=== PATIENT | male | born 1955 | race Caucasian/White ===

== ENCOUNTER 2017-08-03 13:23 | Inpatient (IN) | payer MEDICARE, MEDICAID ==
[2017-08-03] MEDS ORDERED: Aspirin 81 mg CHEW TAB* 81 MG TAB.CHEW PO ONE (13:49)
[2017-08-03] MEDS ORDERED: Metoprolol Tartrate TAB* 25 MG PO ONE (13:52)
[2017-08-03 14:15] LABS: ABS Basophils 0 10^3/ul (0-0.2); ABS Eosinophils 0.2 10^3/ul (0-0.6); ABS Lymphocytes 1.8 10^3/ul (1.0-4.8); ABS Monocytes 0.7 10^3/ul (0-0.8); ABS Neutrophils 4.4 10^3/ul (1.5-7.7); ABS Nucleated RBC 0 10^3/ul; Eosinophil % 2.7 % (0-6); Hematocrit 40 % (42-52); Hemoglobin 13.3 g/dl (14.0-18.0); Lymphocyte % 25.1 % (25-47); Mean Corpuscular HGB Conc 34 g/dl (31-36); Mean Corpuscular Hemoglobin 31 pg (27-31); Mean Corpuscular Volume 93 fL (80-94); Mean Platelet Volume 7.5 um3 (7.4-10.4); Nucleated Red Blood Cells % 0.1; Platelet Count 307 10^3/ul (150-450); Red Blood Count 4.26 10^6/ul (4.00-5.40); Red Cell Distribution Width 15 % (10.5-15); White Blood Count 7.2 10^3/ul (3.5-10.8)
[2017-08-03 14:34] LABS: INR 1.02 (0.77-1.02)
--- NOTE | 2017-08-03 14:35 | RAD ---
INDICATION: Chest pain COMPARISON: April 04, 2014 TECHNIQUE: An AP portable view obtained at 1420 hours is submitted. FINDINGS: Bones/Soft Tissues: There are no acute bony findings. There is sternotomy Cardiomediastinal: The cardiomediastinal silhouette is normal. Lungs: There is minimal right basilar scarring. The lung rincon are otherwise clear. Pleura: There is blunting of the right costophrenic angle which could represent a small amount of pleural fluid or be related to chronic change Other: None IMPRESSION: POSTOPERATIVE CHANGE. NO ACTIVE DISEASE OF THE CHEST
[2017-08-03 14:45] LABS: EGFR Non-African American 59.1 (>60)
[2017-08-03] MEDS ORDERED: Heparin VIAL(*) 5000 UNITS/ML VIAL (FIVE THOUSAND) IV PRN (14:53)
[2017-08-03] MEDS ORDERED: Heparin DRIP 25,000 UNITS(*) 25,000 UNITS/500 ML BAG ONE (14:59)
[2017-08-03] MEDS ORDERED: Heparin DRIP 25,000 UNITS(*) 25,000 UNITS/500 ML BAG IV SCH (15:00)
--- NOTE | 2017-08-03 15:52 | ED ---
Marychuy Cade Tenzin, scribed for Pedro Hernandez on 08/03/17 at 1347 . HPI Chest Pain - HPI Summary HPI Summary: Pt is a 61 years old male BIBA with complaints of intermittent chest pain for the past two weeks but reports that he experienced a strong onset of chest pain this morning. Pt was with his family changing tires during the onset. Pt is also complaining of nausea and SOB upon walking. He notes that he is an ex smoker. Pt reported that he took 2x ASA today. Pt was given Nitro and 2 more ASA in the EMS. Pt reported that the chest pain and nausea resolved after having the Nitro in the ED today. Pt had his stress test done last year. - History of Current Complaint Chief Complaint: EDChestPainROMI Time Seen by Provider: 08/03/17 13:33 Hx Obtained From: Patient Timing: Intermittent Pain Intensity: 0 Chest Pain Location: Discrete at: - chest. Chest Pain Radiates: No Aggravating Factor(s): Nothing Alleviating Factor(s): Nothing Associated Signs and Symptoms: Positive: Shortness of Breath, Nausea - Allergy/Home Medications Allergies/Adverse Reactions: Allergies Allergy/AdvReac Type Severity Reaction Status Date / Time piperacillin [From Zosyn] Allergy Hives Verified 08/03/17 13:35 tazobactam [From Zosyn] Allergy Hives Verified 08/03/17 13:35 Home Medications: Home Medications Aspirin EC TAB* [Ecotrin EC Low Dose 81 MG*] 81 mg PO DAILY 08/03/17 [History Confirmed 08/03/17] Carvedilol TAB* [Coreg TAB*] 3.125 mg PO BID 08/03/17 [History Confirmed ] Insulin GLARGINE(*) [Lantus(*)] 15 units SUBCUT QPM 08/03/17 [History Confirmed 08/03/17] Magnesium Oxide [Magnesium] 500 mg PO DAILY 08/03/17 [History Confirmed 08/03/17 ] Sertraline* [Zoloft*] 100 mg PO DAILY 08/03/17 [History Confirmed 08/03/17] glipiZIDE TAB* [Glucotrol TAB*] 5 mg PO BID 08/03/17 [History Confirmed 08/03/17 ] metFORMIN* [Glucophage 1000 MG TAB *] 1,000 mg PO BID 08/03/17 [History Confirmed 08/03/17] PMH/Surg Hx/FS Hx/Imm Hx Cardiovascular History: Reports: Hx Hypertension, Other Cardiovascular Problems/ Disorders - DMII Respiratory History: Reports: Hx Chronic Obstructive Pulmonary Disease (COPD) GI History: Reports: Other GI Disorders - gasteroperesis History: Denies: Hx Chronic Renal Failure Musculoskeletal History: Reports: Other Musculoskeletal History - osteomylitis of left leg and foot Sensory History: Reports: Hx Contacts or Glasses Opthamlomology History: Reports: Hx Contacts or Glasses Infectious Disease History: No Infectious Disease History: Denies: Traveled Outside the [place] in Last 30 Days - Family History Known Family History: Positive: Other - Pt denies any relevant family history. 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 Positive: Nausea All Other Systems Reviewed And Are Negative: Yes Physical Exam - Summary Physical Exam Summary: Appearance: Well appearing, no pain distress Skin: warm, dry, reflects adequate perfusion Head/face: normal Eyes: EOMI, DANNY ENT: normal Neck: supple, non-tender Respiratory: CTA, breath sounds present Cardiovascular: RRR, pulses symmetrical Abdomen: non-tender, soft Bowel: present Musculoskeletal: normal, strength/ROM intact Neuro: normal, sensory motor intact, A&Ox3 Triage Information Reviewed: Yes Vital Signs On Initial Exam: Initial Vitals Temp Pulse Resp BP Pulse Ox 97.7 F 83 20 140/73 100 08/03/17 13:31 08/03/17 13:31 08/03/17 13:31 08/03/17 13:31 08/03/17 13:31 Vital Signs Reviewed: Yes Diagnostics - Vital Signs Vital Signs Temp Pulse Resp BP Pulse Ox 08/03/17 13:31 97.7 F 83 20 140/73 100 - Laboratory Lab Results: Lab Results 08/03/17 08/03/17 08/03/17 Range/Units 14:05 14:05 14:05 WBC 7.2 (3.5-10.8) 10^3/ul RBC 4.26 (4.00-5.40) 10^6/ul Hgb 13.3 L (14.0-18.0) g/dl Hct 40 L (42-52) % MCV 93 (80-94) fL MCH 31 (27-31) pg MCHC 34 (31-36) g/dl RDW 15 (10.5-15) % Plt Count 307 (150-450) 10^3/ul MPV 7.5 (7.4-10.4) um3 Neut % (Auto) 61.8 (38-83) % Lymph % (Auto) 25.1 (25-47) % Bladen % (Auto) 10.0 H (0-7) % Eos % (Auto) 2.7 (0-6) % Baso % (Auto) 0.4 (0-2) % Absolute Neuts (auto) 4.4 (1.5-7.7) 10^3/ul Absolute Lymphs (auto) 1.8 (1.0-4.8) 10^3/ul Absolute Monos (auto) 0.7 (0-0.8) 10^3/ul Absolute Eos (auto) 0.2 (0-0.6) 10^3/ul Absolute Basos (auto) 0 (0-0.2) 10^3/ul Absolute Nucleated RBC 0 10^3/ul Nucleated RBC % 0.1 INR (Anticoag Therapy) 1.02 (0.77-1.02) APTT 31.4 (26.0-36.3) seconds Sodium 137 (135-145) mmol/L Potassium 4.7 (3.5-5.0) mmol/L Chloride 104 (101-111) mmol/L Carbon Dioxide 25 (22-32) mmol/L Anion Gap 8 (2-11) mmol/L BUN 25 H (6-24) mg/dL Creatinine 1.25 H (0.67-1.17) mg/dL Est GFR ( Amer) 71.5 (>60) Est GFR (Non-Af Amer) 59.1 (>60) BUN/Creatinine Ratio 20.0 (8-20) Glucose 92 (70-100) mg/dL Calcium 9.1 (8.6-10.3) mg/dL Magnesium 1.6 L (1.9-2.7) mg/dL Total Bilirubin 0.70 (0.2-1.0) mg/dL AST 29 (13-39) U/L ALT 38 (7-52) U/L Alkaline Phosphatase 85 (34-104) U/L Troponin I 0.11 H* (<0.04) ng/mL B-Natriuretic Peptide ( - 100) pg/mL Total Protein 6.9 (6.4-8.9) g/dL Albumin 3.9 (3.2-5.2) g/dL Globulin 3.0 (2-4) g/dL Albumin/Globulin Ratio 1.3 (1-3) 06/25/18 Range/Units 14:05 WBC (3.5-10.8) 10^3/ul RBC (4.00-5.40) 10^6/ul Hgb (14.0-18.0) g/dl Hct (42-52) % MCV (80-94) fL MCH (27-31) pg MCHC (31-36) g/dl RDW (10.5-15) % Plt Count (150-450) 10^3/ul MPV (7.4-10.4) um3 Neut % (Auto) (38-83) % Lymph % (Auto) (25-47) % Bladen % (Auto) (0-7) % Eos % (Auto) (0-6) % Baso % (Auto) (0-2) % Absolute Neuts (auto) (1.5-7.7) 10^3/ul Absolute Lymphs (auto) (1.0-4.8) 10^3/ul Absolute Monos (auto) (0-0.8) 10^3/ul Absolute Eos (auto) (0-0.6) 10^3/ul Absolute Basos (auto) (0-0.2) 10^3/ul Absolute Nucleated RBC 10^3/ul Nucleated RBC % INR (Anticoag Therapy) (0.77-1.02) APTT (26.0-36.3) seconds Sodium (135-145) mmol/L Potassium (3.5-5.0) mmol/L Chloride (101-111) mmol/L Carbon Dioxide (22-32) mmol/L Anion Gap (2-11) mmol/L BUN (6-24) mg/dL Creatinine (0.67-1.17) mg/dL Est GFR ( Amer) (>60) Est GFR (Non-Af Amer) (>60) BUN/Creatinine Ratio (8-20) Glucose (70-100) mg/dL Calcium (8.6-10.3) mg/dL Magnesium (1.9-2.7) mg/dL Total Bilirubin (0.2-1.0) mg/dL AST (13-39) U/L ALT (7-52) U/L Alkaline Phosphatase (34-104) U/L Troponin I (<0.04) ng/mL B-Natriuretic Peptide 202 H ( - 100) pg/mL Total Protein (6.4-8.9) g/dL Albumin (3.2-5.2) g/dL Globulin (2-4) g/dL Albumin/Globulin Ratio (1-3) Result Diagrams: 08/03/17 14:05 08/03/17 14:05 Lab Statement: Any lab studies that have been ordered have been reviewed, and results considered in the medical decision making process. - Radiology CHEST X RAY Radiology Interpretation Completed By: Radiologist - IMPRESSION: POSTOPERATIVE CHANGE. NO ACTIVE DISEASE OF THE CHEST - EKG 13:32 Cardiac Rate: NL - at 78 BPM EKG Interpretation: RBBB Chest Pain Course/Dx - Course Course Of Treatment: Pt is a 61 years old male BIBA with complaints of intermittent chest pain for the past two weeks but reports that he experienced a strong onset of chest pain this morning. Pt was given 2X ASA and Nitro by EMS staff and pt reported that the chest pain and nauseousness is gone at the ED currently. EKG and CHEST X RAY is obtained. Bloodwork is obtained which showed troponin positive for non stemi. Consulted with Psychotherapist Dr. Smith and Hospitalist. [place] [facility] [place] - Diagnoses Provider Diagnoses: Non-STEMI (non-ST elevated myocardial infarction) - Provider Notifications Discussed Care Of Patient With: Samson Smith Time Discussed With Above Provider: 14:30 - consulted with Dr. Smith. Instructed by Provider To: Will See In ED - Critical Care Time Critical Care Time: 30-74 min Discharge - Sign-Out/Discharge Documenting (check all that apply): Discharge/Admit/Transfer - Admit - Discharge Plan Condition: Stable Disposition: ADMITTED TO [facility] Referrals: Sopchak,Pantera, DO [Primary Care Provider] - - Billing Disposition and Condition Condition: STABLE Disposition: Admitted to [facility] The documentation as recorded by the Marychuy guy Tenzin accurately reflects the service I personally performed and the decisions made by , Pedro Hernandez.
[2017-08-03] MEDS ORDERED: Dextrose 50% Syringe 50 ML* 25 GM/50 ML SYRINGE IV PUSH PRN (16:11)
[2017-08-03] MEDS ORDERED: Acetaminophen TAB* 325 MG PO PRN (16:12)
[2017-08-03] MEDS ORDERED: NS 0.9% 1000 ML* 1,000 ML IV SCH (16:15)
[2017-08-03] MEDS ORDERED: nitroGLYCERIN DRIP* 25,000 MCG/250 ML BTL IV SCH (17:00)
[2017-08-03] MEDS: Insulin LISPRO* 1 UNITS UNIT SUBCUT SCH (18:46)
[2017-08-03] MEDS: Insulin GLARGINE(*) 1 UNITS UNIT SUBCUT SCH (18:55)
[2017-08-03] MEDS: Carvedilol TAB* 3.125 MG PO SCH (21:37)
--- NOTE | 2017-08-03 22:20 | HP ---
CC: Dr. Shipley; Dr. Santana * ADMISSION HISTORY AND PHYSICAL: DATE OF ADMISSION: 08/03/17 PRIMARY CARE PROVIDER: Dr. Shipley. TOMBSTONE ERECTOR: Dr. Santana. HEALTHCARE PROXY: His significant other, present in the room. CODE STATUS: Full. CHIEF COMPLAINT: Chest pain. HISTORY OF PRESENT ILLNESS: This is a 61-year-old with past medical history of 5- vessel CABG in 2008, as well as hypertension, type 2 diabetes, hyperlipidemia , who has been in his usual state of health until approximately 2 weeks prior started noticing chest pain that occurred either in the day or woke him at night lasting several hours. It occurred approximately 2 to 3 times per day predominantly with numbness in his left hand and arm. He described it as a fullness in his chest wall by a rolling ache. Today, he was at [employer] and walking around the store and felt a stronger onset of his chest pain associated with lightheadedness and nausea, but no diaphoresis or palpitations or shortness of breath. Because the pain was more significant than he has been experiencing over the 2 weeks, he activated EMS. On EMS' arrival, he received nitroglycerin sublingual with pain relief. He suspects the pain lasted approximately 1 hour before resolution. He has not noted that the pain is generally worse with exertion over the last several weeks. He has had no syncope, palpitations, lower extremity edema, loss of consciousness. Notes that he stopped his amlodipine several months prior and that recently he had the remainder of his teeth removed. PAST MEDICAL HISTORY: CAD, status post 5-vessel CABG in 2008; type 2 diabetes, on insulin; hypertension; COPD; PTSD; hyperlipidemia; peripheral neuropathy with associated autonomic insufficiency. PAST SURGICAL HISTORY: He has left foot toes amputated, 2nd toe on right foot amputation, remainder of his teeth extracted 1 month prior, 3 surgeries on his right knee. MEDICATIONS: Home medications include: 1. Metformin 1000 mg twice daily. 2. Aspirin 81 mg daily. 3. Sertraline 100 mg daily. 4. Atorvastatin 80 mg daily. 5. Magnesium oxide 500 mg daily. 6. Lantus 15 units in the evening. 7. Glipizide 5 mg twice daily. 8. Carvedilol 3.125 mg daily. He is not on an ODILON inhibitor secondary to history of hyperkalemia. ALLERGIES: To PENICILLIN and ZOSYN. FAMILY HISTORY: Mother with type 2 diabetes, CAD, and CVA. Father with CVA. SOCIAL HISTORY: A 46-pack year history of smoking, quit 2 years prior, still vapes. No alcohol. 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 REVIEW OF SYSTEMS: As per HPI. Otherwise, all other systems negative. PHYSICAL EXAMINATION GENERAL: Sitting up in bed, interactive, pleasant, in no apparent distress. VITAL SIGNS: In the emergency room, systolic blood pressure 136/85, heart rate 79, respiratory rate is 17, 96% on room air, T-max 97.9. HEENT: He is edentulous. His oropharynx is clear. He has moist mucous membranes. His sclerae are anicteric. NECK: He has non-elevated JVD. He has no cervical or supraclavicular lymphadenopathy. LUNGS: Clear bilaterally. HEART: He has a regular rate and rhythm without murmurs, rubs, or gallops. ABDOMEN: Soft, nontender, nondistended. EXTREMITIES: Warm and well perfused. His toes are surgically absent on his left foot and 1 toe is surgically absent on his right foot. He has no clubbing , cyanosis, or edema. He has a chronic ulcer on the plantar surface of his left foot. NEUROLOGIC: He is alert and oriented x3. His cranial nerves II through XII are intact. DIAGNOSTIC STUDIES/LAB DATA: Labs were reviewed, notable for troponin I of 0.11, BNP 202. Creatinine is 1.25, BUN 25. Hemoglobin 13.3. EKG notable for right bundle branch block, left anterior fascicular block, left axis, submillimeter ST depression in V2 alone, T-wave flattening in V5, V6, no Q - waves. Chest x-ray significant for postoperative changes, no active disease of the chest. ASSESSMENT AND PLAN: This is a 61-year-old man with past medical history of coronary artery disease, status post coronary artery bypass grafting in 2008, as well as multiple comorbidities including diabetes, hypertension, chronic obstructive pulmonary disease and history of extensive tobacco abuse, now presenting with new-onset chest pain over the last 2 weeks with worsening of his pain today and is found with elevated troponin I in the emergency room. 1. Non-ST elevation myocardial infarction. Continue to trend troponins. If increased, repeat EKG. Cardiology consulted. Discussed with Dr. Smith, who directed me towards Dr. Anderson. We will start the patient on low-dose nitroglycerin drip at Dr. Anderson's discretion. The patient is already receiving heparin with serial PTTs. He received aspirin in the emergency room. We will continue low-dose aspirin tomorrow as well as check fasting lipids as well as hemoglobin A1c. Continue carvedilol. Holding ODILON inhibitor as indicated above secondary to previous intolerance secondary to hyperkalemia. Continue with statin. N.p.o. for potential catheterization tomorrow depending on trend of troponins as well as feasibility of access. 2. Acute kidney injury. 75 cc NS overnight per hour. 3. Type 2 diabetes. Lantus decreased from 15 to 7 while fasting. Continue insulin sliding scale q.6 hours as the patient is n.p.o. 4. Chronic obstructive pulmonary disease, on no home medications. 5. Hypertension. Continue carvedilol. 6. DVT prophylaxis: On heparin drip. [id number]/[facility] #: [id number] VICTOR HUGO
[2017-08-04] MEDS: Insulin LISPRO* 1 UNITS UNIT SUBCUT SCH ×4 (00:28→21:38)
[2017-08-04 06:14] LABS: ABS Basophils 0 10^3/ul (0-0.2); ABS Eosinophils 0.2 10^3/ul (0-0.6); ABS Lymphocytes 1.6 10^3/ul (1.0-4.8); ABS Monocytes 0.7 10^3/ul (0-0.8); ABS Neutrophils 3.8 10^3/ul (1.5-7.7); ABS Nucleated RBC 0 10^3/ul; Eosinophil % 3.3 % (0-6); Hematocrit 38 % (42-52); Hemoglobin 13.1 g/dl (14.0-18.0); Lymphocyte % 25.5 % (25-47); Mean Corpuscular HGB Conc 34 g/dl (31-36); Mean Corpuscular Hemoglobin 31 pg (27-31); Mean Corpuscular Volume 92 fL (80-94); Mean Platelet Volume 7.5 um3 (7.4-10.4); Nucleated Red Blood Cells % 0.1; Platelet Count 262 10^3/ul (150-450); Red Blood Count 4.17 10^6/ul (4.00-5.40); Red Cell Distribution Width 15 % (10.5-15); White Blood Count 6.4 10^3/ul (3.5-10.8)
[2017-08-04 06:36] LABS: EGFR Non-African American 77.4 (>60)
[2017-08-04] MEDS: Atorvastatin* 80 MG TAB PO SCH (08:35)
[2017-08-04] MEDS: Carvedilol TAB* 3.125 MG PO SCH ×2 (08:35→20:52)
[2017-08-04] MEDS: Sertraline* 100 MG TAB PO SCH (08:35)
[2017-08-04] MEDS: Aspirin EC TAB* 81 MG TAB.EC PO SCH (08:35)
[2017-08-04] MEDS ORDERED: NS 0.9% 1000 ML* 1,000 ML IV SCH (11:00)
[2017-08-04] MEDS ORDERED: Heparin(*) 1000 UNIT/ML 10 ML VIAL CATH LAB IV ONE ×3 (11:37→13:08)
[2017-08-04] MEDS ORDERED: nitroGLYCERIN DRIP* 0 MCG/0 ML BTL ONE (11:37)
[2017-08-04] MEDS ORDERED: VERAPAMIL 2.5 MG/ML 2 ML VIAL ** 5 mg/2 ml ONE (11:37)
[2017-08-04] MEDS ORDERED: Heparin 2 UNITS/ML IVPREMIX* 3,000 ML IV ONE (11:38)
[2017-08-04] MEDS ORDERED: Lidocaine 1% INJ* 10 MG/ML 30 ML SDV ONE (11:38)
[2017-08-04] MEDS ORDERED: Iohexol 350 (CONTRAST) 200 ML MDV IV ONE (11:39)
[2017-08-04] MEDS ORDERED: niCARdipine 0.1MG/ML IVPREMIX* 20 MG/200 ML BAG ONE (12:10)
[2017-08-04] MEDS ORDERED: Iohexol 300 (CONTRAST) 10 ML SDV ONE (12:13)
[2017-08-04] MEDS ORDERED: fentaNYL* 50 MCG/ML 2 ML VIAL (100 MCG VIAL) ONE ×2 (12:19→12:27)
[2017-08-04] MEDS ORDERED: Midazolam* 1 MG/ML 10 ML VIAL (10 MG) ONE (12:19)
[2017-08-04] MEDS ORDERED: Ticagrelor* 90 MG TAB PO ONE (12:45)
[2017-08-04] MEDS ORDERED: nitroGLYCERIN DRIP* 25,000 MCG/250 ML BTL ONE (12:49)
[2017-08-04] MEDS ORDERED: Nitroglycerin TAB 0.4 MG* 0.4 MG TAB SL PRN (13:32)
[2017-08-04] MEDS ORDERED: NS 0.9% 1000 ML* 400 ML IV ONE (13:32)
[2017-08-04] MEDS ORDERED: nitroGLYCERIN DRIP* 25,000 MCG/250 ML BTL IV SCH (14:00)
[2017-08-04] MEDS ORDERED: amLODIPine TAB* 5 MG PO ONE ×2 (15:15→16:29)
--- NOTE | 2017-08-04 15:39 | CONS ---
CC: Dr. Shipley; Jaime Vigil DO INTERVENTIONAL CARDIOLOGY CONSULT NOTE: DATE OF CONSULT: 08/04/17 PRIMARY CARE PHYSICIAN: Dr. Shipley. ENT SURGEON: Jaime Vigil DO HISTORY OF PRESENT ILLNESS: A 61-year-old male with diabetes, PAD and previous bypass grafting admit rico with ACS/non-ST elevation infarct. Interventional Cardiology was consulted. He had a non-ST elevation infarct in 2008, had 3-vessel disease and underwent CABG x5 in [place] wit h OLIVEROS to the LAD, a saphenous vein graft to the RCA and a sequential saphenous vein graft to OM1, OM 2, and OM3. Pre-op cath was via the groin, per history was uncomplicated. For the past month or so, he has noticed more exertional dyspnea and fatigue and has had recurring episodes of precordial ches t discomfort which were fairly mild and brief, unrelated to activity, often occurred at rest, and res olved spontaneously. Yesterday morning, he had a half- hour episode again at rest, and then later ye sterday while at [employer], he had a 1- 1/2 to 2 hour episode, which was much more severe. He describ es it a central deep aching chest discomfort accompanied by nausea and weakness, and tingling in his left arm. It was very similar to his infarct symptoms of 2008 except he did not have jaw radiation. His symptoms resolved with nitroglycerin from paramedics. Subsequently, he has been treated medicall y, has not had recurrence of pain. He denies PND or orthopnea, has a history of autonomic insufficiency and remote syncope. He has inco mplete trifascicular block, but no syncope. He has had CLI with a left transmetatarsal amputation, last ABIs here were 2014 with a right 0.99, le ft 0.67. He currently has a left foot wound on the lateral side of the sole being followed by his po diatrist. PAST MEDICAL HISTORY: Hypertension, hyperlipidemia, diabetes type 2 with severe neuropathy, PAD, sta tus post right toe amputation and left transmetatarsal amputation. Autonomic insufficiency. Per the record, he developed hyperkalemia from an ODLION inhibitor. HOME MEDICATIONS: 1. Glucophage 1 g b.i.d. 2. Aspirin 81 daily. 3. Zoloft 100 daily 4. Lipitor 80 daily. 5. Magnesium. 6. Lantus 15 units q.p.m. 7. Glipizide 5 mg b.i.d. 8. Carvedilol 3.125 b.i.d. SOCIAL HISTORY: He is . He is a former smoker, still vapes. REVIEW OF SYSTEMS: General: He ambulates at home without aid, but has difficulty with balance. Whe n he goes out, he uses a wheelchair. 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 GI: He denies any history of peptic ulcer disease or bleeding. Heme: No history of malig jose luis or anemia. Circulatory: See HPI. Pulmonary: He has the diagnosis of COPD with heavy smoking history. Endocrine: Positive for diabetes. Remainder all negative. PHYSICAL EXAM: He is moderately overweight, pain free. His BP 144/98, pulse is in the 80s, heart ra te in the 60s. His lungs are clear to percussion and auscultation. Neck: JVP is normal. Carotids are palpable without bruits. HEENT: Without xanthelasma, scleral injection or jaundice. EOMs are no rmal. Cranial nerves grossly intact. Sternum is stable. I cannot feel the apical impulse or RV. He art sounds are distant, normal S1 and S2. I do not hear any gallop, murmur, or rub. Abdomen: Soft, nontender. No bruits. I cannot feel the aorta. Radial pulses are palpable. Femorals are diminish ed, but palpable without bruits. Pedal pulses are absent. His left foot is dressed with a bandage. He has no edema, has skin atrophy. DIAGNOSTIC STUDIES/LAB DATA: EKG shows progression of his incomplete trifascicular block, now with P R of 0.287 with preexisting right bundle branch block and left anterior hemiblock. Chest x-ray shows postop changes, no acute infiltrate by my review. BNP is elevated at 202, cholesterol 104, triglyce rides 118, LDL 44, HDL 36.1. Troponin 0.11, 0.08. 0.1, 0.1. Hemoglobin A1c 7.1. Initial creatinine was 1.25, down to 0.99. CBC is unremarkable. IMPRESSION: 1. Non-ST elevation infarct. He has a history of unstable angina for the past month, prior bypass, presented with prolonged ischemic pain with a slight troponin elevation, his BASHIR score is 5. We dis cussed catheterization, possible culprit revascularization, we reviewed the procedure, risks. He has palpable femoral pulses, although somewhat diminished, 3 years ago right MIKE was normal. 2. Peripheral arterial disease. By history, his left foot wounds are healing under the care of his diagnostic technologist. He does not have rest pain. 3. Hyperlipidemia, at target. 4. Diabetes type 2 with severe peripheral neuropathy. 5. History of autonomic insufficiency. 6. Incomplete trifascicular block with ID prolongation, so far without syncope. This may limit use o f negative dromotropic agents. He had an event monitor in March 2016, which showed no significant pauses or significant arrhythmias. He had one 11-beat episode of supraventricular tachycardia. chemical nuclear imaging was negative with EF of 54%, echo 02/01/16 EF 55%. [id number]/[facility] #: [id number]
[2017-08-04] MEDS ORDERED: amLODIPine TAB* 5 MG ONE (16:52)
[2017-08-04] MEDS: Insulin GLARGINE(*) 1 UNITS UNIT SUBCUT SCH (18:00)
--- NOTE | 2017-08-04 18:17 | PN ---
Subjective Date of Service: 08/04/17 Interval History: Seen this Am. No addition CP overnight Taken to cath today found with SVG stenosis and now s/p intervention Objective Active Medications: Acetaminophen (Tylenol Tab*) 650 mg PO Q4H PRN PRN Reason: FEVER/PAIN Aspirin (Aspirin Ec Tab*) 81 mg PO DAILY [facility] Last Admin: 08/04/17 08:35 Dose: 81 mg Atorvastatin Calcium (Lipitor*) 80 mg PO DAILY [facility] Last Admin: 08/04/17 08:35 Dose: 80 mg Carvedilol (Coreg Tab*) 3.125 mg PO BID [facility] Last Admin: 08/04/17 08:35 Dose: 3.125 mg Dextrose (D50w Syringe 50 Ml*) 12.5 gm IV PUSH .FOR FS < 60 - SS PRN PRN Reason: FS < 60 Heparin Sodium (Porcine) (Heparin Vial(*)) 0 units IV .BOLUS PRN PRN Reason: PER HEPARIN DRIP PROTOCOL Last Admin: 08/03/17 15:05 Dose: 4,000 units Nitroglycerin/Dextrose (Nitroglycerin Drip*) 25,000 mcg in 250 mls @ 6 mls/hr IV .(INITIAL RATE) [facility]; Protocol Stop: 08/04/17 20:00 Insulin Glargine (Lantus(*)) 7 units SUBCUT QPM [facility] Last Admin: 08/04/17 18:00 Dose: 7 unit Insulin Human Lispro (Humalog*) 0 units SUBCUT ACHS [facility]; Protocol Nitroglycerin (Nitroglycerin Tab 0.4 Mg*) 0.4 mg SL Q5M PRN PRN Reason: ANGINA Sertraline HCl (Zoloft*) 100 mg PO DAILY [facility] Last Admin: 08/04/17 08:35 Dose: 100 mg Ticagrelor (Brilinta*) 90 mg PO BID [facility] Vital Signs - 8 hr 08/04/17 08/04/17 08/04/17 10:15 10:30 10:45 Temperature Pulse Rate 85 87 83 Respiratory 22 19 13 Rate Blood Pressure 144/98 145/85 166/96 (mmHg) O2 Sat by Pulse 98 96 97 Oximetry 08/04/17 08/04/17 08/04/17 11:00 11:01 11:15 Temperature Pulse Rate 84 85 82 Respiratory 12 13 10 Rate Blood Pressure 189/105 168/108 (mmHg) O2 Sat by Pulse 96 94 97 Oximetry 08/04/17 08/04/17 08/04/17 11:30 13:51 13:55 Temperature Pulse Rate 83 88 84 Respiratory 12 12 23 Rate Blood Pressure 179/98 142/100 (mmHg) O2 Sat by Pulse 97 93 95 Oximetry 08/04/17 08/04/17 08/04/17 14:00 14:15 14:17 Temperature 97.1 F Pulse Rate 81 79 Respiratory 14 9 Rate Blood Pressure 146/99 145/92 (mmHg) O2 Sat by Pulse 93 94 Oximetry 08/04/17 08/04/17 08/04/17 14:30 14:45 15:00 Temperature Pulse Rate 81 84 86 Respiratory 11 11 17 Rate Blood Pressure 159/94 176/111 (mmHg) O2 Sat by Pulse 90 93 92 Oximetry 08/04/17 08/04/17 08/04/17 15:01 15:15 15:17 Temperature 97.3 F Pulse Rate 82 77 Respiratory 21 6 Rate Blood Pressure 135/102 141/96 (mmHg) O2 Sat by Pulse 98 96 Oximetry 08/04/17 08/04/17 08/04/17 15:30 15:45 16:00 Temperature Pulse Rate 78 78 81 Respiratory 6 7 9 Rate Blood Pressure 169/95 165/105 159/97 (mmHg) O2 Sat by Pulse 96 95 98 Oximetry 08/04/17 08/04/17 08/04/17 16:15 16:26 16:29 Temperature 97.0 F Pulse Rate 87 82 Respiratory 18 14 Rate Blood Pressure 177/118 179/104 (mmHg) O2 Sat by Pulse 98 98 Oximetry 08/04/17 08/04/17 08/04/17 16:31 16:32 16:55 Temperature Pulse Rate 87 84 86 Respiratory 19 16 18 Rate Blood Pressure 181/168 166/106 161/98 (mmHg) O2 Sat by Pulse 73 97 97 Oximetry 08/04/17 08/04/17 08/04/17 17:00 17:01 17:15 Temperature Pulse Rate 85 85 85 Respiratory 11 16 10 Rate Blood Pressure 148/91 159/97 (mmHg) O2 Sat by Pulse 95 96 97 Oximetry 08/04/17 08/04/17 17:45 18:00 Temperature Pulse Rate 89 98 Respiratory 15 18 Rate Blood Pressure 156/104 (mmHg) O2 Sat by Pulse 97 99 Oximetry Oxygen Devices in Use Now: None Appearance: NAD Eyes: No Scleral Icterus, PERRLA Ears/Nose/Mouth/Throat: Clear Oropharnyx, Mucous Membranes Moist Neck: NL Appearance and Movements; NL JVP, Trachea Midline Respiratory: Symmetrical Chest Expansion and Respiratory Effort, Clear to Auscultation Cardiovascular: RRR Abdominal: NL Sounds; No Tenderness; No Distention, No Hepatosplenomegaly Lymphatic: No Cervical Adenopathy Extremities: No Edema Neurological: Alert and Oriented x 3 Result Diagrams: 08/04/17 06:05 08/04/17 06:05 Additional Lab and Data: Lab Results 08/03/17 08/03/17 08/03/17 Range/Units 14:05 14:05 14:05 WBC 7.2 (3.5-10.8) 10^3/ul RBC 4.26 (4.00-5.40) 10^6/ul Hgb 13.3 L (14.0-18.0) g/dl Hct 40 L (42-52) % MCV 93 (80-94) fL MCH 31 (27-31) pg MCHC 34 (31-36) g/dl RDW 15 (10.5-15) % Plt Count 307 (150-450) 10^3/ul MPV 7.5 (7.4-10.4) um3 Neut % (Auto) 61.8 (38-83) % Lymph % (Auto) 25.1 (25-47) % Marin % (Auto) 10.0 H (0-7) % Eos % (Auto) 2.7 (0-6) % Baso % (Auto) 0.4 (0-2) % Absolute Neuts (auto) 4.4 (1.5-7.7) 10^3/ul Absolute Lymphs (auto) 1.8 (1.0-4.8) 10^3/ul Absolute Monos (auto) 0.7 (0-0.8) 10^3/ul Absolute Eos (auto) 0.2 (0-0.6) 10^3/ul Absolute Basos (auto) 0 (0-0.2) 10^3/ul Absolute Nucleated RBC 0 10^3/ul Nucleated RBC % 0.1 INR (Anticoag Therapy) 1.02 (0.77-1.02) APTT 31.4 (26.0-36.3) seconds Sodium 137 (135-145) mmol/L Potassium 4.7 (3.5-5.0) mmol/L Chloride 104 (101-111) mmol/L Carbon Dioxide 25 (22-32) mmol/L Anion Gap 8 (2-11) mmol/L BUN 25 H (6-24) mg/dL Creatinine 1.25 H (0.67-1.17) mg/dL Est GFR ( Amer) 71.5 (>60) Est GFR (Non-Af Amer) 59.1 (>60) BUN/Creatinine Ratio 20.0 (8-20) Glucose 92 (70-100) mg/dL Calcium 9.1 (8.6-10.3) mg/dL Magnesium 1.6 L (1.9-2.7) mg/dL Total Bilirubin 0.70 (0.2-1.0) mg/dL AST 29 (13-39) U/L ALT 38 (7-52) U/L Alkaline Phosphatase 85 (34-104) U/L Troponin I 0.11 H* (<0.04) ng/mL B-Natriuretic Peptide ( - 100) pg/mL Total Protein 6.9 (6.4-8.9) g/dL Albumin 3.9 (3.2-5.2) g/dL Globulin 3.0 (2-4) g/dL Albumin/Globulin Ratio 1.3 (1-3) 06/25/18 Range/Units 14:05 WBC (3.5-10.8) 10^3/ul RBC (4.00-5.40) 10^6/ul Hgb (14.0-18.0) g/dl Hct (42-52) % MCV (80-94) fL MCH (27-31) pg MCHC (31-36) g/dl RDW (10.5-15) % Plt Count (150-450) 10^3/ul MPV (7.4-10.4) um3 Neut % (Auto) (38-83) % Lymph % (Auto) (25-47) % Marin % (Auto) (0-7) % Eos % (Auto) (0-6) % Baso % (Auto) (0-2) % Absolute Neuts (auto) (1.5-7.7) 10^3/ul Absolute Lymphs (auto) (1.0-4.8) 10^3/ul Absolute Monos (auto) (0-0.8) 10^3/ul Absolute Eos (auto) (0-0.6) 10^3/ul Absolute Basos (auto) (0-0.2) 10^3/ul Absolute Nucleated RBC 10^3/ul Nucleated RBC % INR (Anticoag Therapy) (0.77-1.02) APTT (26.0-36.3) seconds Sodium (135-145) mmol/L Potassium (3.5-5.0) mmol/L Chloride (101-111) mmol/L Carbon Dioxide (22-32) mmol/L Anion Gap (2-11) mmol/L BUN (6-24) mg/dL Creatinine (0.67-1.17) mg/dL Est GFR ( Amer) (>60) Est GFR (Non-Af Amer) (>60) BUN/Creatinine Ratio (8-20) Glucose (70-100) mg/dL Calcium (8.6-10.3) mg/dL Magnesium (1.9-2.7) mg/dL Total Bilirubin (0.2-1.0) mg/dL AST (13-39) U/L ALT (7-52) U/L Alkaline Phosphatase (34-104) U/L Troponin I (<0.04) ng/mL B-Natriuretic Peptide 202 H ( - 100) pg/mL Total Protein (6.4-8.9) g/dL Albumin (3.2-5.2) g/dL Globulin (2-4) g/dL Albumin/Globulin Ratio (1-3) Microbiology and Other Data: Microbiology 08/03/17 17:45 Nasal Screen MRSA (PCR) - Final Nasal Mrsa Not Detected Assess/Plan/Problems-Billing Assessment: 61 yo M h/o CAD s/p CABG p/w NSTEMI s/p intervention 08/04 - Patient Problems (1) NSTEMI (non-ST elevated myocardial infarction) Comment: s/p PCI 08/04 brilinta ASA coreg lipitor (2) Diabetes Comment: metformin on hold basal bolus insulin lantus 1/2 prior to procedure (3) Hypertension Comment: coreg recfeived 10 norvasc today s.p procedure evaluate for continued need tomorrow
[2017-08-04] MEDS: Lisinopril TAB* 5 MG PO SCH (19:56)
[2017-08-04] MEDS: Ticagrelor* 90 MG TAB PO SCH (20:52)
[2017-08-04] MEDS ORDERED: NICARDIPINE IV SCH (22:00)
[2017-08-05 05:22] LABS: ABS Basophils 0.1 10^3/ul (0-0.2); ABS Eosinophils 0.2 10^3/ul (0-0.6); ABS Lymphocytes 1.3 10^3/ul (1.0-4.8); ABS Monocytes 0.8 10^3/ul (0-0.8); ABS Neutrophils 4.7 10^3/ul (1.5-7.7); ABS Nucleated RBC 0 10^3/ul; Hematocrit 38 % (42-52); Lymphocyte % 17.7 % (25-47); Mean Corpuscular HGB Conc 35 g/dl (31-36); Mean Corpuscular Hemoglobin 32 pg (27-31); Mean Corpuscular Volume 91 fL (80-94); Mean Platelet Volume 7.8 um3 (7.4-10.4); Nucleated Red Blood Cells % 0; Platelet Count 276 10^3/ul (150-450); Red Blood Count 4.12 10^6/ul (4.00-5.40); Red Cell Distribution Width 14 % (10.5-15); White Blood Count 7.1 10^3/ul (3.5-10.8)
[2017-08-05 05:38] LABS: EGFR Non-African American 79.2 (>60)
[2017-08-05] MEDS: Aspirin EC TAB* 81 MG TAB.EC PO SCH (07:57)
[2017-08-05] MEDS: Ticagrelor* 90 MG TAB PO SCH (07:57)
[2017-08-05] MEDS: Lisinopril TAB* 5 MG PO SCH (07:57)
[2017-08-05] MEDS: Atorvastatin* 80 MG TAB PO SCH (07:57)
[2017-08-05] MEDS: Sertraline* 100 MG TAB PO SCH (07:57)
[2017-08-05] MEDS: Carvedilol TAB* 3.125 MG PO SCH (07:57)
[2017-08-05] MEDS: Insulin LISPRO* 1 UNITS UNIT SUBCUT SCH ×2 (08:06→12:26)
[2017-08-05] MEDS ORDERED: Carvedilol TAB* 3.125 MG PO ONE (08:15)
[2017-08-05] MEDS ORDERED: amLODIPine TAB* 5 MG PO SCH (09:00)
[2017-08-05 14:52] VITALS: BP 130/64
--- NOTE | 2017-08-06 02:49 | CATH ---
CC: Dr. Shipley; Dr. Jaime Vigil * STENT REPORT: DATE OF PROCEDURE: 08/04/17 - ROOM #ICU-01 PRIMARY CARE PHYSICIAN: Dr. Shipley. PAPER CONTROL CLERK: Dr. Jaime Vigil, DO PROCEDURE: Right common femoral artery access, bilateral selective coronary cineangiography, OLIVEROS angiography, saphenous vein graft angiography x2, stent placement, saphenous vein graft, circumflex 3.5 x 16 Synergy drug-eluting stent using FilterWire. HISTORY: A 61-year-old male with previous bypass graft in 2008 with a OLIVEROS to LAD, a saphenous vein graft to the RCA, and a sequential vein graft to OM1, OM2 , OM3. He now presents with non-ST elevation infarct with prolonged rest pain, troponin elevation to 0.11. He has incomplete trifascicular block, as well as diabetes, and PAD. PROCEDURE ACCESS: Right common femoral artery sheath 6.5, diagnostic catheter 6F JR, 6F MP, 6F L4. GUIDING CATHETER: Vein graft 6F LCB wire, FilterWire used to deploy a Synergy 3.5 x 16 drug-eluting stent after predilatation. It was deployed at normal pressure, postdilated with a 3.5 x 15 NC balloon, 20 atmospheres 30 seconds. There was a small amount of platelet debris in the filter upon withdrawal. There was no slow flow. Right groin hemostasis was achieved using a MynxGrip device. HEMODYNAMICS: Initial BP 206/110, final BP 135/82. MEDICATIONS: 1. Subcu lidocaine. 2. IV Versed. 3. IV fentanyl. 4. IV nitroglycerin, titrated. 5. Cardene 200 mcg IV. 6. Brilinta 180 mg p.o. loading dose. 7. Heparin 6000 units, 4000 units IV. ANGIOGRAPHY: RFA: Sheath entry is in segment 2, there is a 30% to 40% stenosis. Entries in segment 2. The external iliac has no stenosis. There is calcification at the common femoral. OLIVEROS: The JR is moderate, inserts into the mid LAD without insertion stenosis , fills antegrade to the apex as well as retrograde to an area of competitive flow. The LAD proximal to the OLIVEROS insertion is small and diffusely diseased. There is an isolated small caliber diagonal branch less than 2 cm in diameter. It has ostial 70% stenosis, it is probably too small for intervention. Saphenous Vein Graft: Circumflex. It rises from the left side of the aorta, shortly after the origin and has a 90% stenosis. It then inserts [id number] into two marginals and end-to-side into a third marginal. There are no insertion stenoses, the marginals are graft dependent. RCA: The RCA is small, codominant, with a mid tubular 80% stenosis. There is distal competitive flow from the vein graft. Saphenous vein graft to RCA. It has a downward takeoff, from the right side of the aorta. The graft is fairly small, inserts near the crux, fills the small PDA and two small posterolaterals without insertion stenosis. Left Main: The left main is superior, short, there is no stenosis. LAD: The LAD has 75% stenosis at the origin of a small diagonal as above. The LAD continuation is severely diffusely diseased and a very small caliber communicating in an area of competitive flow from the OLIVEROS. Circumflex: The circumflex supplies a small marginal, the other circumflex branches are occluded. After stent placement, saphenous vein graft, circumflex, there is normal antegrade flow; no residual stenosis, filling of all three distal grafted branches. CONCLUSION: 1. Three-vessel disease with patent OLIVEROS to the LAD; patent vein graft to RCA; patent vein graft to three marginals, but with high grade proximal stenosis. Excellent angiographic result with drug-eluting stent placement. 2. Successful MynxGrip closure right, femoral artery. 3. Labile hypertension. [id number]/[facility] #: [id number] VICTOR HUGO
--- NOTE | 2017-08-06 08:05 | DS ---
CC: Dr. Shipley; Dr. Vigil * DISCHARGE SUMMARY: DATE OF ADMISSION: 08/03/17 DATE OF DISCHARGE: 08/05/17 PRIMARY CARE PROVIDER: Dr. Shipley. PRIMARY DIAGNOSIS: [id number] myocardial infarction with PCI with saphenous vein graft to obtuse marginal. SECONDARY DIAGNOSES: Include: 1. History of coronary artery disease with coronary artery bypass graft. 2. Insulin-dependent type 2 diabetes. 3. Hypertension. 4. Chronic obstructive pulmonary disease. 5. Hyperlipidemia. MEDICATIONS ON DISCHARGE: Include: 1. Metformin 1000 mg twice daily. 2. Aspirin 81 mg daily. 3. Zoloft 100 mg daily. 4. Atorvastatin 80 mg daily. 5. Magnesium oxide 500 mg daily. 6. Lantus 15 units in the evening. 7. Glipizide 5 mg twice daily. 8. Carvedilol 3.125 mg twice daily. 9. Brilinta 90 mg twice daily. 10. Lisinopril 5 mg daily. Please note the addition of Brilinta as well as lisinopril. PERTINENT LABORATORY DATA: Troponin I elevated to peak of 0.11. Total cholesterol 105, LDL 49, HDL 36. Hemoglobin A1c 7.1. PROCEDURES PERFORMED DURING HOSPITAL STAY: PCI with SVG to OM, performed by Dr. Art, right radial access. HISTORY OF PRESENT ILLNESS AND HOSPITAL COURSE: This is a 61-year-old man with past medical history as outlined in the history of present illness on the day of admission including history of CAD with a 5-vessel CABG in 2008 who has been experiencing 2 weeks of intermittent chest discomfort which worsened on the day of admission while ambulating at [facility], presented to the hospital, found with elevated troponin. He was placed in ICU on nitroglycerin drip as well as a heparin drip, taken to cardiac catheterization the following day with intervention as indicated above. He tolerated the procedure well. He was hypertensive after the procedure, received amlodipine as well as initiation of lisinopril. He was briefly on nicardipine overnight, was titrated off with the addition of oral medications. On the day of discharge, he had been chest pain- free since admission. There are no complications during the course of his hospital stay. At followup please; 1. Evaluate for continued blood pressure control. 2. The patient was started on 5 mg of lisinopril. 3. Consider BMP secondary to previous history of hyperkalemia. 4. No other specific labs or vitals that need followup. Reasons to return to the hospital including but not limited to recurrent or worsening symptoms including chest discomfort or pain, shortness of breath, nausea, vomiting, lightheadedness, loss of consciousness, near loss of consciousness, bleeding from any source discussed with the patient, he acknowledged understanding. TIME SPENT: Greater than 60 minutes was spent on discharge of this patient; greater than half was spent [id number] with the patient. [id number]/[facility] #: [id number] VICTOR HUGO
== END 2017-08-05 14:47 | disposition home or self-care (01) | DRG 247 ==
LOC: ED 13:23 → ICU 17:04
PROVIDERS: ADMIT Internal Medicine; ATTEND Internal Medicine
PROC: B2031ZZ Plain Radiography of Multiple Coronary Artery Bypass Grafts using Low Osmolar Contrast (ICD-10-PCS; 2017-08-04)
PROC: B2011ZZ Plain Radiography of Multiple Coronary Arteries using Low Osmolar Contrast (ICD-10-PCS; 2017-08-04)
PROC: 4A023N7 Measurement of Cardiac Sampling and Pressure, Left Heart, Percutaneous Approach (ICD-10-PCS; 2017-08-04)
PROC: 027135Z Dilation of Coronary Artery, Two Arteries with Two Drug-eluting Intraluminal Devices, Percutaneous Approach (ICD-10-PCS; principal; 2017-08-04 11:45)
DX: I21.4 Non-ST elevation (NSTEMI) myocardial infarction (principal); I45.3 Trifascicular block; I25.810 Atherosclerosis of coronary artery bypass graft(s) without angina pectoris; N17.9 Acute kidney failure, unspecified; I10 Essential (primary) hypertension; J44.9 Chronic obstructive pulmonary disease, unspecified; E11.43 Type 2 diabetes mellitus with diabetic autonomic (poly)neuropathy; K31.84 Gastroparesis; E78.5 Hyperlipidemia, unspecified; I25.10 Atherosclerotic heart disease of native coronary artery without angina pectoris; F43.10 Post-traumatic stress disorder, unspecified; E11.51 Type 2 diabetes mellitus with diabetic peripheral angiopathy without gangrene; E11.42 Type 2 diabetes mellitus with diabetic polyneuropathy; Z79.82 Long term (current) use of aspirin; Z88.0 Allergy status to penicillin; Z87.891 Personal history of nicotine dependence; Z88.1 Allergy status to other antibiotic agents; Z86.19 Personal history of other infectious and parasitic diseases; Z95.1 Presence of aortocoronary bypass graft; Z82.3 Family history of stroke; Z83.3 Family history of diabetes mellitus; Z82.49 Family history of ischemic heart disease and other diseases of the circulatory system; I25.2 Old myocardial infarction; Z79.02 Long term (current) use of antithrombotics/antiplatelets; Z79.4 Long term (current) use of insulin; Z89.421 Acquired absence of other right toe(s); Z89.432 Acquired absence of left foot
CPT/HCPCS: 36415; 71045; 80048; 80053; 80061; 83036; 83735; 83880; 84484; 85025; 85610; 85730; 87641; 93005; 93455; 99156; 99157; 99284; A9270-GY; C1725; C1760; C1769; C1876; C1884; C1887; C9604-LC; J1644; J2250; J3010; Q9967

== ENCOUNTER 2017-08-28 14:57 | Inpatient (IN) | payer MEDICARE ==
--- OUTSIDE RECORDS SUMMARY | 2017-08-28 15:33 | XMS REPORT ---
:1955 External Reference #:[id number] Author Organization [facility] Address [address] [place] [address] [place] [address] Phone [phone] Care Team Providers Name Role Phone Pantera Shipley DO Care Team Information Instructional Aide Unavailable Pantera Shipley DO Primary Care Physician Unavailable Payers Type Date Identification Numbers Payment Provider Subscriber Health Maintenance Policy Number: Medicare Blue Ppo Juan R Chopra Organization (O) [id number] PayID: [id number] [address] [address] [place] [address] Medigap Part B Policy Number: [id number] Medicaid Juan R Gela [employer] Name: 1 1 [address] PayID: [id number] [place] [address] Medigap Part B Effective: 11/10/2015 Policy Number: [id number] Medicare Juan R Chopra Expires: 02/09/2016 PayID: [id number] [address] [place] [address] Medigap Part B Effective: 02/09/2015 Policy Number: BS Facets Juan R Chopra [id number] Expires: 02/09/2016 PayID: [id number] [address] [place] [address] Problems Date Description Provider Status Onset: 01/28/2016 Coronary artery bypass graft Jaime Vigil DO [facility] Active Family History Date Family Member(s) Problem(s) Comments General Diabetes General Heart Disease General Hypertension General Stroke General Chronic Obstructive Pulmonary Disease (COPD) General Hypercholesterolemia General Alcoholism : (age 84 Father due to Stroke Years) Mother Diabetes : (age 83 Mother due to Stroke Years) Mother Stroke Social History Type Date Description Comments Lives With Occupation Retired Cigarette Use Former Cigarette Smoker ETOH Use Denies alcohol use Recreational Drug Use Former Drug User Smoking Patient is a former smoker Dec 2015 Smoking Vapor cigarettes uses daily as of 04/20/17 Daily Caffeine Diet Pepsi on average a liter a month Exercise Type/Frequency Does not exercise Allergies, Adverse Reactions, Alerts Date Description Reaction Status Severity Comments 11/21/2015 Penicillins active 11/21/2015 Zosyn active Medications Medication Date Status Form Strength Qnty SIG Indications Ordering Provider Lantus 04/09/ Active Solution 100Unit/ML take 12 Jaime Mckee 2017 units at [facility] night [facility] Aspirin 10/15/ Active Tablets 81mg 1 by mouth Jaime Mckee 2016 every day Vigil [facility] Sertraline HCL 03/12/ Active Tablets 100mg 1 by mouth Unknown 2016 every day Atorvastatin 01/27/ Active Tablets 80mg 90tabs 1 by mouth E78.5 Jaime Mckee Calcium 2015 every day [facility] Carvedilol 01/27/ Active Tablets 3.125mg 180tab 1 by mouth Jaime Mckee 2016 s twice a [facility] Metformin HCL / Active Tablets 1000mg 1 by mouth Unknown 0000 twice a day Magnesium / Active Tablets 500mg take 1 Unknown Oxide 0000 tablet by twice daily Timolol / Active Solution 0.25% 1 drop Unknown Maleate 0000 both eyes twice a day Brimonidine / Active Solution 0.2% 1 gtt both Unknown Tartrate 0000 eyes once daily Glipizide / Active Tablets 5mg 1 tablets Unknown 0000 by mouth twice per day Amlodipine 10/15/ Hx Tablets 2.5mg 90tabs 1 by mouth Jaime Mckee Besylate 2016 - every day [facility] 2017 Aspirin Ec 01/09/ Hx Tablets DR 325mg 100tab 1 by mouth Jaime Mckee 2015 - s every day [facility] 2016 Lisinopril / Hx Tablets 30mg 1 by mouth Unknown 0000 - every day 2015 Carvedilol / Hx Tablets 6.25mg 1 by mouth Unknown 0000 - twice a 2015 Sertraline HCL 00/00/ Hx Tablets 50mg 1 by mouth Unknown 0000 - every day 2016 Erythromycin / Hx Caps DR 250mg 1 capsule Unknown Base 0000 - Part by mouth 2 2016 daily Lantus / Hx 26 units @ Unknown 0000 - hs or as 2016 Humalog /00/ Hx sliding Unknown 0000 - scale 2015 Vitamin B /00/ Hx Tablets 1 by mouth Unknown Complex 0000 - every day 2015 Vitamin B-12 / Hx Tablets 1000mcg 1 by mouth Unknown 0000 - every day 2016 Novolog / Hx Solution 100Unit/ML sliding Unknown Flexpen 0000 - Pen-Inject scale 2016 Amlodipine / Hx Tablets 10mg 1 by mouth Unknown Besylate 0000 - every day 2016 Vitamin B12 / Hx one gummy Unknown 0000 - daily 2017 Medications Administered in Office Medication Date Status Form Strength Qnty SIG Indications Ordering Provider Inj, Administered Injection Ajime Rylee Regadenoson, 016 Vigil, 0.1 MG FACC Technetium TC Administered Injection Jaime S. 99M 016 Vigil, DO Tetrofosmin, FACC Per Unit Dose Up To 40 Millicuries Vital Signs Date Vital Result Comment 04/20/2017 Height 70 inches 5'10" Weight 197.00 lb Heart Rate 92 /min BP Systolic Sitting 108 mmHg Rue reg cuff BP Diastolic Sitting 84 mmHg Rue reg cuff BP Systolic Standing 94 mmHg Rue BP Diastolic Standing 84 mmHg Rue Respiratory Rate 16 /min BMI (Body Mass Index) 28.3 kg/m2 Ejection Fraction 55% 02/01/16 10/15/2016 Height 70 inches 5'10" Weight 190.00 lb Heart Rate 92 /min BP Systolic Sitting 102 mmHg Rue reg cuff BP Diastolic Sitting 84 mmHg Rue reg cuff BP Systolic Standing 96 mmHg Rue BP Diastolic Standing 74 mmHg Rue Respiratory Rate 18 /min BMI (Body Mass Index) 27.3 kg/m2 Ejection Fraction 55% 02/01/16 04/09/2016 Height 70 inches 5'10" Weight 200.00 lb with shoes Heart Rate 82 /min BP Systolic Sitting 140 mmHg Rue lg cuff BP Diastolic Sitting 82 mmHg Rue lg cuff BP Systolic Standing 114 mmHg Rue lg cuff BP Diastolic Standing 70 mmHg Rue lg cuff Respiratory Rate 16 /min BMI (Body Mass Index) 28.7 kg/m2 Ejection Fraction 55% date 02/01/16 ECHO 01/28/2016 Height 68.75 inches 5'8.75" Weight 190.00 lb w/o shoes Heart Rate 80 /min BP Systolic 108 mmHg Rue reg cuff BP Diastolic 80 mmHg Rue reg cuff BP Systolic Sitting 98 mmHg Lue, reg cuff BP Diastolic Sitting 70 mmHg Lue, reg cuff BP Systolic Standing 90 mmHg Lue BP Diastolic Standing 64 mmHg Lue Respiratory Rate 16 /min BMI (Body Mass Index) 28.3 kg/m2 11/21/2015 Height 69.75 inches 5'9.75" Weight 197.00 lb BP Systolic 135 mmHg BP Diastolic 70 mmHg Pain Level 7 BMI (Body Mass Index) 28.5 kg/m2 Results Test Date Test Result H/L Range Note Comp Metabolic Panel 01/01/2016 Sodium 138 mmol/L 133-145 Potassium 5.9 mmol/L High 3.5-5.0 Chloride 109 mmol/L 101-111 Co2 Carbon Dioxide 23 mmol/L 22-32 Anion Gap 6 mmol/L 2-11 Glucose 116 mg/dL High 70-100 Blood Urea Nitrogen 20 mg/dL 6-24 Creatinine 0.78 mg/dL 0.67-1.17 BUN/Creatinine Ratio 25.6 High 8-20 Calcium 10.0 mg/dL 8.6-10.3 Total Protein 6.7 g/dL 6.4-8.9 Albumin 3.9 g/dL 3.2-5.2 Globulin 2.8 g/dL 2-4 Albumin/Globulin Ratio 1.4 1-3 Total Bilirubin 0.40 mg/dL 0.2-1.0 Alkaline Phosphatase 70 U/L 34-104 Alt 19 U/L 7-52 Ast 15 U/L 13-39 Egfr Non- 102.2 >60 Egfr 131.5 >60 1 Laboratory test finding 01/01/2016 Magnesium 1.6 mg/dL Low 1.9-2.7 Amylase 51 U/L 29-103 Lipase 55 U/L 11.0-82.0 TSH (Thyroid Stim Horm) 2.45 mcIU/mL 0.34-5.60 Vitamin B12 383 pg/mL 180-914 2 Vitamin D Total 25(Oh) 36.3 ng/mL 30-50 CBC Auto Diff 01/01/2016 White Blood Count 10.6 10^3/uL 3.5-10.8 Red Blood Count 4.39 10^6/uL 4.0-5.4 Hemoglobin 13.6 g/dL Low 14.0-18.0 Hematocrit 41 % Low 42-52 Mean Corpuscular Volume 93 fL 80-94 Mean Corpuscular Hemoglobin 31 pg 27-31 Mean Corpuscular HGB Conc 33 g/dL 31-36 Red Cell Distribution Width 14 % 10.5-15 Platelet Count 298 10^3/uL 150-450 Mean Platelet Volume 9 um3 7.4-10.4 Abs Neutrophils 7.0 10^3/uL 1.5-7.7 Abs Lymphocytes 2.2 10^3/uL 1.0-4.8 Abs Monocytes 0.8 10^3/uL 0-0.8 Abs Eosinophils 0.4 10^3/uL 0-0.6 Abs Basophils 0.1 10^3/uL 0-0.2 Abs Nucleated RBC 0.01 10^3/uL Granulocyte % 66.5 % 38-83 Lymphocyte % 21.1 % Low 25-47 Monocyte % 7.7 % 1-9 Eosinophil % 3.6 % 0-6 Basophil % 1.1 % 0-2 Nucleated Red Blood Cells % 0 Laboratory test finding 01/01/2016 Erythrocyte Sed Rate 23 mm/Hr High 0- 20 Hemoglobin A1c (Glyco HGB) 6.5 % High Less than 6.0 3 1 Because ethnic data is not always readily available, this report includes an eGFR for both -Americans and non- Americans. The National Kidney Disease Education Program (NKDEP) does not endorse the use of the MDRD equation for patients that are not between the ages of 18 and 70, are , have extremes of body size, muscle mass, or nutritional status, or are non- or non-. According to the National Kidney Foundation, irrespective of diagnosis, the stage of the disease is based on the level of kidney function: Stage Description GFR(mL/min/1.73 m(2)) 1 Kidney damage with normal or decreased GFR 90 2 Kidney damage with mild decrease in GFR 60-89 3 Moderate decrease in GFR 30-59 4 Severe decrease in GFR 15-29 5 Kidney failure <15 (or dialysis) 2 Normal Range 180 to 914 Indeterminate Range 145 to 180 Deficient Range <145 3 Therapeutic target for the treatment of diabetes Mellitus patients is <7% HBA1C, and in selective patients <6.0%.Please refer to [place] Diabetes Association Diabetic care guidelines for further information. Procedures Date CPT Code Description Status 04/20/2017 96264 EKG Tracing & Interpretation Completed 12/03/2016 Colonoscopy Completed 10/15/2016 60556 EKG Tracing & Interpretation Completed 03/13/2016 73829 Mobile Cardiovascular Telemetry Over 24 HR Up To 30 Completed Days 02/07/2016 80605 Stress Test Completed 02/07/2016 53600 Myocardial Perfusion Imaging Tomographic (Spect) Completed Multiple Studies 02/01/2016 87087 ECHO Transthoracic, Real-Time 2D With Doppler And Color Completed Flow 01/28/2016 90791 EKG Tracing & Interpretation Completed 04/04/2014 23495 EKG, Interpretation Only Completed Encounters Type Date Location Provider CPT E/M Dx Office Visit 04/20/2017 [facility] [place] [address] E11.43 2:40p [facility] FACC I25.10 F17.201 I10 E78.5 R55 Office Visit 10/15/2016 2:40p [facility] [place] [address] I25.10 [facility] FACC R55 I10 F17.201 E11.8 Office Visit 04/09/2016 4:00p [facility] [place] [address] I25.10 [facility] FACC R55 E13.43 I25.2 E78.5 I10 F17.201 E11.8 Office Visit 01/28/2016 3:00p [facility] [place] [address] [facility]25.2 [facility] R94.31 R55 I10 I42.9 Z72.0 Office Visit 11/21/2015 2:00p [facility] M.D. 73567 M17.11 C.M.ARian Office Visit 04/04/2014 7:51a Mary Triplett,toshia Bobby, 95902 785.4 Hospitalists [place] v13.59 v49.71 Office Visit 04/04/2014 10:11a [facility] Jace Roblero M.D. 09702 780.2 Hospitalists 414.00 250.00 401.9 Plan of Care Future Appointment(s):08/11/2017 10:00 am - Jaime Vigil DO FACC at [facility]10/14/2017 1:40 pm - Jaime Vigil DO FACC at [facility]04/20/2017 - Jaime Vigil DO FACCE11.43 Type 2 diabetes w diabetic autonomic (poly)neuropathyComments:Stop taking amlodipine (also known as norvasc)Follow up:f/u 6 nalnoxL61.10 Athscl heart disease of [place] coronary artery w/o ang opcrvZ06.201 Nicotine dependence, unspecified, in gtizyeqvqU48 Essential (primary) emrjaqpwhskvY99.5 Hyperlipidemia, tuvscmbuexdC13 Syncope and collapse
--- OUTSIDE RECORDS SUMMARY | 2017-08-28 15:33 | XMS REPORT ---
:1955 External Reference #:[id number] Author Organization [facility] Address [address] [place] [address] [place] [address] Phone [phone] Care Team Providers Name Role Phone Pantera Shipley DO Primary Care Physician Unavailable Payers Type Date Identification Numbers Payment Provider Subscriber Health Maintenance Policy Number: Medicare Blue Ppo Juan R Chopra Organization (HMO) [id number] PayID: [id number] [address] [address] [place] [address] Problems Date Description Provider Status Onset: 01/28/2016 Coronary artery bypass graft Jaime Vigil DO [facility] Active Onset: 08/04/2017 Acute renal failure syndrome Billy Currie M.D. Active Onset: 08/04/2017 Acute subendocardial infarction Billy Currie M.D. Active Onset: 08/04/2017 Type 2 diabetes mellitus Billy Currie M.D. Active Onset: 08/04/2017 Acquired absence of other right Billy Currie M.D. Active toe(s) Onset: 08/04/2017 Essential hypertension Billy Currie M.D. Active Onset: 08/04/2017 Acquired absence of other left Billy Currie M.D. Active toe(s) Family History Date Family Member(s) Problem(s) Comments General Diabetes General Heart Disease General Hypertension General Stroke General Chronic Obstructive Pulmonary Disease (COPD) General Hypercholesterolemia General Alcoholism : (age 84 Father due to Stroke Years) Mother Diabetes : (age 83 Mother due to Stroke Years) Mother Stroke Social History Type Date Description Comments Lives With Occupation Retired Cigarette Use Former Cigarette Smoker Cigarette Use Vape 4% nicotine Ecigarette, daily ETOH Use Denies alcohol use Recreational Drug [...] Active Solution 100Unit/ML take 12 Jaime Mckee 2018 units at [facility], [facility] Aspirin 10/15/ Active Tablets 81mg 1 by mouth Jaime Mckee 2016 every day [facility] Sertraline HCL 03/12/ Active Tablets 100mg 1 by mouth Unknown 2016 every day Atorvastatin 01/27/ Active Tablets 80mg 90tabs 1 by mouth E78.5 Jaime Mckee Calcium 2015 every day [facility] Carvedilol 01/27/ Active Tablets 3.125mg 180tab 1 by mouth Jaime Fields s twice a [facility] Metformin HCL / Active Tablets 1000mg 1 [...] Unknown 0000 by mouth twice per day Brilinta / Active Tablets 90mg 1 tab by Unknown 0000 mouth twice a day Amlodipine 10/15/ Hx Tablets 2.5mg 90tabs 1 by mouth Jaime Mckee Besylate 2016 - every day [facility] 2017 Aspirin Ec 01/09/ Hx Tablets DR 325mg 100tab 1 by mouth Jaime Mckee 2015 - s every day [facility] 2016 Lisinopril / Hx Tablets 30mg 1 by mouth Unknown 0000 - every day 2015 Carvedilol / Hx Tablets 6.25mg 1 by mouth Unknown 0000 - twice a 2015 Sertraline HCL / Hx Tablets 50mg 1 by mouth Unknown 0000 - every day 2016 Erythromycin 00/ Hx Caps DR 250mg 1 capsule Unknown Base 0000 - Part by mouth 2 2016 daily Lantus / Hx 26 units @ Unknown 0000 - hs or as 2016 Humalog 00/ Hx sliding Unknown 0000 - scale 2015 Vitamin B 00/00/ Hx Tablets 1 by mouth Unknown Complex 0000 - every day 2015 Vitamin B-12 00/ Hx Tablets 1000mcg 1 by mouth Unknown 0000 - every day 2016 Novolog 00/ Hx Solution 100Unit/ML sliding Unknown Flexpen 0000 - Pen-Inject scale 2016 Amlodipine / Hx Tablets 10mg 1 by mouth Unknown Besylate 0000 - every day 2016 Vitamin B12 00/ Hx one gummy Unknown 0000 - daily 2017 Lisinopril 00/ Hx Tablets 5mg 1 by mouth Unknown 0000 - every day 2017 Medications Administered in Office Medication Date Status Form Strength Qnty SIG Indications Ordering Provider Inj, Administered Injection Jaime Mckee Regadenoson, 016 DO Musa 0.1 MG FACC Technetium TC Administered Injection Jaime S. 99M 016 Vigil, Tetrofosmin, FACC Per Unit Dose Up To 40 Millicuries Vital Signs Date Vital Result Comment 08/11/2017 Height 70 inches 5'10" Weight 185.00 lb BP Systolic Sitting 100 mmHg Jennifer reg cuff BP Diastolic Sitting 58 mmHg Jennifer reg cuff BP Systolic Standing 96 mmHg Jennifer reg cuff BP Diastolic Standing 54 mmHg Jennifer reg cuff Respiratory Rate 20 /min BMI (Body Mass Index) 26.5 kg/m2 Ejection Fraction 55% Echo 02/01/16 04/20/2017 Height 70 inches 5'10" Weight 197.00 [...] and in selective patients <6.0%.Please refer to [place] [employer] Diabetic care guidelines for further information. Procedures Date CPT Code Description Status 08/04/2017 03044 Coronary Angiography With Catheter Placement In [place] Completed Grafts 08/04/2017 64024 Revascularization Acute Total/Subtotal Occlusion Completed 04/20/2017 24158 EKG Tracing & Interpretation Completed 12/03/2016 Colonoscopy Completed 10/15/2016 35964 EKG Tracing & Interpretation Completed 03/13/2016 56173 Mobile Cardiovascular Telemetry Over 24 HR Up To 30 Completed Days 02/07/2016 66408 Stress Test Completed 02/07/2016 97183 Myocardial Perfusion Imaging Tomographic (Spect) Completed Multiple Studies 02/01/2016 57558 ECHO Transthoracic, Real-Time 2D With Doppler And Color Completed Flow 01/28/2016 01443 EKG Tracing & Interpretation Completed 04/04/2014 55144 EKG, Interpretation Only Completed Encounters Type Date Location Provider CPT E/M Dx Office Visit 08/05/2017 [facility] Brissa Art, [address]26[address] I21.4 3:50p Field Service Analyst AT [facility] ALBINA BORREGO, FSCAI I25.10 Z95.1 I45.3 Office Visit [facility]2017 [facility] Cur[facility] [address] N17.9 Hospitalists Dasia I21.4 E11.9 Z89.421 Z89.422 I10 J44.9 Office Visit 08/04/2017 11:50a [facility] Lidia Art, 95804 I21.4 Field Service Analyst AT [facility] , ALBINA, FSCAI I45.3 Z95.1 I25.10 Office Visit 04/20/2017 2:40p [facility] [place] [address] [facility] I25.10 F17.201 I10 E78.5 R55 Office Visit 10/15/2016 2:40p [facility] [place] [address] I25.10 [facility] I10 F17.201 E11.8 Office Visit 04/09/2016 4:00p [facility] [place] [address] [facility] R55 E13.43 I25.2 E78.5 I10 F17.201 E11.8 Office Visit 01/28/2016 3:00p [facility] [place] [address] [facility] E78.5 R94.31 R55 I10 I42.9 Z72.0 Office Visit 11/21/2015 2:00p [facility] M.D. 53095 M17.11 C.M.A. Office Visit 04/04/2014 7:51a [facility] Ashlie Bobby, 24460 785.4 Hospitalists [place] v13.59 v49.71 Office Visit 04/04/2014 10:11a [facility], Jace Roblero M.D. 51354 780.2 Hospitalists 414.00 250.00 401.9 Plan of Care Future Appointment(s):12/01/2017 10:20 am - Jaime Vigil DO FACC at [facility]08/11/2017 - Jaime Vigil DO FACCI25.2 Old myocardial infarctionNew Therapy:Cardiac RehabComments:Stop taking lisinopril Try taking your brillinta with a diet pepsi. The caffeine will help reduce shortness of breath. If this continues for more than a month, let us know and we will change brillinta to plavix. DO NOT STOP BRILLINTA ON YOUR OWN.Follow up:4 oszlixG82.9 Peripheral vascular disease, unspecifiedReferral:Osmin Starkey MD, Radiology,Angiography,Inv
--- OUTSIDE RECORDS SUMMARY | 2017-08-28 15:33 | XMS REPORT ---
:1955 External Reference #:[id number] Author Organization [facility] Address [address] [place] [address] [place] [address] Phone [phone] Care Team Providers Name Role Phone Pantera Shipley DO Care Team Information Proof Load Mechanic Unavailable Pantera Shipley DO Primary Care Physician Unavailable Payers Type Date Identification Numbers Payment Provider Subscriber Health Maintenance Policy Number: Medicare Blue Ppo Juan R Chopra Organization (O) [id number] PayID: [id number] [address] [address] [place] [address] Medigap Part B Policy Number: [id number] Medicaid Juan R Gela [employer] Name: 1 1 [address] PayID: [id number] [place] [address] Medigap Part B Effective: 11/10/2015 Policy Number: [id number] Medicare Juan R Chopra Expires: 02/09/2016 PayID: [id number] [address] [place] [address] Medigap Part B Effective: 02/09/2015 Policy Number: BS Facets Juan R Chopra [id number] Expires: 02/09/2016 PayID: [id number] [address] [place] [address] Problems Date Description Provider Status Onset: 01/28/2016 Coronary artery bypass graft Jaime Vigil DO [facility] Active Family History Date Family Member(s) Problem(s) [...] take 12 Jaime Mckee 2017 units at [facility] night [facility] Aspirin 10/15/ Active Tablets 81mg 1 by mouth Jaime Mckee 2016 every day Vigil [facility] Sertraline HCL 03/12/ Active Tablets 100mg 1 by mouth Unknown 2016 every day Atorvastatin 01/27/ Active Tablets 80mg 90tabs 1 by mouth E78.5 Jaime Mckee Calcium 2015 every day [facility] Carvedilol 01/27/ Active Tablets 3.125mg 180tab 1 by mouth Jaime Mckee 2016 s twice a [facility] Metformin HCL / Active Tablets 1000mg [...] Jaime Mckee Besylate 2016 - every day [facility] 2017 Aspirin Ec 01/09/ Hx Tablets DR 325mg 100tab 1 by mouth Jaime Mckee 2015 - s every day [facility] 2016 Lisinopril / Hx Tablets 30mg 1 [...] Indications Ordering Provider Inj, Administered Injection Jaime Rylee Regadenoson, 016 Vigil, 0.1 MG FACC [...] and in selective patients <6.0%.Please refer to [place] [employer] Diabetic care guidelines for further information. Procedures Date CPT Code Description Status 04/20/2017 65034 EKG Tracing & Interpretation Completed 12/03/2016 Colonoscopy Completed 10/15/2016 76741 EKG Tracing & Interpretation Completed 03/13/2016 86199 Mobile Cardiovascular Telemetry Over 24 HR Up To 30 Completed Days 02/07/2016 88418 Stress Test Completed 02/07/2016 14906 Myocardial Perfusion Imaging Tomographic (Spect) Completed Multiple Studies 02/01/2016 01929 ECHO Transthoracic, Real-Time 2D With Doppler And Color Completed Flow 01/28/2016 47070 EKG Tracing & Interpretation Completed 04/04/2014 39747 EKG, Interpretation Only Completed Encounters Type Date Location Provider CPT E/M Dx Office Visit 04/20/2017 [facility] [place] [address] E11.43 2:40p [facility] FACC I25.10 F17.201 I10 E78.5 R55 Office Visit 10/15/2016 2:40p [facility] [place] [address] I25.10 [facility] FACC R55 I10 F17.201 E11.8 Office Visit 04/09/2016 4:00p [facility] [place] [address] I25.10 [facility] FACC R55 E13.43 I25.2 E78.5 I10 F17.201 E11.8 Office Visit 01/28/2016 3:00p [facility] [place] [address] I25.2 [facility] E78.5 R94.31 R55 I10 I42.9 Z72.0 Office Visit 11/21/2015 2:00p [facility] M.D. 54411 M17.11 C.M.ARian Office Visit 04/04/2014 7:51a Mary Triplett,toshia Bobby, 627[address] 785.4 Hospitalists [place] v13.59 v49.71 Office Visit 04/04/2014 10:11a [facility] Jace Roblero M.D. 87000 780.2 Hospitalists 414.00 250.00 401.9 Plan of Care Future Appointment(s):08/11/2017 10:00 am - Jaime Vigil DO FACC at [facility]10/14/2017 1:40 pm - Jaime Vigil DO FACC at [facility]04/20/2017 - Jaime Viigl DO FACCE11.43 Type 2 diabetes w diabetic autonomic (poly)neuropathyComments:Stop taking amlodipine (also known as norvasc)Follow up:f/u 6 eptaupE53.10 Athscl heart disease of [place] coronary artery w/o ang wexrbF38.201 Nicotine dependence, unspecified, in dphcpkaypW61 Essential (primary) puiyfqxxickeB60.5 Hyperlipidemia, deaxufeteemH66 Syncope and collapse
[2017-08-28 17:14] LABS: ABS Basophils 0.1 10^3/ul (0-0.2); ABS Eosinophils 0.3 10^3/ul (0-0.6); ABS Lymphocytes 1.6 10^3/ul (1.0-4.8); ABS Monocytes 1.2 10^3/ul (0-0.8); ABS Neutrophils 9.1 10^3/ul (1.5-7.7); ABS Nucleated RBC 0 10^3/ul; Eosinophil % 2.2 % (0-6); Hematocrit 34 % (42-52); Hemoglobin 11.4 g/dl (14.0-18.0); Lymphocyte % 13.2 % (25-47); Mean Corpuscular HGB Conc 33 g/dl (31-36); Mean Corpuscular Hemoglobin 30 pg (27-31); Mean Corpuscular Volume 92 fL (80-94); Mean Platelet Volume 7.6 um3 (7.4-10.4); Nucleated Red Blood Cells % 0; Platelet Count 381 10^3/ul (150-450); Red Blood Count 3.76 10^6/ul (4.00-5.40); Red Cell Distribution Width 14 % (10.5-15); White Blood Count 12.3 10^3/ul (3.5-10.8)
[2017-08-28 17:27] LABS: EGFR Non-African American 53.6 (>60)
[2017-08-28] MEDS ORDERED: Ciprofloxacin 400MG IVPREMIX(* 400 MG/200 ML BAG IVPB ONE (17:40)
[2017-08-28] MEDS ORDERED: Clindamycin 900 MG IVPREMIX(* 900 MG/50 ML SDV IV ONE (17:40)
[2017-08-28] MEDS ORDERED: NS 0.9% 1000 ML* 1,000 ML IV ONE (17:41)
--- NOTE | 2017-08-28 19:04 | ED ---
Lower Extremity - HPI Summary HPI Summary: This is brooks Ivory documenting for attending Ya Sim M.D. Pt is a 61 y/o M sent from wound clinic to ED due to a wound on the bottom of his left foot. On triage, it was noted there are concerns with gangrene. , who was present in the room, reports that Pt has been dealing with this wound for months. Fever, nausea, and vomiting onset a few days ago. Wound causes pain, which is rated 8/10 on triage. It is also noted on triage that walking aggravates pain and nothing is reported to alleviate Sx. Pt is diabetic, has HTN. He also reports MA three weeks ago. Wound clinic took culture of wound. - History of Current Complaint Chief Complaint: EDSoftTissueLowExtr Stated Complaint: WOUND ON LT FOOT-SENF F/WOUND CLINIC Time Seen by Provider: 08/28/17 16:45 Hx Obtained From: Patient, Family/Duco Polisher - Onset/Duration: Still Present - wound has been present for months; N/V and fever onset a few days ago Severity Currently: Severe Pain Intensity: 8 Pain Scale Used: 0-10 Numeric - 8/10 Location: Is Discrete @ - left foot Associated Signs And Symptoms: Positive: Fever, Other - N/V Aggravating Factor(s): Ambulation Alleviating Factor(s): Nothing - Allergies/Home Medications Allergies/Adverse Reactions: Allergies Allergy/AdvReac Type Severity Reaction Status Date / Time piperacillin [From Zosyn] Allergy Hives Verified 08/28/17 15:07 tazobactam [From Zosyn] Allergy Hives Verified 08/28/17 15:07 Home Medications: Home Medications Aspirin EC TAB* [Ecotrin EC Low Dose 81 MG*] 81 mg PO DAILY 08/28/17 [History Confirmed 08/28/17] Atorvastatin* [Lipitor*] 80 mg PO DAILY 08/28/17 [History Confirmed 08/28/17] Carvedilol TAB* [Coreg TAB*] 3.125 mg PO BID 08/28/17 [History Confirmed ] Insulin GLARGINE(*) [Lantus(*)] 15 units SUBCUT QPM 08/28/17 [History Confirmed 08/28/17] Lisinopril TAB* [Prinivil TAB*] 5 mg PO DAILY 08/28/17 [History Confirmed ] Magnesium Oxide [Magnesium] 500 mg PO DAILY 08/28/17 [History Confirmed 08/28/17 ] Sertraline* [Zoloft*] 100 mg PO DAILY 08/28/17 [History Confirmed 08/28/17] Ticagrelor* [Brilinta*] 90 mg PO BID 08/28/17 [History Confirmed 08/28/17] glipiZIDE TAB* [Glucotrol TAB*] 5 mg PO BID 08/28/17 [History Confirmed 08/28/17 ] metFORMIN* [Glucophage 1000 MG TAB *] 1,000 mg PO BID 08/28/17 [History Confirmed 08/28/17] PMH/Surg Hx/FS Hx/Imm Hx Endocrine/Hematology History: Reports: Hx Diabetes Cardiovascular History: Reports: Hx Coronary Artery Disease, Hx Hypertension, Other Cardiovascular Problems/Disorders - DMII Denies: Hx Pacemaker/ICD Respiratory History: Reports: Hx Chronic Obstructive Pulmonary Disease (COPD) Denies: Hx Asthma GI History: 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 amputation left toes. amputation right toe. CABG x5 2008. CARDIAC STENT PLACED AUGUST 04 2017 ( SYNERGY PLACED AT [facility] [place]). OKAY TO SCAN WITHIN 6 WEEKS. Static magnetic field of 3.0 and 1.5 Diane only. Maximum spatial gradient magnetic field of 2300 gauss/ cm (23 T/m). Maximum Magnetic Resonance system reported, whole body averaged specific absorption rate (SANDY) of <2 W/kg (Normal Operating Mode). Under the scan conditions defined above, the SYNERGY Stent is expected to produce a maximum temperature rise of 3.1oC after 15 minutes of continuous scanning. Infectious Disease History: Yes Infectious Disease History: Denies: Traveled Outside the [place] in Last 30 Days - Family History Known Family History: Positive: Other - Pt denies any relevant family history. 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 Patient is not in any acute respiratory distress. HEAD AND FACE: Normocephalic EYES: PERRLA, EOMI x 2. EARS: Hearing grossly intact. MOUTH: Oropharynx within normal limits. NECK: Supple, trachea is midline, no adenopathy, no JVD, no carotid bruit. CHEST: Symmetric, no tenderness at palpation LUNGS: Clear to auscultation bilaterally. No wheezing or crackles. CVS: Regular rate and rhythm, S1 and S2 present, no murmurs or gallops appreciated. ABDOMEN: Soft, non-tender. Bowel sounds are normal. No abdominal abnormal pulsations. EXTREMITIES: Full ROM in all major joints, no edema, no cyanosis or clubbing. Diabetic ulcer on plantar aspect of the left lateral foot with surrounding erythema. NEURO: Alert and oriented x 3. No acute neurological deficits. Speech is normal and follows commands. SKIN: Dry and warm Triage Information Reviewed: Yes Vital Signs On Initial Exam: Initial Vitals Temp Pulse Resp BP Pulse Ox 95.6 F 78 16 94/74 97 08/28/17 15:08 08/28/17 15:08 08/28/17 15:08 08/28/17 15:08 08/28/17 15:08 Vital Signs Reviewed: Yes Diagnostics - Vital Signs Vital Signs Temp Pulse Resp BP Pulse Ox 08/28/17 15:08 95.6 F 78 16 94/74 97 - Laboratory Lab Results: Lab Results 08/28/17 08/28/17 08/28/17 Range/Units 17:00 17:00 17:00 WBC 12.3 H (3.5-10.8) 10^3/ul RBC 3.76 L (4.00-5.40) 10^6/ul Hgb 11.4 L (14.0-18.0) g/dl Hct 34 L (42-52) % MCV 92 (80-94) fL MCH 30 (27-31) pg MCHC 33 (31-36) g/dl RDW 14 (10.5-15) % Plt Count 381 (150-450) 10^3/ul MPV 7.6 (7.4-10.4) um3 Neut % (Auto) 73.8 (38-83) % Lymph % (Auto) 13.2 L (25-47) % [place] % (Auto) 9.8 H (0-7) % Eos % (Auto) 2.2 (0-6) % Baso % (Auto) 1.0 (0-2) % Absolute Neuts (auto) 9.1 H (1.5-7.7) 10^3/ul Absolute Lymphs (auto) 1.6 (1.0-4.8) 10^3/ul Absolute Monos (auto) 1.2 H (0-0.8) 10^3/ul Absolute Eos (auto) 0.3 (0-0.6) 10^3/ul Absolute Basos (auto) 0.1 (0-0.2) 10^3/ul Absolute Nucleated RBC 0 10^3/ul Nucleated RBC % 0 ESR 95 H (0-20) mm/Hr Sodium 134 L (135-145) mmol/L Potassium 4.2 (3.5-5.0) mmol/L Chloride 101 (101-111) mmol/L Carbon Dioxide 22 (22-32) mmol/L Anion Gap 11 (2-11) mmol/L BUN 25 H (6-24) mg/dL Creatinine 1.36 H (0.67-1.17) mg/dL Est GFR ( Amer) 64.9 (>60) Est GFR (Non-Af Amer) 53.6 (>60) BUN/Creatinine Ratio 18.4 (8-20) Glucose 90 (70-100) mg/dL Lactic Acid 1.3 (0.5-2.0) mmol/L Calcium 9.2 (8.6-10.3) mg/dL Total Bilirubin 0.50 (0.2-1.0) mg/dL AST 12 L (13-39) U/L ALT 17 (7-52) U/L Alkaline Phosphatase 68 (34-104) U/L C-React Prot High Sens 76.15 H (<2.00) mg/L Total Protein 7.1 (6.4-8.9) g/dL Albumin 3.7 (3.2-5.2) g/dL Globulin 3.4 (2-4) g/dL Albumin/Globulin Ratio 1.1 (1-3) Result Diagrams: 08/29/17 06:17 08/29/17 06:17 Lab Statement: Any lab studies that have been ordered have been reviewed, and results considered in the medical decision making process. Lower Extremity Course/Dx - Course Assessment/Plan: This is brooks Ivory documenting for attending Jackson Sim M.D. Pt is a 61 y/o M sent from wound clinic to ED due to a wound on the bottom of his left foot. On triage, it was noted there are concerns with gangrene. , who was present in the room, reports that Pt has been dealing with this wound for months. Fever, nausea, and vomiting onset a few days ago. Wound causes pain, which is rated 8/10 on triage. It is also noted on triage that walking aggravates pain and nothing is reported to alleviate Sx. Pt is diabetic, has HTN. He also reports MA three weeks ago. Wound clinic took culture of wound. Physical exam revealed diabetic ulcer on plantar aspect of the left foot. Test results included 12.3 WBC, 1.36 creatinine, [address] Chang was consulted at 18:[address] Chang agrees to accept Pt for admission. Pt was diagnosed with a diabetic ulcer on the left foot. - Diagnoses Provider Diagnoses: Diabetic ulcer of left foot - Physician Notifications Discussed Care Of Patient With: Sofy Chang Time Discussed With Above Provider: 18:10 Instructed by Provider To: Other - Dr. Chang was consulted about Pt at 18:10. Dr. Chang agrees to accept Pt for admission to hospital. Discharge - Sign-Out/Discharge Documenting (check all that apply): Patient Departure - admit - Discharge Plan Condition: Fair Disposition: ADMITTED TO [facility] - Billing Disposition and Condition Condition: FAIR Disposition: Admitted to [facility]
[2017-08-28] MEDS ORDERED: Magnesium Hydroxide LIQ* 30 ML UDC PO PRN (19:59)
[2017-08-28] MEDS ORDERED: Acetaminophen TAB* 325 MG PO PRN (19:59)
[2017-08-28] MEDS ORDERED: Albuterol 2.5 MG/3 ML NEB.SOL* (0.083%) INH PRN (19:59)
[2017-08-28] MEDS ORDERED: Vancomycin(*) 1,250 MG in NS 0.9% 250 ML* 250 ML IVPB ONE (20:05)
[2017-08-28] MEDS ORDERED: Dextrose 50% Syringe 50 ML* 25 GM/50 ML SYRINGE IV PUSH PRN (20:09)
[2017-08-28] MEDS ORDERED: Vancomycin(*) 0 MG in NS 0.9% 250 ML* 250 ML IVPB SCH (21:00)
[2017-08-28] MEDS ORDERED: NS 0.9% 1000 ML* 1,000 ML IV SCH (21:15)
[2017-08-28] MEDS: Carvedilol TAB* 3.125 MG PO SCH (21:37)
[2017-08-28] MEDS: Heparin VIAL(*) 5000 UNITS/ML VIAL (FIVE THOUSAND) SUBCUT SCH (21:37)
[2017-08-28] MEDS: Ticagrelor* 90 MG TAB PO SCH (21:37)
[2017-08-28] MEDS: Atorvastatin* 80 MG TAB PO SCH (21:37)
[2017-08-28] MEDS: Insulin GLARGINE(*) 1 UNITS UNIT SUBCUT SCH (21:38)
[2017-08-28] MEDS ORDERED: Vancomycin per Pharmacy* NOTE FOLLOW UP PRN (22:16)
[2017-08-29] MEDS: metroNIDAZOLE IV 500 MG/100ML* 500 MG/100 ML BAG IVPB SCH ×3 (00:20→23:01)
[2017-08-29 00:40] LABS: Urine Appearance Clear; Urine Blood 1+ (Negative); Urine Color Straw; Urine Ketones Negative (Negative); Urine Protein Negative (Negative); Urine Red Blood Cell Absent (Absent); Urine Specific Gravity 1.004 (1.010-1.030); Urine Urobilinogen Negative (Negative); Urine White Blood Cell Absent (Absent)
--- NOTE | 2017-08-29 02:40 | HP ---
CC: DIANN Shankar * HISTORY AND PHYSICAL: DATE OF ADMISSION: 08/28/17 PROVIDER: Gwen Merida NP PRIMARY CARE PROVIDER: DIANN Shankar ATTENDING PHYSICIAN WHILE IN THE HOSPITAL: Ashley Rodrigez DO * (dictated by Gwen Merida NP) CHIEF COMPLAINT: Left foot ulcer/cellulitis. HISTORY OF PRESENT ILLNESS: Mr. Chopra is a 61-year-old male who carries a past medical history significant for coronary artery disease with bypass graft, non- STEMI CT, 08/03/17 with stenting, diabetes, hypertension, COPD, and hyperlipidemia, who presented to the emergency room from the wound care center. The patient was seen in wound care center and there was concern for gangrene in his left heel, so he is presenting here for further evaluation. The patient states that he has been dealing with the wound to the bottom of his foot x2 months. He has been being followed by Podiatry and they have been watching his wound. He states approximately 2 months ago, his wound started with a crack in the heel and progressively got worse over time. He started seeing wound center on Thursday. He has also recently seen Dr. Starkey who recommended having an angiogram of the lower extremity. He does report he had a fever this morning. He denies any chills. He does report some decreased appetite x3 days. He does report some nausea and vomiting x3 days. The patient reports that he has chronic cough and chronic shortness of breath that are at their baseline. He does report yesterday he started having drainage from this foot that was foul smelling as well. He denies any other complaints. While in the emergency room, he had routine lab work. He was found to have leukocytosis with the white count of 12.3. His CRP was 82. His ESR was 95. Due to his history of diabetes and ulceration to the plantar aspect of his left foot, we were asked to see and evaluate him for admission. PAST MEDICAL HISTORY: Significant for: 1. Coronary artery disease with grafting. 2. Non-STEMI CT on 08/03/17 with stenting. 3. Diabetes. 4. Hypertension. 5. COPD. 6. Hyperlipidemia. PAST SURGICAL HISTORY: 1. Coronary artery stenting on 08/03/17. 2. Left foot with all toes amputated, second toe amputated on the right foot. 3. Three surgeries on his right knee. 4. 5-vessel CABG in 2008. HOME MEDICATIONS: 1. Metformin 1000 mg p.o. b.i.d. 2. Brilinta 90 mg p.o. b.i.d. 3. Lisinopril 5 mg p.o. daily. 4. Carvedilol 3.125 mg p.o. b.i.d. 5. Glipizide 5 mg p.o. b.i.d. 6. Lantus 15 units subcu p.m. 7. Magnesium oxide 500 mg p.o. daily. 8. Atorvastatin 80 mg p.o. daily. 9. Sertraline 100 mg p.o. daily. 10. Aspirin 81 mg p.o. daily. ALLERGIES TO MEDICATIONS: He is allergic to PIPERACILLIN and TAZOBACTAM. FAMILY HISTORY: Mother and father both with history of MIs in their 80s. Mother with history of diabetes. No reported history of cancer. SOCIAL HISTORY: He does report vaping. He reports he quit smoking cigarettes approximately 2 years ago. Prior to that, he smokes a pack a day for 40 plus years. He denies any alcohol or illicit drug use. He lives with his significant other, Toya. In the event he is unable to make his own decision , surrogate decision maker is Toya Villalba. Her phone number is . He is a full code. REVIEW OF SYSTEMS: There is no documented fever. There has been no significant weight change. He does report decreased appetite x3 days. There is no double vision. No rhinorrhea. No sore throat. He denies any chest pain. Denies any orthopnea or nocturnal dyspnea. He does report chronic cough and shortness of breath that are at his baseline at this time. He does report some nausea and vomiting x3 days. He does report that he has an episode of diarrhea, but none today. He denies any abdominal pain. Denies any gross hematuria or dysuria. Denies any focal weakness or sensory loss. There are no visual complaints. Denies any dysphagia. There are no arthralgias or myalgias. He denies any rashes. He does report an open sore to his left heel x2 months. There is some mild redness noted to the left ankle. He denies any depression or anxiety. PHYSICAL EXAMINATION GENERAL: At this time, Mr. Chopra is a 61-year-old male. He is resting comfortably on the stretcher in the emergency room. He does not appear to be in any acute distress. VITAL SIGNS: Temperature was 98.2, heart rate 77, respirations 16, O2 saturation 97%, blood pressure is 128/66. HEENT: Head is atraumatic, normocephalic. Eyes: EOMs are intact. Sclerae anicteric and not pale. Oral mucosa appeared to be moist. No oropharyngeal erythema. NECK: Supple. LUNGS: Clear to auscultation bilaterally. No wheezes, rales, or rhonchi. CARDIAC: S1, S2. Regular rate and rhythm. There are no murmurs, rubs, or gallops. ABDOMEN: Flat, soft, nontender. Bowel sounds are present x4. EXTREMITIES: Pulses to the right lower extremity are +2. Pedal pulses to the left lower extremity are +1. There is no edema. He is able to move all 4 extremities with 5/5 strength. NEUROLOGIC: He is awake, alert, and oriented x3. Speech is clear. There are no gross focal deficits. SKIN: Intact. DIAGNOSTIC STUDIES AND LABORATORY DATA: WBCs are 12.3, RBCs 3.76, hemoglobin 11.4, hematocrit was 34, platelets were 381. ESR is 95. Sodium 134, potassium 4.2, chloride 101, carbon dioxide 22, BUN was 25, creatinine 1.36. AST 12. C- reactive protein was 82. He has an MRI of the left foot pending. ASSESSMENT AND PLAN: Mr. Chopra is a 61-year-old gentleman, who presented to the emergency room today from the wound care center for further evaluation of possible osteomyelitis in his left heel and cellulitis. He will be admitted under inpatient for: 1. Cellulitis. He has cellulitis and an open diabetic ulcer to his left heel with some surrounding erythema noted to the left ankle. I will place him on vancomycin, Levaquin, and Flagyl. He will get a wound culture of the left heel. At this time, he is afebrile. He does have an elevated WBCs of 12.3. We will continue to trend his WBCs. If his MRI of the left foot is positive for osteomyelitis, I would recommend consulting Ortho in the a.m. as well as Dr. Mayen from Infectious Disease. 2. Coronary artery disease. He should continue on his atorvastatin, aspirin, Brilinta, lisinopril, and carvedilol. 3. Diabetes. I am going to hold his metformin and glipizide at this time. I will place him on lispro sliding scale with fingersticks a.c. He will have Lantus 15 units subcu p.m. His blood sugar on arrival to the ER was 90. 4. Hyperlipidemia. He should continue his atorvastatin. 5. Chronic obstructive pulmonary disease. He is not currently on any medications. 6. DVT prophylaxis. I will place him on heparin subcu. 7. Diet. He can have heart-healthy, decaf okay diet. 8. Code status. He is a full code. 9. Acute kidney injury. We will give him hydration and repeat a BMP in the a.m. Avoid nephrotoxic medications at this time. TIME SPENT: Time spent on this admission was approximately 60 minutes, greater than half the time was spent [id number] with the patient and his significant other obtaining my history and physical, the other half of the time was spent going over my plan of care and implementing my plan of care. I have discussed this with my attending, Dr. Ashley Rodrigez, and she is in agreement with my plan. GWEN MERIDA, JEEVAN [id number]/[facility] #: [id number] VICTOR HUGO
[2017-08-29] MEDS: Levofloxacin 500 MG IVPREMIX(* 500 MG/100 ML BAG IVPB SCH (05:23)
[2017-08-29] MEDS: Heparin VIAL(*) 5000 UNITS/ML VIAL (FIVE THOUSAND) SUBCUT SCH ×3 (05:23→20:10)
[2017-08-29 06:37] LABS: ABS Basophils 0.1 10^3/ul (0-0.2); ABS Eosinophils 0.3 10^3/ul (0-0.6); ABS Lymphocytes 1.1 10^3/ul (1.0-4.8); ABS Monocytes 0.9 10^3/ul (0-0.8); ABS Neutrophils 7.3 10^3/ul (1.5-7.7); ABS Nucleated RBC 0 10^3/ul; Eosinophil % 2.9 % (0-6); Hematocrit 32 % (42-52); Hemoglobin 11.3 g/dl (14.0-18.0); Mean Corpuscular HGB Conc 35 g/dl (31-36); Mean Corpuscular Hemoglobin 32 pg (27-31); Mean Corpuscular Volume 92 fL (80-94); Mean Platelet Volume 7.6 um3 (7.4-10.4); Nucleated Red Blood Cells % 0; Platelet Count 326 10^3/ul (150-450); Red Blood Count 3.53 10^6/ul (4.00-5.40); Red Cell Distribution Width 14 % (10.5-15); White Blood Count 9.6 10^3/ul (3.5-10.8)
[2017-08-29 06:58] LABS: EGFR Non-African American 78.3 (>60)
[2017-08-29] MEDS: Insulin LISPRO* 1 UNITS UNIT SUBCUT SCH ×3 (07:37→17:21)
[2017-08-29] MEDS: Lisinopril TAB* 5 MG PO SCH (09:00)
[2017-08-29] MEDS: Vancomycin(*) 1,250 MG in NS 0.9% 250 ML* 250 ML IVPB SCH ×2 (09:00→20:06)
[2017-08-29] MEDS: Ticagrelor* 90 MG TAB PO SCH ×2 (09:01→20:09)
[2017-08-29] MEDS: Sertraline* 100 MG TAB PO SCH (09:01)
[2017-08-29] MEDS: Aspirin EC TAB* 81 MG TAB.EC PO SCH (09:01)
[2017-08-29] MEDS: Magnesium Oxide TAB* 400 MG PO SCH (09:01)
[2017-08-29] MEDS: Carvedilol TAB* 3.125 MG PO SCH ×2 (09:01→20:09)
[2017-08-29] MEDS ORDERED: Morphine VIAL* 4 MG/ML VIAL (1 ml vial) IV PRN (10:17)
[2017-08-29] MEDS ORDERED: oxyCODONE TAB* 5 MG TAB ONE (11:33)
[2017-08-29] MEDS: oxyCODONE TAB* 5 MG TAB PO PRN (11:37)
--- NOTE | 2017-08-29 13:05 | PN ---
Subjective Date of Service: 08/29/17 Interval History: Complaining of poorly controlled pain in his foot. He has been afebrile. No chest pain, no shortness of breath, no orthopnea. Objective Active Medications: Acetaminophen (Tylenol Tab*) 650 mg PO Q4H PRN PRN Reason: FEVER/PAIN Last Admin: 08/29/17 09:11 Dose: 650 mg Albuterol (Ventolin 2.5 Mg/3 Ml Neb.Roseann*) 2.5 mg INH RT.[id number] AWAKE PRN PRN Reason: sob/wheezing Aspirin (Aspirin Ec Tab*) 81 mg PO DAILY [facility] Last Admin: 08/29/17 09:01 Dose: 81 mg Atorvastatin Calcium (Lipitor*) 80 mg PO BEDTIME [facility] Last Admin: 08/28/17 21:37 Dose: 80 mg Carvedilol (Coreg Tab*) 3.125 mg PO BID [facility] Last Admin: 08/29/17 09:01 Dose: 3.125 mg Dextrose (D50w Syringe 50 Ml*) 12.5 gm IV PUSH .FOR FS < 60 - SS PRN PRN Reason: FS < 60 Heparin Sodium (Porcine) (Heparin Vial(*)) 5,000 units SUBCUT Q8HR [facility] Last Admin: 08/29/17 05:23 Dose: 5,000 units Levofloxacin/Dextrose (Levaquin 500 Mg Ivpremix(*)) 500 mg in 100 mls @ 100 mls /hr IVPB Q24H [facility] Last Admin: 08/29/17 05:23 Dose: 100 mls/hr Metronidazole/Sodium Chloride (Flagyl 500 Mg Ivpb*) 500 mg in 100 mls @ 100 mls /hr IVPB Q12H [facility] Last Admin: 08/29/17 11:01 Dose: 100 mls/hr Sodium Chloride (Ns 0.9% 1000 Ml*) 1,000 mls @ 75 mls/hr IV PER RATE [facility] Last Admin: 08/28/17 21:51 Dose: 75 mls/hr Vancomycin HCl 1,250 mg/ (Sodium Chloride) 250 mls @ 166.667 mls/hr IVPB Q12H [facility] Last Admin: 08/29/17 09:00 Dose: 166.667 mls/hr Insulin Glargine (Lantus(*)) 15 units SUBCUT QPM [facility] Last Admin: 08/28/17 21:38 Dose: 15 units Insulin Human Lispro (Humalog*) 0 units SUBCUT AC [facility]; Protocol Last Admin: 08/29/17 07:37 Dose: Not Given Lisinopril (Prinivil Tab*) 5 mg PO DAILY [facility] Last Admin: 08/29/17 09:00 Dose: 5 mg Magnesium Hydroxide (Milk Of Magnesia Liq*) 30 ml PO Q4H PRN PRN Reason: CONSTIPATION Magnesium Oxide (Magox 400 Tab*) 400 mg PO DAILY [facility] Last Admin: 08/29/17 09:01 Dose: 400 mg Oxycodone HCl (Roxycodone Tab*) 5 mg PO Q4H PRN PRN Reason: PAIN Last Admin: 08/29/17 11:37 Dose: 5 mg Pharmacy Consult (Vancomycin Per Pharmacy*) 1 note FOLLOW UP . PRN PRN Reason: PER PROTOCOL Pharmacy Profile Note (Vancomycin Trough Check) 1 note FOLLOW UP .ENTER TIME ONE Stop: 08/30/17 08:31 Sertraline HCl (Zoloft*) 100 mg PO DAILY [facility] Last Admin: 08/29/17 09:01 Dose: 100 mg Ticagrelor (Brilinta*) 90 mg PO BID [facility] Last Admin: 08/29/17 09:01 Dose: 90 mg Vital Signs - 8 hr 08/29/17 08/29/17 08/29/17 07:05 08:00 11:19 Temperature 98.2 F 98.9 F Pulse Rate 87 85 Respiratory 14 18 14 Rate Blood Pressure 125/86 109/72 (mmHg) O2 Sat by Pulse 100 100 Oximetry 08/29/17 11:37 Temperature Pulse Rate Respiratory 18 Rate Blood Pressure (mmHg) O2 Sat by Pulse Oximetry Oxygen Devices in Use Now: None Appearance: alert, no distress, nontoxic Eyes: No Scleral Icterus Ears/Nose/Mouth/Throat: NL Teeth, Lips, Gums Neck: NL Appearance and Movements; NL JVP Respiratory: Symmetrical Chest Expansion and Respiratory Effort, Clear to Auscultation Cardiovascular: NL Sounds; No Murmurs; No JVD, RRR Abdominal: NL Sounds; No Tenderness; No Distention Lymphatic: No Cervical Adenopathy Extremities: No Edema Skin: - - left TMA, heel ulcer with eschar, 3cm in diameter with surrounding erythema Neurological: Alert and Oriented x 3 Result Diagrams: 08/29/17 06:17 07/21/18 06:17 Additional Lab and Data: Lab Results 08/28/17 08/28/17 08/28/17 Range/Units 17:00 17:00 17:00 WBC 12.3 H (3.5-10.8) 10^3/ul RBC 3.76 L (4.00-5.40) 10^6/ul Hgb 11.4 L (14.0-18.0) g/dl Hct 34 L (42-52) % MCV 92 (80-94) fL MCH 30 (27-31) pg MCHC 33 (31-36) g/dl RDW 14 (10.5-15) % Plt Count 381 (150-450) 10^3/ul MPV 7.6 (7.4-10.4) um3 Neut % (Auto) 73.8 (38-83) % Lymph % (Auto) 13.2 L (25-47) % [place] % (Auto) 9.8 H (0-7) % Eos % (Auto) 2.2 (0-6) % Baso % (Auto) 1.0 (0-2) % Absolute Neuts (auto) 9.1 H (1.5-7.7) 10^3/ul Absolute Lymphs (auto) 1.6 (1.0-4.8) 10^3/ul Absolute Monos (auto) 1.2 H (0-0.8) 10^3/ul Absolute Eos (auto) 0.3 (0-0.6) 10^3/ul Absolute Basos (auto) 0.1 (0-0.2) 10^3/ul Absolute Nucleated RBC 0 10^3/ul Nucleated RBC % 0 ESR 95 H (0-20) mm/Hr Sodium 134 L (135-145) mmol/L Potassium 4.2 (3.5-5.0) mmol/L Chloride 101 (101-111) mmol/L Carbon Dioxide 22 (22-32) mmol/L Anion Gap 11 (2-11) mmol/L BUN 25 H (6-24) mg/dL Creatinine 1.36 H (0.67-1.17) mg/dL Est GFR ( Amer) 64.9 (>60) Est GFR (Non-Af Amer) 53.6 (>60) BUN/Creatinine Ratio 18.4 (8-20) Glucose 90 (70-100) mg/dL Lactic Acid 1.3 (0.5-2.0) mmol/L Calcium 9.2 (8.6-10.3) mg/dL Total Bilirubin 0.50 (0.2-1.0) mg/dL AST 12 L (13-39) U/L ALT 17 (7-52) U/L Alkaline Phosphatase 68 (34-104) U/L C-React Prot High Sens 76.15 H (<2.00) mg/L Total Protein 7.1 (6.4-8.9) g/dL Albumin 3.7 (3.2-5.2) g/dL Globulin 3.4 (2-4) g/dL Albumin/Globulin Ratio 1.1 (1-3) Assess/Plan/Problems-Billing Assessment: 61 yo man with poorly controlled diabetes admitted with a worsening left foot ulcer and cellulitis - Patient Problems (1) Diabetic foot ulcer Current Visit: Yes Status: Acute Code(s): E11.621 - TYPE 2 DIABETES MELLITUS WITH FOOT ULCER; L97.509 - NON-PRESSURE CHRONIC ULCER OTH PRT UNSP FOOT W UNSP SEVERITY SNOMED Code(s): 032132423 Comment: likely polymicrobial, no drainage to culture on levaquin, flagyl, vanc MRI pending consult ortho (2) CAD (coronary artery disease) Current Visit: Yes Status: Acute Code(s): I25.10 - ATHSCL HEART DISEASE OF [place] CORONARY ARTERY W/O ANG PCTRS SNOMED Code(s): 24704561 Comment: s/p cabg asa/statin/bb (3) Diabetes Current Visit: No Status: Acute Code(s): E11.9 - TYPE 2 DIABETES MELLITUS WITHOUT COMPLICATIONS SNOMED Code(s): 20520022 Comment: continue lantus and lispro
--- NOTE | 2017-08-29 13:55 | CONSULT ---
Consult Consult: Ortho consult Requesting service: medicine Chief Complaint: Left foot pain. History:Juan R is a 61-year-old male with diabetes and peripheral vascular disease and a prior TMA, who was sent to the emergency room for concern for left heel osteomyelitis. He has had a left heel ulcer for months that has been managed by wound care and podiatry. He reports that it has not been improving. He started to get redness and swelling, so she was sent to the emergency room. Since being admitted and started on antibiotics, he reports that the redness, swelling, pain has been improving. He recently saw and there is a plan to undergo revascularization. He had the TMA by Dr. Arnold a few years ago. Past medical history: Coronary artery disease with stents, diabetes, peripheral vascular disease, hypertension, COPD, hyperlipidemia . Past surgical history: Coronary artery stenting in July 2017, left TMA, right second toe amputation, prior right knee surgeries, cabg in 2008. Medications: Metformin, lisinopril, carvedilol, glipizide, Lantus, magnesium , atorvastatin, aspirin, sertraline, brilinta allergies: zosyn family history: Coronary artery disease, diabetes, cancer social history: He quit smoking 2 years ago, but does vape. No alcohol or illicit drug use. Review of Systems: Negative for fever, recent visual changes, difficulty swallowing, chest pain, abdominal pain, hematuria, easy bruising, diffuse weakness or lack of coordination, and diffuse rash. Positive for chronic shortness of breath, chronic cough, nausea/vomiting, diarrhea. Physical Examination: Constitutional: Temp Pulse Resp BP Pulse Ox 98.9 F 85 18 109/72 100 08/29/17 11:19 08/29/17 11:19 08/29/17 11:37 08/29/17 11:19 08/29/17 11:19 General appearance is healthy and non-septic in no acute distress. Cardiovascular: Pulse examination demonstrates nonpalpable pedal pulses with sluggish capillary refill. There are no varicosities. Lymphatic: No lymphadenopathy appreciated. Skin: Bilateral upper and lower extremity examination demonstrates no ulcerative lesions aside from those of the involved extremity detailed below, if present. Psychiatric / Neurological: Appropriate affect. Alert and oriented to person, place and time. There is no significant abnormality in coordination appreciated. Normoreflexive deep tendon reflex of the affected extremity. Musculoskeletal: Bilateral upper extremities and contralateral lower extremity show full range of motion with no evidence of instability and no tenderness with palpation and 5 /5 strength. There is no gross deformity. He has a prior TMA. The stump incision is well-healed. At the plantar lateral aspect of the left heel there is a 4 cm diameter ulcer. This appears superficial. There is some surrounding erythema. Minimal swelling. Sitting, there is 5/5 motor strength and impaired light touch sensation. Painless ankle range of motion. Studies: I reviewed his x-rays and his MRI. I do not see any evidence of osteomyelitis. WBC 9.6 ESR 95 CRP 82 Impression and Plan: Left heel ulcer with cellulitis. I do not see any evidence of osteomyelitis at this time. Hopefully, radiology agrees with this. I had a long discussion with him and his about the severity of heel ulcers. Often times, this leads to a more proximal amputation. I recommend continuing antibiotics. I agree with an attempt at revascularization, as I feel his peripheral vascular disease is a significant reason for the lack of healing of the ulcer. We discussed the importance of keeping pressure off the ulcer at all times. We discussed the importance of good glucose control, and proper nutrition. I do not see any role for orthopedic surgery at this time, but I did explain to them that this could change if this does not start to improve. All of their questions were answered. Wil Nicole MD
[2017-08-29] MEDS: Insulin GLARGINE(*) 1 UNITS UNIT SUBCUT SCH (17:59)
--- NOTE | 2017-08-29 20:04 | RAD ---
Indication: LEFT foot cellulitis. Nonhealing wound plantar aspect for many months. Post first through fifth toe amputation. Comparison: August 25, 2017 radiographs. Technique: [employer] 1.5 Diane [id number] with GEM suite. Noncontrast MRI LEFT ankle and residual foot post amputation of the forefoot at the level of the diaphyses of the metatarsals. Examination limited to multiplanar inversion recovery and T1-weighted series. Osteomyelitis protocol. Report: Motion artifact degrades image quality. Minimal bone marrow edema at the lateral and plantar margins of the calcaneal tuberosity. Negative for compelling loss of normal T1 marrow hyperintensity. Increased signal at the tarsal sinus associated edema at the roof of the tarsal sinus at the neck of the talus. Negative for fracture. 3.2 cm transverse by 2.3 cm AP shallow soft tissue ulcer at the lateral plantar aspect of the heel with subjacent soft tissue edema involving the subcutaneous tissue plane and intrinsic skeletal muscle scar of the foot. No loculated soft tissue plane abscess evident. Plantar fascia origin bone spur. The plantar fascia remains low signal. No tear of the plantar fascia evident. Polyarticular arthropathy at the mid foot and tarsometatarsal articulations with joint space narrowing and subchondral sclerosis and cystic change with relative paucity of osteophytosis which may represent degenerative arthropathy or neuropathic arthropathy. Negative for significant joint effusions. IMPRESSION: #. Minimal bone marrow edema at the lateral and plantar margins of the calcaneal tuberosity without definitive loss of normal T1 marrow hyperintensity which may represent reactive edema or less likely early osteomyelitis. #. Shallow soft tissue ulcer at the heel with subjacent subcutaneous tissue plane and skeletal muscle inflammatory change without evidence for a loculated abscess collection. #. Degenerative versus neuropathic arthropathy at the mid foot and tarsometatarsal articulations.
[2017-08-29] MEDS: Atorvastatin* 80 MG TAB PO SCH (20:09)
[2017-08-30] MEDS: oxyCODONE TAB* 5 MG TAB PO PRN ×2 (03:33→08:12)
[2017-08-30] MEDS: Levofloxacin 500 MG IVPREMIX(* 500 MG/100 ML BAG IVPB SCH (05:35)
[2017-08-30] MEDS: Heparin VIAL(*) 5000 UNITS/ML VIAL (FIVE THOUSAND) SUBCUT SCH (05:35)
[2017-08-30] MEDS: Aspirin EC TAB* 81 MG TAB.EC PO SCH (08:12)
[2017-08-30] MEDS: Ticagrelor* 90 MG TAB PO SCH (08:12)
[2017-08-30] MEDS: Magnesium Oxide TAB* 400 MG PO SCH (08:12)
[2017-08-30] MEDS: Lisinopril TAB* 5 MG PO SCH (08:12)
[2017-08-30] MEDS: Carvedilol TAB* 3.125 MG PO SCH (08:12)
[2017-08-30] MEDS: Sertraline* 100 MG TAB PO SCH (08:12)
[2017-08-30] MEDS: Insulin LISPRO* 1 UNITS UNIT SUBCUT SCH ×2 (08:13→12:34)
[2017-08-30] MEDS ORDERED: Vancomycin Trough Check NOTE FOLLOW UP ONE (08:30)
[2017-08-30] MEDS: metroNIDAZOLE IV 500 MG/100ML* 500 MG/100 ML BAG IVPB SCH (09:56)
--- NOTE | 2017-08-30 10:44 | PN ---
Subjective Date of Service: 08/30/17 Interval History: Mr. Chopra denies complaint and is eager for discharge to home. He reports that the redness and malodor of his right heel infection has decreased dramatically. He denies chest pain, SOB, nausea, or abdominal pain. Objective Active Medications: Acetaminophen (Tylenol Tab*) 650 mg PO Q4H PRN Albuterol (Ventolin 2.5 Mg/3 Ml Neb.Roseann*) 2.5 mg INH [id number] AWAKE PRN Aspirin (Aspirin Ec Tab*) 81 mg PO DAILY ANTONIO Atorvastatin Calcium (Lipitor*) 80 mg PO BEDTIME ANTONIO Carvedilol (Coreg Tab*) 3.125 mg PO BID ANTONIO Dextrose (D50w Syringe 50 Ml*) 12.5 gm IV PUSH .FOR FS < 60 - SS PRN Heparin Sodium (Porcine) (Heparin Vial(*)) 5,000 units SUBCUT Q8HR ANTONIO Levofloxacin/Dextrose (Levaquin 500 Mg Ivpremix(*)) 500 mg in 100 mls @ 100 mls /hr IVPB Q24H ANTONIO Metronidazole/Sodium Chloride (Flagyl 500 Mg Ivpb*) 500 mg in 100 mls @ 100 mls /hr IVPB Q12H ANTONIO Vancomycin HCl 1,250 mg/ (Sodium Chloride) 250 mls @ 166.667 mls/hr IVPB Q12H ANTONIO Insulin Glargine (Lantus(*)) 15 units SUBCUT QPM ANTONIO Insulin Human Lispro (Humalog*) 0 units SUBCUT AC ANTONIO; Protocol Lisinopril (Prinivil Tab*) 5 mg PO DAILY ANTONIO Magnesium Hydroxide (Milk Of Magnesia Liq*) 30 ml PO Q4H PRN Magnesium Oxide (Magox 400 Tab*) 400 mg PO DAILY ANTONIO Oxycodone HCl (Roxycodone Tab*) 5 mg PO Q4H PRN Pharmacy Consult (Vancomycin Per Pharmacy*) 1 note FOLLOW UP . PRN Sertraline HCl (Zoloft*) 100 mg PO DAILY ANTONIO Ticagrelor (Brilinta*) 90 mg PO BID [facility] Vital Signs: Temp Pulse Resp BP Pulse Ox 97.9 F 83 16 136/23 98 08/30/17 07:34 08/30/17 07:34 08/30/17 10:27 08/30/17 07:34 08/30/17 07:34 Oxygen Devices in Use Now: None Appearance: Male lying in bed in NAD Eyes: No Scleral Icterus Ears/Nose/Mouth/Throat: Mucous Membranes Moist Neck: Trachea Midline Respiratory: Symmetrical Chest Expansion and Respiratory Effort, Clear to Auscultation Cardiovascular: NL Sounds; No Murmurs; No JVD, No Edema Abdominal: NL Sounds; No Tenderness; No Distention Lymphatic: No Cervical Adenopathy Extremities: No Edema Skin: - - Right heel ulcer, black eschar in center surrounded by small amount of erythema, no drainage Neurological: Alert and Oriented x 3, NL Muscle Strength and Tone Nutrition: Taking PO's Result Diagrams: 08/29/17 06:17 08/29/17 06:17 Assess/Plan/Problems-Billing Assessment: Mr. Chopra is a 61 yo man with poorly controlled diabetes admitted with a worsening left foot ulcer and cellulitis. - Patient Problems (1) Diabetic foot ulcer Comment: - Likely polymicrobial, no drainage to culture - Switch to bactrim and augmentin. - MRI with bone marrow edema but interpreted as less likely to be osteomyelitis. - Appreciate ortho consult, agrees with plan for antibiotics, no indication yet for surgical intervention. - PVD likely contributing significantly, is following with Dr. Starkey with planned outpatient angiogram. - Follow up wound care clinic, Dr. Starkey, Dr. Wade. Consider follow up with Dr. Mayen. - Plan for santyl daily with dressing changes until follow up with wound care clinic. (2) Diabetes Comment: - BGs well controlled. - Resume home meds. (3) CAD (coronary artery disease) Comment: - Asymptomatic. - S/P CABG and stent. - Continue aspirin, brilinta, atorvastatin, carvedilol. (4) Hypertension Comment: - BP well controlled. - Continue coreg and lisinopril (5) DVT prophylaxis Comment: - Heparin SQ. (6) Full code status Comment: Status and Disposition: Inpatient. Discharge to home.
[2017-08-30] MEDS: Vancomycin(*) 1,250 MG in NS 0.9% 250 ML* 250 ML IVPB SCH (11:11)
[2017-08-30 12:18] VITALS: BP 116/81
--- NOTE | 2017-08-30 23:20 | DS ---
DISCHARGE SUMMARY: DATE OF ADMISSION: 08/28/17. DATE OF DISCHARGE: 08/30/17 ATTENDING PHYSICIAN: Dr. Yamilex Bey * (dictation provided by Brina Payan NP ). PRIMARY DIAGNOSIS: Left heel diabetic foot ulcer. SECONDARY DIAGNOSES: 1. Type 2 diabetes insulin dependent. 2. Coronary artery disease with graft and stent placement most recently after non-STEMI. 3. Hypertension. 4. Chronic obstructive pulmonary disease. 5. Hyperlipidemia. PAST SURGICAL HISTORY: 1. Coronary artery stenting on 08/03/17. 2. Left foot with transmetatarsal amputation second toe amputated on the right foot. 3. Three surgeries on the right knee. 4. Five-vessel CABG in 2008. MEDICATIONS AT THE TIME OF DISCHARGE: 1. Clindamycin 300 mg p.o. t.i.d. x14 days. 2. Levaquin 750 mg p.o. daily x14 days. 3. Oxycodone/acetaminophen 5/325 mg one tablet p.o. q.4 hours p.r.n. pain (20 tablets provided). 4. Metformin 1000 mg p.o. b.i.d. 5. Brilinta 90 mg p.o. b.i.d. 6. Lisinopril 5 mg p.o. daily. 7. Carvedilol 3.125 mg p.o. b.i.d. 8. Glipizide 5 mg p.o. b.i.d. 9. Lantus 15 units subcutaneously q.p.m. 10. Magnesium oxide 500 mg p.o. daily. 11. Atorvastatin 80 mg p.o. daily. 12. Sertraline 100 mg p.o. daily. 13. Aspirin 81 mg p.o. daily. HOSPITAL COURSE: Mr. Chopra is a 61-year-old male with past medical history of coronary artery disease and diabetes, who presented to the hospital on 08/28/17 with concerns for left foot ulcer and cellulitis from wound care clinic. Please see dictated H and P from Gwen Merida NP for complete details. 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 He also had had followup with Dr. Starkey who had recommended angiogram in the lower extremity, although that had yet to be performed. In the emergency room, he had an elevated white blood cell count of 12.3, CRP of 82, and ESR 95. Mr. Chopra was admitted to the hospital. He did not show signs of sepsis. He had a lower extremity MRI which was read as follows "minimal bone marrow edema at the lateral and plantar margins of the calcaneal tuberosity without definitive loss of normal T1 marrow hyperintensity which may represent reactive edema or less likely early osteomyelitis. Shallow soft tissue ulcer at the heel with subadjacent subcutaneous tissue plane and skeletal muscle inflammatory change without evidence for a loculated abscess collection. Degenerative versus neuropathic arthropathy at the mid foot and tarsometarsal articulations." He had a consultation with Dr. Nicole from orthopedic services and I referred to his note for complete details, but in brief he recommended continued antibiotic treatment with no indication for current surgical intervention. He agreed that likely peripheral vascular disease was significant contributor to his ongoing poorly healing wound and agreed with continued followup with Dr. Starkey. While inpatient, the patient was treated with vancomycin, Levaquin, and Flagyl. There is not enough drainage to send for culture, but we suspected that it was likely polymicrobial in the setting of PVD and diabetes. Mr. Chopra is doing well today. His vitals are stable. He has no leukocytosis. His BUN and creatinine are normal. He has no drainage to his foot ulcer, it is not malodorous, and it has only minimal erythema around the edge of eschar, which is greatly improved since admision. Mr. Chopra is medically stable for discharge to home, but he will need a very close followup. He will be discharged on clindamycin and Levaquin for coverage of gram- negative bacteria, anaerobes, Streptococcus and MRSA. He is recommended to call on Thursday to follow up with the wound care clinic and to continue daily dressing changes with Santyl until he sees them. He is also recommended to follow up with Dr. Starkey on Thursday and to call regarding the planned angiogram. He is recommended to follow up with Dr. Mayen for management of ongoing infection and may follow up with Dr. Nicole as needed. Of course, he will also need to see DIANN Cedeño for ongoing coordination of care. DISPOSITION: To home. DIET: Consistent carbohydrate, low-fat, low-salt. ACTIVITY: As tolerated with nonweightbearing on the left toe until he follows up with the wound care clinic. FOLLOWUP PLANS: 1. Follow up with Dr. Starkey regarding angiogram. 2. Follow up with Dr. Mayen regarding ongoing management of infection. 3. Follow up with wound care clinic. 4. Follow up with Dr. Nicole as needed. TIME SPENT: Approximately 60 minutes were spent in the discharge of this patient, more than half the time spent with the patient at bedside reviewing the events leading up to this hospitalization, performing the physical examination and reviewing the plan of care. BRINA PAYAN NP [id number]/[facility] #: [id number] VICTOR HUGO
== END 2017-08-30 13:35 | disposition home or self-care (01) | DRG 638 ==
LOC: ED 14:57 → MED 19:59
PROVIDERS: ADMIT Hospitalist; ATTEND Internal Medicine
DX: E11.621 Type 2 diabetes mellitus with foot ulcer (principal); L97.429 Non-pressure chronic ulcer of left heel and midfoot with unspecified severity; L03.116 Cellulitis of left lower limb; N17.9 Acute kidney failure, unspecified; E11.51 Type 2 diabetes mellitus with diabetic peripheral angiopathy without gangrene; I25.10 Atherosclerotic heart disease of native coronary artery without angina pectoris; I11.9 Hypertensive heart disease without heart failure; Z95.5 Presence of coronary angioplasty implant and graft; J44.9 Chronic obstructive pulmonary disease, unspecified; E11.628 Type 2 diabetes mellitus with other skin complications; E78.5 Hyperlipidemia, unspecified; Z95.1 Presence of aortocoronary bypass graft; I25.2 Old myocardial infarction; Z89.422 Acquired absence of other left toe(s); Z89.421 Acquired absence of other right toe(s); Z79.84 Long term (current) use of oral hypoglycemic drugs; Z79.82 Long term (current) use of aspirin; Z79.4 Long term (current) use of insulin; Z79.899 Other long term (current) drug therapy; Z88.1 Allergy status to other antibiotic agents; Z88.8 Allergy status to other drugs, medicaments and biological substances; Z82.49 Family history of ischemic heart disease and other diseases of the circulatory system; Z83.3 Family history of diabetes mellitus; Z87.891 Personal history of nicotine dependence
CPT/HCPCS: 11042; 36415; 80048; 80053; 80202; 81003; 81015; 83036; 83605; 84134; 85025; 85652; 86140; 86141; 87040; 87070; 87086; 87205; 99213; 99283; 99406; A9270-GY; G0463; J0744; J1644; J1956; J3370; J3490

== ENCOUNTER 2017-09-01 11:19 | Inpatient (IN) | payer MEDICARE ==
[2017-09-01] MEDS ORDERED: NS 0.9% 1000 ML* 1,000 ML IV ONE (13:25)
[2017-09-01 13:58] LABS: ABS Basophils 0.1 10^3/ul (0-0.2); ABS Eosinophils 0.2 10^3/ul (0-0.6); ABS Lymphocytes 0.8 10^3/ul (1.0-4.8); ABS Monocytes 1.1 10^3/ul (0-0.8); ABS Nucleated RBC 0 10^3/ul; Eosinophil % 1.8 % (0-6); Hematocrit 32 % (42-52); Hemoglobin 10.8 g/dl (14.0-18.0); Lymphocyte % 6.2 % (25-47); Mean Corpuscular HGB Conc 34 g/dl (31-36); Mean Corpuscular Hemoglobin 32 pg (27-31); Mean Corpuscular Volume 93 fL (80-94); Mean Platelet Volume 7.5 um3 (7.4-10.4); Nucleated Red Blood Cells % 0; Platelet Count 341 10^3/ul (150-450); Red Blood Count 3.42 10^6/ul (4.00-5.40); Red Cell Distribution Width 14 % (10.5-15); White Blood Count 12.2 10^3/ul (3.5-10.8)
--- NOTE | 2017-09-01 13:58 | RAD ---
INDICATION: Foot ulcers. History of amputations COMPARISON: August 25, 2017 TECHNIQUE: AP, lateral, and oblique views were obtained. FINDINGS: There is amputation at the mid to distal tarsals of all 5 digits. Osteopenia with underlying arthritic changes present about the tarsals and tarsometatarsal articulations. There are no acute bony findings. There is a plantar calcaneal spur.. IMPRESSION: MIDFOOT AMPUTATION. NO ACUTE FINDINGS
[2017-09-01] MEDS ORDERED: Levofloxacin 500 MG IVPREMIX(* 500 MG/100 ML BAG IVPB ONE (14:15)
[2017-09-01] MEDS ORDERED: Vancomycin(*) 1,250 MG in NS 0.9% 250 ML* 250 ML IVPB ONE ×2 (14:15→17:00)
--- NOTE | 2017-09-01 14:19 | ED ---
Lower Extremity - HPI Summary HPI Summary: Pt. is a 61 y.o male who presents to the ER for re-evaluation of a diabetic foot ulcer to his left foot. Pt. was just admitted and discharged to our hospital 08/28-08/30/17. Pt. states that infection was improving while inpt. with IV antibx. He is set up to have an angiogram of his left leg by Dr. Herrera in a few weeks. Pt. states that since he has been home ulcer has progressively become larger with increased redness and a foul smell. Pt. denies fever. He admits to vomiting and notes he has not been able to keep his medications down. Symptoms are moderate in severity. Touching foot makes symptoms worse. Nothing makes symptoms better. Pt. 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 - History of Current Complaint Chief Complaint: EDExtremityLower Stated Complaint: LT FOOT INJURY Time Seen by Provider: 09/01/17 13:18 Hx Obtained From: Patient, Family/Paradichlorobenzene Tender Pain Intensity: 6 - Allergies/Home Medications Allergies/Adverse Reactions: Allergies Allergy/AdvReac Type Severity Reaction Status Date / Time Penicillins Allergy Hives Verified 09/01/17 13:29 piperacillin [From Zosyn] Allergy Hives Verified 08/28/17 15:07 tazobactam [From Zosyn] Allergy Hives Verified 08/28/17 15:07 PMH/Surg Hx/FS Hx/Imm Hx Previously Healthy: Yes Endocrine/Hematology History: Reports: Hx Diabetes Cardiovascular History: Reports: Hx Coronary Artery Disease, Hx Hypertension, Other Cardiovascular Problems/Disorders - DMII Denies: Hx Pacemaker/ICD Respiratory History: Reports: Hx Chronic Obstructive Pulmonary Disease (COPD) Denies: Hx Asthma GI History: 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 amputation left toes. amputation right toe. CABG x5 2008. CARDIAC STENT PLACED AUGUST 04 2017 ( SYNERGY PLACED AT [facility]). OKAY TO SCAN WITHIN 6 WEEKS. Static magnetic field of 3.0 and 1.5 Diane only. Maximum spatial gradient magnetic field of 2300 gauss/ cm (23 T/m). Maximum Magnetic Resonance system reported, whole body averaged specific absorption rate (SANDY) of <2 W/kg (Normal Operating Mode). Under the scan conditions defined above, the SYNERGY Stent is expected to produce a maximum temperature rise of 3.1oC after 15 minutes of continuous scanning. Infectious Disease History: No Infectious Disease History: Denies: Traveled Outside the [place] in Last 30 Days - Family History Known Family History: Positive: Other - Pt denies any relevant family history. 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 All Other Systems Reviewed And Are Negative: Yes Physical Exam Triage Information Reviewed: Yes Vital Signs On Initial Exam: Initial Vitals Temp Pulse Resp BP Pulse Ox 97.9 F 50 16 109/69 94 09/01/17 11:22 09/01/17 11:22 09/01/17 11:22 09/01/17 11:22 09/01/17 11:22 Vital Signs Reviewed: Yes Appearance: Positive: Well-Appearing - Pt. lying in bed in NAD. present. Skin: Positive: Warm, Dry Head/Face: Positive: Normal Head/Face Inspection Eyes: Positive: Normal Neck: Positive: Supple Musculoskeletal: Positive: Other - Roughly 6cm in length wound noted to the left lateral posterior foot with surrounding erythema. Foul smelling. Neurological: Positive: Normal, CN Intact II-III Psychiatric: Positive: Affect/Mood Appropriate Diagnostics - Vital Signs Vital Signs Temp Pulse Resp BP Pulse Ox 09/01/17 11:22 97.9 F 50 16 109/69 94 - Laboratory Lab Results: Lab Results 09/01/17 Range/Units 13:48 WBC 12.2 H (3.5-10.8) 10^3/ul RBC 3.42 L (4.00-5.40) 10^6/ul Hgb 10.8 L (14.0-18.0) g/dl Hct 32 L (42-52) % MCV 93 (80-94) fL MCH 32 H (27-31) pg MCHC 34 (31-36) g/dl RDW 14 (10.5-15) % Plt Count 341 (150-450) 10^3/ul MPV 7.5 (7.4-10.4) um3 Neut % (Auto) 81.9 (38-83) % Lymph % (Auto) 6.2 L (25-47) % Bates % (Auto) 9.3 H (0-7) % Eos % (Auto) 1.8 (0-6) % Baso % (Auto) 0.8 (0-2) % Absolute Neuts (auto) 10.0 H (1.5-7.7) 10^3/ul Absolute Lymphs (auto) 0.8 L (1.0-4.8) 10^3/ul Absolute Monos (auto) 1.1 H (0-0.8) 10^3/ul Absolute Eos (auto) 0.2 (0-0.6) 10^3/ul Absolute Basos (auto) 0.1 (0-0.2) 10^3/ul Absolute Nucleated RBC 0 10^3/ul Nucleated RBC % 0 Result Diagrams: 09/01/17 13:48 09/01/17 13:48 Lab Statement: Any lab studies that have been ordered have been reviewed, and results considered in the medical decision making process. Lower Extremity Course/Dx - Course Course Of Treatment: Patient presenting for failed home antibiotic treatment for diabetic foot ulcer. He is afebrile stable vital signs. Will recheck basic labs and blood cultures. X-ray is negative for acute findings at this time or evidence of osteomyelitis, reading per radiology. Patient was given a dose of IV vancomycin and Levaquin in the ER. Hospitalist was contacted, Dr. Matamoros, and patient has been accepted to her service for IV antibiotics and further care and evaluation. CRP elevated 140. Blood work is otherwise is at patient's baseline. Pt. has remained stable in ER. - Diagnoses Differential Diagnosis/HQI/PQRI: Positive: Cellulitis, Fracture (Closed), Gout, Infection, Osteomyelitis, Sprain, Strain Provider Diagnoses: Diabetic foot ulcer Discharge - Sign-Out/Discharge Documenting (check all that apply): Patient Departure - Discharge Plan Condition: Stable Disposition: ADMITTED TO [facility] Referrals: Malou HART,Soraya Munoz [Primary Care Provider] - - Billing Disposition and Condition Condition: STABLE Disposition: Admitted to [facility]
[2017-09-01 14:28] LABS: EGFR Non-African American 80.2 (>60)
[2017-09-01] MEDS ORDERED: Acetaminophen TAB* 325 MG PO PRN (14:55)
[2017-09-01] MEDS ORDERED: Dextrose 50% Syringe 50 ML* 25 GM/50 ML SYRINGE IV PUSH PRN (14:56)
[2017-09-01] MEDS ORDERED: Vancomycin(*) 0 MG in NS 0.9% 250 ML* 250 ML IVPB SCH (15:00)
[2017-09-01] MEDS ORDERED: Vancomycin per Pharmacy* NOTE FOLLOW UP PRN (15:04)
[2017-09-01] MEDS: Insulin LISPRO* 1 UNITS UNIT SUBCUT SCH (16:46)
--- NOTE | 2017-09-01 16:49 | HP ---
CC: Soraya Westfall PA-C * [facility] MEDICINE HISTORY AND PHYSICAL: DATE OF ADMISSION: 09/01/17 PRIMARY CARE PHYSICIAN: Soraya Westfall PA-C ATTENDING PHYSICIAN: Dr. Yamilex Bey * (dictation provided by Brina Payan NP ) CHIEF COMPLAINT: Nausea, vomiting, and worsening left foot ulceration. HISTORY OF PRESENT ILLNESS: Mr. Chopra is a 61-year-old male with a past medical history of diabetes, peripheral vascular disease, and ongoing left foot ulcer, who was just discharged from our hospital on 08/30/17 after being treated for the left foot ulcer. During that hospitalization, the patient was initially treated with vancomycin, Levaquin, and Flagyl. He had quick and good improvement in his erythema associated with the ulceration, which was dry without any drainage. He was seen in consultation by Dr. Nicole from [facility] and had a lower extremity MRI, which did not demonstrate osteomyelitis. Dr. Nicole did not recommend surgical intervention. His vitals were stable and showed no signs of systemic illness or sepsis. He was discharged to home to continue a course of clindamycin and Levaquin and to follow up with Dr. Starkey for consideration of further vascular intervention, his primary care provider, Soraya Westfall, Dr. Mayen as well as [facility]. The patient states that he was feeling well yesterday, but today he developed nausea and vomiting. His noted that the left foot ulcer suddenly appeared more red and became malodorous today and therefore they have returned to the emergency room. In the emergency room, Mr. Chopra's labs show that his CRP has increased from 76 to 140. He has a very mild leukocytosis with white blood cell count of 12.2. His left foot does now have worsening erythema and is malodorous as noted by his . PAST MEDICAL HISTORY: 1. Left heel diabetic left foot ulcer x 2 months. 2. Peripheral vascular disease. 3. Type 2 diabetes, insulin dependent. 4. Coronary artery disease with CABG 2008. 5. Non-ST elevation [place] with stents on 08/03/17. 6. COPD. 7. Hypertension. 8. Hyperlipidemia. PAST SURGICAL HISTORY: 1. Left foot transmetatarsal amputation. 2. Second toe amputated on the right foot. 3. Three surgeries on his right knee. 4. Five-vessel CABG in 2008. MEDICATIONS: 1. Oxycodone 5 mg p.o. q.4 hours p.r.n. 2. Metformin 1000 mg p.o. b.i.d. 3. Glipizide 5 mg p.o. b.i.d. 4. Ticagrelor 90 mg p.o. b.i.d. 5. Sertraline 100 mg p.o. daily. 6. Magnesium oxide 500 mg p.o. daily. 7. Lisinopril 5 mg p.o. daily. 8. Levaquin 750 mg p.o. daily. 9. Lactobacillus 1 cap p.o. b.i.d. 10. Lantus insulin 15 units subcutaneously q.p.m. 11. Santyl apply topically daily. 12. Clindamycin 300 mg p.o. t.i.d. 13. Carvedilol 3.125 mg p.o. b.i.d. 14. Atorvastatin 80 mg p.o. daily. 15. Aspirin 81 mg p.o. daily. ALLERGIES: To PENICILLINS, PIPERACILLIN, and TAZOBACTAM. FAMILY HISTORY: The patient reports his mother and father both had history of MIs in their 80s. Mother has a history of diabetes. SOCIAL HISTORY: The patient reports using vape for smoking, but quit smoking cigarettes about 2 years ago. Prior to that, he had about a 40-pack year history of smoking. He denies alcohol or drug use. He lives with his significant other, Toya, who is the healthcare proxy. REVIEW OF SYSTEMS: A 14-point review of systems was completed with Mr. Chopra. All those not mentioned above were negative. PHYSICAL EXAMINATION GENERAL: Mr. Chopra is lying in the bed. His significant other is at the bedside. He is in no acute distress. VITAL SIGNS: Temperature 97.9, pulse rate 50, respiratory rate 16, O2 saturation 94% on room air, blood pressure 109/69. LUNGS: Clear to auscultation bilaterally with no accessory muscle use and good aeration. HEART: S1, S2. No murmur, rub, or gallop, and regular. ABDOMEN: Soft and nontender with bowel sounds positive x4. EXTREMITIES: No cyanosis or edema. NEURO: He is alert. He is oriented x3. He moves all extremities equally. There is no facial asymmetry or focal weakness. Extraocular movements are intact. SKIN: The patient has a persistent circular ulceration to the left heel with black eschar that is about 2.5-3 inches in diameter. The eschar appears to be extending underneath the layer of the skin. He also has more extensive erythema than on discharge was, it was half an inch or less around the periphery of the ulceration, it is now extending up to about his ankle. It is malodorous, but there is no drainage. LABORATORY DATA/DIAGNOSTIC STUDIES: WBC 12.2, hemoglobin 10.0, hematocrit 32, platelet count 341. Sodium 135, potassium 4.6, chloride 103, serum bicarbonate 22, BUN 20, creatinine 0.96, glucose 96. Lactic acid 1.0. CRP 140.09. A foot x-ray shows no acute fracture or acute bony finding. ASSESSMENT AND PLAN: Mr. Chorpa is a 61-year-old male with a past medical history of diabetes and peripheral vascular disease as well as coronary artery disease, hypertension, chronic obstructive pulmonary disease, who presents to the hospital today after being discharged 2 days ago after treatment of a left foot ulcer, now with worsening erythema and nausea and vomiting. Our plans are for inpatient admission as I expect his length of stay to be greater than 2 days for the followin. Left diabetic foot ulcer with peripheral vascular disease: The patient has worsening infection today. The patient shows no sign of sepsis though his CRP is worsening. I have reviewed the case with Dr. Mayen who initially recommended ceftriaxone and flagyl. Patient now reports a history of MRSA 5 years ago, will add Vancomycin until Dr. Mayen can provide formal consultation. The patient was seen by Orthopedic Surgery during the last visit , but at that time, there was a lower extremity MRI that did not show any osteomyelitis. Plans to have a consult again with Orthopedics regarding need for sharp debridement of eschar. However, I will note that the patient is on Brilinta and had recent stent placement (08/05/17). I have also spoken with Dr. Starkey who has been following outpatient with plan for MIKE tomorrow. I have cancelled outpatient MIKE and ordered an inpatient study. Dr. Starkey will see the patient in consultation tomorrow as well. 2. Nausea. I question whether or not this may be secondary to the oral antibiotics. The patient has no abdominal pain, no diarrhea. He is tolerating oral intake. The patient will have Compazine available p.r.n. and further workup will be based on clinical course. 3. Type 2 diabetes. Plan to hold metformin and glipizide and continue his home Lantus with lispro sliding scale insulin. 4. Hypertension. The patient's blood pressure is stable. We will continue with carvedilol and lisinopril. 5. History of coronary artery disease. Continue ticagrelor and aspirin and atorvastatin. 6. Code status is full code. TIME SPENT: Approximately 60 minutes were spent on the admission of this patient, more than half of the time was spent with the patient at the bedside reviewing the events leading up to this hospitalization, performing the physical examination, and reviewing my plan of care. BRINA PAYAN NP [id number]/CPS #: [id number] VICTOR HUGO
[2017-09-01] MEDS ORDERED: Vancomycin per Pharmacy* NOTE FOLLOW UP SCH (17:00)
[2017-09-01] MEDS: cefTRIAXone(*) 1 GM in NS 0.9% 50 ML* 50 ML IVPB SCH (17:24)
--- NOTE | 2017-09-01 17:39 | CONS ---
CONSULTATION REPORT: DATE OF CONSULT: 09/01/17 REQUESTING PROVIDER: Brina Payan NP CONSULTING SERVICE: Infectious Disease. REASON FOR CONSULT: Left foot infection. IMPRESSION: 1. 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 2. PENICILLIN allergy, which was a rash. 3. Peripheral vascular disease. 4. Diabetes with peripheral neuropathy. RECOMMENDATIONS: 1. Ceftriaxone 1 g a day, Flagyl 500 mg IV every 8 hours. Surgical consultation for debridement of his left calcaneus. 2. Check an ankle-brachial index. HISTORY OF PRESENT ILLNESS: This is a 61-year-old diabetic man, admitted with left heel infection. He had been following [facility] for left heel wound for the last 2-1/2 months. This started as a crack and got bigger overtime. He was in the hospital and got better on a couple days of IV antibiotics. He was at home taking some antibiotic pills, but had some return of foul odor and some drainage from the wound again and so, he came back in today. His white blood cell count is 12,000. He has had some chills and sweats overnight. No fever here. He has got redness that is spreading around the heel a bit. He does not feel any pain. When he was here in the last week, he had an MRI that showed bone marrow edema at the lateral and plantar margin of the calcaneal tuberosity without loss of T1 hyperintensity. There was soft tissue ulcer. There was neuropathic arthropathy at the midfoot. PAST MEDICAL HISTORY: 1. Type 2 diabetes with neuropathy. 2. Coronary artery disease, history of VT and PCI 08/03/17. 3. Hypertension. 4. COPD. 5. Hyperlipidemia. PAST SURGICAL HISTORY: 1. Status post CABG in 2008. 2. Status post right knee surgery after trauma. 3. Status post left transmetatarsal amputation and right second toe amputation. MEDICATIONS: 1. Tylenol. 2. Aspirin. 3. Lipitor. 4. Coreg. 5. Heparin subcutaneous injection. 6. Insulin glargine. 7. Levaquin. 8. Flagyl. 9. Oxycodone. 10. Sertraline. 11. Brilinta. ALLERGIES: PENICILLIN caused rash. FAMILY HISTORY: No recurrent infections. Both parents had coronary artery disease and VT in their 80s. Mother had diabetes. SOCIAL HISTORY: Lives in [place] with his . He has no travel or sick contacts. REVIEW OF SYSTEMS: All negative, except as noted above to a 14-point review of systems. PHYSICAL EXAM: Vital Signs: Temperature of 36.7, heart rate 80, respiratory rate 16, blood pressure 119/75, oxygen saturation 99% on room air. In general, he is awake and comfortable. Neurologic: He is oriented x3. Follows all commands. He has decreased sensation to light touch in both feet. HEENT: There is no conjunctival hemorrhage. Oropharynx is without lesions. Neck is supple without mass. Lymph Nodes: There is no cervical, supraclavicular, inguinal, axillary, or epitrochlear lymphadenopathy. Heart is regular rate and rhythm without murmurs, rubs, or gallops. Lungs are clear to auscultation bilaterally. Abdomen: Soft, nontender, nondistended. There are bowel sounds present. Skin: There is no rash or splinter hemorrhage. Musculoskeletal: There is no spine tenderness to palpation. Left calcaneus, there is a lateral eschar with some purulent and serous drainage. There is surrounding erythema. There is no crepitus or fluctuance. LABORATORY DATA: White blood cell count 12, hemoglobin 10, platelets 341. Creatinine is 0.9. CRP 140. Please see impressions and recommendations as outlined above, which I have discussed with Brina Payan NP. Thanks for asking me to see Mr. Chopra in consultation. [id number]/[facility] #: [id number] MTDD
[2017-09-01] MEDS: metroNIDAZOLE IV 500 MG/100ML* 500 MG/100 ML BAG IVPB SCH ×2 (17:58→23:28)
[2017-09-01] MEDS ORDERED: Insulin GLARGINE(*) 1 UNITS UNIT SUBCUT SCH (18:00)
[2017-09-01] MEDS: oxyCODONE TAB* 5 MG TAB PO PRN (21:34)
[2017-09-01] MEDS: Carvedilol TAB* 3.125 MG PO SCH (21:35)
[2017-09-01] MEDS: Heparin VIAL(*) 5000 UNITS/ML VIAL (FIVE THOUSAND) SUBCUT SCH (21:35)
[2017-09-01] MEDS: Ticagrelor* 90 MG TAB PO SCH (21:35)
--- NOTE | 2017-09-01 22:17 | CONS ---
ORTHOPEDIC CONSULTATION: DATE OF CONSULT: 09/01/17. Thank you for this orthopedic consultation. CHIEF COMPLAINT: Left heel ulcer. HISTORY OF PRESENT ILLNESS: Mr Chopra is 61-year-old gentleman with diabetes, peripheral vascular disease, and ongoing left foot ulcer. The patient reports that he has had opening in the skin of his left heel for over 2 months now. He was recently seen and discharged from our hospital 2 days ago, on 08/30/17. He was treated with vancomycin, Levaquin, and Flagyl. He was sent home with p.o. antibiotics after an MRI did not demonstrate osteomyelitis of the calcaneus. He was seen by my partner, Dr. Nicole. The patient was not septic and discharged to home. Over the last 48 hours, the patient has developed nausea, vomiting, increased redness around the ulcer and foul odor from the ulcer. He has minimal pain in the foot and decreased sensation. The patient was seen back in [facility] Emergency Room with increased CRP to 140 and mild leukocytosis at 12.2. He is admitted for IV antibiotics and possible ulcer debridement. PAST MEDICAL HISTORY: Left heel diabetic foot ulcer, peripheral vascular disease, type 2 diabetes, insulin-dependent; coronary artery disease, history of non-ST elevation [place] with stents in July 2017, COPD, hypertension, hyperlipidemia. PAST SURGICAL HISTORY: Left foot TMA, right foot second toe amputation, right knee 3 surgeries, unspecified type; cardiac stent July 2017, CABG 2008. HOME MEDICATIONS: 1. Oxycodone 5 mg p.o. q.4 hours p.r.n. for pain. 2. Metformin 1000 mg p.o. b.i.d. 3. Glipizide 5 mg p.o. b.i.d. 4. Ticagrelor 90 mg p.o. b.i.d. 5. Sertraline 100 mg p.o. daily. 6. Magnesium oxide 500 mg p.o. daily. 7. Lisinopril 5 mg p.o. daily. 8. Levaquin 750 mg p.o. daily. 9. Lactobacillus 1 cap p.o. b.i.d. 10. Lantus insulin 50 units subcutaneous q.p.m. 11. Santyl topical daily. 12. Clindamycin 300 mg p.o. t.i.d. 13. Carvedilol 3.125 mg p.o. b.i.d. 14. Atorvastatin 80 mg p.o. daily. 15. Aspirin 81 mg p.o. daily ALLERGIES: PENICILLINS, PIPERACILLIN, and TAZOBACTAM. FAMILY HISTORY: Maternal - diabetes, heart disease. Paternal - heart disease. SOCIAL HISTORY: The patient uses a vape for smoking. He quit smoking tobacco 2 years ago. He had 40 pack-year history before that. He denies alcohol or recreational drugs. He lives with his significant other normally, ambulates with a cane. REVIEW OF SYSTEMS: Fourteen systems were reviewed with the patient. Positive for some nausea and vomiting, left heel ulcer with drainage and foul odor. Negative for fever, chills, chest pain, shortness of breath. Otherwise, the patient reports review of systems is negative or not relevant. PHYSICAL EXAM: Vitals: Temperature 98.1, pulse of 93, blood pressure 171/81. General: The patient is a well-nourished male in no apparent distress. Alert and oriented x3. Pleasant mood and appropriate affect. Gait: The patient's gait is not assessed. Left lower extremity: The patient's skin is intact proximally at the heel. He has a 4 x 2 cm heel ulcer with necrotic black tissue overlying. There is a small amount of purulent drainage. No significant foul odor. Around the ulcer is some erythema, cellulitis. No significant swelling here. He has prior transmetatarsal amputation with a stump well healed. I do have a palpable 1+ DP pulse. He has decreased sensation past the ankle. He does have dorsiflexion and plantarflexion. DIAGNOSTIC STUDIES/LAB DATA: The 09/01/17 labs show white blood cells 12.2 with neutrophils 81.9, hematocrit 32, platelets 341. Sodium 135, potassium 4.6 , chloride 103, BUN and creatinine 20 and 0.96. CRP at 140. RADIOGRAPHS: I reviewed foot x-ray from today, which shows plantar calcaneal heel spur, but no obvious osteomyelitis or lytic lesions. There is an MRI from 08/28/17, showing no obvious osteomyelitis. ASSESSMENT AND PLAN: Mr. Chopra is a 61-year-old diabetic male with peripheral vascular disease and a chronic two-month duration left heel ulcer. He was recently discharged to home on p.o. antibiotics and his condition worsened with increasing foul smelling drainage from the ulcer and cellulitis around it. He developed nausea, vomiting and now his labs show leukocytosis with elevated CRP. He is currently admitted and there was a consult today with Dr. Mayen of Infectious Disease. He is on IV ceftriaxone and Flagyl. I agree that MIKE should be checked immediately. There was some question of whether Dr. Starkey could see the patient to evaluate for any revascularization procedures. I will discuss this case with Dr. Nicole. Dr. Nicole is one of our foot and ankle specialists, who already knows the patient. He will see the patient on 09/02/17, and I defer to him on his opinion regarding debridement of the heel ulcer. For now, he should remain non-weightbearing on that heel. Continue IV antibiotics. [id number]/[facility] #: [id number] MTDAlise
[2017-09-02] MEDS: Heparin VIAL(*) 5000 UNITS/ML VIAL (FIVE THOUSAND) SUBCUT SCH ×2 (05:32→15:34)
[2017-09-02] MEDS: Vancomycin(*) 1,250 MG in NS 0.9% 250 ML* 250 ML IVPB SCH ×2 (05:32→18:33)
[2017-09-02 07:45] LABS: ABS Basophils 0.1 10^3/ul (0-0.2); ABS Eosinophils 0.3 10^3/ul (0-0.6); ABS Lymphocytes 0.9 10^3/ul (1.0-4.8); ABS Monocytes 1.4 10^3/ul (0-0.8); ABS Neutrophils 7.4 10^3/ul (1.5-7.7); ABS Nucleated RBC 0 10^3/ul; Eosinophil % 2.8 % (0-6); Hematocrit 29 % (42-52); Hemoglobin 10.1 g/dl (14.0-18.0); Lymphocyte % 8.7 % (25-47); Mean Corpuscular HGB Conc 35 g/dl (31-36); Mean Corpuscular Hemoglobin 32 pg (27-31); Mean Corpuscular Volume 92 fL (80-94); Mean Platelet Volume 7.6 um3 (7.4-10.4); Nucleated Red Blood Cells % 0; Platelet Count 312 10^3/ul (150-450); Red Blood Count 3.19 10^6/ul (4.00-5.40); Red Cell Distribution Width 14 % (10.5-15); White Blood Count 10.1 10^3/ul (3.5-10.8)
[2017-09-02 07:52] LABS: EGFR Non-African American 85.3 (>60)
--- NOTE | 2017-09-02 08:47 | PN ---
Progress Note - Progress Note Date of Service: 09/02/17 Note: I saw and evaluated Juan R this morning. I had previously seen him over the weekend for a left heel ulcer. It had been improving, so we decided to try and treat with offloading and antibiotics. Unfortunately, after discharge, the erythema worsened and he started having fevers. He was readmitted. His CRP increased to 140. Since restarting IV antibiotics, he reports it is doing a little bit better. Reportedly, there was some purulent drainage yesterday. He has a previous transmetatarsal amputation, diabetes, peripheral vascular disease. He recently saw Dr. Starkey who was planning on having a revascularization prior to these admissions. On exam today, the ulcer appears about the same. It is 4 cm in diameter. I am unable to express any purulence. There is some surrounding erythema. His MRI does not clearly show any osteomyelitis of the calcaneus. I had a long discussion with Juan R about options. We discussed continuing nonoperative treatment versus a debridement and wound VAC. He is understandably frustrated that this has not improved, and if anything has worsened. He expressed his desire to try a debridement and wound VAC. Additionally, he still needs a revascularization to improve blood flow to his foot. I will plan on a irrigation and debridement, and placement of a wound VAC tomorrow. Please keep him n.p.o. after midnight. Wil Nicole MD
[2017-09-02] MEDS: Insulin LISPRO* 1 UNITS UNIT SUBCUT SCH ×3 (08:59→17:52)
[2017-09-02] MEDS: Lisinopril TAB* 5 MG PO SCH (09:00)
[2017-09-02] MEDS: Atorvastatin* 80 MG TAB PO SCH (09:01)
[2017-09-02] MEDS: Aspirin EC TAB* 81 MG TAB.EC PO SCH (09:01)
[2017-09-02] MEDS: Carvedilol TAB* 3.125 MG PO SCH ×2 (09:01→20:49)
[2017-09-02] MEDS: Ticagrelor* 90 MG TAB PO SCH ×2 (09:01→20:49)
[2017-09-02] MEDS: oxyCODONE TAB* 5 MG TAB PO PRN (09:01)
[2017-09-02] MEDS: Sertraline* 100 MG TAB PO SCH (09:01)
[2017-09-02] MEDS: metroNIDAZOLE IV 500 MG/100ML* 500 MG/100 ML BAG IVPB SCH ×2 (09:07→15:34)
--- NOTE | 2017-09-02 11:45 | RAD ---
INDICATION: Left foot ulcer. COMPARISON: Correlation is made with a prior study from July 07, 2014. TECHNIQUE: Bilateral ankle brachial indices were measured and Doppler tracings were obtained at the ankle of the dorsalis pedis and posterior tibial arteries. FINDINGS: The ankle brachial index on the right was 0.76 and on the left was 0.34. These measured 0.99 and 0.67 respectively on the prior study. There is triphasic flow within the right posterior tibial artery and triphasic flow within the right dorsalis pedis artery. There is monophasic flow within the left posterior tibial artery and monophasic flow within the left dorsalis pedis artery. IMPRESSION: DECREASED ANKLE-BRACHIAL INDICES DESCRIBED IN THE CLAUDICATION RANGE ON THE RIGHT SIDE AND IN THE REST PAIN RANGE ON THE LEFT SIDE CONSISTENT WITH SEVERE PERIPHERAL ARTERIAL DISEASE.
--- NOTE | 2017-09-02 11:49 | CONSULT ---
Consult Consult: Date of Service: 09/02/17 Patient: VIKY CHOPRA /Age: 09 1955 61 Medical Record#: [id number] Admission Date: 09/01/17 Requesting Provider: Brina Payan NP Reason for Consult: Left lateral ankle critical limb ischemia, signs of sepsis PRIMARY CARE PHYSICIAN: Soraya Westfall PA-C HISTORY OF PRESENT ILLNESS: Mr. Chopra is a 61-year-old male with a past medical history of diabetes, peripheral vascular disease, and ongoing left foot ulcer, who was just discharged from our hospital on 08/30/17 after being treated for the left foot ulcer. He was recently seen in the IR clinic last week and it was determined then that he requires a left leg arteriogram. During his most recent hospitalization, the patient was initially treated with vancomycin, Levaquin, and Flagyl. He had quick and good improvement in his erythema associated with the ulceration, which was dry without any drainage. He was seen in consultation by Dr. Nicole [facility] and had a lower extremity MRI, which did not demonstrate osteomyelitis. Dr. Nicole did not recommend surgical intervention. His vitals were stable and showed no signs of systemic illness or sepsis. He was discharged to home to continue a course of clindamycin and Levaquin and to follow up with me for arteriography. The patient states that he was feeling well prior to admission, but he developed nausea and vomiting. His noted that the left foot ulcer suddenly appeared more red and became malodorous today and therefore they have returned to the emergency room. He reports that his left foot does now have worsening erythema and is malodorous with worsening pain. PAST MEDICAL HISTORY: 1. Left heel diabetic left foot ulcer x 2 months. 2. Peripheral vascular disease. 3. Type 2 diabetes, insulin dependent. 4. Coronary artery disease with CABG 2008. 5. Non-ST elevation CA with stents on 08/03/17. 6. COPD. 7. Hypertension. 8. Hyperlipidemia. PAST SURGICAL HISTORY: 1. Left foot transmetatarsal amputation. 2. Second toe amputated on the right foot. 3. Three surgeries on his right knee. 4. Five-vessel CABG in 2008. MEDICATIONS UPON ADMISSION: 1. Oxycodone 5 mg p.o. q.4 hours p.r.n. 2. Metformin 1000 mg p.o. b.i.d. 3. Glipizide 5 mg p.o. b.i.d. 4. Ticagrelor 90 mg p.o. b.i.d. 5. Sertraline 100 mg p.o. daily. 6. Magnesium oxide 500 mg p.o. daily. 7. Lisinopril 5 mg p.o. daily. 8. Levaquin 750 mg p.o. daily. 9. Lactobacillus 1 cap p.o. b.i.d. 10. Lantus insulin 15 units subcutaneously q.p.m. 11. Santyl apply topically daily. 12. Clindamycin 300 mg p.o. t.i.d. 13. Carvedilol 3.125 mg p.o. b.i.d. 14. Atorvastatin 80 mg p.o. daily. 15. Aspirin 81 mg p.o. daily. ALLERGIES: To PENICILLINS, PIPERACILLIN, and TAZOBACTAM. FAMILY HISTORY: The patient reports his mother and father both had history of MIs in their 80s. Mother has a history of diabetes. SOCIAL HISTORY: The patient reports using vape for smoking, but quit smoking cigarettes about 2 years ago. Prior to that, he had about a 40-pack year history of smoking. He denies alcohol or drug use. He lives with his significant other, Toya, who is the healthcare proxy. REVIEW OF SYSTEMS: All not mentioned above are negative. 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 COMPARISON: Correlation is made with a prior study from July 07, 2014. TECHNIQUE: Bilateral ankle brachial indices were measured and Doppler tracings were obtained at the ankle of the dorsalis pedis and posterior tibial arteries. FINDINGS: The ankle brachial index on the right was 0.76 and on the left was 0.34. These measured 0.99 and 0.67 respectively on the prior study. There is triphasic flow within the right posterior tibial artery and triphasic flow within the right dorsalis pedis artery. There is monophasic flow within the left posterior tibial artery and monophasic flow within the left dorsalis pedis artery. IMPRESSION: DECREASED ANKLE-BRACHIAL INDICES DESCRIBED IN THE CLAUDICATION RANGE ON THE RIGHT SIDE AND IN THE REST PAIN RANGE ON THE LEFT SIDE CONSISTENT WITH SEVERE PERIPHERAL ARTERIAL DISEASE. <Electronically signed by Santino Urbano MD in [place]> 09/02/17 1141 Dictated By: Santino Urbano MD Dictated Date/Time: 09/02/17 1141 Transcribed Date/Time: 09/02/17 1138 Labs: Laboratory Tests 09/01/17 09/01/17 09/02/17 13:48 13:48 06:57 WBC 12.2 H 10.1 RBC 3.19 L Hgb 10.1 L Hct 29 L Neut % (Auto) 81.9 73.8 BUN Creatinine Est GFR ( Amer) Est GFR (Non-Af Amer) POC Glucose (mg/dL) C-React Prot High Sens 140.09 H 09/02/17 09/02/17 06:57 08:21 WBC RBC Hgb Hct Neut % (Auto) BUN 18 Creatinine 0.91 Est GFR ( Amer) 103.2 Est GFR (Non-Af Amer) 85.3 POC Glucose (mg/dL) 218 H C-React Prot High Sens Summary: 61 year old man with worsening lateral left heel ulcer in the presence of severe LLE arterial insufficiency. It is my opinion that his best chances of minimizing/avoiding amputation and/or healing surgical debridement is to try to restore/augment arterial flow to his left foot. Plan/Recommendation: 1. LLE arteriography for superior characterization of arterial disease and possible revascularization. * At the time of this note I will try to get him on the angiography schedule today. If not possible dates are tomorrow, 09/03/17 or next week. 2. Continue antibiotics and left lateral heel wound care.
[2017-09-02] MEDS ORDERED: Levofloxacin 750 MG IVPREMIX(* 750 MG/150 ML BAG IVPB SCH (15:00)
[2017-09-02] MEDS ORDERED: Heparin VIAL(*) 5000 UNITS/ML VIAL (FIVE THOUSAND) SUBCUT SCH (16:02)
[2017-09-02] MEDS ORDERED: NS 0.9% 1000 ML* 1,000 ML IV SCH (16:45)
[2017-09-02] MEDS: cefTRIAXone(*) 1 GM in NS 0.9% 50 ML* 50 ML IVPB SCH (17:30)
--- NOTE | 2017-09-02 18:41 | PN ---
Subjective Date of Service: 09/02/17 Interval History: Patient seen and examined. No acute overnight events. Patient with no fever or chills, denies chest pain, no SOB, no acute pain in lower extremities. Objective Active Medications: Acetaminophen (Tylenol Tab*) 650 mg PO Q6H PRN PRN Reason: pain/fever Aspirin (Aspirin Ec Tab*) 81 mg PO DAILY [facility] Last Admin: 09/02/17 09:01 Dose: 81 mg Atorvastatin Calcium (Lipitor*) 80 mg PO DAILY [facility] Last Admin: 09/02/17 09:01 Dose: 80 mg Carvedilol (Coreg Tab*) 3.125 mg PO BID [facility] Last Admin: 09/02/17 09:01 Dose: 3.125 mg Dextrose (D50w Syringe 50 Ml*) 12.5 gm IV PUSH .FOR FS < 60 - SS PRN PRN Reason: FS < 60 Famotidine (Pepcid Iv*) 20 mg IV ONCE ONE Stop: 09/03/17 08:01 Heparin Sodium (Porcine) (Heparin Vial(*)) 5,000 units SUBCUT Q8HR [facility] Stop: 09/02/17 23:59 Metronidazole/Sodium Chloride (Flagyl 500 Mg Ivpb*) 500 mg in 100 mls @ 100 mls /hr IVPB Q8H [facility] Last Admin: 09/02/17 15:34 Dose: 100 mls/hr Ceftriaxone Sodium 1 gm/ (Sodium Chloride) 50 mls @ 200 mls/hr IVPB Q24HR@1700 [facility] Last Admin: 09/02/17 17:30 Dose: 200 mls/hr Vancomycin HCl 1,250 mg/ (Sodium Chloride) 250 mls @ 166.667 mls/hr IVPB Q12H [facility] Last Admin: 09/02/17 18:33 Dose: 166.667 mls/hr Lactated Ringer's (Lactated Ringers 1000 Ml Bag*) 1,000 mls @ 125 mls/hr IV PER RATE [facility] Sodium Chloride (Ns 0.9% 1000 Ml*) 1,000 mls @ 75 mls/hr IV PER RATE [facility] Stop: 09/03/17 05:59 Last Admin: 09/02/17 17:30 Dose: 75 mls/hr Insulin Human Lispro (Humalog*) 0 units SUBCUT [facility]; Protocol Last Admin: 09/02/17 17:52 Dose: 2 units Lidocaine/Sodium Bicarbonate (Buffered Lidocaine 0.9% Syrin*) 0.2 ml INTRADERM ONCE ONE Stop: 09/03/17 08:01 Lisinopril (Prinivil Tab*) 5 mg PO DAILY [facility] Last Admin: 09/02/17 09:00 Dose: 5 mg Oxycodone HCl (Roxycodone Tab*) 5 mg PO Q4H PRN PRN Reason: PAIN Last Admin: 09/02/17 09:01 Dose: 5 mg Pharmacy Consult (Vancomycin Per Pharmacy*) 1 note FOLLOW UP .VANC PER PHARMACY [facility] Pharmacy Profile Note (Vancomycin Trough Check) 1 note FOLLOW UP .ENTER TIME ONE Stop: 09/03/17 05:31 Prochlorperazine Edisylate (Compazine Inj*) 5 mg IV Q6H PRN PRN Reason: NAUSEA/VOMITING Sertraline HCl (Zoloft*) 100 mg PO DAILY [facility] Last Admin: 09/02/17 09:01 Dose: 100 mg Ticagrelor (Brilinta*) 90 mg PO BID [facility] Last Admin: 09/02/17 09:01 Dose: 90 mg Vital Signs - 8 hr 09/02/17 09/02/17 11:03 14:36 Temperature 97.5 F Pulse Rate 86 Respiratory 18 14 Rate Blood Pressure 149/35 (mmHg) O2 Sat by Pulse 100 Oximetry Oxygen Devices in Use Now: None Appearance: Alert, NAD Eyes: No Scleral Icterus, PERRLA Ears/Nose/Mouth/Throat: Clear Oropharnyx, Mucous Membranes Moist Neck: NL Appearance and Movements; NL JVP, Trachea Midline Respiratory: Symmetrical Chest Expansion and Respiratory Effort, Clear to Auscultation Cardiovascular: NL Sounds; No Murmurs; No JVD, RRR Extremities: - - left heel wound with eschar Neurological: Alert and Oriented x 3 Nutrition: - - NPO for procedure Result Diagrams: 09/02/17 06:57 09/02/17 06:57 Additional Lab and Data: Lab Results 09/01/17 Range/Units 13:48 WBC 12.2 H (3.5-10.8) 10^3/ul RBC 3.42 L (4.00-5.40) 10^6/ul Hgb 10.8 L (14.0-18.0) g/dl Hct 32 L (42-52) % MCV 93 (80-94) fL MCH 32 H (27-31) pg MCHC 34 (31-36) g/dl RDW 14 (10.5-15) % Plt Count 341 (150-450) 10^3/ul MPV 7.5 (7.4-10.4) um3 Neut % (Auto) 81.9 (38-83) % Lymph % (Auto) 6.2 L (25-47) % [place] % (Auto) 9.3 H (0-7) % Eos % (Auto) 1.8 (0-6) % Baso % (Auto) 0.8 (0-2) % Absolute Neuts (auto) 10.0 H (1.5-7.7) 10^3/ul Absolute Lymphs (auto) 0.8 L (1.0-4.8) 10^3/ul Absolute Monos (auto) 1.1 H (0-0.8) 10^3/ul Absolute Eos (auto) 0.2 (0-0.6) 10^3/ul Absolute Basos (auto) 0.1 (0-0.2) 10^3/ul Absolute Nucleated RBC 0 10^3/ul Nucleated RBC % 0 Microbiology and Other Data: Microbiology 09/01/17 13:48 Aerobic Blood Culture - Preliminary Blood Venous No Growth Day 1 Anaerobic Blood Culture - Preliminary No Growth Day 1 Assess/Plan/Problems-Billing Assessment: This is a 61 year old male with multiple medical comorbid conditions that presents with non-healing left heel wound with severe arterial disease. - Patient Problems (1) CAD (coronary artery disease) Code(s): I25.10 - ATHSCL HEART DISEASE OF [place] CORONARY ARTERY W/O ANG PCTRS SNOMED Code(s): 68764974 Comment: - Asymptomatic, NSTEMI in the past - S/P CABG and stent. - Continue aspirin, brilinta, atorvastatin, carvedilol. (2) Diabetes Code(s): E11.9 - TYPE 2 DIABETES MELLITUS WITHOUT COMPLICATIONS SNOMED Code(s) : 10072016 Comment: - Lispro SS while NPO (3) Diabetic foot ulcer Code(s): E11.621 - TYPE 2 DIABETES MELLITUS WITH FOOT ULCER; L97.509 - NON- PRESSURE CHRONIC ULCER OTH PRT UNSP FOOT W UNSP SEVERITY SNOMED Code(s): 046652262 Comment: - Rapid decline in wound status after DC on the indicating intervention required - Consult with Dr. Starkey, Dr. Nicole and Dr. Davis - Continue atbx per ID - Schedule for debridement and application of wound vac tomorrow with Dr. Nicole - NEEDS revascularization to restore blood supply if a larger surgery is planned, please see recommendation by Dr. Starkey - NPO aftermidnight, continue IVF at maintenance (4) Hypertension Code(s): I10 - ESSENTIAL (PRIMARY) HYPERTENSION SNOMED Code(s): 88827841 Comment: - BP well controlled. - Continue coreg and lisinopril (5) DVT prophylaxis Code(s): HZA9702 - SNOMED Code(s): 615586234 Comment: - Heparin SQ, hold in AM for procedure (6) Full code status Code(s): Z78.9 - OTHER SPECIFIED HEALTH STATUS SNOMED Code(s): 229612779 Comment: Status and Disposition: Remain inpatient.
[2017-09-03] MEDS: metroNIDAZOLE IV 500 MG/100ML* 500 MG/100 ML BAG IVPB SCH ×4 (00:26→16:24)
[2017-09-03] MEDS ORDERED: Vancomycin Trough Check NOTE FOLLOW UP ONE (05:30)
[2017-09-03 06:13] LABS: ABS Basophils 0.1 10^3/ul (0-0.2); ABS Eosinophils 0.2 10^3/ul (0-0.6); ABS Lymphocytes 0.8 10^3/ul (1.0-4.8); ABS Neutrophils 6.6 10^3/ul (1.5-7.7); ABS Nucleated RBC 0 10^3/ul; Eosinophil % 2.7 % (0-6); Hematocrit 29 % (42-52); Hemoglobin 9.9 g/dl (14.0-18.0); Lymphocyte % 9.6 % (25-47); Mean Corpuscular HGB Conc 34 g/dl (31-36); Mean Corpuscular Hemoglobin 31 pg (27-31); Mean Corpuscular Volume 91 fL (80-94); Mean Platelet Volume 7.5 um3 (7.4-10.4); Nucleated Red Blood Cells % 0; Platelet Count 313 10^3/ul (150-450); Red Blood Count 3.15 10^6/ul (4.00-5.40); Red Cell Distribution Width 14 % (10.5-15); White Blood Count 8.7 10^3/ul (3.5-10.8)
[2017-09-03 06:16] LABS: INR 1.22 (0.77-1.02)
[2017-09-03 06:27] LABS: EGFR Non-African American 115.4 (>60)
[2017-09-03] MEDS: Vancomycin(*) 1,250 MG in NS 0.9% 250 ML* 250 ML IVPB SCH ×2 (06:57→18:29)
[2017-09-03] MEDS ORDERED: Buffered Lidocaine 0.9% SYRIN* 5 ML/SYR SYRINGE INTRADERM ONE (08:00)
[2017-09-03] MEDS ORDERED: Famotidine IV* 10 MG/ML 2 ML (20 mg) IV ONE (08:00)
[2017-09-03] MEDS: Atorvastatin* 80 MG TAB PO SCH (08:15)
[2017-09-03] MEDS: Lisinopril TAB* 5 MG PO SCH (08:15)
[2017-09-03] MEDS: Carvedilol TAB* 3.125 MG PO SCH ×2 (08:15→21:30)
[2017-09-03] MEDS: Aspirin EC TAB* 81 MG TAB.EC PO SCH (08:15)
[2017-09-03] MEDS: Ticagrelor* 90 MG TAB PO SCH ×2 (08:16→21:30)
[2017-09-03] MEDS: Sertraline* 100 MG TAB PO SCH (08:16)
--- NOTE | 2017-09-03 08:56 | PN ---
Progress Note - Progress Note Date of Service: 09/03/17 SOAP: Subjective: CC: foot infection HPI: 61 year old man with left heel ulcer and eschar with cellulitis; pain and swelling improved. No fever, rash, or diarrhea. Objective: Vital Signs Temp 36.4 C 09/02/17 23:49 Pulse 82 09/03/17 08:04 Resp 12 09/03/17 08:04 BP 166/89 09/03/17 08:04 Pulse Ox 99 09/03/17 08:04 Intake & Output 09/02/17 09/03/17 09/03/17 18:59 06:59 18:59 Intake Total 600 1348 Output Total 1300 Balance 600 48 Intake: IV Fluids 400 1138 ABX - CEFTRIAXONE 50 ABX - FLAGYL 100 ABX - VANCOMYCIN 250 NS (0.9%) 1138 IVPB 210 ABX - FLAGYL 210 Oral 200 0 Output: Urine 1300 Other: Estimated Void Medium Small # Bowel Movements 1 0 Estimated Stool Amount Small # Voids 2 2 Gen:awake, no distress HEENT: no thrush Heart:RRR no murmur Lungs:CTA BL Abd:+BS NTND soft Skin: no rash MSK: L heel eschar, foul odor, mild surrounding erythema Laboratory Results - last 24 hr 09/02/17 09/02/17 09/03/17 12:43 17:35 06:00 WBC RBC Hgb Hct MCV MCH MCHC RDW Plt Count MPV Neut % (Auto) Lymph % (Auto) [place] % (Auto) Eos % (Auto) Baso % (Auto) Absolute Neuts (auto) Absolute Lymphs (auto) Absolute Monos (auto) Absolute Eos (auto) Absolute Basos (auto) Absolute Nucleated RBC Nucleated RBC % INR (Anticoag Therapy) Sodium Potassium Chloride Carbon Dioxide Anion Gap BUN Creatinine Est GFR ( Amer) Est GFR (Non-Af Amer) BUN/Creatinine Ratio Glucose POC Glucose (mg/dL) 285 H 200 H Calcium Vancomycin Trough 13.2 09/03/17 09/03/17 09/03/17 06:00 06:00 06:00 WBC 8.7 RBC 3.15 L Hgb 9.9 L Hct 29 L MCV 91 MCH 31 MCHC 34 RDW 14 Plt Count 313 MPV 7.5 Neut % (Auto) 75.4 Lymph % (Auto) 9.6 L [place] % (Auto) 11.0 H Eos % (Auto) 2.7 Baso % (Auto) 1.3 Absolute Neuts (auto) 6.6 Absolute Lymphs (auto) 0.8 L Absolute Monos (auto) 1.0 H Absolute Eos (auto) 0.2 Absolute Basos (auto) 0.1 Absolute Nucleated RBC 0 Nucleated RBC % 0 INR (Anticoag Therapy) 1.22 H Sodium 138 Potassium 4.1 Chloride 107 Carbon Dioxide 22 Anion Gap 9 BUN 12 Creatinine 0.70 Est GFR ( Amer) 139.7 Est GFR (Non-Af Amer) 115.4 BUN/Creatinine Ratio 17.1 Glucose 191 H POC Glucose (mg/dL) Calcium 8.8 Vancomycin Trough Assessment: 1. left heel gangrene, acute non hematogenous osteomyelitis 2. left foot cellulitis 3. PAD 4. Diabetes with neuropathy Plan: 1. continue ceftriaxone/flagyl, I&D planned; will plan on 4-6 weeks IV antibiotics, final abx pending any cultures which may be obtained.
[2017-09-03] MEDS: Insulin LISPRO* 1 UNITS UNIT SUBCUT SCH ×3 (09:08→17:59)
[2017-09-03] MEDS ORDERED: oxyCODONE TAB* 5 MG TAB PO PRN (12:48)
[2017-09-03] MEDS ORDERED: HYDROcodone/ACETAMIN 5-325 MG* 1 TAB PO PRN (12:48)
[2017-09-03] MEDS ORDERED: Naloxone* 0.4 MG/ML 1 ML VIAL IV PRN (12:48)
[2017-09-03] MEDS ORDERED: fentaNYL* 50 MCG/ML 2 ML VIAL (100 MCG VIAL) IV PRN (12:48)
[2017-09-03] MEDS ORDERED: DiMENhydriNATE IV* 50 MG/ML VIAL IV PUSH PRN (12:48)
[2017-09-03] MEDS ORDERED: PROCHLORPERAZINE INJ 5 MG/ML 2 ML VIAL IV PRN (12:48)
--- NOTE | 2017-09-03 14:14 | OP ---
Operative Report - Blank - Operative Report Date of Operation: 09/03/17 Note: PATIENT: Juan R Chopra DATE OF : 1955 DATE OF SURGERY: 09/03/2017 SURGEON: Wil Nicole MD CLINICAL TRIAL MANAGER: DIANN Yeager, whos assistance was necessary for positioning, retraction, help with instrumentation, and closure. ANESTHESIOLOGIST: Dr. Ray PREOPERATIVE DIAGNOSIS: Left foot ulcer, soft tissue infection, and possible osteomyelitis POSTOPERATIVE DIAGNOSIS: Left foot ulcer, soft tissue infection, and possible osteomyelitis OPERATION: 1. Left foot irrigation and debridement 2. Left foot deep bone biopsy of the calcaneus 3. Placement of a wound VAC ANESTHESIA: MAC IMPLANTS: none TOURNIQUET TIME: none SPECIMENS: Calcaneus bone to micro and path ESTIMATED BLOOD LOSS: minimal COMPLICATIONS: none STATUS: Stable from the operating room to the recovery room and then back to the hospital floor. INDICATIONS FOR PROCEDURE: Juan R has had a chronic left heel wound with worsening infection despite antibiotics. Both operative and non-operative treatment alternatives were reviewed. Further, the nature and risks of surgery were reviewed in careful detail, in the office as well as the pre-operative holding area. Our discussions regarding the risks of surgery included, but were not limited to, persistent or worsening infection, wound problems, nerve injury, neuroma, RSD, persistent symptoms, blood clot, failure of the surgery, need for amputation. DESCRIPTION OF PROCEDURE: The patient was seen in the preoperative holding unit and informed written consent was obtained. The appropriate extremity was marked. The patient was then brought to the operating room and carefully positioned on the operating room table. Anesthesia was induced. All bony prominences were padded with great care. A chlorhexidine based pre-scrub was performed followed by a chloraprep prep and drape in standard sterile fashion. A surgical safety pause was then conducted in which we confirmed the appropriate patient, extremity, planned procedure, availability of equipment, indication and administration of prophylactic antibiotics, and DVT prophylaxis in the form of a compression boot on the non-surgical extremity. I began by excising the ulcer with a 15 blade sharply. I then encountered malodorous necrotic tissue. With a 15-blade scalpel, I sharply debrided all necrotic tissue at the skin, subcutaneous, fascial, and periosteal layers down to bone. There was a substantial amount of necrotic tissue present, more than I expected based on the size of the ulcer. Since my debridement took me all the way down to the level of the calcaneus bone, I decided to take bone biopsies to check for osteomyelitis. An osteotome was used to obtain deep bone biopsies of the left calcaneus. One specimen was sent to pathology, and one was sent to microbiology. At this point, the wound was copiously irrigated with sterile saline. The remaining tissue is now necrotic and appeared to be perfused. I then fashioned a sponge for a wound VAC to fit the wound. The wound measured 6 cm in width by 6 cm in length by 3 cm in depth. The sponge was secured with the plastic and held good suction once attached to the machine. There was minimal blood loss. The patient was then awakened from anesthesia and transferred to the recovery room in stable condition. There were no complications. All needle and sponge counts were correct at the end of the case. ATTESTATION: I attest I was present and scrubbed and performed the critical portions of the procedure myself. POSTOPERATIVE PLAN: The VAC will be changed every 3 days. Antibiotics as guided by infectious diseases. He is also followed by vascular.
[2017-09-03] MEDS: cefTRIAXone(*) 1 GM in NS 0.9% 50 ML* 50 ML IVPB SCH (17:58)
--- NOTE | 2017-09-03 19:22 | PN ---
Subjective Date of Service: 09/03/17 Interval History: Patient seen and examined, post op from debridement. States he feesl "great". Pressure in foot is relieved, moving all extremities, no SOB, no chest pain, no fever or chills. Objective Active Medications: Acetaminophen (Tylenol Tab*) 650 mg PO Q6H PRN PRN Reason: pain/fever Aspirin (Aspirin Ec Tab*) 81 mg PO DAILY [facility] Last Admin: 09/03/17 08:15 Dose: 81 mg Atorvastatin Calcium (Lipitor*) 80 mg PO DAILY [facility] Last Admin: 09/03/17 08:15 Dose: 80 mg Carvedilol (Coreg Tab*) 3.125 mg PO BID [facility] Last Admin: 09/03/17 08:15 Dose: 3.125 mg Dextrose (D50w Syringe 50 Ml*) 12.5 gm IV PUSH .FOR FS < 60 - SS PRN PRN Reason: FS < 60 Heparin Sodium (Porcine) (Heparin Vial(*)) 5,000 units SUBCUT Q8H [facility] Metronidazole/Sodium Chloride (Flagyl 500 Mg Ivpb*) 500 mg in 100 mls @ 100 mls /hr IVPB Q8H [facility] Last Admin: 09/03/17 16:24 Dose: 100 mls/hr Ceftriaxone Sodium 1 gm/ (Sodium Chloride) 50 mls @ 200 mls/hr IVPB Q24HR@1700 [facility] Last Admin: 09/03/17 17:58 Dose: 200 mls/hr Vancomycin HCl 1,250 mg/ (Sodium Chloride) 250 mls @ 166.667 mls/hr IVPB Q12H [facility] Last Admin: 09/03/17 18:29 Dose: 166.667 mls/hr Lactated Ringer's (Lactated Ringers 1000 Ml Bag*) 1,000 mls @ 125 mls/hr IV PER RATE [facility] Last Admin: 09/03/17 14:32 Dose: 125 mls/hr Insulin Human Lispro (Humalog*) 0 units SUBCUT [facility]; Protocol Last Admin: 09/03/17 17:59 Dose: 2 units Lisinopril (Prinivil Tab*) 5 mg PO DAILY [facility] Last Admin: 09/03/17 08:15 Dose: 5 mg Oxycodone HCl (Roxycodone Tab*) 5 mg PO Q4H PRN PRN Reason: PAIN Last Admin: 09/02/17 09:01 Dose: 5 mg Pharmacy Consult (Vancomycin Per Pharmacy*) 1 note FOLLOW UP .VANC PER PHARMACY [facility] Prochlorperazine Edisylate (Compazine Inj*) 5 mg IV Q6H PRN PRN Reason: NAUSEA/VOMITING Sertraline HCl (Zoloft*) 100 mg PO DAILY [facility] Last Admin: 09/03/17 08:16 Dose: 100 mg Ticagrelor (Brilinta*) 90 mg PO BID [facility] Last Admin: 09/03/17 08:16 Dose: 90 mg Vital Signs - 8 hr 09/03/17 09/03/17 09/03/17 13:37 13:40 13:42 Temperature Pulse Rate 81 82 83 Respiratory Rate Blood Pressure 136/78 126/75 (mmHg) O2 Sat by Pulse 97 94 94 Oximetry 09/03/17 09/03/17 09/03/17 13:43 14:22 14:51 Temperature 97.9 F 97.3 F 97.7 F Pulse Rate 78 77 Respiratory 18 14 12 Rate Blood Pressure 147/71 182/79 (mmHg) O2 Sat by Pulse 93 99 100 Oximetry 09/03/17 09/03/17 09/03/17 15:20 15:49 16:54 Temperature 97.0 F 97.0 F 96.6 F Pulse Rate 74 76 88 Respiratory 20 18 20 Rate Blood Pressure 174/87 142/82 171/92 (mmHg) O2 Sat by Pulse 100 100 100 Oximetry 09/03/17 17:50 Temperature 96.9 F Pulse Rate 83 Respiratory 18 Rate Blood Pressure 154/81 (mmHg) O2 Sat by Pulse 95 Oximetry Oxygen Devices in Use Now: None Appearance: Alert, well appearing, NAD Eyes: No Scleral Icterus, PERRLA Ears/Nose/Mouth/Throat: NL Teeth, Lips, Gums Neck: NL Appearance and Movements; NL JVP, Trachea Midline Respiratory: Symmetrical Chest Expansion and Respiratory Effort, Clear to Auscultation Cardiovascular: NL Sounds; No Murmurs; No JVD, RRR, No Edema Abdominal: NL Sounds; No Tenderness; No Distention Extremities: No Edema, - - left foot dressed, CDI Neurological: Alert and Oriented x 3, NL Sensation, NL Muscle Strength and Tone Nutrition: Taking PO's Result Diagrams: 09/03/17 06:00 09/03/17 06:00 Additional Lab and Data: Lab Results 09/01/17 Range/Units 13:48 WBC 12.2 H (3.5-10.8) 10^3/ul RBC 3.42 L (4.00-5.40) 10^6/ul Hgb 10.8 L (14.0-18.0) g/dl Hct 32 L (42-52) % MCV 93 (80-94) fL MCH 32 H (27-31) pg MCHC 34 (31-36) g/dl RDW 14 (10.5-15) % Plt Count 341 (150-450) 10^3/ul MPV 7.5 (7.4-10.4) um3 Neut % (Auto) 81.9 (38-83) % Lymph % (Auto) 6.2 L (25-47) % [place] % (Auto) 9.3 H (0-7) % Eos % (Auto) 1.8 (0-6) % Baso % (Auto) 0.8 (0-2) % Absolute Neuts (auto) 10.0 H (1.5-7.7) 10^3/ul Absolute Lymphs (auto) 0.8 L (1.0-4.8) 10^3/ul Absolute Monos (auto) 1.1 H (0-0.8) 10^3/ul Absolute Eos (auto) 0.2 (0-0.6) 10^3/ul Absolute Basos (auto) 0.1 (0-0.2) 10^3/ul Absolute Nucleated RBC 0 10^3/ul Nucleated RBC % 0 Microbiology and Other Data: Microbiology 09/01/17 13:48 Aerobic Blood Culture - Preliminary Blood Venous No Growth Day 1 Anaerobic Blood Culture - Preliminary No Growth Day 1 Assess/Plan/Problems-Billing Assessment: This is a 61 year old male with multiple medical comorbid conditions that presents with non-healing left heel wound with severe arterial disease, s/p debridement today. - Patient Problems (1) Diabetic foot ulcer Code(s): E11.621 - TYPE 2 DIABETES MELLITUS WITH FOOT ULCER; L97.509 - NON- PRESSURE CHRONIC ULCER OTH PRT UNSP FOOT W UNSP SEVERITY SNOMED Code(s): 614215877 Comment: - POD0 debridement - Pending dispo from IR regarding revascularization - Wound vac to be applied tomorrow - Continue atbx per ID (2) CAD (coronary artery disease) Code(s): I25.10 - ATHSCL HEART DISEASE OF [place] CORONARY ARTERY W/O ANG PCTRS SNOMED Code(s): 70059117 Comment: - Asymptomatic, NSTEMI in the past - S/P CABG and stent. - Continue aspirin, brilinta, atorvastatin, carvedilol. (3) Diabetes Code(s): E11.9 - TYPE 2 DIABETES MELLITUS WITHOUT COMPLICATIONS SNOMED Code(s) : 36490043 Comment: - Lispro SS, restart home meds (4) Hypertension Code(s): I10 - ESSENTIAL (PRIMARY) HYPERTENSION SNOMED Code(s): 16364763 Comment: - BP well controlled. - Continue coreg and lisinopril (5) DVT prophylaxis Code(s): JWU9751 - SNOMED Code(s): 781600556 Comment: - Heparin SQ (6) Full code status Code(s): Z78.9 - OTHER SPECIFIED HEALTH STATUS SNOMED Code(s): 262788619 Comment: Status and Disposition: Remain inpatient.
[2017-09-04] MEDS: metroNIDAZOLE IV 500 MG/100ML* 500 MG/100 ML BAG IVPB SCH ×3 (01:08→16:45)
[2017-09-04] MEDS: Vancomycin(*) 1,250 MG in NS 0.9% 250 ML* 250 ML IVPB SCH (05:53)
[2017-09-04 07:11] LABS: Hematocrit 30 % (42-52); Hemoglobin 10.2 g/dl (14.0-18.0); Mean Platelet Volume 7.4 um3 (7.4-10.4); Platelet Count 341 10^3/ul (150-450)
[2017-09-04 07:28] LABS: EGFR Non-African American 123.5 (>60)
--- NOTE | 2017-09-04 07:46 | PN ---
Progress Note - Progress Note Date of Service: 09/04/17 SOAP: Subjective: []Patient seen at bedside. He is feeling well with no feeling of fever, chills, CP, SOB, dizziness. No foot pain. His dressing did not need to be reinforced overnight Objective: []general: Well appearing, NAD LLE: Left foot dressing removed, wound vac placed and tolerated well by the patient. Clean wound without purulence and no active bleeding. No surrounding erythema. Calves supple, nontender, no erythema. Assessment: []Left heel ulcer sp wound debridement and vac placement Plan: []Vac placed this morning, good suction. Needs to be changed every 3 days NWB PT/OT Vital Signs Temp 98.0 F 09/04/17 03:13 Pulse 77 09/04/17 03:13 Resp 16 09/04/17 03:13 BP 158/82 09/04/17 03:13 Pulse Ox 99 09/04/17 03:13 Intake & Output 09/03/17 09/04/17 09/04/17 18:59 06:59 18:59 Intake Total 850 0 Output Total 700 1600 Balance 150 -1600 Intake: IV Fluids 850 LR 850 Oral 0 Output: Urine 700 1600 Other: Estimated Void Medium # Bowel Movements pt asleep # Voids 1 Laboratory Last Values WBC 8.7 10^3/ul (3.5-10.8) 09/03/17 06:00 RBC 3.15 10^6/ul (4.00-5.40) L 09/03/17 06:00 Hgb 10.2 g/dl (14.0-18.0) L 09/04/17 07:01 Hct 30 % (42-52) L 09/04/17 07:01 MCV 91 fL (80-94) 09/03/17 06:00 MCH 31 pg (27-31) 09/03/17 06:00 MCHC 34 g/dl (31-36) 09/03/17 06:00 RDW 14 % (10.5-15) 09/03/17 06:00 Plt Count 341 10^3/ul (150-450) 09/04/17 07:01 MPV 7.4 um3 (7.4-10.4) 09/04/17 07:01 Neut % (Auto) 75.4 % (38-83) 09/03/17 06:00 Lymph % (Auto) 9.6 % (25-47) L 09/03/17 06:00 [place] % (Auto) 11.0 % (0-7) H 09/03/17 06:00 Eos % (Auto) 2.7 % (0-6) 09/03/17 06:00 Baso % (Auto) 1.3 % (0-2) 09/03/17 06:00 Absolute Neuts (auto) 6.6 10^3/ul (1.5-7.7) 09/03/17 06:00 Absolute Lymphs (auto) 0.8 10^3/ul (1.0-4.8) L 09/03/17 06:00 Absolute Monos (auto) 1.0 10^3/ul (0-0.8) H 09/03/17 06:00 Absolute Eos (auto) 0.2 10^3/ul (0-0.6) 09/03/17 06:00 Absolute Basos (auto) 0.1 10^3/ul (0-0.2) 09/03/17 06:00 Absolute Nucleated RBC 0 10^3/ul 09/03/17 06:00 Nucleated RBC % 0 09/03/17 06:00 INR (Anticoag Therapy) 1.22 (0.77-1.02) H 09/03/17 06:00 Sodium 137 mmol/L (135-145) 09/04/17 07:01 Potassium 3.8 mmol/L (3.5-5.0) 09/04/17 07:01 Chloride 105 mmol/L (101-111) 09/04/17 07:01 Carbon Dioxide 24 mmol/L (22-32) 09/04/17 07:01 Anion Gap 8 mmol/L (2-11) 09/04/17 07:01 BUN 9 mg/dL (6-24) 09/04/17 07:01 Creatinine 0.66 mg/dL (0.67-1.17) L 09/04/17 07:01 Est GFR ( Amer) 149.5 (>60) 09/04/17 07:01 Est GFR (Non-Af Amer) 123.5 (>60) 09/04/17 07:01 BUN/Creatinine Ratio 13.6 (8-20) 09/04/17 07:01 Glucose 189 mg/dL (70-100) H 09/04/17 07:01 POC Glucose (mg/dL) 176 mg/dL (70-100) H 09/03/17 16:38 Lactic Acid 1.0 mmol/L (0.5-2.0) 09/01/17 13:48 Calcium 9.0 mg/dL (8.6-10.3) 09/04/17 07:01 Total Bilirubin 0.70 mg/dL (0.2-1.0) 09/01/17 13:48 AST 22 U/L (13-39) 09/01/17 13:48 ALT 19 U/L (7-52) 09/01/17 13:48 Alkaline Phosphatase 69 U/L (34-104) 09/01/17 13:48 C-React Prot High Sens 140.09 mg/L (<2.00) H 09/01/17 13:48 Total Protein 7.2 g/dL (6.4-8.9) 09/01/17 13:48 Albumin 3.7 g/dL (3.2-5.2) 09/01/17 13:48 Globulin 3.5 g/dL (2-4) 09/01/17 13:48 Albumin/Globulin Ratio 1.1 (1-3) 09/01/17 13:48 Vancomycin Trough 13.2 mcg/mL 09/03/17 06:00
[2017-09-04] MEDS: oxyCODONE TAB* 5 MG TAB PO PRN (08:04)
[2017-09-04] MEDS: Insulin LISPRO* 1 UNITS UNIT SUBCUT SCH ×3 (08:26→18:03)
[2017-09-04] MEDS: Aspirin EC TAB* 81 MG TAB.EC PO SCH (08:26)
[2017-09-04] MEDS: Lisinopril TAB* 5 MG PO SCH (08:26)
[2017-09-04] MEDS: Sertraline* 100 MG TAB PO SCH (08:27)
[2017-09-04] MEDS: Atorvastatin* 80 MG TAB PO SCH (08:27)
[2017-09-04] MEDS: Ticagrelor* 90 MG TAB PO SCH ×2 (08:27→21:12)
[2017-09-04] MEDS: Carvedilol TAB* 3.125 MG PO SCH ×2 (08:27→21:12)
[2017-09-04] MEDS ORDERED: Insulin GLARGINE(*) 1 UNITS UNIT SUBCUT SCH (09:00)
[2017-09-04] MEDS: Heparin VIAL(*) 5000 UNITS/ML VIAL (FIVE THOUSAND) SUBCUT SCH ×2 (12:34→21:11)
[2017-09-04] MEDS: PROCHLORPERAZINE INJ 5 MG/ML 2 ML VIAL IV PRN (14:12)
--- NOTE | 2017-09-04 14:42 | PN ---
Subjective Date of Service: 09/04/17 Interval History: Patient seen and examined, wound vac placed this AM by orthopedics, patient states it can be painful at times, but he is otherwise tolerating the vac. Denies fever or chills. No chest pain, no SOB, tolerating meals, no further complaints. Objective Active Medications: Acetaminophen (Tylenol Tab*) 650 mg PO Q6H PRN PRN Reason: pain/fever Aspirin (Aspirin Ec Tab*) 81 mg PO DAILY [facility] Last Admin: 09/04/17 08:26 Dose: 81 mg Atorvastatin Calcium (Lipitor*) 80 mg PO DAILY [facility] Last Admin: 09/04/17 08:27 Dose: 80 mg Carvedilol (Coreg Tab*) 3.125 mg PO BID [facility] Last Admin: 09/04/17 08:27 Dose: 3.125 mg Dextrose (D50w Syringe 50 Ml*) 12.5 gm IV PUSH .FOR FS < 60 - SS PRN PRN Reason: FS < 60 Heparin Sodium (Porcine) (Heparin Vial(*)) 5,000 units SUBCUT Q8H [facility] Last Admin: 09/04/17 12:34 Dose: 5,000 units Metronidazole/Sodium Chloride (Flagyl 500 Mg Ivpb*) 500 mg in 100 mls @ 100 mls /hr IVPB Q8H [facility] Last Admin: 09/04/17 08:26 Dose: 100 mls/hr Ceftriaxone Sodium 1 gm/ (Sodium Chloride) 50 mls @ 200 mls/hr IVPB Q24HR@1700 [facility] Last Admin: 09/03/17 17:58 Dose: 200 mls/hr Insulin Glargine (Lantus(*)) 15 units SUBCUT Q24H [facility] Last Admin: 09/04/17 08:26 Dose: 15 units Insulin Human Lispro (Humalog*) 0 units SUBCUT AC [facility]; Protocol Last Admin: 09/04/17 12:35 Dose: 4 units Lisinopril (Prinivil Tab*) 5 mg PO DAILY [facility] Last Admin: 09/04/17 08:26 Dose: 5 mg Oxycodone HCl (Roxycodone Tab*) 5 mg PO Q4H PRN PRN Reason: PAIN Last Admin: 09/04/17 08:04 Dose: 5 mg Prochlorperazine Edisylate (Compazine Inj*) 5 mg IV Q6H PRN PRN Reason: NAUSEA/VOMITING Last Admin: 09/04/17 14:12 Dose: 5 mg Sertraline HCl (Zoloft*) 100 mg PO DAILY [facility] Last Admin: 09/04/17 08:27 Dose: 100 mg Ticagrelor (Brilinta*) 90 mg PO BID [facility] Last Admin: 09/04/17 08:27 Dose: 90 mg Vital Signs - 8 hr 09/04/17 09/04/17 09/04/17 07:36 07:47 08:00 Temperature 97.7 F Pulse Rate 80 Respiratory 18 16 Rate Blood Pressure 177/89 168/82 (mmHg) O2 Sat by Pulse 98 98 Oximetry 09/04/17 09/04/17 09/04/17 08:04 11:00 11:20 Temperature 98.1 F Pulse Rate 79 Respiratory 16 18 16 Rate Blood Pressure 180/65 (mmHg) O2 Sat by Pulse 100 Oximetry Oxygen Devices in Use Now: None Appearance: Alert, well appearing, NAD Eyes: No Scleral Icterus, PERRLA Ears/Nose/Mouth/Throat: NL Teeth, Lips, Gums, Mucous Membranes Moist Neck: NL Appearance and Movements; NL JVP, Trachea Midline Respiratory: Symmetrical Chest Expansion and Respiratory Effort, Clear to Auscultation Cardiovascular: NL Sounds; No Murmurs; No JVD, RRR, No Edema Abdominal: NL Sounds; No Tenderness; No Distention Extremities: - - left heel wound vac dressing CDI Neurological: Alert and Oriented x 3, NL Sensation, NL Muscle Strength and Tone Nutrition: Taking PO's Result Diagrams: 09/04/17 07:01 09/04/17 07:01 Additional Lab and Data: Lab Results 09/01/17 Range/Units 13:48 WBC 12.2 H (3.5-10.8) 10^3/ul RBC 3.42 L (4.00-5.40) 10^6/ul Hgb 10.8 L (14.0-18.0) g/dl Hct 32 L (42-52) % MCV 93 (80-94) fL MCH 32 H (27-31) pg MCHC 34 (31-36) g/dl RDW 14 (10.5-15) % Plt Count 341 (150-450) 10^3/ul MPV 7.5 (7.4-10.4) um3 Neut % (Auto) 81.9 (38-83) % Lymph % (Auto) 6.2 L (25-47) % [place] % (Auto) 9.3 H (0-7) % Eos % (Auto) 1.8 (0-6) % Baso % (Auto) 0.8 (0-2) % Absolute Neuts (auto) 10.0 H (1.5-7.7) 10^3/ul Absolute Lymphs (auto) 0.8 L (1.0-4.8) 10^3/ul Absolute Monos (auto) 1.1 H (0-0.8) 10^3/ul Absolute Eos (auto) 0.2 (0-0.6) 10^3/ul Absolute Basos (auto) 0.1 (0-0.2) 10^3/ul Absolute Nucleated RBC 0 10^3/ul Nucleated RBC % 0 Microbiology and Other Data: Microbiology 09/01/17 13:48 Aerobic Blood Culture - Preliminary Blood Venous No Growth Day 1 Anaerobic Blood Culture - Preliminary No Growth Day 1 Diagnostic Imaging: VASCULAR STUDY/ [facility] Patient Name: VIKY BARRERA Medical Record#: [id number] Ordering Physician: Brina Payan NP Acct.#: [id number] : 1955 Age: 61 Sex: M Location: [address] [place] [address] - MEDICAL Exam Date: 09/02/171614 ADM Status: ADM IN Order Information: VL ANK/BRACHIAL INDICES Accession Number: [id number] CPT: 02301 INDICATION: Left foot ulcer. COMPARISON: Correlation is made with a prior study from July 07, 2014. TECHNIQUE: Bilateral ankle brachial indices were measured and Doppler tracings were obtained at the ankle of the dorsalis pedis and posterior tibial arteries. FINDINGS: The ankle brachial index on the right was 0.76 and on the left was 0.34. These measured 0.99 and 0.67 respectively on the prior study. There is triphasic flow within the right posterior tibial artery and triphasic flow within the right dorsalis pedis artery. There is monophasic flow within the left posterior tibial artery and monophasic flow within the left dorsalis pedis artery. IMPRESSION: DECREASED ANKLE-BRACHIAL INDICES DESCRIBED IN THE CLAUDICATION RANGE ON THE RIGHT SIDE AND IN THE REST PAIN RANGE ON THE LEFT SIDE CONSISTENT WITH SEVERE PERIPHERAL ARTERIAL DISEASE. <Electronically signed by Santino Urbano MD in [place]> 09/02/17 1141 Dictated By: Santino Urbano MD Dictated Date/Time: 09/02/17 1141 Transcribed Date/Time: 09/02/17 1138 Copy to: Assess/Plan/Problems-Billing Assessment: This is a 61 year old male with multiple medical comorbid conditions that presents with non-healing left heel wound with severe arterial disease, s/p debridement 09/03/[address] Nicole, pending revascularization. - Patient Problems (1) Diabetic foot ulcer Code(s): E11.621 - TYPE 2 DIABETES MELLITUS WITH FOOT ULCER; L97.509 - NON- PRESSURE CHRONIC ULCER OTH PRT UNSP FOOT W UNSP SEVERITY SNOMED Code(s): 417172573 Comment: - POD1 debridement - Wound vac applied today by orthopedics, dressing to be changed Thursday by ortho - Continue atbx per ID (2) PAD (peripheral artery disease) Code(s): I73.9 - PERIPHERAL VASCULAR DISEASE, UNSPECIFIED SNOMED Code(s): 860926706 Comment: - ABIs completed, see note above - Severe disease, requires revascularization if debridement will ever heal, patient very high risk for further amputation without appropriate arterial flow - Plan for revascularization with Dr. Starkey on Thursday at 0730am (3) CAD (coronary artery disease) Code(s): I25.10 - ATHSCL HEART DISEASE OF [place] CORONARY ARTERY W/O ANG PCTRS SNOMED Code(s): 97609479 Comment: - Asymptomatic, NSTEMI in the past - S/P CABG and stent. - Continue aspirin, brilinta, atorvastatin, carvedilol. (4) Diabetes Code(s): E11.9 - TYPE 2 DIABETES MELLITUS WITHOUT COMPLICATIONS SNOMED Code(s) : 91966809 Comment: - Lispro SS, restart home meds - BG 170s-215 (5) Hypertension Code(s): I10 - ESSENTIAL (PRIMARY) HYPERTENSION SNOMED Code(s): 88498607 Comment: - BP well controlled. - Continue coreg and lisinopril (6) DVT prophylaxis Code(s): TPQ9616 - SNOMED Code(s): 368257150 Comment: - Heparin SQ (7) Full code status Code(s): Z78.9 - OTHER SPECIFIED HEALTH STATUS SNOMED Code(s): 472080638 Comment: Status and Disposition: Remain inpatient for continued IV atbx, revascularization on Thursday, dispo rehab vs home with [facility].
[2017-09-04] MEDS: cefTRIAXone(*) 1 GM in NS 0.9% 50 ML* 50 ML IVPB SCH (16:45)
[2017-09-04] MEDS: amLODIPine TAB* 5 MG PO SCH (18:03)
[2017-09-05] MEDS: metroNIDAZOLE IV 500 MG/100ML* 500 MG/100 ML BAG IVPB SCH ×4 (00:51→23:44)
[2017-09-05] MEDS: Heparin VIAL(*) 5000 UNITS/ML VIAL (FIVE THOUSAND) SUBCUT SCH ×3 (06:18→20:22)
[2017-09-05] MEDS: Insulin LISPRO* 1 UNITS UNIT SUBCUT SCH ×3 (08:42→17:41)
[2017-09-05] MEDS: amLODIPine TAB* 5 MG PO SCH (08:45)
[2017-09-05] MEDS: Lisinopril TAB* 5 MG PO SCH (08:45)
[2017-09-05] MEDS: Carvedilol TAB* 3.125 MG PO SCH (08:46)
[2017-09-05] MEDS: Aspirin EC TAB* 81 MG TAB.EC PO SCH (08:46)
[2017-09-05] MEDS: Ticagrelor* 90 MG TAB PO SCH ×2 (08:46→20:22)
[2017-09-05] MEDS: Atorvastatin* 80 MG TAB PO SCH (08:46)
[2017-09-05] MEDS: Sertraline* 100 MG TAB PO SCH (08:47)
[2017-09-05] MEDS ORDERED: Insulin GLARGINE(*) 1 UNITS UNIT SUBCUT SCH ×2 (09:00)
--- NOTE | 2017-09-05 10:58 | PN ---
Subjective Date of Service: 09/05/17 Interval History: Some nausea but no vomiting this AM. Did vomit yesterday. No pain in left foot. BG elevated. no other complaints. denies chest pain, SOB, f/c, abdominal pain. Objective Active Medications: Acetaminophen (Tylenol Tab*) 650 mg PO Q6H PRN PRN Reason: pain/fever Amlodipine Besylate (Norvasc Tab*) 5 mg PO DAILY [facility] Last Admin: 09/05/17 08:45 Dose: 5 mg Aspirin (Aspirin Ec Tab*) 81 mg PO DAILY [facility] Last Admin: 09/05/17 08:46 Dose: 81 mg Atorvastatin Calcium (Lipitor*) 80 mg PO DAILY [facility] Last Admin: 09/05/17 08:46 Dose: 80 mg Carvedilol (Coreg Tab*) 3.125 mg PO BID [facility] Last Admin: 09/05/17 08:46 Dose: 3.125 mg Dextrose (D50w Syringe 50 Ml*) 12.5 gm IV PUSH .FOR FS < 60 - SS PRN PRN Reason: FS < 60 Heparin Sodium (Porcine) (Heparin Vial(*)) 5,000 units SUBCUT Q8H [facility] Last Admin: 09/05/17 06:18 Dose: 5,000 units Metronidazole/Sodium Chloride (Flagyl 500 Mg Ivpb*) 500 mg in 100 mls @ 100 mls /hr IVPB Q8H [facility] Last Admin: 09/05/17 08:35 Dose: 100 mls/hr Ceftriaxone Sodium 1 gm/ (Sodium Chloride) 50 mls @ 200 mls/hr IVPB Q24HR@1700 [facility] Last Admin: 09/04/17 16:45 Dose: 200 mls/hr Insulin Glargine (Lantus(*)) 25 units SUBCUT 0900 [facility] Insulin Human Lispro (Humalog*) 0 units SUBCUT AC [facility]; Protocol Last Admin: 09/05/17 08:42 Dose: 4 units Lisinopril (Prinivil Tab*) 5 mg PO DAILY [facility] Last Admin: 09/05/17 08:45 Dose: 5 mg Oxycodone HCl (Roxycodone Tab*) 5 mg PO Q4H PRN PRN Reason: PAIN Last Admin: 09/04/17 08:04 Dose: 5 mg Prochlorperazine Edisylate (Compazine Inj*) 5 mg IV Q6H PRN PRN Reason: NAUSEA/VOMITING Last Admin: 09/04/17 14:12 Dose: 5 mg Sertraline HCl (Zoloft*) 100 mg PO DAILY [facility] Last Admin: 09/05/17 08:47 Dose: 100 mg Ticagrelor (Brilinta*) 90 mg PO BID [facility] Last Admin: 09/05/17 08:46 Dose: 90 mg Vital Signs - 8 hr 09/05/17 09/05/17 09/05/17 04:11 07:32 07:36 Temperature 98.2 F 97.6 F Pulse Rate 73 84 Respiratory 16 18 Rate Blood Pressure 152/83 166/84 152/74 (mmHg) O2 Sat by Pulse 99 99 Oximetry Oxygen Devices in Use Now: None Appearance: NAD, initially asleep. Eyes: No Scleral Icterus, PERRLA Ears/Nose/Mouth/Throat: NL Teeth, Lips, Gums, Mucous Membranes Moist Neck: NL Appearance and Movements; NL JVP Respiratory: Symmetrical Chest Expansion and Respiratory Effort, Clear to Auscultation Cardiovascular: NL Sounds; No Murmurs; No JVD, RRR Abdominal: NL Sounds; No Tenderness; No Distention, No Hepatosplenomegaly Extremities: No Edema, - - left foot s/p TMA, wound vac on left heel. Neurological: Alert and Oriented x 3, NL Sensation, NL Muscle Strength and Tone Nutrition: Taking PO's Result Diagrams: 09/04/17 07:01 09/04/17 07:01 Additional Lab and Data: Laboratory Results - last 24 hr 09/04/17 09/04/17 09/04/17 07:46 11:29 16:54 POC Glucose (mg/dL) 216 H 215 H 292 H 09/05/17 07:25 POC Glucose (mg/dL) 244 H Microbiology and Other Data: Microbiology 09/01/17 20:10 Blood Venous Aerobic Blood Culture - Preliminary No Growth Day 3 09/01/17 20:10 Blood Venous Anaerobic Blood Culture - Preliminary No Growth Day 3 09/01/17 13:48 Blood Venous Aerobic Blood Culture - Preliminary No Growth Day 3 09/01/17 13:48 Blood Venous Anaerobic Blood Culture - Preliminary No Growth Day 3 09/03/17 13:20 Tissue - Left Wound Gram Stain - Final 09/03/17 13:20 Tissue - Left Anaerobic Culture - Preliminary Diagnostic Imaging: VASCULAR STUDY/ [facility] Patient Name: VIKY BARRERA Medical Record#: [id number] Ordering Physician: Brina Payan SALVAGER Acct.#: [id number] : 1955 Age: 61 Sex: M Location: [address] [place] [address] - MEDICAL Exam Date: 09/02/17 1615 ADM Status: ADM IN Order Information: VL ANK/BRACHIAL INDICES Accession Number: [id number] CPT: 84636 INDICATION: Left foot ulcer. COMPARISON: Correlation is made with a prior study from July 07, 2014. TECHNIQUE: Bilateral ankle brachial indices were measured and Doppler tracings were obtained at the ankle of the dorsalis pedis and posterior tibial arteries. FINDINGS: The ankle brachial index on the right was 0.76 and on the left was 0.34. These measured 0.99 and 0.67 respectively on the prior study. There is triphasic flow within the right posterior tibial artery and triphasic flow within the right dorsalis pedis artery. There is monophasic flow within the left posterior tibial artery and monophasic flow within the left dorsalis pedis artery. IMPRESSION: DECREASED ANKLE-BRACHIAL INDICES DESCRIBED IN THE CLAUDICATION RANGE ON THE RIGHT SIDE AND IN THE REST PAIN RANGE ON THE LEFT SIDE CONSISTENT WITH SEVERE PERIPHERAL ARTERIAL DISEASE. <Electronically signed by Santino Urbano MD in [place]> 09/02/17 1141 Dictated By: Santino Urbano MD Dictated Date/Time: 09/02/17 1141 Transcribed Date/Time: 09/02/17 1138 Copy to: Assess/Plan/Problems-Billing Assessment: 61 year old male CAD s/p CABG (2008), HTN, HLD, COPD, IDDM (A1C 6.45), PVD now progressive to severe p/w non-healing left heel wound with severe arterial disease on left (MIKE 0.34), s/p debridement 09/03/[address] Nicole, pending revascularization with Dr. Starkey 09/08. - Patient Problems (1) PAD (peripheral artery disease) Current Visit: Yes Status: Acute Code(s): I73.9 - PERIPHERAL VASCULAR DISEASE, UNSPECIFIED SNOMED Code(s): 723483602 Comment: - Severe and progressive disease (0.34 on left, 0.76 on right), requires revascularization if debridement will ever heal, patient very high risk for further amputation without appropriate arterial flow. Cecil claudication, though walks max of 1/4 at baseline. - Plan for revascularization with Dr. Starkey on Thursday at 0730am (2) CAD (coronary artery disease) Current Visit: No Status: Acute Code(s): I25.10 - ATHSCL HEART DISEASE OF [place] CORONARY ARTERY W/O ANG PCTRS SNOMED Code(s): 29619375 Comment: - Asymptomatic, NSTEMI in the past - S/P CABG and stent. - Continue aspirin 81mg, brilinta, atorvastatin 80mg, increase carvedilol from 3.125 mg BID to 6.25mg BID. (3) DVT prophylaxis Current Visit: No Status: Acute Code(s): KST6725 - SNOMED Code(s): 788387043 Comment: - Heparin SQ (4) Diabetes Current Visit: No Status: Acute Code(s): E11.9 - TYPE 2 DIABETES MELLITUS WITHOUT COMPLICATIONS SNOMED Code(s): 11243405 Comment: - Lispro SSI - increase from Lantus 15U (home) to 25U given poor control (BG 210-290) (5) Diabetic foot ulcer Current Visit: No Status: Acute Code(s): E11.621 - TYPE 2 DIABETES MELLITUS WITH FOOT ULCER; L97.509 - NON-PRESSURE CHRONIC ULCER OTH PRT UNSP FOOT W UNSP SEVERITY SNOMED Code(s): 923827071 Comment: - POD2 debridement - Wound vac applied today by orthopedics, dressing to be changed Thursday by ortho - Continue atbx per ID (Ceftriaxone, Flagyl) - Pt with Hx of MRSA infection 4 years ago at [facility]. - f/u Cultures. No growth on GS. got abx prior. (6) Full code status Current Visit: No Status: Acute Code(s): Z78.9 - OTHER SPECIFIED HEALTH STATUS SNOMED Code(s): 467228597 Comment: (7) Hypertension Current Visit: No Status: Acute Code(s): I10 - ESSENTIAL (PRIMARY) HYPERTENSION SNOMED Code(s): 27995320 Comment: - BPs 150-160s. - Increase coreg to 6.25mg BID - continue lisinopril 5mg. Status and Disposition: Remain inpatient for continued IV atbx, revascularization on Thursday, dispo rehab vs home with [facility].
[2017-09-05] MEDS ORDERED: Carvedilol TAB* 3.125 MG PO ONE (11:02)
[2017-09-05] MEDS ORDERED: Polyethylene Glycol 3350* 17 GM PACKET PO PRN (14:32)
[2017-09-05] MEDS ORDERED: Senna TAB PO PRN (14:33)
[2017-09-05] MEDS ORDERED: Docusate CAP* 100 MG PO PRN (14:33)
[2017-09-05] MEDS: PROCHLORPERAZINE INJ 5 MG/ML 2 ML VIAL IV PRN (15:40)
[2017-09-05] MEDS: cefTRIAXone(*) 1 GM in NS 0.9% 50 ML* 50 ML IVPB SCH (17:41)
[2017-09-05] MEDS ORDERED: Carvedilol TAB* 3.125 MG PO SCH (21:00)
[2017-09-06] MEDS: Heparin VIAL(*) 5000 UNITS/ML VIAL (FIVE THOUSAND) SUBCUT SCH ×3 (05:56→20:25)
[2017-09-06] MEDS: Insulin LISPRO* 1 UNITS UNIT SUBCUT SCH ×3 (08:35→17:30)
[2017-09-06] MEDS ORDERED: Dextrose 50% Syringe 50 ML* 25 GM/50 ML SYRINGE IV PUSH PRN (08:40)
[2017-09-06] MEDS ORDERED: Insulin LISPRO* 1 UNITS UNIT SUBCUT ONE (08:40)
[2017-09-06] MEDS ORDERED: Insulin GLARGINE(*) 1 UNITS UNIT SUBCUT SCH (09:00)
[2017-09-06] MEDS: Lisinopril TAB* 5 MG PO SCH (09:16)
[2017-09-06] MEDS: metroNIDAZOLE IV 500 MG/100ML* 500 MG/100 ML BAG IVPB SCH ×2 (09:16→17:12)
[2017-09-06] MEDS: Ticagrelor* 90 MG TAB PO SCH ×2 (09:16→20:25)
[2017-09-06] MEDS: amLODIPine TAB* 5 MG PO SCH (09:17)
[2017-09-06] MEDS: Carvedilol TAB* 6.25 MG PO SCH ×2 (09:17→20:25)
[2017-09-06] MEDS: Aspirin EC TAB* 81 MG TAB.EC PO SCH (09:17)
[2017-09-06] MEDS: Atorvastatin* 80 MG TAB PO SCH (09:18)
[2017-09-06] MEDS: Sertraline* 100 MG TAB PO SCH (09:18)
[2017-09-06] MEDS: Insulin GLARGINE(*) 1 UNITS UNIT SUBCUT SCH (09:19)
--- NOTE | 2017-09-06 13:01 | PN ---
Subjective Date of Service: 09/06/17 Interval History: Blood sugars poorly controlled. No pain. No chest pain, SOB, f/c/n/v, abdominal pain. BG at home usually mid 60s-mid 70s on his lantus 12U and 2000mg metformin. BP as high as 173 systolically this AM. Objective Active Medications: Acetaminophen (Tylenol Tab*) 650 mg PO Q6H PRN PRN Reason: pain/fever Amlodipine Besylate (Norvasc Tab*) 5 mg PO DAILY [facility] Last Admin: 09/06/17 09:17 Dose: 5 mg Aspirin (Aspirin Ec Tab*) 81 mg PO DAILY [facility] Last Admin: 09/06/17 09:17 Dose: 81 mg Atorvastatin Calcium (Lipitor*) 80 mg PO DAILY [facility] Last Admin: 09/06/17 09:18 Dose: 80 mg Carvedilol (Coreg Tab*) 12.5 mg PO BID [facility] Last Admin: 09/06/17 09:17 Dose: 12.5 mg Dextrose (D50w Syringe 50 Ml*) 12.5 gm IV PUSH .FOR FS < 60 - SS PRN PRN Reason: FS < 60 Dextrose (D50w Syringe 50 Ml*) 12.5 gm IV PUSH .FOR FS < 60 - SS PRN PRN Reason: FS < 60 Docusate Sodium (Colace Cap*) 100 mg PO DAILY PRN PRN Reason: CONSTIPATION Heparin Sodium (Porcine) (Heparin Vial(*)) 5,000 units SUBCUT Q8H [facility] Last Admin: 09/06/17 12:07 Dose: 5,000 units Metronidazole/Sodium Chloride (Flagyl 500 Mg Ivpb*) 500 mg in 100 mls @ 100 mls /hr IVPB Q8H [facility] Last Admin: 09/06/17 09:16 Dose: 100 mls/hr Ceftriaxone Sodium 1 gm/ (Sodium Chloride) 50 mls @ 200 mls/hr IVPB Q24HR@1700 [facility] Last Admin: 09/05/17 17:41 Dose: 200 mls/hr Insulin Glargine (Lantus(*)) 30 units SUBCUT 0900 [facility] Last Admin: 09/06/17 09:19 Dose: 30 units Insulin Human Lispro (Humalog*) 0 units SUBCUT AC [facility]; Protocol Last Admin: 09/06/17 12:07 Dose: 15 units Lisinopril (Prinivil Tab*) 5 mg PO DAILY [facility] Last Admin: 09/06/17 09:16 Dose: Not Given Oxycodone HCl (Roxycodone Tab*) 5 mg PO Q4H PRN PRN Reason: PAIN Last Admin: 09/04/17 08:04 Dose: 5 mg Polyethylene Glycol/Electrolytes (Miralax*) 17 gm PO DAILY PRN PRN Reason: CONSTIPATION Prochlorperazine Edisylate (Compazine Inj*) 5 mg IV Q6H PRN PRN Reason: NAUSEA/VOMITING Last Admin: 09/05/17 15:40 Dose: 5 mg Senna (Senokot Tab*) 1 tab PO DAILY PRN PRN Reason: CONSTIPATION Sertraline HCl (Zoloft*) 100 mg PO DAILY [facility] Last Admin: 09/06/17 09:18 Dose: 100 mg Ticagrelor (Brilinta*) 90 mg PO BID [facility] Last Admin: 09/06/17 09:16 Dose: 90 mg Vital Signs - 8 hr 09/06/17 07:41 Temperature 97.5 F Pulse Rate 77 Respiratory 17 Rate Blood Pressure 173/85 (mmHg) O2 Sat by Pulse 100 Oximetry Oxygen Devices in Use Now: None Appearance: NAD Eyes: No Scleral Icterus, PERRLA Ears/Nose/Mouth/Throat: NL Teeth, Lips, Gums, Mucous Membranes Moist Neck: NL Appearance and Movements; NL JVP Respiratory: Symmetrical Chest Expansion and Respiratory Effort, Clear to Auscultation Cardiovascular: NL Sounds; No Murmurs; No JVD, RRR Abdominal: NL Sounds; No Tenderness; No Distention, No Hepatosplenomegaly Extremities: No Edema, No Clubbing, Cyanosis, - - left heel with wound vac. red drainage Skin: - - as above Neurological: Alert and Oriented x 3, NL Sensation Nutrition: Taking PO's Result Diagrams: 09/04/17 07:01 09/04/17 07:01 Additional Lab and Data: Laboratory Results - last 24 hr 09/05/17 09/06/17 09/06/17 16:24 07:26 11:44 POC Glucose (mg/dL) 293 H 274 H 392 H Microbiology and Other Data: Microbiology 09/03/17 13:20 Tissue - Left Wound Gram Stain - Final 09/03/17 13:20 Tissue - Left Tissue Culture - Preliminary Staphylococcus Epidermidis 09/03/17 13:20 Tissue - Left Anaerobic Culture - Preliminary 09/01/17 20:10 Blood Venous Aerobic Blood Culture - Preliminary No Growth Day 4 09/01/17 20:10 Blood Venous Anaerobic Blood Culture - Preliminary No Growth Day 4 09/01/17 13:48 Blood Venous Aerobic Blood Culture - Preliminary No Growth Day 4 09/01/17 13:48 Blood Venous Anaerobic Blood Culture - Preliminary No Growth Day 4 Diagnostic Imaging: VASCULAR STUDY/ MIKE's Patient Name: VIKY BARRERA Medical Record#: [id number] Ordering Physician: Brina Payan [employer] Acct.#: [id number] : 1955 Age: 61 Sex: M Location: [address] [place] [address] - MEDICAL Exam Date: 09/02/17 161 ADM Status: ADM IN Order Information: VL ANK/BRACHIAL INDICES Accession Number: [id number] CPT: 59655 INDICATION: Left foot ulcer. COMPARISON: Correlation is made with a prior study from July 07, 2014. TECHNIQUE: Bilateral ankle brachial indices were measured and Doppler tracings were obtained at the ankle of the dorsalis pedis and posterior tibial arteries. FINDINGS: The ankle brachial index on the right was 0.76 and on the left was 0.34. These measured 0.99 and 0.67 respectively on the prior study. There is triphasic flow within the right posterior tibial artery and triphasic flow within the right dorsalis pedis artery. There is monophasic flow within the left posterior tibial artery and monophasic flow within the left dorsalis pedis artery. IMPRESSION: DECREASED ANKLE-BRACHIAL INDICES DESCRIBED IN THE CLAUDICATION RANGE ON THE RIGHT SIDE AND IN THE REST PAIN RANGE ON THE LEFT SIDE CONSISTENT WITH SEVERE PERIPHERAL ARTERIAL DISEASE. <Electronically signed by Santino Urbano MD in [place]> 09/02/17 1141 Dictated By: Santino Urbano MD Dictated Date/Time: 09/02/17 1141 Transcribed Date/Time: 09/02/17 1138 Copy to: Assess/Plan/Problems-Billing Assessment: 61 year old male CAD s/p CABG (2008), HTN, HLD, COPD, IDDM (A1C 6.45), PVD now progressive to severe p/w non-healing left heel wound with severe arterial disease on left (MIKE 0.34), s/p debridement 09/03/[address] Nicole, pending revascularization with Dr. Starkey 09/08. - Patient Problems (1) PAD (peripheral artery disease) Current Visit: Yes Status: Acute Code(s): I73.9 - PERIPHERAL VASCULAR DISEASE, UNSPECIFIED SNOMED Code(s): 644207113 Comment: - Severe and progressive disease (0.34 on left, 0.76 on right), requires revascularization if debridement will ever heal, patient very high risk for further amputation without appropriate arterial flow. Cecil claudication, though walks max of 1/4 at baseline. - Plan for revascularization with Dr. Starkey on Thursday at 0730am (2) CAD (coronary artery disease) Current Visit: No Status: Acute Code(s): I25.10 - ATHSCL HEART DISEASE OF [place] CORONARY ARTERY W/O ANG PCTRS SNOMED Code(s): 61079641 Comment: - Asymptomatic, NSTEMI in the past - S/P CABG and stent. - Continue aspirin 81mg, brilinta, atorvastatin 80mg, increase carvedilol again from 6.25 mg BID to 12.5 mg BID given poor BP control (3) DVT prophylaxis Current Visit: No Status: Acute Code(s): KRB4071 - SNOMED Code(s): 261197199 Comment: - Heparin SQ (4) Diabetes Current Visit: No Status: Acute Code(s): E11.9 - TYPE 2 DIABETES MELLITUS WITHOUT COMPLICATIONS SNOMED Code(s): 07147231 Comment: - Lispro SSI but at increased high dose scale - increase to 30U from 25U given poor control last A1C 6.4% on 08/25/17. holding home metformin 1000mg BID. (5) Diabetic foot ulcer Current Visit: No Status: Acute Code(s): E11.621 - TYPE 2 DIABETES MELLITUS WITH FOOT ULCER; L97.509 - NON-PRESSURE CHRONIC ULCER OTH PRT UNSP FOOT W UNSP SEVERITY SNOMED Code(s): 930377196 Comment: - POD3 debridement - Wound vac applied today by orthopedics, dressing to be changed Thursday by ortho - Pt with Hx of MRSA infection 4 years ago at [facility]. - f/u Cultures. No growth on GS. - strep epidermidis from calcanus biopsy (resistant to cefazolin, pcn. sensitive to vanc and doxy), anaerobes from last admission. Continue abx per ID (Ceftriaxone, Flagyl) but will add vancomycin back on until ID can clarify updated recs. (6) Full code status Current Visit: No Status: Acute Code(s): Z78.9 - OTHER SPECIFIED HEALTH STATUS SNOMED Code(s): 457783044 Comment: (7) Hypertension Current Visit: No Status: Acute Code(s): I10 - ESSENTIAL (PRIMARY) HYPERTENSION SNOMED Code(s): 23594653 Comment: - BPs as high as 170s. - Increase coreg to 12.5mg BID - continue lisinopril 5mg. Status and Disposition: Remain inpatient for continued IV atbx, revascularization on Thursday, dispo rehab vs home with VNS.
[2017-09-06] MEDS ORDERED: Vancomycin per Pharmacy* NOTE FOLLOW UP PRN (13:24)
[2017-09-06] MEDS ORDERED: Vancomycin(*) 1,000 MG VIAL IVPB SCH (14:00)
[2017-09-06] MEDS: Vancomycin(*) 1,250 MG IV IVPB SCH ×2 (14:32)
[2017-09-06] MEDS: cefTRIAXone(*) 1 GM in NS 0.9% 50 ML* 50 ML IVPB SCH (18:55)
[2017-09-07] MEDS: metroNIDAZOLE IV 500 MG/100ML* 500 MG/100 ML BAG IVPB SCH ×2 (00:01→08:40)
[2017-09-07] MEDS: Vancomycin(*) 1,250 MG IV IVPB SCH ×4 (01:07→13:34)
[2017-09-07] MEDS: Heparin VIAL(*) 5000 UNITS/ML VIAL (FIVE THOUSAND) SUBCUT SCH ×3 (05:16→20:09)
[2017-09-07 07:31] LABS: ABS Basophils 0.1 10^3/ul (0-0.2); ABS Eosinophils 0.2 10^3/ul (0-0.6); ABS Lymphocytes 1.3 10^3/ul (1.0-4.8); ABS Neutrophils 6.7 10^3/ul (1.5-7.7); ABS Nucleated RBC 0 10^3/ul; Eosinophil % 2.3 % (0-6); Hematocrit 32 % (42-52); Hemoglobin 11.1 g/dl (14.0-18.0); Lymphocyte % 13.7 % (25-47); Mean Corpuscular HGB Conc 35 g/dl (31-36); Mean Corpuscular Hemoglobin 31 pg (27-31); Mean Corpuscular Volume 89 fL (80-94); Mean Platelet Volume 7.5 um3 (7.4-10.4); Nucleated Red Blood Cells % 0; Platelet Count 346 10^3/ul (150-450); Red Blood Count 3.55 10^6/ul (4.00-5.40); Red Cell Distribution Width 14 % (10.5-15); White Blood Count 9.2 10^3/ul (3.5-10.8)
[2017-09-07 07:53] LABS: EGFR Non-African American 103.4 (>60)
[2017-09-07] MEDS: amLODIPine TAB* 5 MG PO SCH (08:40)
[2017-09-07] MEDS: Insulin GLARGINE(*) 1 UNITS UNIT SUBCUT SCH (08:40)
[2017-09-07] MEDS: Aspirin EC TAB* 81 MG TAB.EC PO SCH (08:40)
[2017-09-07] MEDS: Insulin LISPRO* 1 UNITS UNIT SUBCUT SCH ×3 (08:40→17:16)
[2017-09-07] MEDS: Sertraline* 100 MG TAB PO SCH (08:41)
[2017-09-07] MEDS: Carvedilol TAB* 6.25 MG PO SCH ×2 (08:41→20:06)
[2017-09-07] MEDS: Ticagrelor* 90 MG TAB PO SCH ×2 (08:41→20:07)
[2017-09-07] MEDS: Atorvastatin* 80 MG TAB PO SCH (08:41)
[2017-09-07] MEDS: Lisinopril TAB* 5 MG PO SCH (08:42)
--- NOTE | 2017-09-07 09:38 | PN ---
Progress Note - Progress Note Date of Service: 09/07/17 SOAP: Subjective: CC: foot infection HPI: 61 year old man with left heel ulcer and eschar with cellulitis; had I&D, feels well. No fever, rash, or diarrhea. Does have a dog at home that had been licking the wounds. Wound vac came off today. Objective: Vital Signs Temp 36.8 C 09/07/17 08:06 Pulse 75 09/07/17 08:06 Resp 16 09/07/17 08:06 BP 160/92 09/07/17 08:15 Pulse Ox 99 09/07/17 08:06 Intake & Output 09/06/17 09/07/17 09/07/17 18:59 06:59 18:59 Intake Total 1080 420 Output Total 400 1120 Balance 680 -700 Intake: IV Fluids 20 NS (0.9%) 20 IVPB 400 ABX - CEFTRIAXONE 50 ABX - FLAGYL 100 ABX - VANCOMYCIN 250 Oral 1080 0 Output: Urine 400 1120 Other: # Bowel Movements 1 0 Gen:awake, no distress HEENT: no thrush Heart:RRR no murmur Lungs:CTA BL Abd:+BS NTND soft Skin: no rash MSK: L heel open, no surrounding erythema Vital Signs Temp 36.8 C 09/07/17 08:06 Pulse 75 09/07/17 08:06 Resp 16 09/07/17 08:06 BP 160/92 09/07/17 08:15 Pulse Ox 99 09/07/17 08:06 Intake & Output 09/06/17 09/07/17 09/07/17 18:59 06:59 18:59 Intake Total 1080 420 Output Total 400 1120 Balance 680 -700 Intake: IV Fluids 20 NS (0.9%) 20 IVPB 400 ABX - CEFTRIAXONE 50 ABX - FLAGYL 100 ABX - VANCOMYCIN 250 Oral 1080 0 Output: Urine 400 1120 Other: # Bowel Movements 1 0 Assessment: 1. left heel gangrene, acute non hematogenous osteomyelitis, polymicorbial including Pasteurella s/p I&D 2. hx L TMA 3. PAD 4. Diabetes with neuropathy Plan: 1. agree with vancomycin goal tr 15-20, ceftriaxone 1 gm daily, will change flagyl to PO. Day , weekly cbc, cmp, crp. OK for PICC.
--- NOTE | 2017-09-07 10:56 | PN ---
Progress Note - Progress Note Date of Service: 09/07/17 SOAP: Subjective: [] Patient seen at bedside. He is feeling well with no feeling of fever or chills. Left foot is not painful. He pulled his wound vac off while up using the restroom today and wound was dressed with saline soaked gauze and an ABD. He is scheduled for revascularization tomorrow morning. Objective: [] Vital Signs Temp 98.2 F 09/07/17 08:06 Pulse 75 09/07/17 08:06 Resp 16 09/07/17 08:06 BP 160/92 09/07/17 08:15 Pulse Ox 99 09/07/17 08:06 Intake & Output 09/06/17 09/07/17 09/07/17 18:59 06:59 18:59 Intake Total 1080 420 360 Output Total 400 1120 Balance 680 -700 360 Intake: IV Fluids 20 NS (0.9%) 20 IVPB 400 ABX - CEFTRIAXONE 50 ABX - FLAGYL 100 ABX - VANCOMYCIN 250 Oral 1080 0 360 Output: Urine 400 1120 Other: # Bowel Movements 1 0 Laboratory Last Values WBC 9.2 10^3/ul (3.5-10.8) 09/07/17 06:59 RBC 3.55 10^6/ul (4.00-5.40) L 09/07/17 06:59 Hgb 11.1 g/dl (14.0-18.0) L 09/07/17 06:59 Hct 32 % (42-52) L 09/07/17 06:59 MCV 89 fL (80-94) 09/07/17 06:59 MCH 31 pg (27-31) 09/07/17 06:59 MCHC 35 g/dl (31-36) 09/07/17 06:59 RDW 14 % (10.5-15) 09/07/17 06:59 Plt Count 346 10^3/ul (150-450) 09/07/17 06:59 MPV 7.5 um3 (7.4-10.4) 09/07/17 06:59 Neut % (Auto) 72.5 % (38-83) 09/07/17 06:59 Lymph % (Auto) 13.7 % (25-47) L 09/07/17 06:59 [place] % (Auto) 10.4 % (0-7) H 09/07/17 06:59 Eos % (Auto) 2.3 % (0-6) 09/07/17 06:59 Baso % (Auto) 1.1 % (0-2) 09/07/17 06:59 Absolute Neuts (auto) 6.7 10^3/ul (1.5-7.7) 09/07/17 06:59 Absolute Lymphs (auto) 1.3 10^3/ul (1.0-4.8) 09/07/17 06:59 Absolute Monos (auto) 1.0 10^3/ul (0-0.8) H 09/07/17 06:59 Absolute Eos (auto) 0.2 10^3/ul (0-0.6) 09/07/17 06:59 Absolute Basos (auto) 0.1 10^3/ul (0-0.2) 09/07/17 06:59 Absolute Nucleated RBC 0 10^3/ul 09/07/17 06:59 Nucleated RBC % 0 09/07/17 06:59 INR (Anticoag Therapy) 1.22 (0.77-1.02) H 09/03/17 06:00 Sodium 138 mmol/L (135-145) 09/07/17 06:59 Potassium 3.9 mmol/L (3.5-5.0) 09/07/17 06:59 Chloride 103 mmol/L (101-111) 09/07/17 06:59 Carbon Dioxide 26 mmol/L (22-32) 09/07/17 06:59 Anion Gap 9 mmol/L (2-11) 09/07/17 06:59 BUN 13 mg/dL (6-24) 09/07/17 06:59 Creatinine 0.77 mg/dL (0.67-1.17) 09/07/17 06:59 Est GFR ( Amer) 125.1 (>60) 09/07/17 06:59 Est GFR (Non-Af Amer) 103.4 (>60) 09/07/17 06:59 BUN/Creatinine Ratio 16.9 (8-20) 09/07/17 06:59 Glucose 235 mg/dL (70-100) H 09/07/17 06:59 POC Glucose (mg/dL) 262 mg/dL (70-100) H 09/07/17 07:35 Lactic Acid 1.0 mmol/L (0.5-2.0) 09/01/17 13:48 Calcium 9.0 mg/dL (8.6-10.3) 09/07/17 06:59 Total Bilirubin 0.70 mg/dL (0.2-1.0) 09/01/17 13:48 AST 22 U/L (13-39) 09/01/17 13:48 ALT 19 U/L (7-52) 09/01/17 13:48 Alkaline Phosphatase 69 U/L (34-104) 09/01/17 13:48 C-Reactive Protein 17.19 mg/L (<8.01) H 09/07/17 06:59 C-React Prot High Sens 140.09 mg/L (<2.00) H 09/01/17 13:48 Total Protein 7.2 g/dL (6.4-8.9) 09/01/17 13:48 Albumin 3.7 g/dL (3.2-5.2) 09/01/17 13:48 Globulin 3.5 g/dL (2-4) 09/01/17 13:48 Albumin/Globulin Ratio 1.1 (1-3) 09/01/17 13:48 Vancomycin Trough 13.2 mcg/mL 09/03/17 06:00 General: Well appearing, NAD LLE: Wound with granulation tissue, no purulence, no bleeding, no surrounding or streaking erythema. Lacks sensation of left foot. Calves supple and nontender without erythema, edema or palpable cords. Assessment: []Left heel ulcer s/p wound debridement and vac placement Plan: []Wound vac to be changed every 3 days, changed today 09/07 Appreciate ID recommendations: vancomycin goal tr 15-20, ceftriaxone 1 gm daily , will change flagyl to PO. Day , weekly cbc, cmp, crp. OK for PICC. Plan for revascularization with Dr. Starkey on Thursday at 0730am
[2017-09-07] MEDS: cefTRIAXone(*) 1 GM in NS 0.9% 50 ML* 50 ML IVPB SCH (17:16)
--- NOTE | 2017-09-07 17:26 | PN ---
Subjective Date of Service: 09/07/17 Interval History: Patient seen and examined. Wound vac inadvertently pulled off, currently dressed and CDI. Denies chest pain, no fevers or chills, no SOB. Objective Active Medications: Acetaminophen (Tylenol Tab*) 650 mg PO Q6H PRN PRN Reason: pain/fever Amlodipine Besylate (Norvasc Tab*) 5 mg PO DAILY [facility] Last Admin: 09/07/17 08:40 Dose: 5 mg Aspirin (Aspirin Ec Tab*) 81 mg PO DAILY [facility] Last Admin: 09/07/17 08:40 Dose: 81 mg Atorvastatin Calcium (Lipitor*) 80 mg PO DAILY [facility] Last Admin: 09/07/17 08:41 Dose: 80 mg Carvedilol (Coreg Tab*) 12.5 mg PO BID [facility] Last Admin: 09/07/17 08:41 Dose: 12.5 mg Dextrose (D50w Syringe 50 Ml*) 12.5 gm IV PUSH .FOR FS < 60 - SS PRN PRN Reason: FS < 60 Docusate Sodium (Colace Cap*) 100 mg PO DAILY PRN PRN Reason: CONSTIPATION Heparin Sodium (Porcine) (Heparin Vial(*)) 5,000 units SUBCUT Q8H [facility] Last Admin: 09/07/17 12:37 Dose: 5,000 units Ceftriaxone Sodium 1 gm/ (Sodium Chloride) 50 mls @ 200 mls/hr IVPB Q24HR@1700 [facility] Last Admin: 09/07/17 17:16 Dose: 200 mls/hr Vancomycin HCl 1,250 mg/ (Sodium Chloride) 250 mls @ 166.667 mls/hr IVPB Q12H [facility] Last Admin: 09/07/17 13:34 Dose: 166.667 mls/hr Insulin Glargine (Lantus(*)) 20 units SUBCUT Q12H [facility] Insulin Human Lispro (Humalog*) 0 units SUBCUT AC [facility]; Protocol Last Admin: 09/07/17 17:16 Dose: 12 units Lisinopril (Prinivil Tab*) 5 mg PO DAILY [facility] Last Admin: 09/07/17 08:42 Dose: Not Given Metronidazole (Flagyl Tab*) 500 mg PO BID [facility] Oxycodone HCl (Roxycodone Tab*) 5 mg PO Q4H PRN PRN Reason: PAIN Last Admin: 09/04/17 08:04 Dose: 5 mg Pharmacy Consult (Vancomycin Per Pharmacy*) 1 note FOLLOW UP . PRN PRN Reason: PER PROTOCOL Pharmacy Profile Note (Vancomycin Trough Check) 1 note FOLLOW UP ONCE ONE Stop: 09/08/17 14:01 Polyethylene Glycol/Electrolytes (Miralax*) 17 gm PO DAILY PRN PRN Reason: CONSTIPATION Prochlorperazine Edisylate (Compazine Inj*) 5 mg IV Q6H PRN PRN Reason: NAUSEA/VOMITING Last Admin: 09/05/17 15:40 Dose: 5 mg Senna (Senokot Tab*) 1 tab PO DAILY PRN PRN Reason: CONSTIPATION Sertraline HCl (Zoloft*) 100 mg PO DAILY [facility] Last Admin: 09/07/17 08:41 Dose: 100 mg Ticagrelor (Brilinta*) 90 mg PO BID [facility] Last Admin: 09/07/17 08:41 Dose: 90 mg Vital Signs - 8 hr 09/07/17 09/07/17 09/07/17 12:10 12:43 15:30 Temperature 98.2 F Pulse Rate 76 Respiratory 17 Rate Blood Pressure 124/90 180/84 (mmHg) O2 Sat by Pulse 99 100 Oximetry Oxygen Devices in Use Now: None Appearance: Alert, NAD Ears/Nose/Mouth/Throat: NL Teeth, Lips, Gums, Clear Oropharnyx, Mucous Membranes Moist Neck: Trachea Midline Respiratory: Symmetrical Chest Expansion and Respiratory Effort, Clear to Auscultation Cardiovascular: NL Sounds; No Murmurs; No JVD, RRR Abdominal: NL Sounds; No Tenderness; No Distention Extremities: No Edema, - - partial amputation Left foot and heel, dressing CDI to heel Neurological: Alert and Oriented x 3, NL Muscle Strength and Tone Nutrition: Taking PO's, - - NPO after midnight Result Diagrams: 09/07/17 06:59 09/07/17 06:59 Additional Lab and Data: Laboratory Results - last 24 hr 09/05/17 09/06/17 09/06/17 16:24 07:26 11:44 POC Glucose (mg/dL) 293 H 274 H 392 H Microbiology and Other Data: Microbiology 09/03/17 13:20 Tissue - Left Wound Gram Stain - Final 09/03/17 13:20 Tissue - Left Tissue Culture - Preliminary Staphylococcus Epidermidis 09/03/17 13:20 Tissue - Left Anaerobic Culture - Preliminary 09/01/17 20:10 Blood Venous Aerobic Blood Culture - Preliminary No Growth Day 4 09/01/17 20:10 Blood Venous Anaerobic Blood Culture - Preliminary No Growth Day 4 09/01/17 13:48 Blood Venous Aerobic Blood Culture - Preliminary No Growth Day 4 09/01/17 13:48 Blood Venous Anaerobic Blood Culture - Preliminary No Growth Day 4 Diagnostic Imaging: VASCULAR STUDY/ MIKE's Patient Name: VIKY BARRERA Medical Record#: [id number] Ordering Physician: Brina Payan [employer] Acct.#: [id number] : 1955 Age: 61 Sex: M Location: [address] [place] [address] - MEDICAL Exam Date: 09/02/17 1615 ADM Status: ADM IN Order Information: VL ANK/BRACHIAL INDICES Accession Number: [id number] CPT: 86236 INDICATION: Left foot ulcer. COMPARISON: Correlation is made with a prior study from July 07, 2014. TECHNIQUE: Bilateral ankle brachial indices were measured and Doppler tracings were obtained at the ankle of the dorsalis pedis and posterior tibial arteries. FINDINGS: The ankle brachial index on the right was 0.76 and on the left was 0.34. These measured 0.99 and 0.67 respectively on the prior study. There is triphasic flow within the right posterior tibial artery and triphasic flow within the right dorsalis pedis artery. There is monophasic flow within the left posterior tibial artery and monophasic flow within the left dorsalis pedis artery. IMPRESSION: DECREASED ANKLE-BRACHIAL INDICES DESCRIBED IN THE CLAUDICATION RANGE ON THE RIGHT SIDE AND IN THE REST PAIN RANGE ON THE LEFT SIDE CONSISTENT WITH SEVERE PERIPHERAL ARTERIAL DISEASE. <Electronically signed by Santino Urbano MD in [place]> 09/02/17 1141 Dictated By: Santino Urbano MD Dictated Date/Time: 09/02/17 1141 Transcribed Date/Time: 09/02/17 1138 Copy to: Assess/Plan/Problems-Billing Assessment: 61 year old male CAD s/p CABG (2008), HTN, HLD, COPD, IDDM (A1C 6.45), PVD now progressive to severe p/w non-healing left heel wound with severe arterial disease on left (MIKE 0.34), s/p debridement 09/03/[address] Nicole, pending revascularization with Dr. Starkey 09/08. - Patient Problems (1) Diabetic foot ulcer Code(s): E11.621 - TYPE 2 DIABETES MELLITUS WITH FOOT ULCER; L97.509 - NON- PRESSURE CHRONIC ULCER OTH PRT UNSP FOOT W UNSP SEVERITY SNOMED Code(s): 154501807 Comment: - POD4 debridement - Continue wound vac per ortho - Strep epidermidis from calcanus biopsy, back on vanco - Atbx as per ID (2) PAD (peripheral artery disease) Code(s): I73.9 - PERIPHERAL VASCULAR DISEASE, UNSPECIFIED SNOMED Code(s): 270690639 Comment: - Severe and progressive disease (0.34 on left, 0.76 on right), requires revascularization if debridement will ever heal, patient very high risk for further amputation without appropriate arterial flow. Cecil claudication, though walks max of 1/4 at baseline. - Plan for revascularization with Dr. Starkey on Thursday at 0730am - NPO after midnight (3) CAD (coronary artery disease) Code(s): I25.10 - ATHSCL HEART DISEASE OF [place] CORONARY ARTERY W/O ANG PCTRS SNOMED Code(s): 40362464 Comment: - Asymptomatic, NSTEMI in the past - S/P CABG and stent. - Continue aspirin 81mg, brilinta, atorvastatin 80mg, increase carvedilol again from 6.25 mg BID to 12.5 mg BID given poor BP control (4) Diabetes Code(s): E11.9 - TYPE 2 DIABETES MELLITUS WITHOUT COMPLICATIONS SNOMED Code(s) : 78504116 Comment: - Lispro SSI but at increased high dose scale - Increased lantus to 20u BDI (40 units daily), sugar remain high 2/2 infection - Last A1C 6.4% on 08/25/17. - Holding home metformin (5) Hypertension Code(s): I10 - ESSENTIAL (PRIMARY) HYPERTENSION SNOMED Code(s): 84012329 Comment: - BPs elevated - Increased coreg to 12.5mg BID - Increase lisinopril to 10mg daily (6) DVT prophylaxis Code(s): EQV4253 - SNOMED Code(s): 848303180 Comment: - Heparin SQ (7) Full code status Code(s): Z78.9 - OTHER SPECIFIED HEALTH STATUS SNOMED Code(s): 457260108 Comment: Status and Disposition: Remain inpatient for continued IV atbx, revascularization on Thursday, dispo rehab vs home with VNS.
[2017-09-07] MEDS ORDERED: Melatonin 3 MG TAB PO PRN (20:01)
[2017-09-07] MEDS: metroNIDAZOLE TAB* 250 MG PO SCH (20:06)
[2017-09-08] MEDS: Vancomycin(*) 1,250 MG IV IVPB SCH ×6 (02:14→17:48)
[2017-09-08] MEDS: Heparin VIAL(*) 5000 UNITS/ML VIAL (FIVE THOUSAND) SUBCUT SCH ×3 (04:15→21:06)
[2017-09-08] MEDS ORDERED: Lidocaine 1%* 5 ML VIAL ONE ×2 (07:16→07:40)
[2017-09-08] MEDS ORDERED: Heparin 2 UNITS/ML IVPREMIX* 2,000 ML IV ONE (07:17)
[2017-09-08] MEDS ORDERED: Iohexol 350 (CONTRAST) 200 ML MDV IV ONE (07:17)
[2017-09-08] MEDS ORDERED: fentaNYL* 50 MCG/ML 2 ML VIAL (100 MCG VIAL) ONE ×3 (07:27→09:04)
[2017-09-08] MEDS ORDERED: Heparin(*) 1000 UNIT/ML 10 ML VIAL CATH LAB IV ONE (07:27)
[2017-09-08] MEDS ORDERED: Midazolam* 1 MG/ML 10 ML VIAL (10 MG) ONE (07:27)
[2017-09-08] MEDS ORDERED: Iodixanol* (CONTRAST) 320 MG/ML 100 ML SDV ONE (07:57)
[2017-09-08] MEDS ORDERED: VERAPAMIL 2.5 MG/ML 2 ML VIAL ** 5 mg/2 ml ONE (08:07)
[2017-09-08] MEDS ORDERED: nitroGLYCERIN DRIP* 25,000 MCG/250 ML BTL ONE (08:07)
[2017-09-08] MEDS ORDERED: hydrALAZINE IV* 20 MG/ML VIAL ONE (08:08)
[2017-09-08] MEDS: Insulin LISPRO* 1 UNITS UNIT SUBCUT SCH ×3 (09:18→17:16)
[2017-09-08] MEDS: metroNIDAZOLE TAB* 250 MG PO SCH ×2 (13:01→21:12)
[2017-09-08] MEDS: Lisinopril TAB* 5 MG PO SCH (13:01)
[2017-09-08] MEDS: Aspirin EC TAB* 81 MG TAB.EC PO SCH (13:01)
[2017-09-08] MEDS: Ticagrelor* 90 MG TAB PO SCH ×2 (13:01→21:12)
[2017-09-08] MEDS: Atorvastatin* 80 MG TAB PO SCH (13:01)
[2017-09-08] MEDS: Sertraline* 100 MG TAB PO SCH (13:01)
[2017-09-08] MEDS: Carvedilol TAB* 6.25 MG PO SCH ×2 (13:01→21:12)
[2017-09-08] MEDS: amLODIPine TAB* 5 MG PO SCH (13:02)
[2017-09-08] MEDS ORDERED: Vancomycin Trough Check NOTE FOLLOW UP ONE ×2 (14:00→17:30)
[2017-09-08] MEDS ORDERED: hydrALAZINE IV* 20 MG/ML VIAL IV SLOW PU ONE (14:30)
[2017-09-08] MEDS ORDERED: Atropine SYRINGE* 0.1 MG/ML 10 ML SYRINGE (1 MG) ONE (15:26)
[2017-09-08] MEDS: Insulin GLARGINE(*) 1 UNITS UNIT SUBCUT SCH ×2 (16:00→21:07)
--- NOTE | 2017-09-08 16:31 | RAD ---
CPT II Codes: G9500 Procedure(s) performed: 1. Diagnostic left lower extremity arteriogram from an ipsilateral left common femoral arteriotomy. 2. Revascularization of occluded left superficial femoral artery. 3. Atherectomy and angioplasty of the left superficial femoral artery. 4. Balloon angioplasty of the left posterior tibial artery. Date of service: September 08, 2017 Indication for procedure: Critical limb ischemia. Nonhealing left lateral ankle wound in a known vasculopath with a personal history of prior forefoot amputation. Comparison: MIKE September 02, 2017 Contrast: 40 mL of Visipaque 320 and 35 mL Omnipaque 350 Fluoroscopy Time: 26.5 minutes Vessels Accessed: Percutaneous access was obtained with ultrasound guidance in the left common femoral artery in the antegrade direction towards the foot. Catheter arteriography, with the catheter tip located within the lumen of the following arteries, was performed at the left common femoral artery, left superficial femoral artery, left popliteal artery, left anterior tibial artery and left posterior tibial artery. Anesthesia: Conscious sedation with IV Fentanyl and Versed as well as local 1% lidocaine injected locally at the arteriotomy site. Conscious sedation time: Timeout: 7:30 hours Case end: 1005 hours Total conscious sedation time: 2 hours and 35 minutes Additional medications: * 1000 mcg IA nitroglycerin injected intermittently throughout the course of the procedure to alleviate arterial spasm. * IV heparin 7000 Units to achieve a goal ACT of 250-300. PROCEDURE NOTE AND INTRAPROCEDURAL IMAGING FINDINGS: Immediately prior to the procedure the patient signed consent after thoroughly discussing all risks, benefits and alternative therapies. The patient was positioned on the fluoroscopy table in the supine position and the bilateral groins were shaved, prepped and the patient was draped in standard sterile fashion. Using fluoroscopic imaging the location of the left common femoral head was marked externally with a skin marker on the patient's groin. Utilizing sonographic guidance and palpation, the left common femoral artery was cannulated overlying the femoral head with a 21-gauge needle. An ultrasound image was saved. A microwire was slowly and smoothly advanced into the superficial femoral artery under fluoroscopic imaging. No buckling of the wire was visualized to indicate dissection. With the wire securing percutaneous arterial access, the needle was removed and a 5-Citizen [place] access sheath was advanced under fluoroscopic control into the common femoral artery antegrade into the proximal superficial femoral artery securing access. A 0.035 inch Bentson wire was then advanced into the left superficial femoral artery under fluoroscopic control. The access sheath was removed and exchanged for a more secure 5-Citizen [place] SideArm access sheath. Through the side arm of the access sheath arteriography of the left common femoral artery demonstrated an appropriate puncture of the common femoral artery above the bifurcation and below the inferior epigastric artery. Utilizing a combination of the 0.035 inch wire and a 4-Citizen [place] curved tip catheter the occlusion at the mid-level left superficial femoral artery was crossed and the patent more distal superficial femoral and popliteal arteries were accessed. Due to the lack of prior CT angiography a diagnostic catheter arteriogram of the left lower extremity was necessary for appropriate diagnosis and to attempt revascularization. Contrast was injected through the sheath with the tip in the proximal left superficial femoral artery demonstrating multifocal narrowings in the proximal and mid level left superficial femoral artery where the artery exhibited coarse calcification. At approximately the mid-level left superficial femoral artery there is a 6 cm length occlusion before the more distal left superficial femoral artery and popliteal artery fill by collateralized flow. With the 4-Citizen [place] catheter in the left popliteal artery contrast arteriography shows patency of the proximal infrapopliteal arteries with multifocal stenoses. Imaging more inferiorly shows increasingly severe stenoses of the left posterior tibial artery into the artery exhibits multifocal short segment occlusions. The anterior tibial artery is seen to be the dominant flow to the foot. There is filling of the arteries of the hindfoot and midfoot. The peroneal artery though patent does not directly fill beyond the ankle. For superior visualization the 4-Citizen [place] catheter was advanced into the left anterior tibial artery and contrast arteriogram was performed showing adequate patency of the artery into the forefoot. The 5-Citizen [place] SideArm access sheath was exchanged over the 0.035 inch wire for a 6-Citizen [place] SideArm access sheath to accommodate the Diamondback 2.0 Solid orbital atherectomy device. Through the 4-Citizen [place] catheter the Bentson wire was exchanged for a 0.014" Viper wire which was visualized into the distal left anterior tibial artery securing access across the left superficial femoral artery. Under fluoroscopic control most of the length of the left superficial femoral artery underwent orbital atherectomy with careful attention to the previously identified occluded segment of the left superficial femoral artery. Nitroglycerin was injected intermittently to address spasm. A contrast arteriogram showed improved but not ideal patency of the left superficial femoral artery. A 5 mm x 150 mm Nanocross balloon was advanced up to the previously occluded portion of the left superficial femoral artery and balloon angioplasty was performed. The balloon was inflated to approximately 13 panfilo corresponding to a diameter measurement of 5.4 mm. The entire length of the left superficial femoral artery up to its ostium was angioplastied in this manner. The balloon remained inflated for minimum of 3 minutes during each inflation to address spasm. The Viper wire was exchanged for a 0.035 inch stiff hydrophilic wire which was positioned in the distal left anterior tibial artery. Over this wire balloon angioplasty was repeated at the previously occluded left superficial femoral artery utilizing a 6 mm x 120 mm length paclitaxel coated InPact balloon. The balloon was inflated to 10 panfilo corresponding to a diameter measurement of 6.2 mm and remain inflated for minimum of 4 minutes to ensure adequate drug delivery. This same balloon was drawn back and balloon angioplasty was performed along the entire length of the left superficial femoral artery up to the ostium. Subsequent arteriogram shows vastly improved and brisk flow through the left superficial femoral artery into the proximal infrapopliteal arteries. Utilizing the 4-Citizen [place] curved tip catheter and a 0.014" Advantage microwire the left posterior tibial artery was selected. The 4-Citizen [place] catheter was removed and utilizing the microwire and a Trailblazer catheter the wire was advanced as far as the lateral plantar artery. The catheter was advanced up to the distal left posterior tibial artery and contrast arteriography was performed confirming true lumen placement and documenting flow at least to the mid foot. Unfortunately direct communication to the dorsalis pedis artery was not recorded. The wire was reinserted and over the wire the proximal left lateral plantar artery and entire length of the left posterior tibial artery was balloon angioplastied with a 2.5-3 mm x 210 mm NanoCross balloon which was ultimately inflated to 12 panfilo corresponding to a maximum diameter of 3.2 mm and the distal diameter of 2.7 mm. The balloon remained inflated for minimum of 3 minutes during each inflation to address spasm. With the wire still in position, the balloon was removed and the 4-Citizen [place] catheter was advanced until the tip was in the popliteal artery. Through the side arm of a [employer] contrast arteriography shows improved brisk flow through the recently angioplastied left posterior tibial artery as well as continuing adequate filling of the peroneal and anterior tibial arteries. Through the side arm of the access sheath arteriography of the left common femoral artery demonstrated an appropriate puncture of the common femoral artery above the bifurcation and below the inferior epigastric artery, this time in the right anterior oblique projection. After an appropriate resterilization of the arteriotomy and exchange for new sterile gloves, attempt was made to advance a minx closure device into the proximal left superficial femoral artery. The deployment device and balloon would not easily advance and decision was made to not] percutaneously. The sheath was sutured to the patient's skin and the site was dressed to try and the ACT downward for bedside sheath removal and application of direct manual pressure to the left common femoral arteriotomy. The patient tolerated the procedure well and was transferred to angiography holding bay for post procedural observation. SUMMARY OF PROCEDURE, IMAGING FINDINGS AND INTERVENTIONS PERFORMED: 1. Diagnostic studies performed: * Arterial access was obtained at the left common femoral artery in the antegrade direction (i.e. towards the foot) with ultrasound guidance. A sonographic image was recorded. * Diagnostic catheter angiography (necessary to perform the appropriate interventions) was performed with the catheter tip in the left superficial femoral artery, left popliteal artery, left anterior tibial artery and left posterior tibial artery. * Catheter arteriography was performed of the entire arterial circuit of the left lower extremity from the distal left external iliac artery as far as the mid foot. * At the onset and conclusion of the procedure arteriography was performed through the side arm of the access sheath to image the distal left external iliac artery, left common femoral artery and proximal superficial femoral artery and femoral profundus. 2. Interpretation of diagnostic studies performed: * Multifocal stenoses in the proximal and mid level left superficial femoral artery. * Approximately 6 cm length occlusion of the mid distal left superficial femoral artery. * Multifocal stenoses and short occlusions of the left posterior tibial artery. * Arteriography performed for the purpose of deploying a percutaneous arterial closure device demonstrates adequately patent left external iliac artery, common femoral artery and proximal superficial femoral artery and femoral profundus. 3. Surgical interventions performed: * Revascularization of the occluded left superficial femoral artery utilizing catheter and wire technique. * Atherectomy and balloon angioplasty of the left superficial femoral artery utilizing a Diamondback Solid orbital atherectomy system. * Balloon angioplasty of the left posterior tibial artery as far as the proximal portion of the lateral plantar artery. 4. Interpretation of interventions performed: * Final arteriography demonstrated adequate patency and brisk flow through the left superficial femoral artery and posterior tibial artery status post intervention. Plan: 1. Aspirin 81 mg p.o. daily for life. 2. Brilinta 90 mg p.o. BID x 6 months. 3. Clinical and imaging follow-up according to standard Interventional Radiology protocol. 4. The patient will continue undergo wound care and antibiotic therapy as directed by orthopedic surgery an infectious disease, respectively.
[2017-09-08] MEDS ORDERED: hydrALAZINE IV* 20 MG/ML VIAL IV SLOW PU PRN (16:38)
[2017-09-08] MEDS: cefTRIAXone(*) 1 GM in NS 0.9% 50 ML* 50 ML IVPB SCH (16:51)
[2017-09-09] MEDS: Heparin VIAL(*) 5000 UNITS/ML VIAL (FIVE THOUSAND) SUBCUT SCH ×3 (06:07→20:26)
[2017-09-09] MEDS: Vancomycin(*) 1,250 MG IV IVPB SCH ×4 (06:10→18:26)
[2017-09-09] MEDS: Lisinopril TAB* 5 MG PO SCH (08:49)
[2017-09-09] MEDS: amLODIPine TAB* 5 MG PO SCH (08:50)
[2017-09-09] MEDS: metroNIDAZOLE TAB* 250 MG PO SCH ×2 (08:50→20:25)
[2017-09-09] MEDS: Insulin GLARGINE(*) 1 UNITS UNIT SUBCUT SCH ×2 (08:50→20:24)
[2017-09-09] MEDS: Ticagrelor* 90 MG TAB PO SCH ×2 (08:50→20:25)
[2017-09-09] MEDS: Insulin LISPRO* 1 UNITS UNIT SUBCUT SCH ×3 (08:50→17:31)
[2017-09-09] MEDS: Sertraline* 100 MG TAB PO SCH (08:50)
[2017-09-09] MEDS: Carvedilol TAB* 6.25 MG PO SCH ×2 (08:50→20:25)
[2017-09-09] MEDS: Aspirin EC TAB* 81 MG TAB.EC PO SCH (08:50)
[2017-09-09] MEDS: Atorvastatin* 80 MG TAB PO SCH (08:50)
--- NOTE | 2017-09-09 09:16 | PN ---
Subjective Date of Service: 09/09/17 Interval History: Pt is feeling extremely well. He denies any pain in his L foot. He states as soon as Dr Starkey was done revascularizing him he noticed his foot was warm and his rest pain was gone. The patient would like to be d/louise home to do IV Abx at home. Will need to determine how he can get the wound vac changed. Objective Active Medications: Acetaminophen (Tylenol Tab*) 650 mg PO Q6H PRN PRN Reason: pain/fever Amlodipine Besylate (Norvasc Tab*) 5 mg PO DAILY [facility] Last Admin: 09/09/17 08:50 Dose: 5 mg Aspirin (Aspirin Ec Tab*) 81 mg PO DAILY [facility] Last Admin: 09/09/17 08:50 Dose: 81 mg Atorvastatin Calcium (Lipitor*) 80 mg PO DAILY [facility] Last Admin: 09/09/17 08:50 Dose: 80 mg Carvedilol (Coreg Tab*) 12.5 mg PO BID [facility] Last Admin: 09/09/17 08:50 Dose: 12.5 mg Dextrose (D50w Syringe 50 Ml*) 12.5 gm IV PUSH .FOR FS < 60 - SS PRN PRN Reason: FS < 60 Docusate Sodium (Colace Cap*) 100 mg PO DAILY PRN PRN Reason: CONSTIPATION Heparin Sodium (Porcine) (Heparin Vial(*)) 5,000 units SUBCUT Q8H [facility] Last Admin: 09/09/17 06:07 Dose: 5,000 units Heparin Sodium (Porcine) (Heparin Flush Picc/Ml/Cvc(*)) 1 - 3 ml FLUSH 0600, 1800 [facility]; Protocol Last Admin: 09/09/17 07:18 Dose: Not Given Hydralazine HCl (Apresoline Iv*) 5 mg IV SLOW PU Q6H PRN PRN Reason: SBP >160 or DBP>90 Ceftriaxone Sodium 1 gm/ (Sodium Chloride) 50 mls @ 200 mls/hr IVPB Q24HR@1700 [facility] Last Admin: 09/08/17 16:51 Dose: 200 mls/hr Vancomycin HCl 1,250 mg/ (Sodium Chloride) 250 mls @ 166.667 mls/hr IVPB Q12H [facility] Last Admin: 09/09/17 06:10 Dose: 166.667 mls/hr Insulin Glargine (Lantus(*)) 20 units SUBCUT Q12H [facility] Last Admin: 09/09/17 08:50 Dose: 20 units Insulin Human Lispro (Humalog*) [address] [facility]; Protocol Last Admin: 09/09/17 08:50 Dose: 6 units Lisinopril (Prinivil Tab*) 10 mg PO DAILY [facility] Last Admin: 09/09/17 08:49 Dose: 10 mg Melatonin (Melatonin) 3 mg PO BEDTIME PRN PRN Reason: SLEEP Last Admin: 09/07/17 21:55 Dose: 3 mg Metronidazole (Flagyl Tab*) 500 mg PO BID [facility] Last Admin: 09/09/17 08:50 Dose: 500 mg Pharmacy Consult (Vancomycin Per Pharmacy*) 1 note FOLLOW UP . PRN PRN Reason: PER PROTOCOL Polyethylene Glycol/Electrolytes (Miralax*) 17 gm PO DAILY PRN PRN Reason: CONSTIPATION Prochlorperazine Edisylate (Compazine Inj*) 5 mg IV Q6H PRN PRN Reason: NAUSEA/VOMITING Last Admin: 09/05/17 15:40 Dose: 5 mg Senna (Senokot Tab*) 1 tab PO DAILY PRN PRN Reason: CONSTIPATION Sertraline HCl (Zoloft*) 100 mg PO DAILY [facility] Last Admin: 09/09/17 08:50 Dose: 100 mg Ticagrelor (Brilinta*) 90 mg PO BID [facility] Last Admin: 09/09/17 08:50 Dose: 90 mg Vital Signs - 8 hr 09/09/17 09/09/17 03:43 08:10 Temperature 98.0 F 98.1 F Pulse Rate 80 74 Respiratory 17 18 Rate Blood Pressure 127/70 150/73 (mmHg) O2 Sat by Pulse 99 100 Oximetry Oxygen Devices in Use Now: None Appearance: Middle aged male sitting up in bed, NAD Eyes: No Scleral Icterus Ears/Nose/Mouth/Throat: Mucous Membranes Moist Respiratory: Symmetrical Chest Expansion and Respiratory Effort, Clear to Auscultation Cardiovascular: NL Sounds; No Murmurs; No JVD, RRR, No Edema Abdominal: NL Sounds; No Tenderness; No Distention Extremities: No Clubbing, Cyanosis Skin: No Nodules or Sclerosis, - - ulcer to heel of L foot-covered in wound vac dressing but not hooked up to suction Neurological: Alert and Oriented x 3 Result Diagrams: 09/07/17 06:59 09/07/17 06:59 Additional Lab and Data: Laboratory Results - last 24 hr 09/05/17 09/06/17 09/06/17 16:24 07: 11:44 POC Glucose (mg/dL) 293 H 274 H 392 H Microbiology and Other Data: Microbiology 09/03/17 13:20 Tissue - Left Wound Gram Stain - Final 09/03/17 13:20 Tissue - Left Tissue Culture - Preliminary Staphylococcus Epidermidis 09/03/17 13:20 Tissue - Left Anaerobic Culture - Preliminary 09/01/17 20:10 Blood Venous Aerobic Blood Culture - Preliminary No Growth Day 4 09/01/17 20:10 Blood Venous Anaerobic Blood Culture - Preliminary No Growth Day 4 09/01/17 13:48 Blood Venous Aerobic Blood Culture - Preliminary No Growth Day 4 09/01/17 13:48 Blood Venous Anaerobic Blood Culture - Preliminary No Growth Day 4 Diagnostic Imaging: VASCULAR STUDY/ MIKE's Patient Name: VIKY BARRERA Medical Record#: [id number] Ordering Physician: Brina Payan [employer]ER Acct.#: [id number] : 1955 Age: 61 Sex: M Location: [address] [place] [address] - MEDICAL Exam Date: 09/02/17 161 ADM Status: ADM IN Order Information: VL ANK/BRACHIAL INDICES Accession Number: [id number] CPT: 13355 INDICATION: Left foot ulcer. COMPARISON: Correlation is made with a prior study from July 07, 2014. TECHNIQUE: Bilateral ankle brachial indices were measured and Doppler tracings were obtained at the ankle of the dorsalis pedis and posterior tibial arteries. FINDINGS: The ankle brachial index on the right was 0.76 and on the left was 0.34. These measured 0.99 and 0.67 respectively on the prior study. There is triphasic flow within the right posterior tibial artery and triphasic flow within the right dorsalis pedis artery. There is monophasic flow within the left posterior tibial artery and monophasic flow within the left dorsalis pedis artery. IMPRESSION: DECREASED ANKLE-BRACHIAL INDICES DESCRIBED IN THE CLAUDICATION RANGE ON THE RIGHT SIDE AND IN THE REST PAIN RANGE ON THE LEFT SIDE CONSISTENT WITH SEVERE PERIPHERAL ARTERIAL DISEASE. <Electronically signed by Santino Urbano MD in [place]> 09/02/17 1141 Dictated By: Santino Urbano MD Dictated Date/Time: 09/02/17 1141 Transcribed Date/Time: 09/02/17 1138 Copy to: Assess/Plan/Problems-Billing 61 year old male CAD s/p CABG (2008), HTN, HLD, COPD, IDDM (A1C 6.45), PVD now progressive to severe p/w non-healing left heel wound with severe arterial disease on left (MIKE 0.34). - Patient Problems (1) Diabetic foot ulcer Current Visit: Yes Status: Acute Code(s): E11.621 - TYPE 2 DIABETES MELLITUS WITH FOOT ULCER; L97.509 - NON-PRESSURE CHRONIC ULCER OTH PRT UNSP FOOT W UNSP SEVERITY SNOMED Code(s): 456032971 Comment: Today is D#5 post op. Continue wound vac. Continue vanco, ceftriaxone and flagyl. Await further recommendations from Dr Mayen. (2) PAD (peripheral artery disease) Current Visit: Yes Status: Acute Code(s): I73.9 - PERIPHERAL VASCULAR DISEASE, UNSPECIFIED SNOMED Code(s): 687254898 Comment: Pt was revascularized yesterday with good result per patient and Dr. Starkey. Will continue on ASA 81mg and Brilinta 90mg BID x6 months. His PAD is related to his extensive smoking history and uncontrolled DM that is now under better control. (3) Hypertension Current Visit: Yes Status: Acute Code(s): I10 - ESSENTIAL (PRIMARY) HYPERTENSION SNOMED Code(s): 69910212 Comment: BP is under fair control. Continue coreg and lisinopril. (4) CAD (coronary artery disease) Current Visit: Yes Status: Acute Code(s): I25.10 - ATHSCL HEART DISEASE OF [place] CORONARY ARTERY W/O ANG PCTRS SNOMED Code(s): 34759357 Comment: Continue aspirin 81mg, brilinta, atorvastatin 80mg, coreg. (5) COPD (chronic obstructive pulmonary disease) Current Visit: Yes Status: Acute Code(s): J44.9 - CHRONIC OBSTRUCTIVE PULMONARY DISEASE, UNSPECIFIED SNOMED Code(s): 72215946 Comment: No signs of exacerbation. (6) DVT prophylaxis Current Visit: Yes Status: Acute Code(s): VMG1771 - SNOMED Code(s): 321868827 Comment: Heparin SQ (7) Full code status Current Visit: Yes Status: Acute Code(s): Z78.9 - OTHER SPECIFIED HEALTH STATUS SNOMED Code(s): 205200715 Comment: Status and Disposition: .
--- NOTE | 2017-09-09 12:51 | PN ---
Progress Note - Progress Note Date of Service: 09/09/17 SOAP: Subjective: []Pt is feeling well. He has no left foot pain. Dr Starkey performed revascularization yesterday. Denies feeling of fever, chills, CP, SOB. Wound vac sponge still in place but vac off after procedure yesterday. Objective: [] General: Well appearing, NAD LLE: Foot is warm and without erythema. Wound vac was off, sponge still in place. Wound with mild maceration of edges, granulation tissue, no purulence, no bleeding, no surrounding or streaking erythema. Calves supple and nontender without erythema, edema or palpable cords. Assessment: []Left heel ulcer s/p wound debridement and vac placement Plan: []New wound vac placed as it was off upon my arrival to his room. Next vac change in 3 days. NWB LLE Continue antibiotics- currently on ceftriaxone, vanco and flagyl Wound care nurse was at bedside today, appreciate assistance with vac change. Vital Signs Temp 98.1 F 09/09/17 08:10 Pulse 74 09/09/17 08:10 Resp 18 09/09/17 08:10 BP 150/73 09/09/17 08:10 Pulse Ox 100 09/09/17 08:10 Intake & Output 09/08/17 09/09/17 09/09/17 18:59 06:59 18:59 Intake Total 120 0 360 Balance 120 0 360 Intake: Oral 120 0 360 Other: # Bowel Movements 0 # Voids 0 Laboratory Last Values WBC 9.2 10^3/ul (3.5-10.8) 09/07/17 06:59 RBC 3.55 10^6/ul (4.00-5.40) L 09/07/17 06:59 Hgb 11.1 g/dl (14.0-18.0) L 09/07/17 06:59 Hct 32 % (42-52) L 09/07/17 06:59 MCV 89 fL (80-94) 09/07/17 06:59 MCH 31 pg (27-31) 09/07/17 06:59 MCHC 35 g/dl (31-36) 09/07/17 06:59 RDW 14 % (10.5-15) 09/07/17 06:59 Plt Count 346 10^3/ul (150-450) 09/07/17 06:59 MPV 7.5 um3 (7.4-10.4) 09/07/17 06:59 Neut % (Auto) 72.5 % (38-83) 09/07/17 06:59 Lymph % (Auto) 13.7 % (25-47) L 09/07/17 06:59 [place] % (Auto) 10.4 % (0-7) H 09/07/17 06:59 Eos % (Auto) 2.3 % (0-6) 09/07/17 06:59 Baso % (Auto) 1.1 % (0-2) 09/07/17 06:59 Absolute Neuts (auto) 6.7 10^3/ul (1.5-7.7) 09/07/17 06:59 Absolute Lymphs (auto) 1.3 10^3/ul (1.0-4.8) 09/07/17 06:59 Absolute Monos (auto) 1.0 10^3/ul (0-0.8) H 09/07/17 06:59 Absolute Eos (auto) 0.2 10^3/ul (0-0.6) 09/07/17 06:59 Absolute Basos (auto) 0.1 10^3/ul (0-0.2) 09/07/17 06:59 Absolute Nucleated RBC 0 10^3/ul 09/07/17 06:59 Nucleated RBC % 0 09/07/17 06:59 INR (Anticoag Therapy) 1.22 (0.77-1.02) H 09/03/17 06:00 POC Activ Clotting Time 148 seconds 09/08/17 12:27 Sodium 138 mmol/L (135-145) 09/07/17 06:59 Potassium 3.9 mmol/L (3.5-5.0) 09/07/17 06:59 Chloride 103 mmol/L (101-111) 09/07/17 06:59 Carbon Dioxide 26 mmol/L (22-32) 09/07/17 06:59 Anion Gap 9 mmol/L (2-11) 09/07/17 06:59 BUN 13 mg/dL (6-24) 09/07/17 06:59 Creatinine 0.77 mg/dL (0.67-1.17) 09/07/17 06:59 Est GFR ( Amer) 125.1 (>60) 09/07/17 06:59 Est GFR (Non-Af Amer) 103.4 (>60) 09/07/17 06:59 BUN/Creatinine Ratio 16.9 (8-20) 09/07/17 06:59 Glucose 235 mg/dL (70-100) H 09/07/17 06:59 POC Glucose (mg/dL) 333 mg/dL (70-100) H 09/09/17 12:11 Glucose Meter Confirm 328 mg/dL (70-100) H 09/07/17 11:54 Lactic Acid 1.0 mmol/L (0.5-2.0) 09/01/17 13:48 Calcium 9.0 mg/dL (8.6-10.3) 09/07/17 06:59 Total Bilirubin 0.70 mg/dL (0.2-1.0) 09/01/17 13:48 AST 22 U/L (13-39) 09/01/17 13:48 ALT 19 U/L (7-52) 09/01/17 13:48 Alkaline Phosphatase 69 U/L (34-104) 09/01/17 13:48 C-Reactive Protein 17.19 mg/L (<8.01) H 09/07/17 06:59 C-React Prot High Sens 140.09 mg/L (<2.00) H 09/01/17 13:48 Total Protein 7.2 g/dL (6.4-8.9) 09/01/17 13:48 Albumin 3.7 g/dL (3.2-5.2) 09/01/17 13:48 Globulin 3.5 g/dL (2-4) 09/01/17 13:48 Albumin/Globulin Ratio 1.1 (1-3) 09/01/17 13:48 Vancomycin Trough 14.1 mcg/mL 09/08/17 16:51
--- NOTE | 2017-09-09 16:17 | PN ---
Progress Note - Progress Note Date of Service: 09/09/17 SOAP: Subjective: No subjective complaints. Left foot feels warm and pain free. No groin pain. Objective: Selected Entries 09/09/17 12:24 Temperature 97.7 F Temperature Oral Source Pulse Rate 72 Respiratory 16 Rate Blood Pressure 132/56 (mmHg) Blood Pressure 76 Mean O2 Sat by Pulse 99 Oximetry NAD, AAO x 3 Abd is soft and nontender Left groin arteriotomy site is soft, nontender and nonecchymotic Dressing is CDI 2+ pulse palpated at left BOARD STACKER 1+ pulse at left pop and MICROSOFT NET DEVELOPER 1/2+ at left DPA Forefoot stump is warm to touch LLE grossly neuromuscular intact Wound dressed with VAC & bandages Assessment: 61 YOM POD #1 s/p ipsilateral BOARD STACKER access LLE arteriogram, revascularization of occluded left SFA, atherectomy & paclitaxel coated balloon angioplasty of the left SFA and balloon angioplasty of left MICROSOFT NET DEVELOPER. Currently all signs indicate arteries are patent and there is access site complication. Plan: 1. Okay to D/C to home from Interventional Radiology perspective. 2. IR clinic nurse will call patient in 24 hours to inquire about groin access site complications. 3. Routine IR follow up includes MIKE & OV in 1 month. 4. Continue Brilinta and ASA. 5. Wound care & VAC per ortho.
[2017-09-09] MEDS: cefTRIAXone(*) 1 GM in NS 0.9% 50 ML* 50 ML IVPB SCH (17:31)
[2017-09-09 19:53] VITALS: BP 164/60
--- NOTE | 2017-09-10 04:34 | DS ---
CC: DIANN Shankar; Dr. Mayen; Dr. Nicole; Dr. Starkey * DISCHARGE SUMMARY: DATE OF ADMISSION: 09/01/17. DATE OF DISCHARGE: 09/09/17. PRIMARY CARE PROVIDER: DIANN Shankar. INFECTIOUS DISEASE SPECIALIST: Dr. Mayen. ORTHOPEDIC SURGEON: Dr. Nicole. INTERVENTIONAL RADIOLOGIST: Dr. Starkey. PRINCIPAL DIAGNOSES: 1. 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 2. Peripheral arterial disease. 3. Type 2 diabetes with peripheral neuropathy. SECONDARY DIAGNOSES: 1. Coronary artery disease. 2. Hypertension. 3. Chronic obstructive pulmonary disease. 4. Hyperlipidemia. DISCHARGE MEDICATIONS: 1. Oxycodone 5 mg p.o. q.4 hours p.r.n. pain. 2. Brilinta 90 mg p.o. b.i.d. 3. Sertraline 100 mg p.o. daily. 4. Magnesium oxide 500 mg p.o. daily. 5. Lisinopril 5 mg p.o. daily (reduced dose). 6. Lactobacillus 1 cap p.o. b.i.d. 7. Lantus 20 units subcutaneous twice daily (new dose). 8. Lipitor 80 mg p.o. daily. 9. Aspirin 81 mg p.o. daily. 10. Flagyl 500 mg p.o. q.12 hours x37 days. 11. Ceftriaxone 1 g IV daily x37 days. 12. Amlodipine 5 mg p.o. daily (new). 13. Coreg 3.125 mg p.o. b.i.d. (reduced dose). 14. Tylenol 650 mg p.o. q.6 hours p.r.n. pain. HOSPITAL COURSE: Mr. Chopra is a 61-year-old male, who presented to the emergency room on 09/01/17, with complaints of nausea, vomiting, and worsening left foot infection. The patient had noted what sounded to be a crack within likely a callus of the left heel for quite some time. He states that he was following with a valet manager for this until suddenly the wound opened up and it is quite large. The patient was hospitalized from 08/28/17, through 08/30/17, where he was treated for the wound infection. He was seen by Dr. Nicole and had a lower extremity MRI, which did not demonstrate osteomyelitis. Surgical intervention was not recommended at that time. The patient was discharged home to follow up with Dr. Starkey for consideration of vascular intervention and Dr. Mayen. The patient on the day of admission developed nausea and vomiting. The foot ulcer suddenly had appeared more red and became malodorous, and therefore they returned to the emergency room. The patient was ultimately admitted for a left diabetic foot ulcer with associated peripheral arterial disease. The patient was admitted and seen in consultation by Dr. Mayen, who recommended ceftriaxone and Flagyl. It was also recommended to check ABIs. This was performed on 09/02/17. ABIs revealed decreased ankle- brachial indices, the right being 0.76 and the left 0.34. They were measured at 0.99 and 0.67 respectively on the prior study. The patient was then seen in consultation by Dr. Starkey, who recommended left lower extremity arteriography for superior characterization of the arterial disease and possible revascularization. The patient was also seen in consultation by Dr. Nicole from Orthopedics and it was recommended to undergo debridement and wound Vac placement. It was still felt that he needs revascularization to improve blood flow to his foot. The patient underwent debridement and wound Vac placement on 09/03/17. Ultimately, he had left foot irrigation and debridement, left foot deep bone biopsy of the calcaneus and placement of wound Vac. The calcaneus biopsy revealed early chronic osteomyelitis. On 09/08/17, the patient underwent revascularization of the occluded left superficial femoral artery utilizing catheter and wire technique. Arthrectomy and balloon angioplasty of the left superficial femoral artery utilizing a Diamondback Solid Orbital Atherectomy System. A balloon angioplasty of the left posterior tibial artery as far as the proximal portion of the lateral plantar artery. It was felt that the final arteriography demonstrated adequate patency and brisk flow through to the left superficial femoral artery and posterior tibial arteries. Between the debridement of the wound and revascularization, the patient received IV antibiotic therapy as directed by Dr. Mayen. Post revascularization, the patient noted that his foot was finally warm. He described having what sounded to be rest pain in his foot prior to the revascularization and this has now resolved. The patient will need a total of 42 days of IV antibiotic therapy with ceftriaxone and/or Flagyl. The patient feels that he can manage the IV antibiotics at home. Additionally, he has a wound Vac placed and this will need to be managed as an outpatient as well. At this point, the patient is felt to be stable for discharge home. The patient is in agreement with discharge home this evening, 09/09/17. The patient will need to follow up with Dr. Starkey. His office will contact the patient. Dr. Mayen's office will contact the patient with a followup appointment. The patient will also need to be seen by Dr. Nicole in the next 7 to 10 days. The patient feels comfortable with the plan for discharge home this evening. FOLLOWUP CONCERNS: The patient is being discharged home today, 09/09/17. ACTIVITY LEVEL: As tolerated. DIET: Diabetic, low-fat. CONDITION ON DISCHARGE: Stable and improved. Please see the complete medical record for further details of this prolonged and complicated hospitalization. TIME SPENT: Thirty-five minutes was spent discharging this patient of which greater than half spent [id number] with the patient, reviewing his discharge plan. [id number]/[facility]PS #: [id number] MTDD
== END 2017-09-09 20:35 | disposition home health service (06) | DRG 270 ==
LOC: ED 11:19 → MED 14:50
PROVIDERS: ADMIT Internal Medicine; ATTEND Hospitalist
PROC: 04CL3ZZ Extirpation of Matter from Left Femoral Artery, Percutaneous Approach (ICD-10-PCS; 2017-09-03)
PROC: 047S3ZZ Dilation of Left Posterior Tibial Artery, Percutaneous Approach (ICD-10-PCS; 2017-09-03)
PROC: 047W3ZZ Dilation of Left Foot Artery, Percutaneous Approach (ICD-10-PCS; 2017-09-03)
PROC: 0QBM0ZZ Excision of Left Tarsal, Open Approach (ICD-10-PCS; 2017-09-03)
PROC: 0QBM0ZX Excision of Left Tarsal, Open Approach, Diagnostic (ICD-10-PCS; 2017-09-03)
PROC: B41G1ZZ Fluoroscopy of Left Lower Extremity Arteries using Low Osmolar Contrast (ICD-10-PCS; 2017-09-03)
PROC: 047L3ZZ Dilation of Left Femoral Artery, Percutaneous Approach (ICD-10-PCS; principal; 2017-09-03 11:00)
DX: E11.52 Type 2 diabetes mellitus with diabetic peripheral angiopathy with gangrene (principal); I21.4 Non-ST elevation (NSTEMI) myocardial infarction; L03.116 Cellulitis of left lower limb; M86.672 Other chronic osteomyelitis, left ankle and foot; M86.172 Other acute osteomyelitis, left ankle and foot; E11.621 Type 2 diabetes mellitus with foot ulcer; Z79.02 Long term (current) use of antithrombotics/antiplatelets; E11.69 Type 2 diabetes mellitus with other specified complication; L97.529 Non-pressure chronic ulcer of other part of left foot with unspecified severity; I25.10 Atherosclerotic heart disease of native coronary artery without angina pectoris; I10 Essential (primary) hypertension; J44.9 Chronic obstructive pulmonary disease, unspecified; E11.43 Type 2 diabetes mellitus with diabetic autonomic (poly)neuropathy; K31.84 Gastroparesis; F43.10 Post-traumatic stress disorder, unspecified; E78.5 Hyperlipidemia, unspecified; M77.32 Calcaneal spur, left foot; T36.0X5A Adverse effect of penicillins, initial encounter; R11.0 Nausea; E11.42 Type 2 diabetes mellitus with diabetic polyneuropathy; T81.89XA Other complications of procedures, not elsewhere classified, initial encounter; I99.8 Other disorder of circulatory system; Z79.4 Long term (current) use of insulin; Z79.01 Long term (current) use of anticoagulants; Z79.82 Long term (current) use of aspirin; Z88.1 Allergy status to other antibiotic agents; Z88.0 Allergy status to penicillin; Z89.421 Acquired absence of other right toe(s); Z95.1 Presence of aortocoronary bypass graft; Z95.5 Presence of coronary angioplasty implant and graft; Z89.422 Acquired absence of other left toe(s); Z87.891 Personal history of nicotine dependence; I25.2 Old myocardial infarction; Z89.432 Acquired absence of left foot; Z83.3 Family history of diabetes mellitus; Z82.49 Family history of ischemic heart disease and other diseases of the circulatory system; Z86.14 Personal history of Methicillin resistant Staphylococcus aureus infection
CPT/HCPCS: 36415; 76937; 80048; 80053; 80202; 82947; 83605; 85014; 85018; 85025; 85049; 85347; 85610; 86140; 86141; 87040; 87070; 87073; 87077; 87186; 87205; 88305; 88311; 93922; 99156; 99157; 99284; A9270-GY; A9272; C1724; C1725; C1751; C1760; C1769; C1887; C1894; C2623; G8987-GO-CJ; G8988-GO-CJ; G8989-GO-CJ; J0360; J0461; J0696; J0780; J1644; J1956; J2250; J3010; J3370; J3490

== ENCOUNTER 2017-09-15 09:33 | Inpatient (IN) | payer MEDICARE ==
[2017-09-15] MEDS ORDERED: NS 0.9% 1000 ML* 1,000 ML IV ONE (10:24)
--- NOTE | 2017-09-15 10:47 | ED ---
Syncope/Near Syncope - HPI Summary HPI Summary: The pt. is a 61 y/o male presenting to the [facility] s/p sycope this morning. The accompanying caregiver reports that the pt fell earlier and lay on the floor for about 1 hour with difficulties getting up. She reports that the pt has been intermittently confused. The pt also notes weakness, subjective fever, elevated BG (500 mg/dL). His caregiver reports that the patient is a former smoker and is concerned that he might be undergoing nicotine withdrawal.The pt. was admitted at [facility] 6 days ago and has a PICC line for a foot infection. 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 This is scribe Meryl Cruz documenting for attending Dr. Vito MD. - History Of Current Complaint Chief Complaint: EDSyncope Time Seen by Provider: 09/15/17 10:06 Hx Obtained From: Patient, Family/Computer Aided Design Operator - Significant other Onset/Duration: Sudden Onset - This morning Context: Unwitnessed - Caregiver found the pt laying on the floor later Activity At Onset: At Rest Associated Signs And Symptoms: Weakness, Other - Positive: Elevated BG, confusion,subjective fever - Risk Factors Cardiac Risk Factors: Diabetes, Prior [place], CAD - Allergies/Home Medications Allergies/Adverse Reactions: Allergies Allergy/AdvReac Type Severity Reaction Status Date / Time Penicillins Allergy Hives Verified 09/01/17 13:29 piperacillin [From Zosyn] Allergy Hives Verified 08/28/17 15:07 tazobactam [From Zosyn] Allergy Hives Verified 08/28/17 15:07 Home Medications: Home Medications metroNIDAZOLE * 500 mg PO Q12HR 09/15/17 [History Confirmed 09/15/17] PMH/Surg Hx/FS Hx/Imm Hx Previously Healthy: No Endocrine/Hematology History: Reports: Hx Diabetes Cardiovascular History: Reports: Hx Coronary Artery Disease, Hx Hypertension, Other Cardiovascular Problems/Disorders - DMII Denies: Hx Pacemaker/ICD Respiratory History: Reports: Hx Chronic Obstructive Pulmonary Disease (COPD) Denies: Hx Asthma GI History: 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 amputation left toes. amputation right toe. CABG x5 2009. CARDIAC STENT PLACED AUGUST 04 2017 ( SYNERGY PLACED AT [facility]). OKAY TO SCAN WITHIN 6 WEEKS. Static magnetic field of 3.0 and 1.5 Diane only. Maximum spatial gradient magnetic field of 2300 gauss/ cm (23 T/m). Maximum Magnetic Resonance system reported, whole body averaged specific absorption rate (SANDY) of <2 W/kg (Normal Operating Mode). Under the scan conditions defined above, the SYNERGY Stent is expected to produce a maximum temperature rise of 3.1oC after 15 minutes of continuous scanning. Infectious Disease History: Yes Infectious Disease History: Denies: Traveled Outside the [place] in Last 30 Days - Family History Known Family History: Positive: Other - Pt denies any relevant family history. 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 GENERAL: Patient is a febrile, well-developed and nourished male who is lying comfortable in the stretcher.Patient is not in any acute respiratory distress. HEAD AND FACE: No signs of trauma. No ecchymosis, hematomas or skull depressions. No sinus tenderness. EYES: PERRLA, EOMI x 2, No injected conjunctiva, no nystagmus. No photophobia. EARS: Hearing grossly intact. Ear canals and tympanic membranes are within normal limits. MOUTH: Oropharynx within normal limits. NECK: Supple, trachea is midline, no adenopathy, no JVD, no carotid bruit, no c- spine tenderness, neck with full ROM. No meningeal signs, no Kernig's or brudzinskis signs. CHEST: Symmetric, no tenderness at palpation LUNGS: Clear to auscultation bilaterally. No wheezing or crackles. CVS: Regular rate and rhythm, S1 and S2 present, no murmurs or gallops appreciated. ABDOMEN: Soft, non-tender. No signs of distention. No rebound no guarding, and no masses palpated. Bowel sounds are normal. EXTREMITIES: Wound in the L foot ; FROM in all major joints, no edema, no cyanosis or clubbing. NEURO: Alert and oriented x 3. No acute neurological deficits. Speech is normal and follows commands. SKIN: Dry and warm GCS: 15 Triage Information Reviewed: Yes Vital Signs On Initial Exam: Initial Vitals Temp Pulse Resp BP Pulse Ox 99.1 F 117 20 132/100 99 09/15/17 09:59 09/15/17 09:59 09/15/17 09:59 09/15/17 09:59 09/15/17 09:59 Vital Signs Reviewed: Yes Diagnostics - Vital Signs Vital Signs Temp Pulse Resp BP Pulse Ox 09/15/17 09:59 99.1 F 117 20 132/100 99 - Laboratory Result Diagrams: 09/15/17 11:00 09/15/17 11:00 Lab Statement: Any lab studies that have been ordered have been reviewed, and results considered in the medical decision making process. - Radiology L Foot XR Radiology Interpretation Completed By: Radiologist - IMPRESSION: CHRONIC AND POSTSURGICAL CHANGES. The ED Physician has reviewed this radiology report. CXR Radiology Interpretation Completed By: Radiologist - IMPRESSION: Likely small focus of right lung base atelectasis without radiographic evidence for acute cardiopulmonary abnormality on this portable chest x-ray. The ED physician had reviewed this radiology report. - CT Brain CT CT Interpretation Completed By: Radiologist - IMPRESSION: #. No CT evidence for traumatic brain injury or acute intracranial process. #. Solitary 0.5 cm RIGHT basal ganglia and 0.4 cm LEFT basal ganglia hypodense lesions which may represent old lacunar infarcts or normal variant dilated perivascular spaces. The ED physician has reviewed this radiology report. CXR CT Interpretation Completed By: Radiologist - IMPRESSION: Likely small focus of right lung base atelectasis without radiographic evidence for acute cardiopulmonary abnormality on this portable chest x-ray. The ED physician had reviewed this radiology report. - EKG 10:37 Cardiac Rate: Tachycardia - 110 bpm EKG Rhythm: Sinus Tachycardia EKG Interpretation: RBBB EKG Comparison: No Significant Change - This EKG is similar to one done on 08/05 Re-Evaluation - Re-Evaluation First Eval Re-Evaluation Time: 12:20 Change: Worse Comment: Pt. reports dysuria. Course/Dx Assessment/Plan: This patient is a 61-year-old male who presents to the emergency department with with chief complaint of having confusion, dizziness, weakness, fever, and a syncopal episode today. The patient is being treated for an infection in the left foot with vancomycin and ceftriaxone. The patient has been the infusion via PICC line. Test results shows a was a count of 17.1, hemoglobin 11.1 and hematocrit 32. Sodium 133 chloride 100, creatinine 1.24, glucose 316, lactic acid is 2.2, magnesium is 1.6. Patient also has a CPK of 8088, troponin was 0.02, urinalysis with positive protein, ketones and blood. The patient also has red blood cells and test. The patient was given IV fluids, I did give the patient vancomycin and the Rocephin that he was supposed to take today. Because of the patients syncopal episode, he seems that the infection is not resolving, the rhabdomyolysis I discussed my physical exam and findings with Dr. Rodrigez who accepted the patient for admission. The patient was given IV fluids for the treatment of the rhabdomyolysis. At this point the patient is alert and oriented 3. Doesnt seem to be confused. Head CT impression no CT evidence of traumatic brain injury or acute intracranial process. Solitary 0.5 cm right basal ganglia and see her 0.4 cm left basal ganglia hypodensities lesions which may represent or lacunar infarcts or normal variant dilated perivascular spaces. Chest x-ray impression: Likely small focus of right no base atelectasis without radiographic evidence of acute cardiopulmonary abnormality. Left foot x-ray impression: Chronic and postsurgical changes. - Diagnoses Provider Diagnoses: Sepsis, Rhabdomyolysis, Foot infection, Leukocytosis, Hypomagnesemia - Physician Notifications Discussed Care of Patient With: Ashley Rodrigez Time Discussed With Above Provider: 12:28 Instructed by Provider To: Admit As Inpatient Discharge - Sign-Out/Discharge Documenting (check all that apply): Patient Departure - Admit - Discharge Plan Condition: Stable Disposition: ADMITTED TO [facility] - Billing Disposition and Condition Condition: STABLE Disposition: Admitted to [facility] Attestation Statement Scribe Attestation: This is trumanibe Meryl Cruz documenting for attending Dr. Vito MD. User Type: Provider with Scribe Provider Attestation: The documentation recorded by the scribe accurately reflects the service I personally performed and the decisions made by me.
--- NOTE | 2017-09-15 11:13 | RAD ---
INDICATION: Altered mental status COMPARISON: Most recent comparison chest x-rays dated August 03, 2017 TECHNIQUE: Single AP portable view of the chest was obtained. FINDINGS: Image quality is compromised due to the relative inferiority of a portable chest x-ray. Again seen are postsurgical changes including sternotomy wires and surgical clips overlying the mediastinum. The heart and mediastinum exhibit normal size and contour. Linear density abutting the lateral chest wall at the right lung base is morphologically most consistent with atelectasis. Otherwise the lungs are grossly clear. There is no evidence of a large pleural effusion. Visualized bones are normal for the patient's age. IMPRESSION: Likely small focus of right lung base atelectasis without radiographic evidence for acute cardiopulmonary abnormality on this portable chest x-ray.
[2017-09-15 11:25] LABS: ABS Basophils 0.1 10^3/ul (0-0.2); ABS Eosinophils 0 10^3/ul (0-0.6); ABS Lymphocytes 0.9 10^3/ul (1.0-4.8); ABS Monocytes 1.4 10^3/ul (0-0.8); ABS Neutrophils 14.7 10^3/ul (1.5-7.7); ABS Nucleated RBC 0 10^3/ul; Eosinophil % 0.1 % (0-6); Hematocrit 32 % (42-52); Hemoglobin 11.1 g/dl (14.0-18.0); Lymphocyte % 5.2 % (25-47); Mean Corpuscular HGB Conc 34 g/dl (31-36); Mean Corpuscular Hemoglobin 31 pg (27-31); Mean Corpuscular Volume 90 fL (80-94); Mean Platelet Volume 8.3 um3 (7.4-10.4); Nucleated Red Blood Cells % 0; Platelet Count 387 10^3/ul (150-450); Red Cell Distribution Width 15 % (10.5-15); White Blood Count 17.1 10^3/ul (3.5-10.8)
[2017-09-15 11:28] LABS: Urine Appearance Clear; Urine Blood 3+ (Negative); Urine Color Yellow; Urine Ketones Trace (Negative); Urine Protein 1+(30 mg/dL) (Negative); Urine Red Blood Cell 2+(6-10/hpf) (Absent); Urine Specific Gravity 1.007 (1.010-1.030); Urine Urobilinogen Negative (Negative); Urine White Blood Cell Absent (Absent)
[2017-09-15 11:40] LABS: EGFR Non-African American 59.7 (>60)
[2017-09-15] MEDS ORDERED: Insulin REGULAR(*) 1 UNITS UNIT IV PUSH ONE (11:55)
--- NOTE | 2017-09-15 12:14 | RAD ---
Indication: Altered mental status. Syncopal episode. Comparison: No relevant prior exams available on the [facility] PACS for comparison. Technique: Noncontrast CT vertex of skull through foramen magnum. Report: Unremarkable cerebral sulci, ventricles, and basal cisterns. 0.5 cm RIGHT basal ganglia and 0.4 cm LEFT basal ganglia hypodense lesions which may represent old lacunar infarcts or normal variant dilated perivascular spaces. Negative for pascual matter white matter obscuration, intra or extra-axial hemorrhage, or mass effect. No suspicious abnormality at the visualized orbital contents. Negative for fracture or suspicious lesion of the calvarium or skull base. Clear visualized paranasal sinuses and mastoid air spaces. Mild LEFT parietal scalp edema. IMPRESSION: #. No CT evidence for traumatic brain injury or acute intracranial process. #. Solitary 0.5 cm RIGHT basal ganglia and 0.4 cm LEFT basal ganglia hypodense lesions which may represent old lacunar infarcts or normal variant dilated perivascular spaces.
[2017-09-15] MEDS ORDERED: Vancomycin(*) 1,250 MG in NS 0.9% 250 ML* 250 ML IVPB ONE (12:31)
[2017-09-15] MEDS ORDERED: cefTRIAXone(*) 1 GM in NS 0.9% 50 ML* 50 ML IVPB ONE (12:32)
--- NOTE | 2017-09-15 12:52 | RAD ---
INDICATION: Left foot infection COMPARISON: Foot radiograph dated April 04, 2014 TECHNIQUE: 2 views of the left foot were obtained. FINDINGS: The patient is status post forefoot amputation. It was back appears to be in place overlying the lateral left ankle. The underlying cortices of the mid and hindfoot tarsal bones appear to be intact. IMPRESSION: CHRONIC AND POSTSURGICAL CHANGES. If the patient's symptoms persist, follow-up imaging is recommended.
[2017-09-15] MEDS ORDERED: NS 0.9% 250 ML* 250 ML ONE (12:54)
[2017-09-15] MEDS ORDERED: Acetaminophen TAB* 325 MG PO PRN (13:41)
[2017-09-15] MEDS ORDERED: Ondansetron INJ* 2 MG/ML VIAL IV PRN (13:41)
[2017-09-15] MEDS ORDERED: Dextrose 50% Syringe 50 ML* 25 GM/50 ML SYRINGE IV PUSH PRN (13:41)
[2017-09-15] MEDS ORDERED: NS 0.9% 1000 ML* 1,000 ML IV SCH (13:45)
[2017-09-15] MEDS ORDERED: Albuterol 2.5 MG/3 ML NEB.SOL* (0.083%) INH PRN (13:58)
[2017-09-15] MEDS ORDERED: Magnesium Sulfate 2 GM IV* 2 GM/50 ML BAG IVPB ONE (14:00)
[2017-09-15] MEDS ORDERED: Vancomycin per Pharmacy* NOTE FOLLOW UP SCH (14:00)
[2017-09-15] MEDS ORDERED: Vancomycin(*) 1,000 MG in NS 0.9% 250 ML* 250 ML IVPB SCH (14:00)
--- NOTE | 2017-09-15 14:42 | RAD ---
INDICATION: Urinary retention. Diabetic. COMPARISON: No relevant prior exams available on the [facility] PACS for comparison. TECHNIQUE: Multidetector CT images were obtained from the lung bases to the ischial tuberosities. Evaluation of the viscera is limited without IV contrast. Multiplanar reformation. REPORT: VISUALIZED INFERIOR THORAX: Postsurgical change of coronary artery bypass. Upper normal heart size. Mild RIGHT basilar atelectasis. Trace RIGHT pleural effusion. LIVER / GALLBLADDER / PANCREAS / SPLEEN: Negative for CT abnormality of the liver or gallbladder. Negative for biliary dilatation. Mildly atrophic pancreas without suspicious finding. Small calcified granuloma at the spleen. Small splenule at the splenic hilum. ALIMENTARY TRACT: Moderately distended stomach without additional CT abnormality. Negative for CT abnormality of the small bowel or medially extending appendix. Mild colonic diverticulosis without findings of acute diverticulitis. Moderate volume of retained stool in the colon through the transverse colon. The LEFT colon is decompressed. Negative for ascites or free air. Negative for significant hernias. MESENTERIC: Unremarkable. ADRENAL / GENITOURINARY: Normal adrenal glands. 1.3 cm exophytic simple cyst at the midpole of the RIGHT kidney. Bilateral urolithiasis with multiple RIGHT renal collecting system stones with dominant 0.9 cm stone at the renal pelvis. Solitary 1.1 cm maximum dimension mid to upper pole calyceal stone at the LEFT kidney. Negative for hydronephrosis. Unremarkable nondilated ureters. Catheterized decompressed urinary bladder. Symmetric seminal vesicles. RETROPERITONEAL: Negative for lymphadenopathy. VASCULAR: Atherosclerotic calcification of normal diameter abdominal aorta and iliac arteries. BONES: Bilateral L5 spondylolysis and grade 1 L5-S1 anterolisthesis. Grade 1 degenerative L4-L5 retrolisthesis. Advanced degenerative spondylosis and facet joint osteoarthritis at L3-L4 through L5-S1 with associated severe acquired central canal stenosis at L3-L4. Negative for suspicious focal osseous lesions. SOFT TISSUE: Mild edema at the RIGHT inguinal region without evidence for a loculated fluid collection. Associated subcentimeter small reactive lymph nodes. IMPRESSION: #. Bilateral urolithiasis without evidence for presence of a ureteral stone or obstructive uropathy. #. Severe acquired central canal stenosis at L3-L4.
--- NOTE | 2017-09-15 16:15 | HP ---
HISTORY AND PHYSICAL: * ADDENDUM: ASSESSMENT AND PLAN: 1. Leukocytosis. Etiology of this is unclear. It could be secondary to recurrence of infection, possibly leukemoid reaction to the patient's fall and rhabdomyolysis. He is on broad-spectrum antibiotics. I am not going to escalate his antibiotics. Dr. Mayen will be evaluating. I will teixeira culture him. I will send off blood cultures and we will continue to follow this closely. He has not had any fevers here and we will monitor. 2. Urinary retention. Again, we did bladder scan him in the ED. He had about a liter in his bladder. We placed a catheter. He had immediate relief. I did order CT abdomen and pelvis to make sure there was not any obstructive uropathy. He is not having any flank pain. We may need to consider followup with Urology for this for the urinary retention. A Machado catheter has been placed with relieving of the retention. 3. Rhabdomyolysis. Again, I am going to go ahead and hydrate the patient aggressively and follow his CK-MB closely. GIANNI OLSON, JEEVAN [id number]/[facility] #: [id number] VICTOR HUGO
[2017-09-15] MEDS: Heparin VIAL(*) 5000 UNITS/ML VIAL (FIVE THOUSAND) SUBCUT SCH ×2 (16:21→23:04)
[2017-09-15] MEDS: NS 0.9% 1000 ML* 1,000 ML IV SCH (16:21)
--- NOTE | 2017-09-15 16:41 | RAD ---
INDICATION: Left superficial femoral artery revascularization and left lower extremity arteriography September 08, 2017 to supplement wound healing at the lateral left ankle. The patient was recently admitted to the hospital after being found down on the ground with altered mental status. COMPARISON: Preprocedural MIKE dated September 02, 2017 TECHNIQUE: Ankle-brachial indices and Doppler tracings were obtained of the lower extremities bilaterally. Volume pulse recordings were acquired at the bilateral ankles. REPORT: Ankle-brachial indices: Right: Value (SBP) Index Brachial (left arm): 159 Posterior tibialis: 101 0.64 Dorsalis pedis: 133 0.84 Left: Value (SBP) Index Brachial: 159 Posterior tibialis: 156 0.98 Dorsalis pedis: 136 0.86 Doppler waveforms (acquired at rest): In the interrogated lower extremity arteries, Doppler waveforms are triphasic in the left lower extremity and biphasic in the right lower extremity with notably reduced amplitude at the right posterior tibial artery. Volume pulse recordings (acquired at rest): Volume pulse recordings, measured at the bilateral ankles, measure 13 mm on the right and 32 mm the left. IMPRESSION: There is vast improvement in the left lower extremity relative to the pre-angiography September 02, 2017 MIKE. Normal and near normal ABIs are now recorded in the left lower extremity with interval interval change from monophasic to triphasic arterial waveforms and greatly increased amplitude on volume pulse recording in the left ankle relative to the right. MIKE findings indicate the recently atherectomized and angioplastied left superficial femoral artery is currently patent.
[2017-09-15] MEDS: Insulin LISPRO* 1 UNITS UNIT SUBCUT SCH (17:02)
[2017-09-15 17:08] LABS: EGFR Non-African American 67.1 (>60)
--- NOTE | 2017-09-15 17:12 | PN ---
Progress Note - Progress Note Date of Service: 09/15/17 SOAP: Subjective: []Patient seen at bedside. He states that his left foot is nonpainful and the wound vac was last changed yesterday. He has not had any redness or swelling of the foot over the past week. Objective: []General: NAD left foot: plantar Ulcer with wound vac in place without surrounding erythema or edema. No erythema or edema or the foot and no tracking erythema proximally. Assessment: []left foot ulcer Plan: [] Wound vac last changed 09/14, will change 09/17. Will continue to follow for vac changes every 3 days while in house as well as for any change in appearance of wound bed/ left foot.
--- NOTE | 2017-09-15 17:45 | HP ---
TWO ADDENDUMS INCLUDED ON THIS REPORT CC: Dr. Starkey; Dr. Mayen, [facility] * HISTORY AND PHYSICAL: DATE OF ADMISSION: 09/15/17 ATTENDING PROVIDER: Jennifer Rodrigez MD * (DICTATED BY DIANN ROGERS) CHIEF COMPLAINT: 1. Confusion. 2. Fall. HISTORY OF PRESENTING ILLNESS: Mr. Chopra is a 61-year-old male patient who has a history of peripheral arterial disease, history of diabetes, history of diabetic ulcers, history of CAD, VA, COPD, hypertension, hyperlipidemia, who has been admitted to our hospital, this is the third time in the last 3 weeks. He was just here about a week ago, was admitted for a diabetic wound infection, had underwent revascularization, last time he was here, was set up with wound clinic, was seen by Dr. Mayen and sent out on a senior living course of antibiotics. He underwent again revascularization on the 09/08/17. He had been doing well since then. He says he has not been having any extremity pain or limb pain. He says he has not been having any discomfort in the foot. He has not had any fevers or chills that he is aware of. He denies having any chest pain or shortness of breath. He came in today because the last thing he remembers is he went to bed at 10 o'clock last night, he woke up on the floor. He recognized he was at home. The stated that he was having intermittent episodes of confusion. She was unable to get him off the floor. There was no report of seizure-like activity. He does not recall what happened. He denies having any syncopal episode. There was no report of slurring of his words. No reports of weakness to one side or facial drooping. He was very weak. He was confused. He came in today. He was complaining that he is having difficulty urinating. He could not urinate. He tried several times here in the ED. He was found to be retaining urine. It was noted that his CK was over 8000. He had a low magnesium. His also did state that she has been giving him Rocephin twice a day mistakenly. There was concern because of the confusion, he came into the ED today. Because of the findings of elevated CK, we were asked to evaluate. He is denying any abdominal pain now. His biggest complaint when I evaluated him is that he felt like he had to urinate. He denied having any limb pain and there has been no discharge. He says his wound VAC changes have been going well and he says that his foot has not gotten cold, and again denied having any lower extremity pain whatsoever. Denies any chest pain or shortness of breath. There has been no neck pain. No neck stiffness and no headaches were reported or photophobia. PAST MEDICAL HISTORY: Significant for: 1. Diabetes. 2. Peripheral vascular disease. 3. Diabetic foot ulcer. 4. CAD. 5. VA. 6. COPD. 7. Hypertension. 8. Hyperlipidemia. PAST SURGICAL HISTORY: 1. The patient has had a CABG. 2. Heart catheterization. 3. Left transmetatarsal amputation. 4. Left lower extremity angioplasty. 5. Right second toe amputation. 6. Right knee surgery x3. HOME MEDICATIONS: According to discharge include: 1. Oxycodone 5 mg p.o. every 4 hours as needed for pain. 2. Brilinta 90 mg p.o. b.i.d. 3. Zoloft 100 mg p.o. daily. 4. Magnesium 500 mg daily. 5. Lisinopril 5 mg daily. 6. Lactobacillus 1 capsule p.o. b.i.d. 7. Lantus 20 units subcu twice a day. 8. Lipitor 80 mg daily. 9. Vancomycin 1 g IV b.i.d. 10. Aspirin 81 mg p.o. daily. 11. Flagyl 500 mg p.o. every 12 hours for 37 days. 12. Ceftriaxone 1 g IV daily x37 days. 13. Amlodipine 5 mg p.o. daily. 14. Coreg 3.125 mg p.o. b.i.d. 15. Tylenol 650 mg every 6 hours as needed for pain. ALLERGIES TO MEDICATIONS: Include PENICILLIN and ZOSYN. FAMILY HISTORY: Both his parents had VA. Mother had a history of diabetes. SOCIAL HISTORY: The patient still smokes. He was formerly smoking cigarettes. He is now smoking vape on a daily basis. He does not drink alcohol. Surrogate decision maker is his significant other, Toya. REVIEW OF SYSTEMS: There is no documented fever. He denies having any significant weight change. There is no double vision. He denies having any ear discharge. He denies having any rhinorrhea. There is no sore throat or thyroid enlargement. He denied having any chest pain. There was no orthopnea. There was no nocturnal dyspnea. He did admit to having suprapubic abdominal pain today. Denies any nausea, vomiting. No diarrhea. No dysuria, no frequency. There was no reports of loss of consciousness or seizure-like activity, but it is unclear given the fact the patient does not recall how he ended up on the floor. Review of 14 systems was completed, all others negative. PHYSICAL EXAMINATION GENERAL: At this time, Mr. Chopra is a 61-year-old male patient. He is sitting in the ED stretcher. He does not appear to be in any acute distress. He appears to be chronically ill-appearing. VITAL SIGNS: Blood pressure initially was 132/100, with a pulse of 117, respirations 20, his O2 sat was 99%. His last blood pressure was 129/85. Heart rate when I was evaluating him was the rate at 100. His respirations were again 18. His O2 sat 99%. Temperature 99.1. HEENT: Head: Atraumatic and normocephalic. Eyes: EOMs are intact. His sclerae was anicteric and not pale. Throat: Oral mucosa appears to be moist. No oropharyngeal erythema. NECK: Supple. LUNGS: Clear to auscultation bilaterally. There were no wheezes, rales, or rhonchi. HEART: Sounds S1, S2. He is tachycardic. ABDOMEN: Soft. It was flat, nontender with the exception above the suprapubic area you could palpate his bladder and he was tender there. No CVA tenderness. EXTREMITIES: Pulses, he had good 2+ pedal pulse in the left lower extremity. He had palpable pedal pulse to the right lower extremity. He had 5/5 strength. NEUROLOGICAL: He is awake. He is alert. He is now oriented x3. His speech is clear. Tongue midline. He had no facial drooping, no pronator drift. He had 5/5 strength in all 4 extremities. Cranial nerves II through XII were intact. He had no gross focal deficits. SKIN: Intact with the exception he has a wound VAC in place to the left calcaneal area. The wound VAC was intact. The wound margin did not appear to be erythematic. It appeared to be intact at this point. DIAGNOSTIC STUDIES/LAB DATA: His labs today revealing WBC of 17.1, RBC of 3.60 , hemoglobin of 11.1, hematocrit of 32, platelet count of 387. His sodium was 133, potassium was 4.1, chloride of 100, bicarb 22, BUN 24, creatinine 1.24, glucose of 316, lactic 2.1, calcium 9.3, mag 1.6. Total bili 0.7, AST 73, ALT 34, alk phos 67. His ammonia was 44. His CK was 8088. Troponin 0.02. Albumin of 3.8. TSH of 3.64. Urine showed 1+ protein, 3 blood, 2+ rbc, 3+ glucose. Toxicology for salicylate, Tylenol, and alcohol were all negative. He had imaging here in the ED. Foot x-ray showed chronic and postsurgical changes. Chest x-ray showed likely small focus of right lung base atelectasis without radiographic evidence for acute cardiopulmonary abnormality on the portable x- ray. Brain CT today showing no CT evidence for traumatic brain injury or acute intracranial process, solitary 0.5 cm right basal ganglia and 0.4 cm left basal ganglia, hypodense lesion, this may represent old lacunar infarct or normal dilated perivascular spaces. EKG obtained today shows sinus tachycardia with a left anterior fascicular block with a right bundle branch block. Reviewing the previous EKG that is consistent, the tachycardia is now new. He had no ST elevation noted. Old medical records were reviewed. ASSESSMENT AND PLAN: Mr. Chopra is a 61-year-old male patient coming into the ED today with complaints of a fall last night and confusion, now found to have rhabdomyolysis. He will be admitted under inpatient status for: 1. Rhabdomyolysis. Again, etiology is unclear. He has good palpable pulses to both lower extremities. He is not having any pain in the lower extremities. His biggest complaint was urinary retention. I do not think that he is having a critical limb ischemia. He certainly could have been on the floor for some time unbeknownst to him. Seizure is in the differential, although low. He has never had a history of this. Sleep apnea is also consideration, maybe he became hypoxic last night and confused, got up and does not recall. It is hard to say and I do not see any obvious offending drug agents. I am going to send off a drug screen and I will hold his statin. I am going to hydrate the patient, follow his CK and BMP every 6 hours and continue to follow him. I am going to have Dr. Mayen evaluate the patient and I also got a call to Dr. Starkey as well. I will continue to monitor him should he have any signs of seizure activity or any worsening confusion, I would certainly get a formal consult with Neurology, but he does not appear to be confused now and he is nonfocal on exam. His CT brain was negative so I think we can monitor this and again continue to hydrate him. 2. Peripheral vascular disease. Continue his Brilinta and also continue the patient's aspirin therapy. 3. Diabetes. I will go ahead and continue the Lispro sliding scale and his Lantus. 4. Recent diabetic foot ulcer with wet gangrene and associated cellulitis. Dr. Mayen will be evaluating. We will continue Flagyl, Rocephin, and vanco as prescribed. I will continue to monitor. I have also consulted wound care to help us with the wound VAC. 5. Coronary artery disease. He is not having any chest pain. His troponin was negative. I will cycle the troponin and certainly the arrhythmia may have contributed him falling last night, it is again unclear because it was not witnessed. We will continue his aspirin and he is on a beta-mitesh and Plavix , holding statin because of the CK being elevated. 6. Chronic obstructive pulmonary disease. Continue meds as prescribed. 7. Hypertension. Continue meds as prescribed. 8. Hyperlipidemia. Again, holding statin therapy. 9. DVT prophylaxis: He will be placed on heparin subcu. 10. Code status: He is a full code. 11. Fluids, electrolytes, and nutrition: He can have a heart-healthy diet. TIME SPENT: Time spent on the admission was 60 minutes, greater than half the time was spent [id number] with the patient obtaining my history and physical, other half of the time was spent going over the plan of care with the patient and implementing the plan of care. I did discuss the plan of care with my attending, Dr. Rodrigez, she is in agreement. GIANNI OLSON NP ADDENDUM NO.1: ASSESSMENT AND PLAN: 1. Leukocytosis. Etiology of this is unclear. It could be secondary to recurrence of infection, possibly leukemoid reaction to the patient's fall and rhabdomyolysis. He is on broad-spectrum antibiotics. I am not going to escalate his antibiotics. Dr. Mayen will be evaluating. I will teixeira culture him. I will send off blood cultures and we will continue to follow this closely. He has not had any fevers here and we will monitor. 2. Urinary retention. Again, we did bladder scan him in the ED. He had about a liter in his bladder. We placed a catheter. He had immediate relief. I did order CT abdomen and pelvis to make sure there was not any obstructive uropathy. He is not having any flank pain. We may need to consider followup with Urology for this for the urinary retention. A Machado catheter has been placed with relieving of the retention. 3. Rhabdomyolysis. Again, I am going to go ahead and hydrate the patient aggressively and follow his CK-MB closely. GIANNI OLSON NP ADDENDUM NO.2: Please note, I did review the CT findings on the patient's CT abdomen and pelvis and I did note that he had a severe central canal stenosis at L3-4. In discussing with the patient, he did have back pain 2 weeks ago, but he is no longer having any pain now. He denies having any weakness to the lower extremities. He does have numbness below both ankles to the feet from his diabetic neuropathy. He says this has been chronic and longstanding. He denies any back pain. He denied having any bowel or bladder incontinence. On rectal exam, he had good rectal tone. He had 5/5 strength to all 4 extremities. He had no saddle paresthesia. The concern was that whether he was having urinary retention; however, there are other etiologies for the urinary retention. He has been on oxycodone, which is newly prescribed to him at the end of August. He also is a poorly controlled diabetic. My plan would be again for urinary retention, he had a Machado placed, he is feeling better and not complaining of any pain now whatsoever, I would try to remove the Machado tomorrow and try bladder trials, consider Urology consult. He does state that in the past he has had trouble emptying his bladder, so I do not believe this is an acute finding that is related to the urinary retention. Certainly, if we cannot find any other etiologies or correct this, we may need to consider Neurosurgery input, but again without pain or weakness or numbness or tingling of the lower extremities, I think we have other etiologies. I did discuss this with my attending and she is in agreement. I could consider getting an MRI in the outpatient setting with Neurosurgery followup in the outpatient setting as well. GIANNI OLSON NP [id number]/[facility] #: [id number]/[facility] #: [id number] #: [id number] VICTOR HUGO
[2017-09-15] MEDS: Insulin GLARGINE(*) 1 UNITS UNIT SUBCUT SCH (20:55)
[2017-09-15] MEDS: Ticagrelor* 90 MG TAB PO SCH (20:55)
[2017-09-15] MEDS: Carvedilol TAB* 3.125 MG PO SCH (20:57)
[2017-09-15] MEDS: Lactobacillus Acidophilus* 1 TAB PO SCH (20:57)
[2017-09-15] MEDS: oxyCODONE TAB* 5 MG TAB PO PRN (20:58)
--- NOTE | 2017-09-15 21:11 | HP ---
HISTORY AND PHYSICAL: * ADDENDUM: Please note, I did review the CT findings on the patient's CT abdomen and pelvis and I did note that he had a severe central canal stenosis at L3-4. In discussing with the patient, he did have back pain 2 weeks ago, but he is no longer having any pain now. He denies having any weakness to the lower extremities. He does have numbness below both ankles to the feet from his diabetic neuropathy. He says this has been chronic and longstanding. He denies any back pain. He denied having any bowel or bladder incontinence. On rectal exam, he had good rectal tone. He had 5/5 strength to all 4 extremities. He had no saddle paresthesia. The concern was that whether he was having urinary retention; however, there are other etiologies for the urinary retention. He has been on oxycodone, which is newly prescribed to him at the end of August. He also is a poorly controlled diabetic. My plan would be again for urinary retention, he had a Machado placed, he is feeling better and not complaining of any pain now whatsoever, I would try to remove the Machado tomorrow and try bladder trials, consider Urology consult. He does state that in the past he has had trouble emptying his bladder, so I do not believe this is an acute finding that is related to the urinary retention. Certainly, if we cannot find any other etiologies or correct this, we may need to consider Neurosurgery input, but again without pain or weakness or numbness or tingling of the lower extremities, I think we have other etiologies. I did discuss this with my attending and she is in agreement. I could consider getting an MRI in the outpatient setting with Neurosurgery followup in the outpatient setting as well. GIANNI OLSON, JEEVAN [id number]/[facility] #: [id number] VICTOR HUGO
[2017-09-15] MEDS: metroNIDAZOLE * 500 MG TABLET PO SCH (23:01)
[2017-09-16 05:36] LABS: ABS Basophils 0.1 10^3/ul (0-0.2); ABS Eosinophils 0.2 10^3/ul (0-0.6); ABS Lymphocytes 1.2 10^3/ul (1.0-4.8); ABS Monocytes 0.8 10^3/ul (0-0.8); ABS Neutrophils 4.1 10^3/ul (1.5-7.7); ABS Nucleated RBC 0 10^3/ul; Eosinophil % 3.6 % (0-6); Hematocrit 27 % (42-52); Hemoglobin 9.3 g/dl (14.0-18.0); Lymphocyte % 18.6 % (25-47); Mean Corpuscular HGB Conc 34 g/dl (31-36); Mean Corpuscular Hemoglobin 31 pg (27-31); Mean Corpuscular Volume 91 fL (80-94); Mean Platelet Volume 7.9 um3 (7.4-10.4); Nucleated Red Blood Cells % 0; Platelet Count 293 10^3/ul (150-450); Red Blood Count 2.99 10^6/ul (4.00-5.40); Red Cell Distribution Width 15 % (10.5-15); White Blood Count 6.5 10^3/ul (3.5-10.8)
[2017-09-16 05:50] LABS: EGFR Non-African American 82.1 (>60)
[2017-09-16] MEDS ORDERED: Vancomycin Random Level* NOTE FOLLOW UP ONE (06:00)
[2017-09-16] MEDS: Heparin VIAL(*) 5000 UNITS/ML VIAL (FIVE THOUSAND) SUBCUT SCH ×3 (07:16→22:09)
[2017-09-16] MEDS: NS 0.9% 1000 ML* 1,000 ML IV SCH ×2 (08:34→15:52)
[2017-09-16] MEDS: Insulin LISPRO* 1 UNITS UNIT SUBCUT SCH ×3 (08:34→17:11)
[2017-09-16] MEDS: Insulin GLARGINE(*) 1 UNITS UNIT SUBCUT SCH ×2 (08:40→22:14)
[2017-09-16] MEDS: Lactobacillus Acidophilus* 1 TAB PO SCH ×2 (08:41→22:10)
[2017-09-16] MEDS: Aspirin EC TAB* 81 MG TAB.EC PO SCH (08:41)
[2017-09-16] MEDS: Magnesium Oxide TAB* 400 MG PO SCH (08:41)
[2017-09-16] MEDS: oxyCODONE TAB* 5 MG TAB PO PRN ×4 (08:41→22:11)
[2017-09-16] MEDS: Sertraline* 100 MG TAB PO SCH (08:41)
[2017-09-16] MEDS: amLODIPine TAB* 5 MG PO SCH (08:42)
[2017-09-16] MEDS: Ticagrelor* 90 MG TAB PO SCH ×2 (08:42→22:11)
[2017-09-16] MEDS: Carvedilol TAB* 3.125 MG PO SCH ×2 (08:42→22:12)
[2017-09-16] MEDS: metroNIDAZOLE * 500 MG TABLET PO SCH ×2 (08:50→22:10)
[2017-09-16] MEDS ORDERED: Atorvastatin* 80 MG TAB PO SCH (09:00)
[2017-09-16] MEDS ORDERED: cefTRIAXone* 1 GM in NS 0.9% 50 ML BAG IVPB SCH (09:00)
[2017-09-16] MEDS ORDERED: CEFTRIAXONE 1 GM IV SCH (09:00)
--- NOTE | 2017-09-16 11:22 | PN ---
Subjective Date of Service: 09/16/17 Interval History: Patient seen and examined. Feeling pain "all over", but primarily in arms and legs. Described as sore and crampy. Cannot recall events that happened prior to his finding him on the floor, but states he thinks he hit his head as well , has a sore spot on forehead. Denies dizziness, no headache, no chest pain or SOB. No foot or leg pain on the LLE. Objective Active Medications: Acetaminophen (Tylenol Tab*) 650 mg PO Q4H PRN PRN Reason: FEVER/PAIN Albuterol (Ventolin 2.5 Mg/3 Ml Neb.Roseann*) 2.5 mg INH Q2H PRN PRN Reason: SOB/WHEEZING Amlodipine Besylate (Norvasc Tab*) 5 mg PO DAILY [facility] Last Admin: 09/16/17 08:42 Dose: 5 mg Aspirin (Aspirin Ec Tab*) 81 mg PO DAILY [facility] Last Admin: 09/16/17 08:41 Dose: 81 mg Carvedilol (Coreg Tab*) 3.125 mg PO BID [facility] Last Admin: 09/16/17 08:42 Dose: 3.125 mg Dextrose (D50w Syringe 50 Ml*) 12.5 gm IV PUSH .FOR FS < 60 - SS PRN PRN Reason: FS < 60 Heparin Sodium (Porcine) (Heparin Vial(*)) 5,000 units SUBCUT Q8HR [facility] Last Admin: 09/16/17 07:16 Dose: 5,000 units Heparin Sodium (Porcine) (Heparin Flush Picc/Ml/Cvc(*)) 1 - 3 ml FLUSH 0600, 1800 [facility]; Protocol Last Admin: 09/16/17 08:33 Dose: Not Given Sodium Chloride (Ns 0.9% 1000 Ml*) 1,000 mls @ 150 mls/hr IV PER RATE [facility] Last Admin: 09/16/17 08:34 Dose: 150 mls/hr Levofloxacin/Dextrose (Levaquin 500 Mg Ivpremix(*)) 500 mg in 100 mls @ 100 mls /hr IVPB Q24H [facility] Insulin Glargine (Lantus(*)) 20 units SUBCUT BID [facility] Last Admin: 09/16/17 08:40 Dose: 20 units Insulin Human Lispro (Humalog*) 0 units SUBCUT AC [facility]; Protocol Last Admin: 09/16/17 08:34 Dose: Not Given Lactobacillus Rhamnosus (Lactobacillus Acidophilus*) 1 tab PO BID [facility] Last Admin: 09/16/17 08:41 Dose: 1 tab Magnesium Oxide (Magox 400 Tab*) 800 mg PO DAILY [facility] Last Admin: 09/16/17 08:41 Dose: 800 mg Metronidazole (Metronidazole *) 500 mg PO Q12HR [facility] Last Admin: 09/16/17 08:50 Dose: 500 mg Ondansetron HCl (Zofran Inj*) 4 mg IV Q6H PRN PRN Reason: NAUSEA Oxycodone HCl (Roxycodone Tab*) 5 mg PO Q4H PRN PRN Reason: PAIN Last Admin: 09/16/17 08:41 Dose: 5 mg Sertraline HCl (Zoloft*) 100 mg PO DAILY [facility] Last Admin: 09/16/17 08:41 Dose: 100 mg Ticagrelor (Brilinta*) 90 mg PO BID [facility] Last Admin: 09/16/17 08:42 Dose: 90 mg Vital Signs - 8 hr 09/16/17 09/16/17 09/16/17 04:04 07:47 08:41 Temperature 97.3 F 96.8 F Pulse Rate 90 71 Respiratory 16 18 17 Rate Blood Pressure 126/68 159/79 (mmHg) O2 Sat by Pulse 100 98 Oximetry Oxygen Devices in Use Now: None Appearance: Alert, NAD Eyes: PERRLA Ears/Nose/Mouth/Throat: NL Teeth, Lips, Gums, Clear Oropharnyx, Mucous Membranes Moist Neck: NL Appearance and Movements; NL JVP, Trachea Midline Respiratory: Symmetrical Chest Expansion and Respiratory Effort, Clear to Auscultation Cardiovascular: NL Sounds; No Murmurs; No JVD, RRR, No Edema Abdominal: NL Sounds; No Tenderness; No Distention Extremities: No Edema, - - left midfoot amputation and heel wound dressed/CDI Neurological: Alert and Oriented x 3, NL Sensation, NL Muscle Strength and Tone Nutrition: Taking PO's Result Diagrams: 09/16/17 05:10 09/16/17 05:10 Diagnostic Imaging: Patient Name: VIKY BARRERA Medical Record#: [id number] Ordering Physician: Yovani Padron MD Acct.#: [id number] : 1955 Age: 61 Sex: M Location: EMERGENCY DEPARTMENT Exam Date: 09/15/17 1025 ADM Status: REG ER Order Information: CT BRAIN WO Accession Number: [id number] CPT: 63605 Indication: Altered mental status. Syncopal episode. Comparison: No relevant prior exams available on the [facility] [place]. Technique: Noncontrast CT vertex of skull through foramen magnum. Report: Unremarkable cerebral sulci, ventricles, and basal cisterns. 0.5 cm RIGHT basal ganglia and 0.4 cm LEFT basal ganglia hypodense lesions which may represent old lacunar infarcts or normal variant dilated perivascular spaces. Negative for pascual matter white matter obscuration, intra or extra-axial hemorrhage, or mass effect. No suspicious abnormality at the visualized orbital contents. Negative for fracture or suspicious lesion of the calvarium or skull base. Clear visualized paranasal sinuses and mastoid air spaces. Mild LEFT parietal scalp edema. IMPRESSION: #. No CT evidence for traumatic brain injury or acute intracranial process. #. Solitary 0.5 cm RIGHT basal ganglia and 0.4 cm LEFT basal ganglia hypodense lesions which may represent old lacunar infarcts or normal variant dilated perivascular spaces. <Electronically signed by Yovani Cabello MD in OV> 09/15/17 1210 Dictated By: Yovani Cabello MD Dictated Date/Time: 09/15/17 1210 Transcribed Date/Time: 09/15/17 1207 Copy to: Patient Name: VIKY BARRERA Medical Record#: [id number] Ordering Physician: Saturnino Garcia ACCOUNTANCY PROFESSOR Acct.#: [id number] : 1955 Age: 61 Sex: M Location: EMERGENCY DEPARTMENT Exam Date: 09/15/17 1341 ADM Status: REG ER Order Information: CT ABD/PEL W/O Accession Number: [id number] CPT: 08271 INDICATION: Urinary retention. Diabetic. COMPARISON: No relevant prior exams available on the [facility] [place]. TECHNIQUE: Multidetector CT images were obtained from the lung bases to the ischial tuberosities. Evaluation of the viscera is limited without IV contrast. Multiplanar reformation. REPORT: VISUALIZED INFERIOR THORAX: Postsurgical change of coronary artery bypass. Upper normal heart size. Mild RIGHT basilar atelectasis. Trace RIGHT pleural effusion. LIVER / GALLBLADDER / PANCREAS / SPLEEN: Negative for CT abnormality of the liver or gallbladder. Negative for biliary dilatation. Mildly atrophic pancreas without suspicious finding. Small calcified granuloma at the spleen. Small splenule at the splenic hilum. ALIMENTARY TRACT: Moderately distended stomach without additional CT abnormality. Negative for CT abnormality of the small bowel or medially extending appendix. Mild colonic diverticulosis without findings of acute diverticulitis. Moderate volume of retained stool in the colon through the transverse colon. The LEFT colon is decompressed. Negative for ascites or free air. Negative for significant hernias. MESENTERIC: Unremarkable. ADRENAL / GENITOURINARY: Normal adrenal glands. 1.3 cm exophytic simple cyst at the midpole of the RIGHT kidney. Bilateral urolithiasis with multiple RIGHT renal collecting system stones with dominant 0.9 cm stone at the renal pelvis. Solitary 1.1 cm maximum dimension mid to upper pole calyceal stone at the LEFT kidney. Negative for hydronephrosis. Unremarkable nondilated ureters. Catheterized decompressed urinary bladder. Symmetric seminal vesicles. RETROPERITONEAL: Negative for lymphadenopathy. VASCULAR: Atherosclerotic calcification of normal diameter abdominal aorta and iliac arteries. BONES: Bilateral L5 spondylolysis and grade 1 L5-S1 anterolisthesis. Grade 1 degenerative L4-L5 retrolisthesis. Advanced degenerative spondylosis and facet joint osteoarthritis at L3-L4 through L5-S1 with associated severe acquired central canal stenosis at L3 -L4. Negative for suspicious focal osseous lesions. SOFT TISSUE: Mild edema at the RIGHT inguinal region without evidence for a loculated fluid collection. Associated subcentimeter small reactive lymph nodes. IMPRESSION: #. Bilateral urolithiasis without evidence for presence of a ureteral stone or obstructive uropathy. #. Severe acquired central canal stenosis at L3-L4. This report is only to be considered final once signed by the Provider(s) as displayed in the "<Electronically Signed by >" field (s). Absence of a signature indicates the report is in a draft status and still needs to be finalized. In the event this document was created by someone other than the signing Provider, the individual initiating the document will be listed in the "Entered by:" or "Dictated by:" rincon. 1 of 2 Assess/Plan/Problems-Billing Assessment: This is a 61 year old gentleman well known to our service that has complex medical history and is currently under treatment for Left foot wound and revascularization that was found on the floor by his with no recollection of precipating events. - Patient Problems (1) Syncope and collapse Code(s): R55 - SYNCOPE AND COLLAPSE SNOMED Code(s): 009370486 Comment: - CT head negative from last night - Etiology may be new seizure disorder, will order EEG and have neurology consult, appreciate recs (2) Acute urinary retention Code(s): R33.8 - OTHER RETENTION OF URINE SNOMED Code(s): 713175434 Comment: - No retention in past admissions, no reported anticholinergics - CT with no hyddro or obstruction - Machado in place, continue to monitor (3) Ischemic heel ulcer Code(s): L97.409 - NON-PRS CHRONIC ULCER OF UNSP HEEL AND MIDFOOT W UNSP SEVERT SNOMED Code(s): 486199699 Comment: - s/p arterial revascularization at last admission - Progressive healing noted, no wound vac - Ortho following - ID following and titrating atbx (4) CAD (coronary artery disease) Code(s): I25.10 - ATHSCL HEART DISEASE OF [place] CORONARY ARTERY W/O ANG PCTRS SNOMED Code(s): 18093567 Comment: - Continue aspirin 81mg, brilinta, atorvastatin 80mg, coreg. (5) COPD (chronic obstructive pulmonary disease) Code(s): J44.9 - CHRONIC OBSTRUCTIVE PULMONARY DISEASE, UNSPECIFIED SNOMED Code(s): 69544717 Comment: - No signs of exacerbation (6) Hypertension Code(s): I10 - ESSENTIAL (PRIMARY) HYPERTENSION SNOMED Code(s): 07405128 Comment: - Stable on coreg and lisinopril (7) PAD (peripheral artery disease) Code(s): I73.9 - PERIPHERAL VASCULAR DISEASE, UNSPECIFIED SNOMED Code(s): 640296844 Comment: - Revascularized on 09/08/2017 without complication - Continue asa, brillinta BID x 6 months and glycemic control (8) DVT prophylaxis Current Visit: No Status: Acute Code(s): GMW5923 - SNOMED Code(s): 286791837 Comment: Heparin SQ (9) Diabetes Code(s): E11.9 - TYPE 2 DIABETES MELLITUS WITHOUT COMPLICATIONS SNOMED Code(s) : 20925659 Comment: - [place] lantus and lispro SS (10) Full code status Code(s): Z78.9 - OTHER SPECIFIED HEALTH STATUS SNOMED Code(s): 547048424 Comment: Status and Disposition: Remain inpatient, appreciate recs from neuro today.
--- NOTE | 2017-09-16 11:30 | CONS ---
CONSULTATION REPORT: DATE OF CONSULT: 09/16/17 REQUESTING PROVIDER: Saturnino Garcia NP CONSULTING SERVICE: Infectious Disease. REASON FOR CONSULT: Syncope. IMPRESSION: 1. Syncope with diffuse myalgia, CK that peaked to the 11,000, question generalized tonic-clonic seizure. He had been taking ceftriaxone twice a day instead of once a day, which does have the possibility of lowering seizure threshold, but usually is given even higher doses for other infections without typically eliciting a seizure, though still possibility. His heel infection seems to be progressing, so it does not look like that is a nidus of abnormality form. 2. Peripheral vascular disease and recent left lower extremity revascularization. 3. Left foot wound infection and chronic osteomyelitis. Recent wound culture had grown Pasteurella. RECOMMENDATION: 1. We will stop ceftriaxone and vanco. We will start Levaquin. 2. Consider an EEG. HISTORY OF PRESENT ILLNESS: This is a 61-year-old man who had been on vancomycin, ceftriaxone as an outpatient for left heel chronic osteomyelitis. He had been treated with a wound VAC. He had had revascularization of the left leg the last admission. They had been doing antibiotic infusions at home and inadvertently did infusions of ceftriaxone twice a day for 4 or 5 days that ended on Thursday I believe when the visiting nurse notified my office that he was doing twice a day. He felt fine at that time, but then yesterday, he woke up on the floor, his tried to get him off the floor, they had a hard time doing it because they could not. He was brought to emergency room. He had a white count of 17,000, troponin of 0.05, CK of 8000, which peaked to 11,800 overnight. He has had no fever, chills, or sweats. He felt well leading up to that event yesterday. He has no syncope or presyncope today. No chest pain. He has not had a seizure in the past. PAST MEDICAL HISTORY: 1. Peripheral vascular disease, status post left lower extremity intervention. 2. Chronic osteomyelitis, left foot. 3. Insulin-dependent diabetes. 4. Coronary artery disease, status post CABG, 2008. 5. History of PCI, 08/03/17. 6. COPD. 7. Hypertension. 8. Hyperlipidemia. MEDICATIONS: 1. Tylenol. 2. Albuterol. 3. Amlodipine. 4. Aspirin. 5. Coreg. 6. Ceftriaxone 1 g a day. 7. Heparin flush. 8. Heparin subcutaneous injection. 9. Insulin glargine. 10. Lactobacillus. 11. Magnesium. 12. Oxycodone. 13. Brilinta. 14. Sertraline. ALLERGIES: PENICILLIN, unknown reaction. FAMILY HISTORY: No recurrent infections. SOCIAL HISTORY: He lives with his . No travel, no sick contacts. REVIEW OF SYSTEMS: All negative to 14-point review of systems. PHYSICAL EXAM: Vital Signs: Temperature of 36, heart rate 70, respiratory rate 18, blood pressure 160/80, oxygen saturation 98% on room air. In general, he is awake, not in distress. Neurologic: He is oriented x3. Follows all commands. HEENT: There is no thrush. Neck is supple without mass. Heart is regular rate and rhythm without murmurs, rubs, or gallops. Lungs are clear to auscultation bilaterally. Abdomen: Soft, nontender, nondistended. There are bowel sounds present. Skin: There is no rash or splinter hemorrhage. Musculoskeletal: There is no spine tenderness to palpation. There is a well- healed transmetatarsal amputation scar. There is a VAC dressing on his calcaneus without surrounding erythema. LABORATORY DATA: White blood cell count 6, hemoglobin 9, platelets 293. Creatinine is 0.9. Please see impressions and recommendations as outlined above. Thanks for asking me to see Mr. Chopra in consultation. [id number]/CPS #: [id number] MTDAlise
--- NOTE | 2017-09-16 11:49 | PN ---
Subjective Date of Service: 09/08/17 Interval History: THIS IS A LATE ENTRY DOCUMENTATION FOR PATIENT BEING SEEN ON 09/08/2017 (LAST ADMISSION) PAtient seen and examined post-procedure. States his leg feels "great". No pain , no dizziness, no chest pain, no foot pain and no SOB. Objective Active Medications: Acetaminophen (Tylenol Tab*) 650 mg PO Q4H PRN PRN Reason: FEVER/PAIN Albuterol (Ventolin 2.5 Mg/3 Ml Neb.Roseann*) 2.5 mg INH Q2H PRN PRN Reason: SOB/WHEEZING Amlodipine Besylate (Norvasc Tab*) 5 mg PO DAILY [facility] Last Admin: 09/16/17 08:42 Dose: 5 mg Aspirin (Aspirin Ec Tab*) 81 mg PO DAILY [facility] Last Admin: 09/16/17 08:41 Dose: 81 mg Carvedilol (Coreg Tab*) 3.125 mg PO BID [facility] Last Admin: 09/16/17 08:42 Dose: 3.125 mg Dextrose (D50w Syringe 50 Ml*) 12.5 gm IV PUSH .FOR FS < 60 - SS PRN PRN Reason: FS < 60 Heparin Sodium (Porcine) (Heparin Vial(*)) 5,000 units SUBCUT Q8HR [facility] Last Admin: 09/16/17 07:16 Dose: 5,000 units Heparin Sodium (Porcine) (Heparin Flush Picc/Ml/Cvc(*)) 1 - 3 ml FLUSH 0600, 1800 [facility]; Protocol Last Admin: 09/16/17 08:33 Dose: Not Given Sodium Chloride (Ns 0.9% 1000 Ml*) 1,000 mls @ 150 mls/hr IV PER RATE [facility] Last Admin: 09/16/17 08:34 Dose: 150 mls/hr Levofloxacin/Dextrose (Levaquin 500 Mg Ivpremix(*)) 500 mg in 100 mls @ 100 mls /hr IVPB Q24H [facility] Insulin Glargine (Lantus(*)) 20 units SUBCUT BID [facility] Last Admin: 09/16/17 08:40 Dose: 20 units Insulin Human Lispro (Humalog*) 0 units SUBCUT AC [facility]; Protocol Last Admin: 09/16/17 08:34 Dose: Not Given Lactobacillus Rhamnosus (Lactobacillus Acidophilus*) 1 tab PO BID [facility] Last Admin: 09/16/17 08:41 Dose: 1 tab Magnesium Oxide (Magox 400 Tab*) 800 mg PO DAILY [facility] Last Admin: 09/16/17 08:41 Dose: 800 mg Metronidazole (Metronidazole *) 500 mg PO Q12HR [facility] Last Admin: 09/16/17 08:50 Dose: 500 mg Ondansetron HCl (Zofran Inj*) 4 mg IV Q6H PRN PRN Reason: NAUSEA Oxycodone HCl (Roxycodone Tab*) 5 mg PO Q4H PRN PRN Reason: PAIN Last Admin: 09/16/17 08:41 Dose: 5 mg Sertraline HCl (Zoloft*) 100 mg PO DAILY [facility] Last Admin: 09/16/17 08:41 Dose: 100 mg Ticagrelor (Brilinta*) 90 mg PO BID [facility] Last Admin: 09/16/17 08:42 Dose: 90 mg Vital Signs - 8 hr 09/16/17 09/16/17 09/16/17 04:04 07:47 08:41 Temperature 97.3 F 96.8 F Pulse Rate 90 71 Respiratory 16 18 17 Rate Blood Pressure 126/68 159/79 (mmHg) O2 Sat by Pulse 100 98 Oximetry Oxygen Devices in Use Now: None Appearance: Alert, NAD Eyes: No Scleral Icterus, PERRLA Ears/Nose/Mouth/Throat: Clear Oropharnyx, Mucous Membranes Moist Neck: NL Appearance and Movements; NL JVP, Trachea Midline Respiratory: Symmetrical Chest Expansion and Respiratory Effort, Clear to Auscultation Cardiovascular: NL Sounds; No Murmurs; No JVD, RRR, No Edema Abdominal: NL Sounds; No Tenderness; No Distention Skin: - - dressing CDI left heel, left groin dressing CDI with no bleeding noted Neurological: Alert and Oriented x 3 Nutrition: Taking PO's Result Diagrams: 09/16/17 05:10 09/16/17 05:10 Assess/Plan/Problems-Billing Assessment: This is a 61 year old with chronic left heel ulcer that is s/p debridement and now with revascularization, POD0. - Patient Problems (1) Acute urinary retention Code(s): R33.8 - OTHER RETENTION OF URINE SNOMED Code(s): 545341625 Comment: - No retention in past admissions, no reported anticholinergics - CT with no hyddro or obstruction - Machado in place, continue to monitor (2) CAD (coronary artery disease) Code(s): I25.10 - ATHSCL HEART DISEASE OF [place] CORONARY ARTERY W/O ANG PCTRS SNOMED Code(s): 03076273 Comment: - Continue aspirin 81mg, brilinta, atorvastatin 80mg, coreg. (3) COPD (chronic obstructive pulmonary disease) Code(s): J44.9 - CHRONIC OBSTRUCTIVE PULMONARY DISEASE, UNSPECIFIED SNOMED Code(s): 92997873 Comment: - No signs of exacerbation (4) Hypertension Code(s): I10 - ESSENTIAL (PRIMARY) HYPERTENSION SNOMED Code(s): 79970133 Comment: - Stable on coreg and lisinopril (5) PAD (peripheral artery disease) Code(s): I73.9 - PERIPHERAL VASCULAR DISEASE, UNSPECIFIED SNOMED Code(s): 967273926 Comment: - Revascularized on 09/08/2017 without complication - Continue asa, brillinta BID x 6 months and glycemic control (6) DVT prophylaxis Code(s): LVD6091 - SNOMED Code(s): 626255301 Comment: - Heparin SQ (7) Diabetes Code(s): E11.9 - TYPE 2 DIABETES MELLITUS WITHOUT COMPLICATIONS SNOMED Code(s) : 39088546 Comment: - Continue lantus and lispro SS, sugars slowly improving (8) Full code status Code(s): Z78.9 - OTHER SPECIFIED HEALTH STATUS SNOMED Code(s): 243824887 Comment: Status and Disposition: Remain inpatient, DC when clear by ortho and IR.
[2017-09-16 11:50] LABS: EGFR Non-African American 92.3 (>60)
--- NOTE | 2017-09-16 16:43 | PN ---
Progress Note - Progress Note Date of Service: 09/16/17 SOAP: Subjective: [] Patient seen at bedside. He feels well with no feeling of fever, chills or foot pain. Objective: [] General: Well appearing, NAD left foot: plantar ulcer with wound vac in place without surrounding erythema or edema. No erythema or edema or the foot and no tracking erythema proximally. Calves supple, nontender without erythema, edema or palpable cords Assessment: []left foot ulcer Plan: [] Wound vac last changed 09/14, will change 09/17. Will continue to follow for vac changes every 3 days while in house as well as for any change in appearance of wound bed/ left foot. Vital Signs Temp 97.1 F 09/16/17 11:35 Pulse 63 09/16/17 11:35 Resp 16 09/16/17 12:56 BP 132/81 09/16/17 11:35 Pulse Ox 100 09/16/17 11:35 Intake & Output 09/15/17 09/16/17 09/16/17 18:59 06:59 18:59 Intake Total 2580 3398 3068 Output Total 3000 3000 800 Balance -330 379 3740 Weight 186 lb 12.8 oz Intake: IV Fluids 1050 2888 1938 NS 2888 1938 IVPB 1050 50 magnesium 50 Oral 042 118 2471 Output: Urine 1500 1000 [place] 2000 800 Residual 1500 [place] 16 Fr 1500 Other: # Bowel Movements 0 Laboratory Last Values WBC 6.5 10^3/ul (3.5-10.8) 09/16/17 05:10 RBC 2.99 10^6/ul (4.00-5.40) L 09/16/17 05:10 Hgb 9.3 g/dl (14.0-18.0) L 09/16/17 05:10 Hct 27 % (42-52) L 09/16/17 05:10 MCV 91 fL (80-94) 09/16/17 05:10 MCH 31 pg (27-31) 09/16/17 05:10 MCHC 34 g/dl (31-36) 09/16/17 05:10 RDW 15 % (10.5-15) 09/16/17 05:10 Plt Count 293 10^3/ul (150-450) 09/16/17 05:10 MPV 7.9 um3 (7.4-10.4) 09/16/17 05:10 Neut % (Auto) 64.1 % (38-83) 09/16/17 05:10 Lymph % (Auto) 18.6 % (25-47) L 09/16/17 05:10 [place] % (Auto) 12.0 % (0-7) H 09/16/17 05:10 Eos % (Auto) 3.6 % (0-6) 09/16/17 05:10 Baso % (Auto) 1.7 % (0-2) 09/16/17 05:10 Absolute Neuts (auto) 4.1 10^3/ul (1.5-7.7) 09/16/17 05:10 Absolute Lymphs (auto) 1.2 10^3/ul (1.0-4.8) 09/16/17 05:10 Absolute Monos (auto) 0.8 10^3/ul (0-0.8) 09/16/17 05:10 Absolute Eos (auto) 0.2 10^3/ul (0-0.6) 09/16/17 05:10 Absolute Basos (auto) 0.1 10^3/ul (0-0.2) 09/16/17 05:10 Absolute Nucleated RBC 0 10^3/ul 09/16/17 05:10 Nucleated RBC % 0 09/16/17 05:10 Sodium 140 mmol/L (135-145) 09/16/17 11:00 Potassium 4.0 mmol/L (3.5-5.0) 09/16/17 11:00 Chloride 110 mmol/L (101-111) 09/16/17 11:00 Carbon Dioxide 25 mmol/L (22-32) 09/16/17 11:00 Anion Gap 5 mmol/L (2-11) 09/16/17 11:00 BUN 14 mg/dL (6-24) 09/16/17 11:00 Creatinine 0.85 mg/dL (0.67-1.17) 09/16/17 11:00 Est GFR ( Amer) 111.6 (>60) 09/16/17 11:00 Est GFR (Non-Af Amer) 92.3 (>60) 09/16/17 11:00 BUN/Creatinine Ratio 16.5 (8-20) 09/16/17 11:00 Glucose 102 mg/dL (70-100) H 09/16/17 11:00 POC Glucose (mg/dL) 99 mg/dL (70-100) 09/16/17 07:36 Lactic Acid 1.5 mmol/L (0.5-2.0) 09/15/17 22:23 Calcium 8.3 mg/dL (8.6-10.3) L 09/16/17 11:00 Magnesium 1.6 mg/dL (1.9-2.7) L 09/15/17 11:00 Total Bilirubin 0.70 mg/dL (0.2-1.0) 09/15/17 11:00 AST 73 U/L (13-39) H 09/15/17 11:00 ALT 34 U/L (7-52) 09/15/17 11:00 Alkaline Phosphatase 67 U/L (34-104) 09/15/17 11:00 Ammonia 44 mcmol/L (16-53) 09/15/17 11:00 Total Creatine Kinase 6412 U/L (10-223) H 09/16/17 11:00 Troponin I 0.05 ng/mL (<0.04) H* 09/15/17 22:23 Total Protein 6.9 g/dL (6.4-8.9) 09/15/17 11:00 Albumin 3.8 g/dL (3.2-5.2) 09/15/17 11:00 Globulin 3.1 g/dL (2-4) 09/15/17 11:00 Albumin/Globulin Ratio 1.2 (1-3) 09/15/17 11:00 TSH 3.64 mcIU/mL (0.34-5.60) 09/15/17 11:00 Urine Color Yellow 09/15/17 11:00 Urine Appearance Clear 09/15/17 11:00 Urine pH 5.0 (5-9) 09/15/17 11:00 Ur Specific [place] 1.007 (1.010-1.030) L 09/15/17 11:00 Urine Protein 1+(30 mg/dl) (Negative) A 09/15/17 11:00 Urine Ketones Trace (Negative) A 09/15/17 11:00 Urine Blood 3+ (Negative) A 09/15/17 11:00 Urine Nitrate Negative (Negative) 09/15/17 11:00 Urine Bilirubin Negative (Negative) 09/15/17 11:00 Urine Urobilinogen Negative (Negative) 09/15/17 11:00 Ur Leukocyte Esterase Negative (Negative) 09/15/17 11:00 Urine WBC (Auto) Absent (Absent) 09/15/17 11:00 Urine RBC (Auto) 2+(6-10/hpf) (Absent) A 09/15/17 11:00 Ur Squamous Epith Cells Present (Absent) A 09/15/17 11:00 Urine Bacteria Absent (Absent) 09/15/17 11:00 Hyaline Casts Present (Absent) A 09/15/17 11:00 Urine Glucose 3+(>=500 mg/dl) (Negative) A 09/15/17 11:00 Random Vancomycin 10.5 mcg/mL 09/16/17 05:10 Salicylates < 2.50 mg/dL (<30) 09/15/17 11:00 Acetaminophen < 15 mcg/mL 09/15/17 11:00 Serum Alcohol < 10 mg/dL (<10) 09/15/17 11:00
--- NOTE | 2017-09-16 17:01 | ECHO ---
Patient: VIKY BARRERA [facility] Rec#: [id number] : 1955 Date: 09/16/2017 Age: 61y Height: 177.8 cm / 70.0 in Weight: 83.9 kg / 184.9 lbs Sex: M BSA: 2 Room#: 406 Admit Date#: 09/15/2017 Type: Inpatient Referring: Saturnino Garcia NP Reading: Landy Pozo MD [employer] Waste [employer] Engineer: Francesca Amezcua RN RDCS CC: Soraya Young Transthoracic Echocardiogram Indication: Syncope BP: 126/78 HR: 70 Rhythm: NSR Findings History: CAD, CABG, PCI, DM, HTN, HLD, COPD, former smoker, PVD with partial foot amputation. Technical Comments: The study quality is fair. The study is technically limited due to the patient's smoking history. Left Ventricle: The left ventricular chamber size is normal. There is increased basal septal hypertrophy noted without evidence of an increased gradient across the left ventricular outflow tract. There is a focal wall motion abnormality present.base of the inferior wall hypo to akinetic, focal. There is normal left ventricular systolic function. The estimated ejection fraction is 55-60%. There is no consistent Doppler evidence of clinically significant diastolic dysfunction. Left Atrium: The left atrial chamber size is normal. Right Ventricle: The right ventricular chamber size and systolic function are within normal limits. Right Atrium: The right atrium is slightly dilated. Aortic Valve: The aortic valve is trileaflet. The aortic valve leaflets are mildly thickened. There is trace to mild aortic regurgitation. There is no evidence of aortic stenosis. Mitral Valve: The mitral valve leaflets are mildly thickened. There is a trace of mitral regurgitation. There is no evidence of mitral stenosis. Tricuspid Valve: The tricuspid valve leaflets are normal. There is trace to mild tricuspid regurgitation. No pulmonary hypertension is noted. There is no tricuspid stenosis. Pulmonic Valve: The pulmonic valve appears normal. There is mild pulmonic regurgitation. There is no pulmonic stenosis. Pericardium: There is no significant pericardial effusion. Aorta: There is mild dilatation of the ascending aorta. There is no dilatation of the aortic arch. There is mild dilatation of the aortic root. Pulmonary Artery: The main pulmonary artery appears normal. Venous: The venous system is not well visualized. The inferior vena cava is not visualized. Conclusions There is a focal wall motion abnormality present.base of the inferior wall hypo to akinetic, focal. There is increased basal septal hypertrophy noted without evidence of an increased gradient across the left ventricular outflow tract. There is normal left ventricular systolic function. The estimated ejection fraction is 55-60%. The right ventricular chamber size and systolic function are within normal limits. There is trace to mild aortic regurgitation. There is a trace of mitral regurgitation. There is trace to mild tricuspid regurgitation. Compared with prior echo of 02/01/16, LV function is normal, RV function previously reduced, trace/mild valvular insufficiency newly noted. Measurements Name Value Normal Range RVDdMajor (2D) 3.2 cm (2.2 - 4.4) RAd ISD 4CH 5 cm (3.4 - 4.9) RA (A4C)W 3.5 cm (2.9 - 4.6) IVSd (2D) 1.3 cm (0.6 - 1) LVPWd (2D) 1 cm (0.6 - 1) LVIDd (2D) 4.2 cm (3.6 - 5.4) LVIDs (2D) 2.8 cm - LV FS (2D) 3.3 % (25 - 45) Aortic Annulus 2.2 cm (1.4 - 2.6) Ao root diameter (2D) 3.9 cm (2.1 - 3.5) Ascending Ao 3.5 cm (2.1 - 3.4) Aortic arch 2.9 cm (1.8 - 3.4) LA dimension (AP) 2D 3.5 cm (2.3 - 3.8) LAd ISD 4CH 5.2 cm (2.9 - 5.3) LA ISD 4CH W 3.6 cm (2.5 - 4.5) Name Value Normal Range LA ESV SP 4CH (A/L) 39 ml - LA ESV SP 2CH (A/L) 39 ml - LA ESV BP (A/L) 43 ml - LA ESV BP (A/L) index 21.1 ml/m2 - LA ESV SP 4CH (MOD) 37 ml - LA ESV SP 2CH (MOD) 39 ml - Name Value Normal Range MV E-wave Vmax 0.84 m/sec - MV deceleration time 248 msec - MV A-wave Vmax 0.68 m/sec - MV E:A ratio 1.2 ratio - LV septal e' Vmax 0.7 m/sec - LV lateral e' Vmax 0.7 m/sec - LV E:e' septal ratio 12 ratio - LV E:e' lateral ratio 12 ratio - Name Value Normal Range AV Vmax 1 m/sec - AV VTI 25.5 cm - AV peak gradient 4.4 mmHg - AV mean gradient 2.7 mmHg - LVOT Vmax 1 m/sec - LVOT VTI 21.3 cm - LVOT peak gradient 4.2 mmHg - LVOT mean gradient 2.1 mmHg - JAI Vmax 0.53 m/sec - Name Value Normal Range TR Vmax 2.5 m/sec - TR peak gradient 25 mmHg - RAP 8 mmHg - RVSP 33 mmHg - Name Value Normal Range PV Vmax 0.75 m/sec -
--- NOTE | 2017-09-16 18:51 | CONS ---
NEUROLOGY CONSULTATION NOTE: DATE OF CONSULT: 09/16/17 ATTENDING PROVIDER: Harper Arthur NP REASON FOR CONSULT: Was found on the floor and concerning for seizure activity. CHIEF COMPLAINT: Was found on the floor with trouble standing. HISTORY OF PRESENT ILLNESS: Mr. Chopra is a 61-year-old with history of severe peripheral vascular disease, type 2 diabetes, history of diabetic ulcers, coronary artery disease, COPD, hypertension, dyslipidemia, who presented to [facility] yesterday on 09/15/17, for being found on the floor. The patient was hospitalized recently for a diabetic wound infection, underwent revascularization and is on long-term antibiotic therapy with ceftazidime. The patient stated that he was completely in normal state of health on Thursday evening. He went to bed at approximately 10 p.m. He did drink 3 diet soda cans that evening. He also took Unisom SleepMelts 2 tablets before going to sleep as he suffers from severe insomnia. He has not taken this medication for over 3 months. At 6 a.m. on Thursday morning, the patient's spouse woke up to prepare his medications. The patient's spouse called out for him, but he did not respond. She found him on the floor. He was able to easily arouse, but had trouble waking up. She was unable to get him off the floor and therefore she contacted EMS. The patient denied any loss of consciousness. He stated that he may have hit the right side of his head as he was slightly in pain around that region. He has never had any similar episodes in the past. It is important to note that the patient is diagnosed with orthostatic hypotension by Dr. Vigil and has recently had medication change with antihypertensive where he was taken off lisinopril. The patient has no history of seizures. He has no history of meningitis or encephalitis. He did have a concussion once and he lost consciousness as a child after hitting his head on a metal pull-up bar. He never had any seizures in the past. He has no family history of epilepsy. The patient was found to have elevated CK and he was admitted for treatment for rhabdomyolysis. The patient did have an episode of urinary retention yesterday and is requiring [place] catheter. PAST MEDICAL HISTORY: As per HPI. PAST SURGICAL HISTORY: CABG, heart catheterization, left transmetatarsal amputation, left lower extremity angioplasty, right second toe amputation, right knee surgery. HOME MEDICATIONS: 1. Oxycodone 5 mg p.o. every 4 hours as needed for pain. 2. Brilinta 90 mg p.o. twice daily. 3. Zoloft 100 mg p.o. daily. 4. Magnesium 500 mg daily. 5. Lisinopril 5 mg daily. 6. Lantus. 7. Lipitor. 8. Vancomycin. 9. Aspirin. 10. Flagyl 500 mg p.o. every 12 hours. 11. Ceftriaxone 1 g IV daily. 12. Amlodipine 5 mg p.o. daily. 13. Coreg 3.125 mg p.o. b.i.d. 14. Tylenol 650 mg every 6 hours as needed for pain. ALLERGIES: PENICILLIN and ZOSYN. FAMILY HISTORY: His father suffered stroke. His mother had history of diabetes. SOCIAL HISTORY: The patient smokes vapor. He does not smoke any cigarettes, but he was a former cigarette smoker. He denied any alcohol intake. His spouse and [id number] were at bedside. REVIEW OF SYSTEMS: A 14-point review of systems was obtained and otherwise negative except for what was mentioned in the HPI. PHYSICAL EXAM: Vitals: Temperature of 97.1, pulse of 63, respiratory rate of 18, oxygen saturation of 100%, blood pressure of 132/81. General: Chronically ill- appearing man, in no acute distress. He is alert, cooperative. He is very pleasant. Head: Normocephalic without any obvious abnormality. Eyes: Conjunctivae and corneas are clear. No scleral icterus. Neck is supple and symmetrical with no carotid bruits. Lungs: Clear to auscultation bilaterally with nonlabored breathing. Cardiovascular: Regular rhythm with normal S1, S2. Extremities: Normal range of motion with no cyanosis. Skin: No skin lesions or laceration. Psych: His affect and mood are normal. He is easy to establish rapport. Neurological Examination: He is awake, alert, oriented to person, place, time, and general circumstances. Speech and language including expression, naming, and repetition are all intact. Cranial Nerve Testing: Normal confrontation bilaterally. Extraocular muscles are intact. He has no facial asymmetry. Sensation to light touch in the cheeks and jaw regions is symmetrical bilaterally. He has got a symmetrical palatal elevation. Tongue is symmetric and midline with no atrophy. Motor: No abnormal movement. No pronator drift. He does have proximal upper and lower extremity weakness graded as 4/5. This is in the setting of rhabdomyolysis. He does also have slightly reduced strength to hip abduction and knee extension on the left lower extremity. The patient has metatarsal amputation on the left and toe amputation on the right. Reflexes: Right/left trace throughout and absent at the patella and ankles bilaterally. Sensation is reduced to light touch and pinprick on the left medial thigh and medial portion of the leg. He has absent vibration at the medial malleolus bilaterally. Coordination: Normal finger-to- nose and rapid alternating movements. Gait and station were not assessed due to the patient's myopathy. DIAGNOSTIC STUDIES/LAB DATA: Current WBC 6.5, hemoglobin is 9.3. Sodium 140, potassium 4, chloride of 110, carbon dioxide 25, anion gap of 5, creatinine of 0.85, BUN of 14. Total creatinine kinase 11,000, but it decreased to 6400. He had an abdomen and pelvis CT that showed severe acquired central stenosis at L3- L4. ASSESSMENT AND PLAN: 1. Mr. Juan R Chopra is a 61-year-old man with multiple comorbidities, most significant for history of orthostatic hypotension and insomnia, who is on continued antibiotic therapy for a foot infection, who developed an episode of what was thought to be possible syncope. The patient was found on the floor for several hours and he developed rhabdomyolysis. Important to note that the patient took Unisom SleepMelts on Thursday evening, which he used to take in the past, but has not taken for a few months. I wonder if the Unisom in combination with the antibiotic therapy may lowered his seizure threshold and he may have had a seizure or he had a convulsive syncope given his history of orthostatic hypotension. The fact that he does not recall what happened raises the concern that he did lose consciousness related to either a hypoperfusion mechanism or ictal phenomenon. Therefore, given this is the first incident, I do not recommend any antiepileptic medications. I do recommend proceeding with a routine EEG. I do not expect this to show epileptiform abnormalities. I recommend the patient to stay off Unisom in the future. 2. Lumbosacral disease seen on CAT scan of the abdomen and pelvis with history of chronic intermittent low back pain. I encouraged the patient to follow up with his primary care doctor and obtain a neurosurgical or orthopedic consultation as an outpatient. It is hard to assess his weakness given the superimposed myopathy related to rhabdomyolysis. 3. Rhabdomyolysis - the CK is improving. The patient will need rehabilitation. 4. Hypertension, peripheral vascular disease, diabetes, foot ulceration - defer to the primary team. I will sign off but please contact me for any questions or concerns. TIME SPENT: I spent a total of 75 minutes and greater than 50% of that was spent directly reviewing the medical chart, obtaining history, examining the patient, education and counseling, discussing the treatment plan and prognosis. [id number]/[facility] #: [id number] MTDAlise
[2017-09-17] MEDS: oxyCODONE TAB* 5 MG TAB PO PRN ×3 (03:21→22:01)
--- NOTE | 2017-09-17 04:26 | EEG ---
ELECTROENCEPHALOGRAPHY: DATE OF STUDY: 09/16/17 - ROOM #406 DATE READ: 09/16/17 DURATION OF THE STUDY: [id number] MEDICATIONS: 1. Amlodipine. 2. Ceftriaxone. 3. Vancomycin. 4. Flagyl. 5. Lantus. 6. Oxycodone. 7. Zoloft. CLINICAL PROBLEM: This is a 61-year-old man that was found down on the floor that suffered rhabdomyolysis. He does not recall why he was on the floor. The EEG was obtained to evaluate for epileptiform abnormalities. CLINICAL STATE: Awake and drowsy. REPORT: The background consisted of a mixed frequency, low voltage slowing in the delta and theta range with some retained organization and discernable anterior- posterior voltage gradient. There was waking slow background rhythm of about 7 Hz, which was symmetrical and showed normal reactivity. Anteriorly, there was an expected pattern of lower voltage, irregular mixed faster frequencies. Attenuation of the occipital rhythm accompanied drowsiness. Hyperventilation and photic stimulation were not performed. Throughout the recording, there were no electrographic seizures or epileptiform discharges. CLINICAL IMPRESSION: This is an abnormal awake and drowsy EEG due to slow posterior dominant rhythm, low voltage of diffuse slowing. There was some retained organization reactivity. These findings are suggestive of a mild, nonspecific encephalopathy. There were no epileptiform discharges. Clinical correlation is recommended. [id number]/[facility] #: [id number] [facility]
[2017-09-17] MEDS: Heparin VIAL(*) 5000 UNITS/ML VIAL (FIVE THOUSAND) SUBCUT SCH ×3 (05:47→22:11)
[2017-09-17] MEDS: Insulin LISPRO* 1 UNITS UNIT SUBCUT SCH ×3 (08:29→16:41)
[2017-09-17 09:30] LABS: Urine Appearance Clear; Urine Blood 2+ (Negative); Urine Color Colorless; Urine Ketones Negative (Negative); Urine Protein Negative (Negative); Urine Red Blood Cell 2+(6-10/hpf) (Absent); Urine Specific Gravity 1.004 (1.010-1.030); Urine Urobilinogen Negative (Negative); Urine White Blood Cell Absent (Absent)
[2017-09-17] MEDS: Aspirin EC TAB* 81 MG TAB.EC PO SCH (10:09)
[2017-09-17] MEDS: metroNIDAZOLE * 500 MG TABLET PO SCH ×2 (10:09→21:09)
[2017-09-17] MEDS: amLODIPine TAB* 5 MG PO SCH (10:09)
[2017-09-17] MEDS: Sertraline* 100 MG TAB PO SCH (10:09)
[2017-09-17] MEDS: Ticagrelor* 90 MG TAB PO SCH ×2 (10:09→21:10)
[2017-09-17] MEDS: Magnesium Oxide TAB* 400 MG PO SCH (10:09)
[2017-09-17] MEDS: Carvedilol TAB* 3.125 MG PO SCH ×2 (10:09→21:10)
[2017-09-17] MEDS: Levofloxacin 500 MG IVPREMIX(* 500 MG/100 ML BAG IVPB SCH (10:09)
[2017-09-17] MEDS: Lactobacillus Acidophilus* 1 TAB PO SCH ×2 (10:10→21:09)
[2017-09-17] MEDS: Insulin GLARGINE(*) 1 UNITS UNIT SUBCUT SCH ×2 (10:12→22:02)
--- NOTE | 2017-09-17 11:09 | PN ---
Progress Note - Progress Note Date of Service: 09/17/17 SOAP: Subjective: CC: encephalopathy HPI: 61 yo man admitted after being found down, he has no recollection of events which were not witnessed. Diffuse muscle ache which is resolving. No fever, rash or diarrhea. No problems with Left heel vac dressing. Objective: Vital Signs Temp 36.3 C 09/17/17 03:08 Pulse 74 09/17/17 07:35 Resp 20 09/17/17 10:09 BP 136/76 09/17/17 07:35 Pulse Ox 99 09/17/17 07:35 Intake & Output 09/16/17 09/17/17 09/17/17 18:59 06:59 18:59 Intake Total 5168 1676 240 Output Total 800 3275 Balance 4368 -1599 240 Intake: IV Fluids 3328 1676 ABX - CEFTRIAXONE 50 1676 NS 3278 IVPB 50 magnesium 50 Oral 1790 0 240 Output: Urine 0 [place] 800 3275 Other: # Bowel Movements 0 Gen:awake, no distress HEENT: no thrush Heart:RRR no murmur Lungs:CTA BL Abd:+BS NTND soft Skin: no rash Neuro: AAOx3 CN 2-12 intact, decr sensation BL feet MSK: L calcaneous vac no erythema Laboratory Results - last 24 hr 09/16/17 09/16/17 09/16/17 11:00 16:31 20:46 Sodium 140 Potassium 4.0 Chloride 110 Carbon Dioxide 25 Anion Gap 5 BUN 14 Creatinine 0.85 Est GFR ( Amer) 111.6 Est GFR (Non-Af Amer) 92.3 BUN/Creatinine Ratio 16.5 Glucose 102 H POC Glucose (mg/dL) 231 H 124 H Calcium 8.3 L Total Creatine Kinase 6412 H Urine Color Urine Appearance Urine pH Ur Specific [place] Urine Protein Urine Ketones Urine Blood Urine Nitrate Urine Bilirubin Urine Urobilinogen Ur Leukocyte Esterase Urine WBC (Auto) Urine RBC (Auto) Urine Bacteria Urine Glucose Urine Opiates Screen Ur Barbiturates Screen Ur Phencyclidine Scrn Ur Amphetamines Screen U Benzodiazepines Scrn Urine Cocaine Screen U Cannabinoids Screen 09/17/17 09/17/17 09/17/17 07:38 08:45 08:45 Sodium Potassium Chloride Carbon Dioxide Anion Gap BUN Creatinine Est GFR ( Amer) Est GFR (Non-Af Amer) BUN/Creatinine Ratio Glucose POC Glucose (mg/dL) 83 Calcium Total Creatine Kinase Urine Color Colorless Urine Appearance Clear Urine pH 7.0 Ur Specific [place] 1.004 L Urine Protein Negative Urine Ketones Negative Urine Blood 2+ A Urine Nitrate Negative Urine Bilirubin Negative Urine Urobilinogen Negative Ur Leukocyte Esterase Negative Urine WBC (Auto) Absent Urine RBC (Auto) 2+(6-10/hpf) A Urine Bacteria Absent Urine Glucose Negative Urine Opiates Screen None detected Ur Barbiturates Screen None detected Ur Phencyclidine Scrn None detected Ur Amphetamines Screen None detected U Benzodiazepines Scrn None detected Urine Cocaine Screen None detected U Cannabinoids Screen None detected Assessment: 1. encephalopathy, present on admission, resolved ?GTC seizure or due to cephalosproin effect 2. Left calcaneous chronic osteomyelitis 3. chronic left heel ulcer, pressure related, with vac 4. PAD Plan: 1. abx day 14 since I&D; contiinue levaquin 500 mg iv daily and flagyl 500 mg po twice daily to complete 6 weeks. 25 minutes floor time >50% face to face discussing antibiotic plans
--- NOTE | 2017-09-17 11:11 | PN ---
Subjective Date of Service: 09/17/17 Interval History: Patient seen and examined. States he is feeling better, body pain improving, no SOB, no chest pain. Per RN, patient did have a run of aflutter with 2.3 sec pause, patient was asymptomatic and it spontaneously resolved. Denies leg pain, no fevers or chills. Objective Active Medications: Acetaminophen (Tylenol Tab*) 650 mg PO Q4H PRN PRN Reason: FEVER/PAIN Albuterol (Ventolin 2.5 Mg/3 Ml Neb.Roseann*) 2.5 mg INH Q2H PRN PRN Reason: SOB/WHEEZING Amlodipine Besylate (Norvasc Tab*) 5 mg PO DAILY [facility] Last Admin: 09/17/17 10:09 Dose: 5 mg Aspirin (Aspirin Ec Tab*) 81 mg PO DAILY [facility] Last Admin: 09/17/17 10:09 Dose: 81 mg Carvedilol (Coreg Tab*) 3.125 mg PO BID [facility] Last Admin: 09/17/17 10:09 Dose: 3.125 mg Dextrose (D50w Syringe 50 Ml*) 12.5 gm IV PUSH .FOR FS < 60 - SS PRN PRN Reason: FS < 60 Heparin Sodium (Porcine) (Heparin Vial(*)) 5,000 units SUBCUT Q8HR [facility] Last Admin: 09/17/17 05:47 Dose: 5,000 units Heparin Sodium (Porcine) (Heparin Flush Picc/Ml/Cvc(*)) 1 - 3 ml FLUSH 0600, 1800 [facility]; Protocol Last Admin: 09/17/17 05:49 Dose: Not Given Sodium Chloride (Ns 0.9% 1000 Ml*) 1,000 mls @ 150 mls/hr IV PER RATE [facility] Last Admin: 09/16/17 15:52 Dose: 150 mls/hr Levofloxacin/Dextrose (Levaquin 500 Mg Ivpremix(*)) 500 mg in 100 mls @ 100 mls /hr IVPB Q24H [facility] Last Admin: 09/17/17 10:09 Dose: 100 mls/hr Insulin Glargine (Lantus(*)) 20 units SUBCUT BID [facility] Last Admin: 09/17/17 10:12 Dose: 20 units Insulin Human Lispro (Humalog*) 0 units SUBCUT AC [facility]; Protocol Last Admin: 08/09/18 08:29 Dose: Not Given Lactobacillus Rhamnosus (Lactobacillus Acidophilus*) 1 tab PO BID [facility] Last Admin: 09/17/17 10:10 Dose: 1 tab Magnesium Oxide (Magox 400 Tab*) 800 mg PO DAILY [facility] Last Admin: 09/17/17 10:09 Dose: 800 mg Metronidazole (Metronidazole *) 500 mg PO Q12HR [facility] Last Admin: 09/17/17 10:09 Dose: 500 mg Ondansetron HCl (Zofran Inj*) 4 mg IV Q6H PRN PRN Reason: NAUSEA Oxycodone HCl (Roxycodone Tab*) 5 mg PO Q4H PRN PRN Reason: PAIN Last Admin: 09/17/17 10:09 Dose: 5 mg Sertraline HCl (Zoloft*) 100 mg PO DAILY [facility] Last Admin: 09/17/17 10:09 Dose: 100 mg Ticagrelor (Brilinta*) 90 mg PO BID [facility] Last Admin: 09/17/17 10:09 Dose: 90 mg Vital Signs - 8 hr 09/17/17 09/17/17 09/17/17 03:08 03:17 03:21 Temperature 97.4 F Pulse Rate 69 Respiratory 16 16 17 Rate Blood Pressure 139/76 (mmHg) O2 Sat by Pulse 98 Oximetry 09/17/17 09/17/17 09/17/17 05:50 07:35 10:09 Temperature Pulse Rate 74 Respiratory 16 17 20 Rate Blood Pressure 136/76 (mmHg) O2 Sat by Pulse 99 Oximetry Oxygen Devices in Use Now: None Appearance: Alert, NAD Eyes: No Scleral Icterus, PERRLA Ears/Nose/Mouth/Throat: NL Teeth, Lips, Gums, Clear Oropharnyx Neck: NL Appearance and Movements; NL JVP, Trachea Midline Respiratory: Symmetrical Chest Expansion and Respiratory Effort, Clear to Auscultation Cardiovascular: NL Sounds; No Murmurs; No JVD, RRR, No Edema Abdominal: NL Sounds; No Tenderness; No Distention Skin: - - looft foot wound dressed, wound vac in place, dressing CDI Neurological: Alert and Oriented x 3, NL Sensation Nutrition: Taking PO's Result Diagrams: 09/16/17 05:10 09/16/17 11:00 Microbiology and Other Data: Microbiology 09/15/17 15:55 Aerobic Blood Culture - Preliminary Blood Venous No Growth Day 1 Anaerobic Blood Culture - Preliminary No Growth Day 1 09/15/17 16:00 Aerobic Blood Culture - Preliminary Blood Line No Growth Day 1 Anaerobic Blood Culture - Preliminary No Growth Day 1 09/15/17 14:32 Aerobic Blood Culture - Preliminary Blood Venous No Growth Day 1 Anaerobic Blood Culture - Preliminary No Growth Day 1 Diagnostic Imaging: Electroencephalogram Report Patient: VIKY BARRERA /Age: 09 1955 61 Medical Record#: [id number] Admission Date: 09/15/17 Provider: Anupam Perkins MD ELECTROENCEPHALOGRAPHY: DATE OF STUDY: 09/16/17 - ROOM #406 DATE READ: 09/16/17 DURATION OF THE STUDY: [id number] MEDICATIONS: 1. Amlodipine. 2. Ceftriaxone. 3. Vancomycin. 4. Flagyl. 5. Lantus. 6. Oxycodone. 7. Zoloft. CLINICAL PROBLEM: This is a 61-year-old man that was found down on the floor that suffered rhabdomyolysis. He does not recall why he was on the floor. The EEG was obtained to evaluate for epileptiform abnormalities. CLINICAL STATE: Awake and drowsy. REPORT: The background consisted of a mixed frequency, low voltage slowing in the delta and theta range with some retained organization and discernable anterior- posterior voltage gradient. There was waking slow background rhythm of about 7 Hz, which was symmetrical and showed normal reactivity. Anteriorly, there was an expected pattern of lower voltage, irregular mixed faster frequencies. Attenuation of the occipital rhythm accompanied drowsiness. Hyperventilation and photic stimulation were not performed. Throughout the recording, there were no electrographic seizures or epileptiform discharges. CLINICAL IMPRESSION: This is an abnormal awake and drowsy EEG due to slow posterior dominant rhythm, low voltage of diffuse slowing. There was some retained organization reactivity. These findings are suggestive of a mild, nonspecific encephalopathy. There were no epileptiform discharges. Clinical correlation is recommended. [id number]/[facility] #: [id number] <Electronically signed by Anupam Perkins MD> 09/17/17 0857 Anupam Perkins MD Dictated Date/Time: 09/16/17 4367 This report is only to be considered final once signed by the Provider(s) as displayed in the "<Electronically Signed by >" field (s). Absence of a signature indicates the report is in a draft status and still needs to be finalized. In the event this document was created by someone other than the signing Provider, the individual initiating the document will be listed in the "Entered by:" or "Dictated by:" rincon. 1 of 2 Patient Name: VIKY BARRERA Medical Record#: [id number] Ordering Physician: Yovani Padron MD Acct.#: [id number] : 1955 Age: 61 Sex: M Location: EMERGENCY DEPARTMENT Exam Date: 09/15/17 1025 ADM Status: REG ER Order Information: CT BRAIN WO Accession Number: [id number] CPT: 91262 Indication: Altered mental status. Syncopal episode. Comparison: No relevant prior exams available on the [facility] [place] for comparison. Technique: Noncontrast CT vertex of skull through foramen magnum. Report: Unremarkable cerebral sulci, ventricles, and basal cisterns. 0.5 cm RIGHT basal ganglia and 0.4 cm LEFT basal ganglia hypodense lesions which may represent old lacunar infarcts or normal variant dilated perivascular spaces. Negative for pascual matter white matter obscuration, intra or extra-axial hemorrhage, or mass effect. No suspicious abnormality at the visualized orbital contents. Negative for fracture or suspicious lesion of the calvarium or skull base. Clear visualized paranasal sinuses and mastoid air spaces. Mild LEFT parietal scalp edema. IMPRESSION: #. No CT evidence for traumatic brain injury or acute intracranial process. #. Solitary 0.5 cm RIGHT basal ganglia and 0.4 cm LEFT basal ganglia hypodense lesions which may represent old lacunar infarcts or normal variant dilated perivascular spaces. <Electronically signed by Yovani Cabello MD in [place]> 09/15/17 121 Dictated By: Yovani Cabello MD Dictated Date/Time: 09/15/17 1210 Transcribed Date/Time: 09/15/17 1207 Copy to: Patient Name: VIKY BARRERA Medical Record#: [id number] Ordering Physician: Saturnino Garcia NP Acct.#: [id number] : 1955 Age: 61 Sex: M Location: EMERGENCY DEPARTMENT Exam Date: 09/15/17 1341 ADM Status: REG ER Order Information: CT ABD/PEL W/O Accession Number: [id number] CPT: 16472 INDICATION: Urinary retention. Diabetic. COMPARISON: No relevant prior exams available on the [facility] for comparison. TECHNIQUE: Multidetector CT images were obtained from the lung bases to the ischial tuberosities. Evaluation of the viscera is limited without IV contrast. Multiplanar reformation. REPORT: VISUALIZED INFERIOR THORAX: Postsurgical change of coronary artery bypass. Upper normal heart size. Mild RIGHT basilar atelectasis. Trace RIGHT pleural effusion. LIVER / GALLBLADDER / PANCREAS / SPLEEN: Negative for CT abnormality of the liver or gallbladder. Negative for biliary dilatation. Mildly atrophic pancreas without suspicious finding. Small calcified granuloma at the spleen. Small splenule at the splenic hilum. ALIMENTARY TRACT: Moderately distended stomach without additional CT abnormality. Negative for CT abnormality of the small bowel or medially extending appendix. Mild colonic diverticulosis without findings of acute diverticulitis. Moderate volume of retained stool in the colon through the transverse colon. The LEFT colon is decompressed. Negative for ascites or free air. Negative for significant hernias. MESENTERIC: Unremarkable. ADRENAL / GENITOURINARY: Normal adrenal glands. 1.3 cm exophytic simple cyst at the midpole of the RIGHT kidney. Bilateral urolithiasis with multiple RIGHT renal collecting system stones with dominant 0.9 cm stone at the renal pelvis. Solitary 1.1 cm maximum dimension mid to upper pole calyceal stone at the LEFT kidney. Negative for hydronephrosis. Unremarkable nondilated ureters. Catheterized decompressed urinary bladder. Symmetric seminal vesicles. RETROPERITONEAL: Negative for lymphadenopathy. VASCULAR: Atherosclerotic calcification of normal diameter abdominal aorta and iliac arteries. BONES: Bilateral L5 spondylolysis and grade 1 L5-S1 anterolisthesis. Grade 1 degenerative L4-L5 retrolisthesis. Advanced degenerative spondylosis and facet joint osteoarthritis at L3-L4 through L5-S1 with associated severe acquired central canal stenosis at L3 -L4. Negative for suspicious focal osseous lesions. SOFT TISSUE: Mild edema at the RIGHT inguinal region without evidence for a loculated fluid collection. Associated subcentimeter small reactive lymph nodes. IMPRESSION: #. Bilateral urolithiasis without evidence for presence of a ureteral stone or obstructive uropathy. #. Severe acquired central canal stenosis at L3-L4. This report is only to be considered final once signed by the Provider(s) as displayed in the "<Electronically Signed by >" field (s). Absence of a signature indicates the report is in a draft status and still needs to be finalized. In the event this document was created by someone other than the signing Provider, the individual initiating the document will be listed in the "Entered by:" or "Dictated by:" rincon. 1 of 2 Assess/Plan/Problems-Billing Assessment: This is a 61 year old with chronic left heel ulcer that is s/p debridement and revascularization, that presented with rhabdomyolysis after being found on the floor by his and patient had no recollection of precipitating event and acute urinary retention in the ER. - Patient Problems (1) Syncope and collapse Code(s): R55 - SYNCOPE AND COLLAPSE SNOMED Code(s): 889909059 Comment: - CT head negative - EEG as above, no epileptiform changes howeve EEG is still abnormal, will clarify significance with neurology today - ECHO as above (2) Acute urinary retention Code(s): R33.8 - OTHER RETENTION OF URINE SNOMED Code(s): 958406660 Comment: - No retention in past admissions, no reported anticholinergics - CT with no hyddro or obstruction - [place] in place, continue to monitor, will need voiding trial (3) CAD (coronary artery disease) Code(s): I25.10 - ATHSCL HEART DISEASE OF [place] CORONARY ARTERY W/O ANG PCTRS SNOMED Code(s): 66224617 Comment: - Continue aspirin 81mg, brilinta, atorvastatin 80mg, coreg - Had cardiac cath with PCI in July of this year - Concern for short burst of aflutter/fib, will continue to monitor on tele, if continues, will consult cardiology - Optimize electrolytes (4) COPD (chronic obstructive pulmonary disease) Code(s): J44.9 - CHRONIC OBSTRUCTIVE PULMONARY DISEASE, UNSPECIFIED SNOMED Code(s): 79460374 Comment: - No signs of exacerbation (5) Hypertension Code(s): I10 - ESSENTIAL (PRIMARY) HYPERTENSION SNOMED Code(s): 14537572 Comment: - Stable on coreg and amlodipine (6) PAD (peripheral artery disease) Code(s): I73.9 - PERIPHERAL VASCULAR DISEASE, UNSPECIFIED SNOMED Code(s): 848057942 Comment: - Revascularized on 09/08/2017 without complication - Continue asa, brillinta BID x 6 months and glycemic control (7) Diabetes Code(s): E11.9 - TYPE 2 DIABETES MELLITUS WITHOUT COMPLICATIONS SNOMED Code(s) : 44340346 Comment: - Continue lantus and lispro SS, sugars improved from last visit - may need to titrate long acting insulin if sugars run low (8) DVT prophylaxis Code(s): LDM5416 - SNOMED Code(s): 708461408 Comment: - Heparin SQ (9) Full code status Code(s): Z78.9 - OTHER SPECIFIED HEALTH STATUS SNOMED Code(s): 107390711 Comment: Status and Disposition: Remain inpatient.
--- NOTE | 2017-09-17 12:39 | PN ---
Progress Note - Progress Note Date of Service: 09/17/17 SOAP: Subjective: []Patient feels well with no feeling of fever, chills, CP, SOB, left foot pain. Objective: []General: Well appearing, NAD left foot: plantar ulcer with wound vac in place. Vac changed. Wound bed with small area of exposed bone, granulation tissue and mild yellow slough. No purulence. No erythema or edema or the foot and no tracking erythema proximally. Calves supple, nontender without erythema, edema or palpable cords Assessment: []left foot ulcer Plan: [] Wound vac changed today 09/17. Will continue to follow for vac changes every 3 days while in house as well as for any change in appearance of wound bed/ left foot. Vital Signs Temp 97.4 F 09/17/17 03:08 Pulse 74 09/17/17 07:35 Resp 20 09/17/17 10:09 BP 136/76 09/17/17 07:35 Pulse Ox 99 09/17/17 07:35 Intake & Output 09/16/17 09/17/17 09/17/17 18:59 06:59 18:59 Intake Total 5168 1676 240 Output Total 800 3275 Balance 4368 -1599 240 Intake: IV Fluids 3328 1676 ABX - CEFTRIAXONE 50 1676 NS 3278 IVPB 50 magnesium 50 Oral 1790 0 240 Output: Urine 0 [place] 800 3275 Other: # Bowel Movements 0 Laboratory Last Values WBC 6.5 10^3/ul (3.5-10.8) 09/16/17 05:10 RBC 2.99 10^6/ul (4.00-5.40) L 09/16/17 05:10 Hgb 9.3 g/dl (14.0-18.0) L 09/16/17 05:10 Hct 27 % (42-52) L 09/16/17 05:10 MCV 91 fL (80-94) 09/16/17 05:10 MCH 31 pg (27-31) 09/16/17 05:10 MCHC 34 g/dl (31-36) 09/16/17 05:10 RDW 15 % (10.5-15) 09/16/17 05:10 Plt Count 293 10^3/ul (150-450) 09/16/17 05:10 MPV 7.9 um3 (7.4-10.4) 09/16/17 05:10 Neut % (Auto) 64.1 % (38-83) 09/16/17 05:10 Lymph % (Auto) 18.6 % (25-47) L 09/16/17 05:10 [place] % (Auto) 12.0 % (0-7) H 09/16/17 05:10 Eos % (Auto) 3.6 % (0-6) 09/16/17 05:10 Baso % (Auto) 1.7 % (0-2) 09/16/17 05:10 Absolute Neuts (auto) 4.1 10^3/ul (1.5-7.7) 09/16/17 05:10 Absolute Lymphs (auto) 1.2 10^3/ul (1.0-4.8) 09/16/17 05:10 Absolute Monos (auto) 0.8 10^3/ul (0-0.8) 09/16/17 05:10 Absolute Eos (auto) 0.2 10^3/ul (0-0.6) 09/16/17 05:10 Absolute Basos (auto) 0.1 10^3/ul (0-0.2) 09/16/17 05:10 Absolute Nucleated RBC 0 10^3/ul 09/16/17 05:10 Nucleated RBC % 0 09/16/17 05:10 Sodium 140 mmol/L (135-145) 09/16/17 11:00 Potassium 4.0 mmol/L (3.5-5.0) 09/16/17 11:00 Chloride 110 mmol/L (101-111) 09/16/17 11:00 Carbon Dioxide 25 mmol/L (22-32) 09/16/17 11:00 Anion Gap 5 mmol/L (2-11) 09/16/17 11:00 BUN 14 mg/dL (6-24) 09/16/17 11:00 Creatinine 0.85 mg/dL (0.67-1.17) 09/16/17 11:00 Est GFR ( Amer) 111.6 (>60) 09/16/17 11:00 Est GFR (Non-Af Amer) 92.3 (>60) 09/16/17 11:00 BUN/Creatinine Ratio 16.5 (8-20) 09/16/17 11:00 Glucose 102 mg/dL (70-100) H 09/16/17 11:00 POC Glucose (mg/dL) 255 mg/dL (70-100) H 09/17/17 11:42 Lactic Acid 1.5 mmol/L (0.5-2.0) 09/15/17 22:23 Calcium 8.3 mg/dL (8.6-10.3) L 09/16/17 11:00 Magnesium 1.6 mg/dL (1.9-2.7) L 09/15/17 11:00 Total Bilirubin 0.70 mg/dL (0.2-1.0) 09/15/17 11:00 AST 73 U/L (13-39) H 09/15/17 11:00 ALT 34 U/L (7-52) 09/15/17 11:00 Alkaline Phosphatase 67 U/L (34-104) 09/15/17 11:00 Ammonia 44 mcmol/L (16-53) 09/15/17 11:00 Total Creatine Kinase 6412 U/L (10-223) H 09/16/17 11:00 Troponin I 0.05 ng/mL (<0.04) H* 09/15/17 22:23 Total Protein 6.9 g/dL (6.4-8.9) 09/15/17 11:00 Albumin 3.8 g/dL (3.2-5.2) 09/15/17 11:00 Globulin 3.1 g/dL (2-4) 09/15/17 11:00 Albumin/Globulin Ratio 1.2 (1-3) 09/15/17 11:00 TSH 3.64 mcIU/mL (0.34-5.60) 09/15/17 11:00 Urine Color Colorless 09/17/17 08:45 Urine Appearance Clear 09/17/17 08:45 Urine pH 7.0 (5-9) 09/17/17 08:45 Ur Specific [place] 1.004 (1.010-1.030) L 09/17/17 08:45 Urine Protein Negative (Negative) 09/17/17 08:45 Urine Ketones Negative (Negative) 09/17/17 08:45 Urine Blood 2+ (Negative) A 09/17/17 08:45 Urine Nitrate Negative (Negative) 09/17/17 08:45 Urine Bilirubin Negative (Negative) 09/17/17 08:45 Urine Urobilinogen Negative (Negative) 09/17/17 08:45 Ur Leukocyte Esterase Negative (Negative) 09/17/17 08:45 Urine WBC (Auto) Absent (Absent) 09/17/17 08:45 Urine RBC (Auto) 2+(6-10/hpf) (Absent) A 09/17/17 08:45 Ur Squamous Epith Cells Present (Absent) A 09/15/17 11:00 Urine Bacteria Absent (Absent) 09/17/17 08:45 Hyaline Casts Present (Absent) A 09/15/17 11:00 Urine Glucose Negative (Negative) 09/17/17 08:45 Random Vancomycin 10.5 mcg/mL 09/16/17 05:10 Salicylates < 2.50 mg/dL (<30) 09/15/17 11:00 Urine Opiates Screen None detected (None Detect) 09/17/17 08:45 Acetaminophen < 15 mcg/mL 09/15/17 11:00 Ur Barbiturates Screen None detected (None Detect) 09/17/17 08:45 Ur Phencyclidine Scrn None detected (None Detect) 09/17/17 08:45 Ur Amphetamines Screen None detected (None Detect) 09/17/17 08:45 U Benzodiazepines Scrn None detected (None Detect) 09/17/17 08:45 Urine Cocaine Screen None detected (None Detect) 09/17/17 08:45 U Cannabinoids Screen None detected (None Detect) 09/17/17 08:45 Serum Alcohol < 10 mg/dL (<10) 09/15/17 11:00
[2017-09-17] MEDS: NS 0.9% 1000 ML* 1,000 ML IV SCH (16:43)
[2017-09-18] MEDS: NS 0.9% 1000 ML* 1,000 ML IV SCH (02:26)
[2017-09-18] MEDS: Heparin VIAL(*) 5000 UNITS/ML VIAL (FIVE THOUSAND) SUBCUT SCH ×3 (06:13→21:01)
[2017-09-18] MEDS: metroNIDAZOLE * 500 MG TABLET PO SCH ×2 (08:56→21:00)
[2017-09-18] MEDS: Ticagrelor* 90 MG TAB PO SCH ×2 (08:56→21:00)
[2017-09-18] MEDS: Insulin GLARGINE(*) 1 UNITS UNIT SUBCUT SCH ×2 (08:56→21:01)
[2017-09-18] MEDS: Insulin LISPRO* 1 UNITS UNIT SUBCUT SCH ×3 (08:56→17:09)
[2017-09-18] MEDS: Sertraline* 100 MG TAB PO SCH (08:57)
[2017-09-18] MEDS: Lactobacillus Acidophilus* 1 TAB PO SCH ×2 (08:57→21:00)
[2017-09-18] MEDS: Magnesium Oxide TAB* 400 MG PO SCH (08:57)
[2017-09-18] MEDS: Carvedilol TAB* 3.125 MG PO SCH (08:57)
[2017-09-18] MEDS: amLODIPine TAB* 5 MG PO SCH (08:58)
[2017-09-18] MEDS: Aspirin EC TAB* 81 MG TAB.EC PO SCH (08:58)
[2017-09-18] MEDS: Levofloxacin 500 MG IVPREMIX(* 500 MG/100 ML BAG IVPB SCH (10:47)
--- NOTE | 2017-09-18 14:02 | PN ---
Subjective Date of Service: 09/18/17 Interval History: Patient seen and examined. Feeling well. Ectopy on telemetry overnight and this am, possible flutter with pause. Evaluated with cardiology. Patient states asymptomatic through each time. Denies SOB, no dizziness, no chest pain or palpitations and no alterations in BP. Objective Active Medications: Acetaminophen (Tylenol Tab*) 650 mg PO Q4H PRN PRN Reason: FEVER/PAIN Albuterol (Ventolin 2.5 Mg/3 Ml Neb.Roseann*) 2.5 mg INH Q2H PRN PRN Reason: SOB/WHEEZING Aspirin (Aspirin Ec Tab*) 81 mg PO DAILY [facility] Last Admin: 09/18/17 08:58 Dose: 81 mg Dextrose (D50w Syringe 50 Ml*) 12.5 gm IV PUSH .FOR FS < 60 - SS PRN PRN Reason: FS < 60 Heparin Sodium (Porcine) (Heparin Vial(*)) 5,000 units SUBCUT Q8HR [facility] Last Admin: 09/18/17 13:24 Dose: 5,000 units Heparin Sodium (Porcine) (Heparin Flush Picc/Ml/Cvc(*)) 1 - 3 ml FLUSH 0600, 1800 [facility]; Protocol Last Admin: 09/18/17 06:12 Dose: Not Given Sodium Chloride (Ns 0.9% 1000 Ml*) 1,000 mls @ 150 mls/hr IV PER RATE [facility] Last Admin: 09/18/17 02:26 Dose: 150 mls/hr Levofloxacin/Dextrose (Levaquin 500 Mg Ivpremix(*)) 500 mg in 100 mls @ 100 mls /hr IVPB Q24H [facility] Last Admin: 09/18/17 10:47 Dose: 100 mls/hr Insulin Glargine (Lantus(*)) 20 units SUBCUT BID [facility] Last Admin: 09/18/17 08:56 Dose: 20 units Insulin Human Lispro (Humalog*) 0 units SUBCUT AC [facility]; Protocol Last Admin: 09/18/17 13:23 Dose: 6 unit Lactobacillus Rhamnosus (Lactobacillus Acidophilus*) 1 tab PO BID [facility] Last Admin: 09/18/17 08:57 Dose: 1 tab Magnesium Oxide (Magox 400 Tab*) 800 mg PO DAILY [facility] Last Admin: 09/18/17 08:57 Dose: 800 mg Metronidazole (Metronidazole *) 500 mg PO Q12HR [facility] Last Admin: 09/18/17 08:56 Dose: 500 mg Ondansetron HCl (Zofran Inj*) 4 mg IV Q6H PRN PRN Reason: NAUSEA Oxycodone HCl (Roxycodone Tab*) 5 mg PO Q4H PRN PRN Reason: PAIN Last Admin: 09/17/17 22:01 Dose: 5 mg Sertraline HCl (Zoloft*) 100 mg PO DAILY [facility] Last Admin: 09/18/17 08:57 Dose: 100 mg Ticagrelor (Brilinta*) 90 mg PO BID [facility] Last Admin: 09/18/17 08:56 Dose: 90 mg Vital Signs - 8 hr 09/18/17 09/18/17 07:36 08:00 Temperature 97.4 F Pulse Rate 80 Respiratory 18 16 Rate Blood Pressure 130/74 (mmHg) O2 Sat by Pulse 98 Oximetry Oxygen Devices in Use Now: None Appearance: Allert, well appearing, NAD Eyes: No Scleral Icterus, PERRLA Ears/Nose/Mouth/Throat: NL Teeth, Lips, Gums, Mucous Membranes Moist Neck: NL Appearance and Movements; NL JVP, Trachea Midline Respiratory: Symmetrical Chest Expansion and Respiratory Effort, Clear to Auscultation Cardiovascular: NL Sounds; No Murmurs; No JVD, RRR, No Edema Abdominal: NL Sounds; No Tenderness; No Distention Extremities: No Edema, No Clubbing, Cyanosis, - - dressing left heel CDI with wound vac applied Neurological: Alert and Oriented x 3, NL Sensation Nutrition: Taking PO's Result Diagrams: 09/16/17 05:10 09/16/17 11:00 Microbiology and Other Data: Microbiology 09/15/17 15:55 Aerobic Blood Culture - Preliminary Blood Venous No Growth Day 1 Anaerobic Blood Culture - Preliminary No Growth Day 1 09/15/17 16:00 Aerobic Blood Culture - Preliminary Blood Line No Growth Day 1 Anaerobic Blood Culture - Preliminary No Growth Day 1 09/15/17 14:32 Aerobic Blood Culture - Preliminary Blood Venous No Growth Day 1 Anaerobic Blood Culture - Preliminary No Growth Day 1 Diagnostic Imaging: Electroencephalogram Report Patient: VIKY BARRERA /Age: 09 1955 61 Medical Record#: [id number] Admission Date: 09/15/17 Provider: Anupam Perkins MD ELECTROENCEPHALOGRAPHY: DATE OF STUDY: 09/16/17 - ROOM #406 DATE READ: 09/16/17 DURATION OF THE STUDY: [id number] MEDICATIONS: 1. Amlodipine. 2. Ceftriaxone. 3. Vancomycin. 4. Flagyl. 5. Lantus. 6. Oxycodone. 7. Zoloft. CLINICAL PROBLEM: This is a 61-year-old man that was found down on the floor that suffered rhabdomyolysis. He does not recall why he was on the floor. The EEG was obtained to evaluate for epileptiform abnormalities. CLINICAL STATE: Awake and drowsy. REPORT: The background consisted of a mixed frequency, low voltage slowing in the delta and theta range with some retained organization and discernable anterior- posterior voltage gradient. There was waking slow background rhythm of about 7 Hz, which was symmetrical and showed normal reactivity. Anteriorly, there was an expected pattern of lower voltage, irregular mixed faster frequencies. Attenuation of the occipital rhythm accompanied drowsiness. Hyperventilation and photic stimulation were not performed. Throughout the recording, there were no electrographic seizures or epileptiform discharges. CLINICAL IMPRESSION: This is an abnormal awake and drowsy EEG due to slow posterior dominant rhythm, low voltage of diffuse slowing. There was some retained organization reactivity. These findings are suggestive of a mild, nonspecific encephalopathy. There were no epileptiform discharges. Clinical correlation is recommended. [id number]/[facility] #: [id number] <Electronically signed by Anupam Perkins MD> 09/17/17 0857 Anupam Perkins MD Dictated Date/Time: 09/16/17 184 This report is only to be considered final once signed by the Provider(s) as displayed in the "<Electronically Signed by >" field (s). Absence of a signature indicates the report is in a draft status and still needs to be finalized. In the event this document was created by someone other than the signing Provider, the individual initiating the document will be listed in the "Entered by:" or "Dictated by:" rincon. 1 of 2 Patient Name: VIKY BARRERA Medical Record#: [id number] Ordering Physician: Yovani Padron MD Acct.#: [id number] : 1955 Age: 61 Sex: M Location: EMERGENCY DEPARTMENT Exam Date: 09/15/17 1025 ADM Status: REG ER Order Information: CT BRAIN WO Accession Number: [id number] CPT: 66087 Indication: Altered mental status. Syncopal episode. Comparison: No relevant prior exams available on the [facility] PACS for comparison. Technique: Noncontrast CT vertex of skull through foramen magnum. Report: Unremarkable cerebral sulci, ventricles, and basal cisterns. 0.5 cm RIGHT basal ganglia and 0.4 cm LEFT basal ganglia hypodense lesions which may represent old lacunar infarcts or normal variant dilated perivascular spaces. Negative for pascual matter white matter obscuration, intra or extra-axial hemorrhage, or mass effect. No suspicious abnormality at the visualized orbital contents. Negative for fracture or suspicious lesion of the calvarium or skull base. Clear visualized paranasal sinuses and mastoid air spaces. Mild LEFT parietal scalp edema. IMPRESSION: #. No CT evidence for traumatic brain injury or acute intracranial process. #. Solitary 0.5 cm RIGHT basal ganglia and 0.4 cm LEFT basal ganglia hypodense lesions which may represent old lacunar infarcts or normal variant dilated perivascular spaces. <Electronically signed by Yovani Cabello MD in OV> 09/15/17 1210 Dictated By: Yovani Cabello MD Dictated Date/Time: 09/15/17 1210 Transcribed Date/Time: 09/15/17 1207 Copy to: Patient Name: VIKY BARRERA Medical Record#: [id number] Ordering Physician: Saturnino Garcia TECHNICIAN [employer] Acct.#: [id number] : 1955 Age: 61 Sex: M Location: EMERGENCY DEPARTMENT Exam Date: 09/15/17 1341 ADM Status: REG ER Order Information: CT ABD/PEL W/O Accession Number: [id number] CPT: 03196 INDICATION: Urinary retention. Diabetic. COMPARISON: No relevant prior exams available on the [facility] PACS for comparison. TECHNIQUE: Multidetector CT images were obtained from the lung bases to the ischial tuberosities. Evaluation of the viscera is limited without IV contrast. Multiplanar reformation. REPORT: VISUALIZED INFERIOR THORAX: Postsurgical change of coronary artery bypass. Upper normal heart size. Mild RIGHT basilar atelectasis. Trace RIGHT pleural effusion. LIVER / GALLBLADDER / PANCREAS / SPLEEN: Negative for CT abnormality of the liver or gallbladder. Negative for biliary dilatation. Mildly atrophic pancreas without suspicious finding. Small calcified granuloma at the spleen. Small splenule at the splenic hilum. ALIMENTARY TRACT: Moderately distended stomach without additional CT abnormality. Negative for CT abnormality of the small bowel or medially extending appendix. Mild colonic diverticulosis without findings of acute diverticulitis. Moderate volume of retained stool in the colon through the transverse colon. The LEFT colon is decompressed. Negative for ascites or free air. Negative for significant hernias. MESENTERIC: Unremarkable. ADRENAL / GENITOURINARY: Normal adrenal glands. 1.3 cm exophytic simple cyst at the midpole of the RIGHT kidney. Bilateral urolithiasis with multiple RIGHT renal collecting system stones with dominant 0.9 cm stone at the renal pelvis. Solitary 1.1 cm maximum dimension mid to upper pole calyceal stone at the LEFT kidney. Negative for hydronephrosis. Unremarkable nondilated ureters. Catheterized decompressed urinary bladder. Symmetric seminal vesicles. RETROPERITONEAL: Negative for lymphadenopathy. VASCULAR: Atherosclerotic calcification of normal diameter abdominal aorta and iliac arteries. BONES: Bilateral L5 spondylolysis and grade 1 L5-S1 anterolisthesis. Grade 1 degenerative L4-L5 retrolisthesis. Advanced degenerative spondylosis and facet joint osteoarthritis at L3-L4 through L5-S1 with associated severe acquired central canal stenosis at L3 -L4. Negative for suspicious focal osseous lesions. SOFT TISSUE: Mild edema at the RIGHT inguinal region without evidence for a loculated fluid collection. Associated subcentimeter small reactive lymph nodes. IMPRESSION: #. Bilateral urolithiasis without evidence for presence of a ureteral stone or obstructive uropathy. #. Severe acquired central canal stenosis at L3-L4. This report is only to be considered final once signed by the Provider(s) as displayed in the "<Electronically Signed by >" field (s). Absence of a signature indicates the report is in a draft status and still needs to be finalized. In the event this document was created by someone other than the signing Provider, the individual initiating the document will be listed in the "Entered by:" or "Dictated by:" rincon. 1 of 2 Assess/Plan/Problems-Billing Assessment: This is a 61 year old with chronic left heel ulcer that is s/p debridement and revascularization, that presented with rhabdomyolysis after being found on the floor by his and patient had no recollection of precipitating event and acute urinary retention in the ER. - Patient Problems (1) Syncope and collapse Code(s): R55 - SYNCOPE AND COLLAPSE SNOMED Code(s): 914106190 Comment: - CT head negative - EEG with no epileptiform changes, does not appear to be acute seizure or CVA - ECHO as above - Ectopy and pause (or other underlying arrhythmia) may or may not be the etiology. Discussed with Dr. Vigil, will place event monitor as an outpatient. - Could be patient's autonomic dysfunction, will dc amlodipine and let BP run higher. Per cardiology, DO NOT restart BP meds, coreg 3.125mg BID only (2) Acute urinary retention Code(s): R33.8 - OTHER RETENTION OF URINE SNOMED Code(s): 165011486 Comment: - No retention in past admissions, no reported anticholinergics - CT with no hyddro or obstruction - DC spring today and trial to void, discussed with RN (3) Ischemic heel ulcer Current Visit: Yes Status: Acute Code(s): L97.409 - NON-PRS CHRONIC ULCER OF UNSP HEEL AND MIDFOOT W UNSP SEVERT SNOMED Code(s): 225160699 Comment: - s/p arterial revascularization at last admission - Progressive healing noted, wound vac being continued as per ortho - Ortho and ID following - [place] will continue home IV atbx at discharge, as patient is declining STR (4) CAD (coronary artery disease) Code(s): I25.10 - ATHSCL HEART DISEASE OF [place] CORONARY ARTERY W/O ANG PCTRS SNOMED Code(s): 90935451 Comment: - Continue aspirin 81mg, brilinta, atorvastatin 80mg, coreg - Had cardiac cath with PCI in July of this year - Cardiology following close as an outpatient - Optimize electrolytes (5) COPD (chronic obstructive pulmonary disease) Code(s): J44.9 - CHRONIC OBSTRUCTIVE PULMONARY DISEASE, UNSPECIFIED SNOMED Code(s): 17750013 Comment: - No signs of exacerbation (6) Hypertension Code(s): I10 - ESSENTIAL (PRIMARY) HYPERTENSION SNOMED Code(s): 97990190 Comment: - Stable on coreg and amlodipine (7) PAD (peripheral artery disease) Code(s): I73.9 - PERIPHERAL VASCULAR DISEASE, UNSPECIFIED SNOMED Code(s): 550694963 Comment: - Revascularized on 09/08/2017 without complication - Continue asa, brillinta BID x 6 months and glycemic control (8) Diabetes Code(s): E11.9 - TYPE 2 DIABETES MELLITUS WITHOUT COMPLICATIONS SNOMED Code(s) : 10263538 Comment: - Continue lantus and lispro SS, sugars improved from last visit - may need to titrate long acting insulin if sugars run low (9) DVT prophylaxis Code(s): GJK1656 - SNOMED Code(s): 873558300 Comment: - Heparin SQ (10) Full code status Code(s): Z78.9 - OTHER SPECIFIED HEALTH STATUS SNOMED Code(s): 690025560 Comment: Status and Disposition: Remain inpatient. Set up home infusion with new antibiotics, patient will need appointment with Dr. Vigil in the office next week to have event monitor placed as an outpatient. May DC to home vs rehab 09/19/17 if clear by ID, neuro and ortho.
[2017-09-19] MEDS: Heparin VIAL(*) 5000 UNITS/ML VIAL (FIVE THOUSAND) SUBCUT SCH ×2 (05:47→12:45)
[2017-09-19] MEDS: Insulin GLARGINE(*) 1 UNITS UNIT SUBCUT SCH (08:29)
[2017-09-19] MEDS: Insulin LISPRO* 1 UNITS UNIT SUBCUT SCH ×2 (08:29→12:45)
[2017-09-19] MEDS: Ticagrelor* 90 MG TAB PO SCH (08:30)
[2017-09-19] MEDS: Sertraline* 100 MG TAB PO SCH (08:30)
[2017-09-19] MEDS: metroNIDAZOLE * 500 MG TABLET PO SCH (08:30)
[2017-09-19] MEDS: Magnesium Oxide TAB* 400 MG PO SCH (08:30)
[2017-09-19] MEDS: Lactobacillus Acidophilus* 1 TAB PO SCH (08:30)
[2017-09-19] MEDS: Aspirin EC TAB* 81 MG TAB.EC PO SCH (10:02)
[2017-09-19] MEDS: Levofloxacin 500 MG IVPREMIX(* 500 MG/100 ML BAG IVPB SCH (10:03)
[2017-09-19 10:45] LABS: EGFR Non-African American 106.6 (>60)
--- NOTE | 2017-09-19 11:19 | PN ---
Progress Note - Progress Note Date of Service: 09/19/17 SOAP: Subjective: Pt is doing well. Pain is controlled. Denies CP/SOB, calf pain or F/C. Objective: PE- 61 y/o WDWN NAD, A&O x3 LLE- dressing c/d/i, able DF/PF ankle, calf soft NT, NVI Vital Signs Temp Pulse Resp BP Pulse Ox 97.6 F 81 14 142/87 100 09/19/17 07:57 09/19/17 08:19 09/19/17 08:19 09/19/17 07:57 09/19/17 08:19 Laboratory Results - last 24 hr 09/18/17 09/18/17 09/18/17 11:51 16:26 20:39 Sodium Potassium Chloride Carbon Dioxide Anion Gap BUN Creatinine Est GFR ( Amer) Est GFR (Non-Af Amer) BUN/Creatinine Ratio Glucose POC Glucose (mg/dL) 246 H 162 H 319 H Calcium Total Creatine Kinase 09/19/17 09/19/17 07:34 10:00 Sodium 137 Potassium 4.2 Chloride 107 Carbon Dioxide 25 Anion Gap 5 BUN 13 Creatinine 0.75 Est GFR ( Amer) 129.0 Est GFR (Non-Af Amer) 106.6 BUN/Creatinine Ratio 17.3 Glucose 306 H POC Glucose (mg/dL) 157 H Calcium 8.6 Total Creatine Kinase 357 H Assessment: []left foot ulcer Plan: Wound vac changed 09/17. Dressing checked yesterday by [facility]. Continue vac changes every 3 days DC when medically stable F/U Dr. Nicole in 10-14 days
[2017-09-19 11:33] VITALS: BP 158/73
[2017-09-19 11:54] LABS: ABS Basophils 0 10^3/ul (0-0.2); ABS Eosinophils 0.2 10^3/ul (0-0.6); ABS Monocytes 0.7 10^3/ul (0-0.8); ABS Neutrophils 3.7 10^3/ul (1.5-7.7); ABS Nucleated RBC 0 10^3/ul; Eosinophil % 3.9 % (0-6); Hematocrit 28 % (42-52); Hemoglobin 9.6 g/dl (14.0-18.0); Lymphocyte % 17.2 % (25-47); Mean Corpuscular HGB Conc 34 g/dl (31-36); Mean Corpuscular Hemoglobin 31 pg (27-31); Mean Corpuscular Volume 92 fL (80-94); Mean Platelet Volume 7.9 um3 (7.4-10.4); Nucleated Red Blood Cells % 0; Platelet Count 297 10^3/ul (150-450); Red Cell Distribution Width 14 % (10.5-15); White Blood Count 5.6 10^3/ul (3.5-10.8)
[2017-09-19] MEDS: NS 0.9% 1000 ML* 1,000 ML IV SCH (12:46)
--- NOTE | 2017-09-19 16:56 | DS ---
CC: DIANN Shankar; Dr. Mayen; Dr. Nicole; Dr. Vigil; Dr. Perkins; Dr. Guerrero* DISCHARGE SUMMARY: DATE OF ADMISSION: 09/15/17 DATE OF DISCHARGE: To home, 09/19/17 PRIMARY CARE PROVIDER: DIANN Shankar DISCHARGE DIAGNOSES: 1. Syncope and seizure-like activity. It could to be 1 time seizure precipitated by the use of ceftriaxone as well as sleeping pills. 2. Rhabdomyolysis due to above. 3. Transient episode of atrial flutter with a small sinus pause. The patient is to follow up with Dr. Vigil from Cardiology for assessment for court recording monitor. 4. History of autonomic dysfunction and orthostatic hypotension. Most of the patient's antihypertensive medications were discontinued as per recommendation by Dr. Vigil and Dr. Guerrero. Coreg was the only 1 that was left at discharge. 5. Chronic left heel osteomyelitis with VAC dressing in place. His antibiotics were changed from ceftriaxone to Levaquin as per Dr. Mayen's recommendations during the patient's hospital stay. SECONDARY DIAGNOSES: 1. Chronic left heel osteomyelitis, status post I and D during the patient's previous hospital stay as well as peripheral arterial disease, status post PTCA performed by Dr. Starkey on 09/08/17. The revascularization was performed on occluded left superficial femoral artery as well as atherectomy and balloon angioplasty. Balloon angioplasty was also performed on the left posterior tibial artery and proximal portion of the left lateral plantar artery. 2. The patient's VAC dressing was placed by Dr. Nicole after debridement on 09/03/17. 3. History of coronary artery disease, status post PTCA in July 2017. 4. Hypertension. 5. History of chronic obstructive pulmonary disease, not oxygen-dependent. 6. Diabetes, insulin-dependent. 7. Hyperlipidemia. 8. Peripheral neuropathy due to diabetes. 9. History of, as mentioned above, left calcaneus chronic osteomyelitis, on chronic IV antibiotics. CONSULTATIONS DURING THE HOSPITAL STAY: Included: 1. Dr. Nicole from Orthopedic Surgery. 2. Dr. Perkins from Neurology. 3. Dr. Mayen, Infectious Diseases. MEDICATIONS AT DISCHARGE: Include: 1. Aspirin 81 mg daily. 2. Lipitor 80 mg daily. 3. Magnesium oxide 500 mg daily. 4. Zoloft 100 mg daily. 5. Brilinta 90 mg b.i.d. 6. Acetaminophen on a p.r.n. basis. 7. Coreg 3.125 mg b.i.d. 8. Insulin Lantus 25 units subcutaneously twice a day. 9. Lactobacillus 1 capsule b.i.d. 10. Levofloxacin 500 mg IV q.24 hours for a total of 26 days to complete a total of 6 weeks treatment of IV antibiotics. 11. Metronidazole 500 mg every 12 hours for a total of 26 days. 12. Oxycodone 5 mg every 8 hours p.r.n. LABORATORY DATA AND STUDIES PERFORMED DURING THE HOSPITAL STAY: Included on 12/27, white blood cell count of 5.6, hemoglobin of 9.6, hematocrit of 28, and platelets of 297. Sodium was 187, potassium 4.2, chloride 107, carbon dioxide 25, BUN 13, creatinine 0.75. The patient's glucose levels had been elevated in the 300s and his insulin Lantus was increased from 20 to 25 units b.i.d. at discharge. Microbiology tests showed blood venous cultures negative. Wound culture from left foot obtained on 09/03/17, showed Staphylococcus epidermidis. EEG obtained on 09/16/17. Impression: "This is an abnormal awake and drowsy EEG due to slow posterior dominant rhythm, low voltage of diffuse slowing. There was some retained organization reactivity. These findings are suggestive of a mild nonspecific encephalopathy. There were no epileptiform discharges. Clinical correlation is recommended." Transthoracic echocardiogram obtained on 09/15/17 showed EF of 55% to 60% with increased basal septal hypertrophy without evidence of increased LVOT. There was focal wall motion abnormality present, base of the inferior wall hypokinetic. There was a trace aortic regurgitation. There was trace mitral regurgitation and mild tricuspid regurgitation. CT of abdomen and pelvis obtained on 09/15/17. Impression: "Bilateral urolithiasis without evidence of presence of ureteral stone or obstructive uropathy. Severe acquired central canal stenosis at L3-L4." HOSPITALIZATION COURSE: Juan R Chopra is a 61-year-old male, who has history of multiple recent hospitalizations for left calcaneal osteomyelitis. Last, the patient was discharged on 09/09/17, on ceftriaxone for his calcaneal osteomyelitis. The patient also had VAC dressing in place at this point. During his previous hospitalization, he underwent revascularization by Dr. Starkey and Dr. Nicole performed debridement of the left calcaneus bone. On 09/15/17, the patient was found down with seizure-like activity. He was confused afterwards. He had acute urinary retention. There was a question of the patient receiving his ceftriaxone twice a day instead of once a day by mistake. The patient apparently had Unisom as a sleeping pill prior to the episode. The patient was noted to have rhabdomyolysis with a CPK of 11,000 at admission. He had acute kidney injury with creatinine of 1.2 at admission, which resolved. The patient is to follow up with the results as mentioned. He was seen by Neurology and EEG was performed that showed no epileptiform abnormality. Nevertheless, there was a question if the patient had a seizure due to double dose of ceftriaxone in combination with his sleeping medication. Due to that, Dr. Mayen saw the patient in consultation and recommended switching the patient to Levaquin. Dr. Nicole saw the patient in consultation and VAC dressings were changed during his hospital stay. Furthermore, during the patient's hospital stay, Dr. Vigil and Dr. Guerrero were contacted and the case was discussed with Cardiology. The patient had a brief episode of atrial flutter with sinus pause. The patient also was noted to have history of autonomic dysfunction and orthostatic hypotension. Due to that, all of his medications for high blood pressure were discontinued apart from Coreg that was supposed to be continued. At discharge, the patient is recommended to follow up with Dr. Vigil with a scheduled appointment to discuss cardiac monitoring. By discharge, the patient's CPKs were down to 300s. The patient's urinary retention resolved and his [place] was discontinued the day prior to discharge. He feels well and he is ready to go home. His last VAC dressing was changed on 09/17/17, and he is scheduled to have VAC dressing changes every 3 days with VNS. The patient also will continue IV Levaquin as an outpatient by daily infusions that are going to be facilitated by [facility]. PLAN FOR FOLLOWUP AT DISCHARGE: Includes: 1. Follow up with his primary care provider in approximately 4 to 7 days. 2. Follow up with Dr. Nicole from Orthopedic Surgery in 10 to 14 days. 3. Follow up with Dr. Vigil on 09/23/17, at 01:20 p.m. 4. Follow up with Dr. Mayen in 12 to 14 days. [facility] is going to see the patient on 09/20/17. His VAC dressing is supposed to be changed every 3 days and his last change was 09/17/17. PHYSICAL EXAMINATION: At the time of discharge, blood pressure of 158/73, heart rate of 95 and regular, respiratory rate 20, oxygen saturation 100% on room air, temperature of 98.9. General: The patient is a very pleasant 61-year -old male who is in no acute distress. Alert, awake, and oriented x3. HEENT: Head: Atraumatic, normocephalic. Eyes: Pupils are equal, reactive to light and accommodation. Oropharynx is clear. Mucosa moist. Neck: Supple. No JVD. No bruits bilaterally. Cardiovascular: Regular rate and rhythm. No murmur. Respiratory: Clear to auscultation bilaterally. Abdomen: Soft, nontender. Bowel sounds are present in all 4 quadrants. Lower extremities: There is no edema. Pulses are +2 bilaterally. No clubbing or cyanosis. Left foot is status post TMA with well-healed stump. Left calcaneus has a VAC dressing in place that was not detached for evaluation. There was no evidence of cellulitis on the surrounding skin area. Neuro Evaluation: Speech is clear. Cranial nerves II through XII are grossly intact. Motor strength is 5/ 5 bilaterally. Please note that this is a short summary of the patient's hospitalization. Please refer to further medical records for details. TIME SPENT: Approximately 45 minutes was spent on the patient's discharge. [id number] #: [id number] MTDD
== END 2017-09-19 16:07 | disposition home or self-care (01) | DRG 558 ==
LOC: ED 09:33 → MED 13:34
PROVIDERS: ADMIT Hospitalist; ATTEND Internal Medicine
DX: M62.82 Rhabdomyolysis (principal); N17.9 Acute kidney failure, unspecified; I48.92 Unspecified atrial flutter; M86.672 Other chronic osteomyelitis, left ankle and foot; L97.426 Non-pressure chronic ulcer of left heel and midfoot with bone involvement without evidence of necrosis; J98.11 Atelectasis; I45.2 Bifascicular block; E11.69 Type 2 diabetes mellitus with other specified complication; E11.42 Type 2 diabetes mellitus with diabetic polyneuropathy; R56.9 Unspecified convulsions; E11.621 Type 2 diabetes mellitus with foot ulcer; I11.9 Hypertensive heart disease without heart failure; I95.1 Orthostatic hypotension; G47.00 Insomnia, unspecified; F45.8 Other somatoform disorders; I25.10 Atherosclerotic heart disease of native coronary artery without angina pectoris; R55 Syncope and collapse; J44.9 Chronic obstructive pulmonary disease, unspecified; E78.5 Hyperlipidemia, unspecified; R33.9 Retention of urine, unspecified; M48.061 Spinal stenosis, lumbar region without neurogenic claudication; F17.290 Nicotine dependence, other tobacco product, uncomplicated; D72.829 Elevated white blood cell count, unspecified; I25.2 Old myocardial infarction; Z98.61 Coronary angioplasty status; Z79.4 Long term (current) use of insulin; Z95.1 Presence of aortocoronary bypass graft; Z79.1 Long term (current) use of non-steroidal anti-inflammatories (NSAID); Z79.82 Long term (current) use of aspirin; Z79.891 Long term (current) use of opiate analgesic; Z79.899 Other long term (current) drug therapy; Z88.1 Allergy status to other antibiotic agents; Z88.0 Allergy status to penicillin; Z82.49 Family history of ischemic heart disease and other diseases of the circulatory system; Z83.3 Family history of diabetes mellitus; Z82.3 Family history of stroke
CPT/HCPCS: 36415; 70450; 71045; 74176; 80048; 80053; 80202; 80307; 80320; 80329; 81003; 81015; 82140; 82550; 83605; 83735; 84443; 84484; 85025; 86703; 86706; 86803; 87040; 87086; 87340; 93005; 93306; 93922; 94640; 94762; 95819; 99284; A9270; A9270-GY; G0480; G8978-GP-CK; G8979-GP-CI; J0696; J1644; J1956; J3370; J3475

== ENCOUNTER 2017-10-27 21:29 | Emergency (ER) | payer MEDICARE ==
--- OUTSIDE RECORDS SUMMARY | 2017-10-27 21:45 | XMS REPORT ---
:1955 External Reference #:[id number] Author Organization [employer] Address [address] [place] [address] [place] [address] Phone [phone] Care Team Providers Name Role Phone Soraya Westfall PA Primary Care Physician Unavailable Payers Type Date Identification Numbers Payment Provider Subscriber Health Maintenance Policy Number: Medicare Blue Ppo Viky Barrera Organization (O) [id number] PayID: [id number] [address] [address] [place] [address] Problems Date Description Provider Status Onset: 01/28/2016 Coronary artery bypass graft Jaime Vigil DO [facility] Active Onset: 08/04/2017 Acute renal failure syndrome Billy Currie M.D. Active Onset: 08/04/2017 Acute subendocardial infarction Billy Currie M.D. Active Onset: 08/04/2017 Type 2 diabetes mellitus Billy Currie M.D. Active Onset: 08/04/2017 Acquired absence of other right Billy Currie M.D. Active toe(s) Onset: 08/04/2017 Acquired absence of other left Billy Currie M.D. Active toe(s) Onset: 08/04/2017 Essential hypertension Billy Currie M.D. Active Onset: 08/26/2017 Atherosclerosis of arteries of the Osmin Starkey M.D. 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 Active Onset: 08/30/2017 Peripheral vascular disease Brina Payan N.P. Active Onset: 08/30/2017 Type 2 diabetes w diabetic Brina Payan N.P. Active peripheral angiopath w/o gangrene Onset: 09/03/2017 Acute osteomyelitis of ankle Wil Nicole MD Active and/or foot Onset: 09/17/2017 Rhabdomyolysis Harper Arthur NP Active Onset: 09/17/2017 Retention of urine Harper Arthur NP Active Onset: 09/17/2017 Syncope and collapse Harper Arthur NP Active Onset: 09/18/2017 Ulcer of heel Harper Arthur NP Active Onset: 09/19/2017 Type 2 diabetes mellitus with Yamilex Bey M.D. Active diabetic neuropathy, unsp Onset: 09/15/2017 Type 2 diabetes w diabetic Lambert Garcia N.P. Active peripheral angiopathy w gangrene Onset: 09/16/2017 Chronic obstructive lung disease Harper Arthur NP Active Family History Date Family Member(s) Problem(s) [...] Vapor cigarettes uses daily as of 04/20/17 is now at 0 calista Daily Caffeine Consumes on average 2 sodas diet pepsi per day Exercise Type/Frequency Does not exercise Allergies, Adverse Reactions, Alerts Date Description Reaction Status Severity Comments 11/21/2015 Penicillins active 11/21/2015 Zosyn active Medications Medication Date Status Form Strength Qnty SIG Indications Ordering Provider Levofloxacin 10/13 Active Tablets 500mg 14tab 1 by mouth M86.672 s every day Oral Davis M.D. Lantus 04/09 Active Solution 100Unit/M take 20-25 Jaime S. /2017 L units at night Vigil, as directed DO [facility] Aspirin 10/15 Active Tablets 81mg 1 by mouth Jaime S. /2016 every day Vigil, DO [facility] Sertraline HCL 03/12 Active Tablets 100mg 1 by mouth Unknown every day Atorvastatin 01/27 Active Tablets 80mg 90tab 1 by mouth E78.5 Jaime S. Calcium s every day Vigil, DO [facility] Carvedilol 01/27 Active Tablets 3.125mg 180ta 1 by mouth Jaime S. /2015 bs twice a day Vigil, DO [facility] Metformin HCL Active Tablets 500mg 1 by mouth Unknown twice a day Magnesium Oxide Active Tablets 500mg take 1 tablet by mouth once daily Timolol Maleate Active Solution 0.25% 1 drop both Unknown / eyes twice a day Brimonidine Active Solution 0.2% 1 gtt both Unknown Tartrate /0000 eyes once daily Glipizide Active Tablets 5mg 1 tablets by Unknown mouth twice per day Brilinta Active Tablets 90mg 180ta 1 tab by mouth Jaime S. / bs twice a day Vigil, DO [facility] Ibu Active Tablets 600mg take one tablet by mouth three times a day as needed Clindamycin HCL 08/28 Hx Capsules 300mg 1 tabs by mouth 3 times - a day x 14 Levaquin 08/28 Hx Tablets 750mg 1 tab by mouth daily for 14 - days 09/09 Amlodipine 08/26 Hx Tablets 2.5mg 30tab 1 by mouth Jaime S. Besylate /2017 s every day Vigil, - DO [facility] 09/22 Clopidogrel 08/26 Hx Tablets 75mg 180ta 75 mg by mouth I70.262 Osmin Bird /2017 bs daily to be Jaky, - started one M.D. 08/31 week before arteriography with Dr. Starkey. Amlodipine 10/15 Hx Tablets 2.5mg 90tab 1 by mouth Jaime S. Besylate /2016 s every day Musa, - DO [facility] 04/20 Aspirin Ec 01/09 Hx Tablets 325mg 100ta 1 by mouth Jaime S. /2015 DR bs every day Musa - DO [facility] 10/15 Lisinopril 00/00 Hx Tablets 30mg 1 by mouth Unknown /0000 every day - 12/28 Carvedilol 00/00 Hx Tablets 6.25mg 1 by mouth Unknown /0000 twice a day - 01/27 Sertraline HCL 00/00 Hx Tablets 50mg 1 by mouth Unknown /0000 every day - 04/08 Erythromycin / Hx Caps DR 250mg 1 capsule by Unknown Base /0000 Part mouth 2 times - daily 10/14 Lantus 00/ Hx 26 units @ hs Unknown /0000 or as directed - 10/13 Humalog 00/00 Hx sliding scale Unknown /0000 - 12/28 Vitamin B 00/00 Hx Tablets 1 by mouth Unknown Complex /0000 every day - 12/18 Vitamin B-12 00/00 Hx Tablets 1000mcg 1 by mouth Unknown /0000 every day - 04/08 Novolog Flexpen 00/00 Hx Solution 100Unit/M sliding scale Unknown /0000 Pen-Injec L - t 10/13 Amlodipine 00/00 Hx Tablets 10mg 1 by mouth Unknown Besylate /0000 every day - 10/15 Vitamin B12 00/00 Hx one gummy Unknown /0000 daily - 04/09 Lisinopril 00/00 Hx Tablets 5mg 1 by mouth Unknown /0000 every day - 08/11 Lisinopril 00/00 Hx Tablets 5mg 1 by mouth Unknown /0000 every day - 08/24 Ceftriaxone 00/00 Hx Solution 1gm iv every day Unknown Sodium /0000 Rec through - 09/15 Vancomycin HCL 00/00 Hx Solution 1250mg iv every 12 Unknown /0000 Rec hours through - 09/15 Metronidazole 00/00 Hx Tablets 500mg one tablet by Unknown /0000 mouth 2 times - daily 10/26 Levaquin 00/00 Hx Solution 500mg 500mg IV once Unknown /0000 daily x 25 - days through 10/14 Medications Administered in Office Medication Date Status Form Strength Qnty SIG Indications Ordering Provider Inj, Administered Injection Jaime Martínezadenchela, Noris Vigil DO 0.1 MG FACC Technetium TC 12/29/2 Administered Injection Jaime Stevenson 016 DO Musa Tetrofosmin, FACC Per Unit Dose Up To 40 Millicuries Vital Signs Date Vital Result Comment 10/27/2017 Height 70 inches 5'10" Weight 179.00 lb Heart Rate 76 /min BP Systolic Sitting 108 mmHg Lue reg cuff BP Diastolic Sitting 68 mmHg Lue reg cuff Body Temperature 97.8 F Pain Level 0 BMI (Body Mass Index) 25.7 kg/m2 10/14/2017 Height 70 inches 5'10" Weight 179.00 lb Heart Rate 78 /min BP Systolic Sitting 114 mmHg BP Diastolic Sitting 66 mmHg Respiratory Rate 16 /min BMI (Body Mass Index) 25.7 kg/m2 10/13/2017 Height 70 inches 5'10" Weight 179.38 lb Heart Rate 92 /min BP Systolic Sitting 128 mmHg BP Diastolic Sitting 70 mmHg Respiratory Rate 14 /min Body Temperature 96.6 F BMI (Body Mass Index) 25.7 kg/m2 10/07/2017 Height 70 inches 5'10" Weight 178.00 lb Heart Rate 64 /min Respiratory Rate 20 /min Body Temperature 95.6 F Pain Level 0 BMI (Body Mass Index) 25.5 kg/m2 09/23/2017 Height 70 inches 5'10" Weight 178.00 lb Heart Rate 78 /min BP Systolic Sitting 140 mmHg lue reg cuff BP Diastolic Sitting 90 mmHg lue reg cuff BP Systolic Standing 130 mmHg BP Diastolic Standing 80 mmHg Respiratory Rate 18 /min BMI (Body Mass Index) 25.5 kg/m2 08/26/2017 Height 70 inches 5'10" Weight 184.00 lb w/ shoes Heart Rate 92 /min BP Systolic Sitting 122 mmHg lue lg cuff BP Diastolic Sitting 72 mmHg lue lg cuff BMI (Body Mass Index) 26.4 kg/m2 Ejection Fraction 55% echo 02/01/16 08/11/2017 Height 70 inches 5'10" Weight 185.00 [...] Test Date Test Result H/L Range Note CBC Auto Diff 10/05/2017 White Blood Count 6.8 10^3/uL 3.5-10.8 Red Blood Count 3.65 10^6/uL Low 4.00-5.40 Hemoglobin 11.3 g/dL Low 14.0-18.0 Hematocrit 34 % Low 42-52 Mean Corpuscular Volume 92 fL 80-94 Mean Corpuscular Hemoglobin 31 pg 27-31 Mean Corpuscular HGB Conc 34 g/dL 31-36 Red Cell Distribution Width 15 % 10.5-15 Platelet Count 260 10^3/uL 150-450 Mean Platelet Volume 8.4 um3 7.4-10.4 Abs Neutrophils 4.3 10^3/uL 1.5-7.7 Abs Lymphocytes 1.4 10^3/uL 1.0-4.8 Abs Monocytes 0.8 10^3/uL 0-0.8 Abs Eosinophils 0.2 10^3/uL 0-0.6 Abs Basophils 0.1 10^3/uL 0-0.2 Abs Nucleated RBC 0 10^3/uL Granulocyte % 63.1 % 38-83 Lymphocyte % 20.9 % Low 25-47 Monocyte % 11.1 % High 0-7 Eosinophil % 3.6 % 0-6 Basophil % 1.3 % 0-2 Nucleated Red Blood Cells % 0.1 Comp Metabolic Panel 10/05/2017 Sodium 140 mmol/L 135-145 Potassium 4.4 mmol/L 3.5-5.0 Chloride 108 mmol/L 101-111 Co2 Carbon Dioxide 25 mmol/L 22-32 Anion Gap 7 mmol/L 2-11 Glucose 83 mg/dL 70-100 Blood Urea Nitrogen 19 mg/dL 6-24 Creatinine 0.81 mg/dL 0.67-1.17 BUN/Creatinine Ratio 23.5 High 8-20 Calcium 9.0 mg/dL 8.6-10.3 Total Protein 5.7 g/dL Low 6.4-8.9 Albumin 3.5 g/dL 3.2-5.2 Globulin 2.2 g/dL 2-4 Albumin/Globulin Ratio 1.6 1-3 Total Bilirubin 0.50 mg/dL 0.2-1.0 Alkaline Phosphatase 56 U/L 34-104 Alt 17 U/L 7-52 Ast 16 U/L 13-39 Egfr Non- 97.5 >60 Egfr 118.0 >60 1 Laboratory test finding 10/05/2017 Prealbumin 16 mg/dL Low 18-38 C Reactive Protein 3.44 mg/L <8.01 Laboratory test finding 09/28/2017 Creatine Kinase(CK) 47 U/L 10-223 CBC Auto Diff 09/28/2017 White Blood Count 7.5 10^3/uL 3.5-10.8 Red Blood Count 3.71 10^6/uL Low 4.00-5.40 Hemoglobin 11.6 g/dL Low 14.0-18.0 Hematocrit 35 % Low 42-52 Mean Corpuscular Volume 93 fL 80-94 Mean Corpuscular Hemoglobin 31 pg 27-31 Mean Corpuscular HGB Conc 33 g/dL 31-36 Red Cell Distribution Width 16 % High 10.5-15 Platelet Count 318 10^3/uL 150-450 Mean Platelet Volume 8.5 um3 7.4-10.4 Abs Neutrophils 4.9 10^3/uL 1.5-7.7 Abs Lymphocytes 1.4 10^3/uL 1.0-4.8 Abs Monocytes 0.7 10^3/uL 0-0.8 Abs Eosinophils 0.3 10^3/uL 0-0.6 Abs Basophils 0.2 10^3/uL 0-0.2 Abs Nucleated RBC 0 10^3/uL Granulocyte % 65.9 % 38-83 Lymphocyte % 18.1 % Low 25-47 Monocyte % 9.3 % High 0-7 Eosinophil % 4.6 % 0-6 Basophil % 2.1 % High 0-2 Nucleated Red Blood Cells % 0 Comp Metabolic Panel 09/28/2017 Sodium 138 mmol/L 135-145 Potassium 4.6 mmol/L 3.5-5.0 Chloride 105 mmol/L 101-111 Co2 Carbon Dioxide 26 mmol/L 22-32 Anion Gap 7 mmol/L 2-11 Glucose 158 mg/dL High 70-100 Blood Urea Nitrogen 21 mg/dL 6-24 Creatinine 0.95 mg/dL 0.67-1.17 BUN/Creatinine Ratio 22.1 High 8-20 Calcium 8.8 mg/dL 8.6-10.3 Total Protein 6.3 g/dL Low 6.4-8.9 Albumin 3.7 g/dL 3.2-5.2 Globulin 2.6 g/dL 2-4 Albumin/Globulin Ratio 1.4 1-3 Total Bilirubin 0.60 mg/dL 0.2-1.0 Alkaline Phosphatase 65 U/L 34-104 Alt 24 U/L 7-52 Ast 21 U/L 13-39 Egfr Non- 81.1 >60 Egfr 98.2 >60 2 Laboratory test finding 09/28/2017 C Reactive Protein 3.47 mg/L <8.01 Laboratory test finding 09/23/2017 Creatine Kinase(CK) <pending> CBC Auto Diff 09/21/2017 White Blood Count 7.3 10^3/uL 3.5-10.8 Red Blood Count 3.22 10^6/uL Low 4.00-5.40 Hemoglobin 10.0 g/dL Low 14.0-18.0 Hematocrit 30 % Low 42-52 Mean Corpuscular Volume 93 fL 80-94 Mean Corpuscular Hemoglobin 31 pg 27-31 Mean Corpuscular HGB Conc 33 g/dL 31-36 Red Cell Distribution Width 15 % 10.5-15 Platelet Count 329 10^3/uL 150-450 Mean Platelet Volume 8.6 um3 7.4-10.4 Abs Neutrophils 4.9 10^3/uL 1.5-7.7 Abs Lymphocytes 1.2 10^3/uL 1.0-4.8 Abs Monocytes 0.8 10^3/uL 0-0.8 Abs Eosinophils 0.3 10^3/uL 0-0.6 Abs Basophils 0.1 10^3/uL 0-0.2 Abs Nucleated RBC 0 10^3/uL Granulocyte % 67.2 % 38-83 Lymphocyte % 16.5 % Low 25-47 Monocyte % 10.8 % High 0-7 Eosinophil % 4.3 % 0-6 Basophil % 1.2 % 0-2 Nucleated Red Blood Cells % 0 Comp Metabolic Panel 09/21/2017 Sodium 135 mmol/L 135-145 Potassium 4.6 mmol/L 3.5-5.0 Chloride 104 mmol/L 101-111 Co2 Carbon Dioxide 20 mmol/L Low 22-32 Anion Gap 11 mmol/L 2-11 Calcium 8.5 mg/dL Low 8.6-10.3 Albumin 3.3 g/dL 3.2-5.2 Total Bilirubin 0.60 mg/dL 0.2-1.0 Glucose 348 mg/dL High 70-100 Blood Urea Nitrogen 23 mg/dL 6-24 Creatinine 0.98 mg/dL 0.67-1.17 BUN/Creatinine Ratio 23.5 High 8-20 Total Protein 5.5 g/dL Low 6.4-8.9 Globulin 2.2 g/dL 2-4 Albumin/Globulin Ratio 1.5 1-3 Alkaline Phosphatase 57 U/L 34-104 Alt 34 U/L 7-52 Ast 28 U/L 13-39 Egfr Non- 78.3 >60 Egfr 94.7 >60 3 Laboratory test finding 09/21/2017 C Reactive Protein 4.44 mg/L <8.01 CBC Auto Diff 09/14/2017 White Blood Count 7.8 10^3/uL 3.5-10.8 4 Red Blood Count 2.94 10^6/uL Low 4.00-5.40 4 Hemoglobin 9.1 g/dL Low 14.0-18.0 4 Hematocrit 27 % Low 42-52 4 Mean Corpuscular Volume 93 fL 80-94 4 Mean Corpuscular Hemoglobin 31 pg 27-31 4 Mean Corpuscular HGB Conc 33 g/dL 31-36 4 Red Cell Distribution Width 14 % 10.5-15 4 Platelet Count 272 10^3/uL 150-450 4 Mean Platelet Volume 8.7 um3 7.4-10.4 4 Abs Neutrophils 5.8 10^3/uL 1.5-7.7 4 Abs Lymphocytes 0.8 10^3/uL Low 1.0-4.8 4 Abs Monocytes 0.6 10^3/uL 0-0.8 4 Abs Eosinophils 0.4 10^3/uL 0-0.6 4 Abs Basophils 0.1 10^3/uL 0-0.2 4 Abs Nucleated RBC 0 10^3/uL 4 Granulocyte % 74.5 % 38-83 4 Lymphocyte % 10.8 % Low 25-47 4 Monocyte % 8.1 % High 0-7 4 Eosinophil % 4.8 % 0-6 4 Basophil % 1.8 % 0-2 4 Nucleated Red Blood Cells % 0.2 4 Comp Metabolic Panel 09/14/2017 Sodium 140 mmol/L 135-145 4 Potassium 4.1 mmol/L 3.5-5.0 4 Chloride 103 mmol/L 101-111 4 Co2 Carbon Dioxide 24 mmol/L 22-32 4 Anion Gap 13 mmol/L High 2-11 4 Glucose 175 mg/dL High 70-100 4 Blood Urea Nitrogen 12 mg/dL 6-24 4 Creatinine 0.81 mg/dL 0.67-1.17 4 BUN/Creatinine Ratio 14.8 8-20 4 Calcium 8.6 mg/dL 8.6-10.3 4 Total Protein 5.7 g/dL Low 6.4-8.9 4 Albumin 3.3 g/dL 3.2-5.2 4 Globulin 2.4 g/dL 2-4 4 Albumin/Globulin Ratio 1.4 1-3 4 Total Bilirubin 0.40 mg/dL 0.2-1.0 4 Alkaline Phosphatase 55 U/L 34-104 4 Alt 22 U/L 7-52 4 Ast 20 U/L 13-39 4 Egfr Non- 97.5 >60 4 Egfr 118.0 >60 4, 5 Laboratory test finding 09/14/2017 Vancomycin Trough 25.1 g/mL 4, 6 C Reactive Protein 2.59 mg/L <8.01 4, 7 Laboratory test 08/28/2017 Tissue Culture & SEE RESULT BELOW 8, 9 finding Sensitiv Laboratory test 01/01/2016 Erythrocyte Sed Rate 23 mm/Hr High 0-20 finding Hemoglobin A1c (Glyco HGB) 6.5 % High Less than 6.0 10 CBC Auto Diff 01/01/2016 White Blood Count [...] Cells % 0 Laboratory test finding 01/01/2016 Magnesium 1.6 mg/dL Low 1.9-2.7 Amylase 51 U/L 29-103 Lipase 55 U/L 11.0-82.0 TSH (Thyroid Stim Horm) 2.45 mcIU/mL 0.34-5.60 Vitamin B12 383 pg/mL 180-914 11 Vitamin D Total 25(Oh) 36.3 ng/mL 30-50 Comp Metabolic Panel 01/01/2016 Sodium 138 mmol/L [...] Egfr Non- 102.2 >60 Egfr 131.5 >60 12 1 Because ethnic data is not always [...] 5 Kidney failure <15 (or dialysis) 2 Because ethnic data is not always readily [...] 15-29 5 Kidney failure <15 (or dialysis) 3 Because ethnic data is not always readily [...] 15-29 5 Kidney failure <15 (or dialysis) 4 [id number] 5 Because ethnic data is not always readily [...] 15-29 5 Kidney failure <15 (or dialysis) 6 [id number] LATERAL ASPECT OF HEEL WOUND 9 SEE RESULT BELOW Name: VIKY BARRERA : [address]: Raquel Rivas NP Acct: [id number] Unit: [id number] AGE: 61 Location: WOUND Re08/28/17 SEX: M Status: REG REF SPEC: [id number] LEIGHANN: 08/28/17-1440 [facility] DR: Raquel Rivas NP REQ: [id number] RECD: 08/28/17 STATUS: IRA LOCKE DR: Jaime Perea MD _ SOURCE: TISSUE SPDESC: ORDERED: Tissue Cult/GS COMMENTS: LATERAL ASPECT OF HEEL WOUND Procedure Result Reported Site Tissue Gram Stain Final 08/29/17- 803 ML No Neutrophils Observed 1+ Epithelial Cells No Organisms Seen Preparation By Direct Smear Tissue Culture Final 09/01/17- 935 ML Organism 1 PASTEURELLA CANIS Quantity 2+ Organism 2 PEPTOSTREPTOCOCCUS ANAEROBIUS Quantity 2+ WITH ADDTIONAL MIXED KIRSTIN; NO FURTHER WORKUP. Anaerobic sensitivities are not routinely performed. Positive isolates will be saved for one week. Please call the Microbiology Laboratory if susceptibility testing is needed. * [facility] - Main Lab . END OF REPORT DEPARTMENT OF PATHOLOGY, [address] [place] [address] Edd Herndon M.D. Director [facility] # [id number] 10 Therapeutic target for the treatment of diabetes Mellitus patients is <7% HBA1C, and in selective patients <6.0%.Please refer to [place] [employer] Diabetic care guidelines for further information. 11 Normal Range 180 to 914 Indeterminate Range 145 to 180 Deficient Range <145 12 Because ethnic data is not always readily [...] 15-29 5 Kidney failure <15 (or dialysis) Procedures Date CPT Code Description Status 10/07/2017 90787 Negative Pressure Wound Therapy Less Than 50 Square CM Completed 10/02/2017 46398 Removal Devitalization Tissue Wound Less Than Equal 20 Completed Square CM 09/23/2017 33472 EKG Tracing & Interpretation Completed 09/16/2017 69838 EEG Recording Awake & Drowsy Completed 09/16/2017 94112 ECHO Transthorasic Realtime 2D W Doppler & Color Flow Completed Hosp 09/08/2017 19801 Moderate Sedation Services; Same Phys Each Additional Completed 15 Mins 09/08/2017 42859 Moderate Sedation Services; Same Phys Intl 15 Mins; PT Completed >=5 Years 09/08/2017 74987 Ultrasound Guidance For Vascular Access Completed 09/08/2017 55161 Gneje-Uihpmcpsb-Thbnqzjjpu Completed 09/08/2017 88163 Revascularization,Endovascular W/Transluminal Completed Angioplasty 09/08/2017 93208 Revascularization,Endovascular W/Atherectomy, Inc Completed Angioplasty 09/03/2017 68377 Debridement Tissue/Muscle/Bone Completed 09/03/2017 49521 Debridement Tissue/Muscle/Bone Completed 09/03/2017 46088 Debridement,Bone,Epidermis/Dermis/Tissue/Muscle, Addtl Completed 20 SQ CM 09/03/2017 07527 Debridement,Bone,Epidermis/Dermis/Tissue/Muscle, Addtl Completed 20 SQ CM 09/03/2017 03694 Excise Biopsy Bone Deep Completed 09/03/2017 58695 Excise Biopsy Bone Deep Completed 09/03/2017 67366 Negative Pressure Wound Therapy Less Than 50 Square CM Completed 09/03/2017 76908 Negative Pressure Wound Therapy Less Than 50 Square CM Completed 08/28/2017 57778 Debridement Skin,& sq Tissue Completed 08/04/2017 93426 Coronary Angiography With Catheter Placement In Bpyass Completed Grafts 08/04/2017 73944 Revascularization Acute Total/Subtotal Occlusion Completed 04/20/2017 78695 EKG Tracing & Interpretation Completed 12/03/2016 Colonoscopy Completed 10/15/2016 99972 EKG Tracing & Interpretation Completed 03/13/2016 27009 Cardiac Event Monitor Completed 03/13/2016 79851 Mobile Cardiovascular Telemetry Over 24 HR Up To 30 Completed Days 02/07/2016 62825 Stress Test Completed 02/07/2016 42123 Myocardial Perfusion Imaging Tomographic (Spect) Completed Multiple Studies 02/01/2016 77859 ECHO Transthoracic, Real-Time 2D With Doppler And Color Completed Flow 01/28/2016 07670 EKG Tracing & Interpretation Completed 04/04/2014 28891 EKG, Interpretation Only Completed Encounters Type Date Location Provider CPT E/M Dx Office Visit 10/13/2017 [facility] Fam Mixon 52483 E11.621 11:10a Infectious Diseases Dasia Davis M86.672 Z79.2 E11.69 Office Visit 10/02/2017 1:30p [facility] Raquel Rivas DNP, [address] E11.621 AT [facility] RN, SOLID SURFACE FABRICATOR-BC J44.9 F17.211 Office Visit 09/23/2017 1:40p [facility] [place] [address] M62.82 [facility] I25.2 I73.9 I25.10 Z95.1 I45.3 E11.43 F17.201 R55 E11.8 Office Visit 09/19/2017 11:33a [facility] Dione Treadwell, 26658 L97.429 Of Yoav GOLDSTEIN Office Visit 09/19/2017 11:16a [facility] Yamilex Bey, 60612 M62.82 Assoc,toshia Rodriguez M.D. L97.429 E11.621 E11.51 M86.172 E11.40 N17.9 I73.9 Office Visit 09/18/2017 11:16a [facility] Harper Newton 11230 L97.429 Assoc, Hospitalists JEEVAN Arthur E11.51 I73.9 R55 R33.8 E11.621 Office Visit 09/17/2017 10:19a Orthopedic Services Of DIANN Yeager 40429 L97.529 Yoav Office Visit 09/17/2017 9:42a [facility] Fam Mixon 67403 M79.1 Infectious Diseases Dasia Davis M86.672 L89.620 Office Visit 09/17/2017 11:15a [facility] Assradha, Harper Aman 70903 R55 Hospitalists JEEVAN Arthur M62.82 E11.51 I73.9 R33.8 Office Visit 09/16/2017 9:41a [facility] Leonard Davis, 45563 R55 Infectious Diseases M.Oral T36.1x1A M86.672 E10.9 Office Visit 09/16/2017 11:15a [facility] Assoc,[facility] [address] E11.51 Hospitalists JEEVAN Arthur L97.429 M62.82 I73.9 R55 J44.9 Z79.4 R33.8 Office Visit 09/16/2017 11:32a [facility] Of Ally Hodgson, 79535 L97.429 C.M.A. PA Office Visit 09/16/2017 7:00a [facility] [address] R55 M62.82 Office Visit 09/15/2017 11:14a [facility], 57374 M62.82 Assoc, Hospitalists N.P. E11.40 I73.9 E11.52 E11.621 Office Visit 09/15/2017 11:32a [facility] Of DIANN Yeager 49439 L97.429 C.M.A. Office Visit 09/09/2017 10:57a [facility] Assoc, Ashley Rodrigez, 95711 E11.621 Hospitalists DRianORian L97.329 I73.9 E11.51 I10 E11.69 Office Visit 09/08/2017 10:56a [facility] 10946 E11.621 Assoc, Hospitalists JEEVAN Arthur L97.329 I73.9 E11.51 I10 Office Visit 09/07/2017 9:13a [facility] Leonard Davis, 67904 E11.69 Infectious Diseases MFabiana M86.172 E11.52 Z89.422 Office Visit 09/07/2017 10:56a [facility] 50313 E11.621 Assoc,pc Hospitalists JEEVAN Arthur L97.329 I73.9 E11.51 I10 Office Visit 09/06/2017 10:55a [facility] Assoc, [place] [address] E11.621 Hospitalists L97.329 I73.9 E11.51 I10 Office Visit 09/05/2017 10:54a [facility], [place] [address] E11.621 Hospitalists L97.329 I73.9 E11.51 I10 Office Visit 09/04/2017 10:54a [facility] 68543 E11.621 Assoc, Hospitalists JEEVAN Arthur L97.329 I73.9 E11.51 I10 Office Visit 09/03/2017 10:52a [facility] 84809 E11.621 Assoc, Hospitalists JEEVAN Arthur L97.329 I10 Office Visit 09/03/2017 8:59a [facility] Leonard Davis, 70090 E11.52 Infectious Diseases M.DRian E11.69 M86.172 L03.116 Office Visit 09/02/2017 10:51a [facility] 25968 E11.621 Assoc, Hospitalists JEEVAN Arthur L97.329 I10 Office Visit 09/02/2017 8:46a [facility] Vascular Medicine Osmin Starkey, 49592 E11.51 Of Clothing Manager Dasia Office Visit 09/02/2017 3:15p [facility] [address] E11.621 C.M.A. M86.172 Office Visit 09/01/2017 10:49a [facility], Brina Payan N.Leilani 25709 L97.329 Hospitalists E11.621 I73.9 E11.51 I10 Office Visit 09/01/2017 8:50a [facility] Leonard Davis, 24988 E11.52 Infectious Diseases M.DRian E11.40 L03.116 Office Visit 09/01/2017 10:35a [facility] Of Maria Victoria Gill M.D. 33335 E11.51 C.M.ARian L97.421 I73.9 Office Visit 08/30/2017 11:42a [facility], Vivian Bone.P. 46113 E11.621 Hospitalists L97.329 Z89.421 Z89.422 Z79.4 I73.9 E11.51 Office Visit 08/29/2017 3:14p [facility] [place] [address] E11.621 C.M.A. L97.329 Office Visit 08/29/2017 11:41a [facility] Assoc,pc Sofy Chang, 78355 E11.621 Hospitalists DO L97.329 I25.10 Office Visit 08/28/2017 11:41a [facility] Gwen Merida, 13347 E11.621 Assoc, Hospitalists CREPING MACHINE OPERATOR L97.329 N17.9 Z89.421 Z89.422 Office Visit 08/26/2017 1:15p [facility] Vascular Medicine Osmin Starkey, 31005 I70.262 Of [facility] M.Oral Office Visit 08/25/2017 9:00a [facility] AT [facility] [address] L97.429 [facility] M.Oral E11.621 Z79.4 I10 Z79.01 Office Visit 08/11/2017 10:00a [facility] [place] [address] I25.2 [facility] I73.9 I25.10 Z95.1 I45.3 E11.69 E11.43 E78.5 F17.201 R55 E11.621 Office Visit 08/05/2017 8:58a [facility], Billy Currie, 76333 I21.4 Hospitalists MFabiana E11.9 I10 Office Visit 08/05/2017 3:50p [facility] Of Brissa Art, 72955 I21.4 Clothing Manager AT [facility] ALBINA BORREGO, FSCAI I25.10 Z95.1 I45.3 Office Visit 08/04/2017 8:58a [facility], Billy Currie, 87857 N17.9 Hospitalists MFabiana I21.4 E11.9 Z89.421 Z89.422 I10 J44.9 Office Visit 08/04/2017 11:50a [facility] Brissa Art, 33479 I21.4 [facility] AT [facility] [facility] ALBINA BORREGO, FSCAI I45.3 Z95.1 I25.10 Office Visit 08/03/2017 8:57a [facility], Billy Currie, 02261 I21.4 Hospitalists MFabiana E11.9 N17.9 Office Visit 04/20/2017 2:40p [place] [address] E11.43 [facility] FACC I25.10 F17.201 I10 E78.5 R55 Office Visit 10/15/2016 2:40p [place] [address] I25.10 [facility] FACC R55 I10 F17.201 E11.8 Office Visit 04/09/2016 4:00p [place] [address] I25.10 [facility] FACC R55 E13.43 I25.2 E78.5 I10 F17.201 E11.8 Office Visit 01/28/2016 3:00p [place] [address] I25.2 [facility] FACC E78.5 R94.31 R55 I10 I42.9 Z72.0 Office Visit 11/21/2015 2:00p [facility] Wu Mata M.D. 84130 M17.11 C.M.A. Office Visit 04/04/2014 7:51a [facility],pc Ashlie Bobby, 11374 785.4 Hospitalists PA v13.59 v49.71 Office Visit 04/04/2014 10:11a [facility],pc Jace Roblero M.D. 79161 780.2 Hospitalists 414.00 250.00 401.9 Plan of Care Future Appointment(s):11/20/2017 10:45 am - Wil Nicole MD at [facility] C.M.A.11/10/2017 10:50 am - Leonard Davis M.D. at [facility] For Infectious Mkbhqivc18/18/2018 - Wil Nicole, MDM86.672 Other chronic osteomyelitis, left ankle and footFollow up:3 weeks (preferably on a Wed )Z47.89 Encounter for other orthopedic aftercare
--- OUTSIDE RECORDS SUMMARY | 2017-10-27 21:46 | XMS REPORT ---
:1955 External Reference #:[id number] Author Organization [facility] Address [address] [place] [address] [place] [address] Phone [phone] Care Team Providers Name Role Phone Soraya Westfall PA Primary Care Physician Unavailable Payers Type Date Identification Numbers Payment Provider Subscriber Health Maintenance Policy Number: Medicare Blue Ppo Viky Barrera Organization (O) [id number] PayID: [id number] [address] [address] [place] [address] Problems Date Description Provider Status Onset: 01/28/2016 Coronary artery bypass graft Jaime Vigil DO [facility] Active Onset: 08/04/2017 Acute renal failure [...] Active Onset: 08/29/2017 [facility] [place] Sofy Chang DO Active coronary artery w/o [...] M.D. Lantus 04/09 Active Solution 100Unit/M take 12 units Jaime S. L at night Vigil, DO [facility] Aspirin 10/15 Active Tablets 81mg 1 by mouth Jaime S. every day Vigil, DO [facility] Sertraline HCL 03/12 Active Tablets 100mg 1 by mouth every day Atorvastatin 01/27 Active Tablets 80mg 90tab 1 by mouth E78.5 Jaime S. Calcium s every day Vigil, DO [facility] Carvedilol 01/27 Active Tablets 3.125mg 180ta 1 by mouth Jaime S. /2015 bs twice a day Vigil, DO [facility] Metformin HCL Active Tablets 1000mg 1 by mouth Unknown twice a day Magnesium Oxide Active Tablets 500mg take 1 tablet Unknown by mouth once daily Timolol Maleate Active Solution 0.25% 1 drop both Unknown /0000 eyes twice a day Brimonidine Active Solution 0.2% 1 gtt both Unknown Tartrate /0000 eyes once daily Glipizide Active Tablets 5mg 1 tablets by Unknown / mouth twice per day Brilinta Active Tablets 90mg 180ta 1 tab by mouth Jaime S. / bs twice a day Vigil, DO [facility] Ibu Active Tablets 600mg take one tablet by mouth three times a day as needed Metronidazole Active Tablets 500mg one tablet by Unknown mouth 3 times daily x 26 days Levaquin Active Solution 500mg 500mg IV once daily x 25 days through [facility] Clindamycin HCL 08/28 Hx Capsules 300mg 1 tabs by mouth 3 times - a day x 14 Levaquin 08/28 Hx Tablets 750mg 1 tab by mouth daily for 14 - days 09/09 Amlodipine 08/26 Hx Tablets 2.5mg 30tab 1 by mouth Jaime Mkcee Besylate s every day Musa, - DO FACC 09/22 Clopidogrel 08/26 Hx Tablets 75mg 180ta 75 mg by mouth I70.262 Osmin Palomoate bs daily to be Jaky, - started one M.D. 08/31 week before arteriography with Dr. Starkey. Amlodipine 10/15 Hx Tablets 2.5mg 90tab 1 by mouth Jaime Hayes s every day Musa, - DO FACC 04/20 Aspirin Ec 01/09 Hx Tablets 325mg 100ta 1 by mouth Jaime Mckee /2015 DR hendricks every day Musa, - DO FACC 10/15 Lisinopril 0000 Hx Tablets 30mg 1 by mouth Unknown /0000 every day - 12/28 Carvedilol Hx Tablets 6.25mg 1 by mouth Unknown /0000 twice a day - 01/27 Sertraline HCL Hx Tablets 50mg 1 by mouth Unknown /0000 every day - 04/[address] 250mg 1 capsule by Unknown Base /0000 Part mouth 2 times - daily 10/14 Lantus Hx 26 units @ hs Unknown /0000 or as directed - 10/13 Humalog 00/00 Hx sliding scale Unknown /0000 - 12/28 Vitamin B 00/00 Hx Tablets 1 by mouth Unknown Complex /0000 every day - 12/18 Vitamin B-12 Hx Tablets 1000mcg 1 by mouth Unknown /0000 every day - 04/08 Novolog Flexpen 00/00 Hx Solution 100Unit/M sliding scale Unknown /0000 Pen-Injec L - t 10/13 Amlodipine 0000 Hx Tablets 10mg 1 by mouth Unknown [...] every day Unknown Sodium /0000 Rec through [facility] - 09/15 Vancomycin HCL 00/00 Hx Solution 1250mg iv every 12 Unknown /0000 Rec hours through - [facility] 09/15 Medications Administered in Office Medication Date Status Form Strength Qnty SIG Indications Ordering Provider Inj, Administered Injection Jaime Mckee Regadenoson, 016 DO Musa 0.1 MG FACC Technetium TC Administered Injection Jaime Mckee 99M 016 DO Musa Tetrofosmin, FACC Per Unit Dose Up To 40 Millicuries Vital Signs Date Vital Result Comment 10/13/2017 Height 70 inches 5'10" Weight 179.38 [...] 09/21/2017 C Reactive Protein 4.44 mg/L <8.01 Laboratory test finding 09/14/2017 Vancomycin Trough 25.1 g/mL 4, 5 C Reactive Protein 2.59 mg/L <8.01 4, 6 Comp Metabolic Panel 09/14/2017 Sodium 140 mmol/L [...] 97.5 >60 4 Egfr 118.0 >60 4, 7 CBC Auto Diff 09/14/2017 White Blood Count [...] Nucleated Red Blood Cells % 0.2 4 Laboratory test 08/28/2017 Tissue Culture & SEE [...] 5 Kidney failure <15 (or dialysis) 4 [id number] 5 [id number] 6 [id number] 7 Because ethnic data is not always readily [...] 15-29 5 Kidney failure <15 (or dialysis) 8 LATERAL ASPECT OF HEEL WOUND 9 SEE RESULT BELOW Name: VIKY BARRERA DOB: [address]: Raquel Rivas [address] MENDER Acct: [id number] Unit: [id number] AGE: 61 Location: WOUND Re08/28/17 SEX: M Status: REG REF SPEC: [id number] LEIGHANN: 08/28/17-[address] [facility] [address]: Raquel Rivas NP REQ: [id number] RECD: 08/28/17 STATUS: IRA LOCKE DR: Jaime Perea MD _ SOURCE: TISSUE SPDESC: ORDERED: Tissue Cult/GS COMMENTS: LATERAL ASPECT OF HEEL WOUND Procedure Result Reported Site Tissue Gram Stain Final 08/29/17- 08 ML No Neutrophils Observed 1+ Epithelial Cells No Organisms Seen Preparation By Direct Smear Tissue Culture Final 09/01/17- 0936 ML Organism 1 PASTEURELLA CANIS Quantity 2+ Organism 2 PEPTOSTREPTOCOCCUS ANAEROBIUS Quantity 2+ WITH ADDTIONAL MIXED KIRSTIN; NO FURTHER WORKUP. Anaerobic sensitivities are not routinely performed. Positive isolates will be saved for one week. Please call the Microbiology Laboratory if susceptibility testing is needed. * ML - Main Lab . END OF REPORT DEPARTMENT OF PATHOLOGY, [address] [place] [address] Edd Herndon M.D. Director [facility] # [id number] 10 Therapeutic target for the treatment of diabetes Mellitus patients is <7% HBA1C, and in selective patients <6.0%.Please refer to [place] [employer] Diabetic care guidelines for further [...] Procedures Date CPT Code Description Status 10/07/2017 79684 Negative Pressure Wound Therapy Less Than 50 Square CM Completed 10/02/2017 47854 Removal Devitalization Tissue Wound Less Than Equal 20 Completed Square CM 09/23/2017 64982 EKG Tracing & Interpretation Completed 09/16/2017 61925 EEG Recording Awake & Drowsy Completed 09/16/2017 53928 ECHO Transthorasic Realtime 2D W Doppler & Color Flow Completed Hosp 09/08/2017 37059 Moderate Sedation Services; Same Phys Each Additional Completed 15 Mins 09/08/2017 89188 Moderate Sedation Services; Same Phys Intl 15 Mins; PT Completed >=5 Years 09/08/2017 71191 Ultrasound Guidance For Vascular Access Completed 09/08/2017 98450 Wthli-Pulxpmiio-Yzisurgveu Completed 09/08/2017 42454 Revascularization,Endovascular W/Transluminal Completed Angioplasty 09/08/2017 41554 Revascularization,Endovascular W/Atherectomy, Inc Completed Angioplasty 09/03/2017 07107 Debridement Tissue/Muscle/Bone Completed 09/03/2017 15571 Debridement Tissue/Muscle/Bone Completed 09/03/2017 41751 Debridement,Bone,Epidermis/Dermis/Tissue/Muscle, Addtl Completed 20 SQ CM 09/03/2017 96999 Debridement,Bone,Epidermis/Dermis/Tissue/Muscle, Addtl Completed 20 SQ CM 09/03/2017 74877 Excise Biopsy Bone Deep Completed 09/03/2017 71371 Excise Biopsy Bone Deep Completed 09/03/2017 22209 Negative Pressure Wound Therapy Less Than 50 Square CM Completed 09/03/2017 71467 Negative Pressure Wound Therapy Less Than 50 Square CM Completed 08/28/2017 29886 Debridement Skin,& sq Tissue Completed 08/04/2017 24441 Coronary Angiography With Catheter Placement In Bpyass Completed Grafts 08/04/2017 78228 Revascularization Acute Total/Subtotal Occlusion Completed 04/20/2017 53917 EKG Tracing & Interpretation Completed 12/03/2016 Colonoscopy Completed 10/15/2016 36978 EKG Tracing & Interpretation Completed 03/13/2016 60579 Cardiac Event Monitor Completed 03/13/2016 94282 Mobile Cardiovascular Telemetry Over 24 HR Up To 30 Completed Days 02/07/2016 40783 Stress Test Completed 02/07/2016 27526 Myocardial Perfusion Imaging Tomographic (Spect) Completed Multiple Studies 02/01/2016 42994 ECHO Transthoracic, Real-Time 2D With Doppler And Color Completed Flow 01/28/2016 32350 EKG Tracing & Interpretation Completed 04/04/2014 47584 EKG, Interpretation Only Completed Encounters Type Date Location Provider CPT E/M Dx Office Visit 10/13/2017 [facility] Fam Mixon 58992 E11.621 11:10a Infectious Diseases Dasia Davis M86.672 Z79.2 Office Visit 10/02/2017 1:30p [facility] Raquel Rivas DNP, 86436 E11.621 AT [facility] RN, 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 Yamilex Bey, 39050 M62.82 Assoc, Hospitalists Dasia L97.429 E11.621 E11.51 M86.172 E11.40 N17.9 I73.9 Office Visit 09/18/2017 11:16a [facility] 68972 L97.429 Assoc, Hospitalists JEEVAN Arthur E11.51 I73.9 R55 R33.8 E11.621 Office Visit 09/17/2017 10:19a [facility] Of DIANN Yeager 85288 L97.529 Yoav Office Visit 09/17/2017 9:42a [facility] Fam Mixon 38220 M79.1 Infectious Diseases Dasia Davis M86.672 L89.620 Office Visit 09/17/2017 11[facility] 8[address] R55 Hospitalists JEEVAN Arthur M62.82 E11.51 I73.9 R33.8 Office Visit 09/16/2017 9:41a [facility] Fam Davis 38250 R55 Infectious Marley Forman T36.1x1A M86.672 E10.9 Office Visit 09/16/2017 11:15a [facility] 95234 E11.51 Hospitalists JEEVAN Arthur L97.429 M62.82 I73.9 R55 J44.9 Z79.4 R33.8 Office Visit 09/16/2017 11:32a [facility] Ally Hodgson 57374 L97.429 C.M.A. [place] Office Visit 09/16/2017 7:00a [facility] [address] R55 M62.82 Office Visit 09/15/2017 11:14a [facility] 13744 M62.82 Assoc,pc Hospitalists N.P. E11.40 I73.9 E11.52 E11.621 Office Visit 09/15/2017 11:32a [facility] DIANN Yeager 60096 L97.429 C.M.A. Office Visit 09/09/2017 10:57a [facility] Assoc,pc Ashley Rodrigez, 05100 E11.621 Hospitalists D.ORian L97.329 I73.9 E11.51 I10 E11.69 Office Visit 09/08/2017 10:56a [facility] 69445 E11.621 Assoc,pc Hospitalists JEEVAN Arthur L97.329 I73.9 E11.51 I10 Office Visit 09/07/2017 9:13a [facility] Leonard Davis, 50836 E11.69 Infectious Diseases M.DRian M86.172 E11.52 Z89.422 Office Visit 09/07/2017 10:56a [facility] 20377 E11.621 Assoc, Hospitalists JEEVAN Arthur L97.329 I73.9 E11.51 I10 Office Visit 09/06/2017 10:55a [facility] Assoc,[place] [address] E11.621 Hospitalists L97.329 I73.9 E11.51 I10 Office Visit 09/05/2017 10:54a [facility]oc,[place] [address] E11.621 Hospitalists L97.329 I73.9 E11.51 I10 Office Visit 09/04/2017 10:54a [facility] 77610 E11.621 Assoc,pc Hospitalists JEEVAN Arthur L97.329 I73.9 E11.51 I10 Office Visit 09/03/2017 10:52a [facility] 88180 E11.621 Assoc, Hospitalists JEEVAN Arthur L97.329 I10 Office Visit 09/03/2017 8:59a [facility] Leonard Davis, 20563 E11.52 Infectious Diseases M.D. E11.69 M86.172 L03.116 Office Visit 09/02/2017 10:51a [facility] 60296 E11.621 Assoc,pc Hospitalists JEEVAN Arthur L97.329 I10 Office Visit 09/02/2017 8:46a [facility] Vascular Medicine Osmin Starkey, 66552 E11.51 Of Naima Forman Office Visit 09/02/2017 3:15p [facility] [address] E11.621 C.M.A. M86.172 Office Visit 09/01/2017 10:49a [facility] Brina Payan, N.P. 38092 L97.329 Hospitalists E11.621 I73.9 E11.51 I10 Office Visit 09/01/2017 8:50a [facility] Leonard Davis, 75544 E11.52 Infectious Diseases M.DRian E11.40 L03.116 Office Visit 09/01/2017 10:35a [facility] Maria Victoria Gill M.D. 18018 E11.51 C.M.A. L97.421 I73.9 Office Visit 08/30/2017 11:42a [facility] Brina Payan N.P. 28948 E11.621 Hospitalists L97.329 Z89.421 Z89.422 Z79.4 I73.9 E11.51 Office Visit 08/29/2017 3:14p [facility] [place] [address] E11.621 C.M.A. L97.329 Office Visit 08/29/2017 11:41a [facility]oc, Sofy Chang, 48719 E11.621 Hospitalists DO L97.329 I25.10 Office Visit 08/28/2017 11:41a [facility] Gwen Merida, 36655 E11.621 Assoc,pc Hospitalists ROAD MENDER L97.329 N17.9 Z89.421 Z89.422 Office Visit 08/26/2017 1:15p [facility] Osmin Starkey, 50684 I70.262 Of Mophead Sewer M.D. Office Visit 08/25/2017 9:00a [facility] AT Garfield Barrosoer, 05010 L97.429 [facility] M.D. E11.621 Z79.4 I10 Z79.01 Office Visit 08/11/2017 10:00a [facility] [place] [address] I25.2 [facility] FACC I73.9 I25.10 Z95.1 I45.3 E11.69 E11.43 E78.5 F17.201 R55 E11.621 Office Visit 08/05/2017 8:58a [facility], 11231 I21.4 Hospitalists MFabiana E11.9 I10 Office Visit 08/05/2017 3:50p [facility] Brissa Art, 86317 I21.4 [place] Sewer AT [facility] ALBINA BORREGO, FSCAI I25.10 Z95.1 I45.3 Office Visit 08/04/2017 8:58a [facility], 18148 N17.9 Hospitalists Dasia I21.4 E11.9 Z89.421 Z89.422 I10 J44.9 Office Visit 08/04/2017 11:50a [facility] Brissa Art, 60184 I21.4 [place] Sewer AT [facility] ALBINA BORREGO, FSCAI I45.3 Z95.1 I25.10 Office Visit 08/03/2017 8:57a [facility], 36394 I21.4 Hospitalists Dasia E11.9 N17.9 Office Visit 04/20/2017 2:40p [facility] [place] [place] [address] E11.43 [facility] FACC I25.10 F17.201 I10 E78.5 R55 Office Visit 10/15/2016 2:40p [facility] [place] [address] I25.10 [facility] FACC R55 I10 F17.201 E11.8 Office Visit 04/09/2016 4:00p [facility] [place] [place] [address] I25.10 [facility] FACC R55 E13.43 I25.2 E78.5 I10 F17.201 E11.8 Office Visit 01/28/2016 3:00p [facility] [place] [address] I25.2 [facility] E78.5 R94.31 R55 I10 I42.9 Z72.0 Office Visit 11/21/2015 2:00p [facility] Wu Mata M.D. 98834 M17.11 C.M.A. Office Visit 04/04/2014 7:51a [facility] Ass,pc Ashlie Bobby, 07800 785.4 Hospitalists PA v13.59 v49.71 Office Visit 04/04/2014 10:11a [facility],pc Jace Roblero M.D. 18227 780.2 Hospitalists 414.00 250.00 401.9 Plan of Care Future Appointment(s):11/10/2017 10:50 am - Leonard Davis M.D. at [facility] For Infectious Mfahlxqt86/18/2018 10:00 am - Wil Nicole MD at [facility] Of C.M.A.10/14/2017 8:15 am - Osmin Starkey M.D. 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
--- OUTSIDE RECORDS SUMMARY | 2017-10-27 21:46 | XMS REPORT ---
:1955 External Reference #:[id number] Author Organization [facility] Address [address] [place] [address] [place] [address] Phone [phone] Care Team Providers Name Role Phone Soraya Westfall PA Primary Care Physician Unavailable Payers Type Date Identification Numbers Payment Provider Subscriber Health Maintenance Policy Number: Medicare Blue Ppo Viky Chopra Organization (O) [id number] PayID: [id number] [address] [address] [place] [address] Problems Date Description Provider Status Onset: 01/28/2016 Coronary artery bypass graft Jaime Vigil DO [facility] Active Onset: 08/04/2017 Acute renal failure syndrome [...] Active Onset: 08/29/2017 Athscl heart disease of [place] Sofy Chang DO Active coronary artery w/o [...] units at night Vigil, as directed DO [facility] Aspirin 10/15 Active Tablets 81mg 1 by mouth Jaime S. /2016 every day Vigil, DO [facility] Sertraline HCL 03/12 Active Tablets 100mg 1 by mouth every day Atorvastatin 01/27 Active Tablets 80mg 90tab 1 by mouth E78.5 Jaime S. Calcium s every day Vigil, DO [facility] Carvedilol 01/27 Active Tablets 3.125mg 180ta 1 by mouth Jaime S. /2015 bs twice a day Vigil, DO [facility] Metformin HCL Active Tablets 500mg 1 by [...] 180ta 1 tab by mouth Jaime S. bs twice a day Vigil, DO [facility] Ibu Active Tablets 600mg take one tablet by mouth three times a day as needed Metronidazole Active Tablets 500mg one tablet by Unknown / mouth 2 times daily Clindamycin HCL 08/28 Hx Capsules 300mg 1 tabs by mouth 3 times - a day x 14 Levaquin 08/28 Hx Tablets 750mg 1 tab by mouth daily for 14 - days 09/09 Amlodipine 08/26 Hx Tablets 2.5mg 30tab 1 by mouth Jaime S. Besylate s every day Vigil, - DO [facility] 09/22 Clopidogrel 08/26 Hx Tablets 75mg 180ta 75 mg by mouth I70.262 Osmin Palomoate /2017 bs daily to be Jaky, - started one M.D. 08/31 week before arteriography with Dr. Starkey. Amlodipine 10/15 Hx Tablets 2.5mg 90tab 1 by mouth Jaime S. Besylate /2016 s every day Vigil, - [facility]20 Aspirin Ec 01/09 Hx Tablets 325mg 100ta 1 by mouth Jaime Mckee /2015 DR hendricks every day Musa - DO FACC 10/15 Lisinopril 0000 Hx [...] /0000 Rec hours through - [facility] 09/15 Levaquin 0000 Hx Solution 500mg 500mg IV once Unknown /0000 daily x 25 - days through 10/14 Medications Administered in Office Medication Date Status Form Strength Qnty SIG Indications Ordering Provider Inj, Administered Injection Jaime Mckee Regadenoson, Noris Vigil DO 0.1 MG FACC Technetium TC Administered Injection Jaime S. 99M 016 DO Musa Tetrofosmin, FACC Per Unit Dose Up To 40 Millicuries Vital Signs Date Vital Result Comment 10/14/2017 Height 70 inches 5'10" Weight 179.00 [...] 5 Kidney failure <15 (or dialysis) 4 [id number] 5 Because ethnic data is not always [...] 5 Kidney failure <15 (or dialysis) 6 [id number] 7 [id number] 8 LATERAL ASPECT OF HEEL WOUND 9 SEE RESULT BELOW Name: HOLLYVIKY Ren : [address]: Raquel Rivas NP Acct: [id number] Unit: [id number] AGE: 61 Location: WOUND Re08/28/17 SEX: M Status: REG REF SPEC: [id number] LEIGHANN: 08/28/[address] [facility] DR: Raquel Rivas NP REQ: [id number] RECD: 08/28/17 STATUS: IRA LOCKE DR: Jaime [...] . END OF REPORT DEPARTMENT OF PATHOLOGY, [address] [place] [address] Edd Herndon M.D. Director [facility] # [id number] 10 Therapeutic target for the treatment of diabetes Mellitus patients is <7% HBA1C, and in selective patients <6.0%.Please refer to [place] [employer] Diabetic care guidelines for further [...] Procedures Date CPT Code Description Status 10/07/2017 55562 Negative Pressure Wound Therapy Less Than 50 Square CM Completed 10/02/2017 91675 Removal Devitalization Tissue Wound Less Than Equal 20 Completed Square CM 09/23/2017 05678 EKG Tracing & Interpretation Completed 09/16/2017 81038 EEG Recording Awake & Drowsy Completed 09/16/2017 20936 ECHO Transthorasic Realtime 2D W Doppler & Color Flow Completed Hosp 09/08/2017 87869 Moderate Sedation Services; Same Phys Each Additional Completed 15 Mins 09/08/2017 52029 Moderate Sedation Services; Same Phys Intl 15 Mins; PT Completed >=5 Years 09/08/2017 68722 Ultrasound Guidance For Vascular Access Completed 09/08/2017 04233 Vbauo-Bhotizfds-Uafwhgvsdb Completed 09/08/2017 53164 Revascularization,Endovascular W/Transluminal Completed Angioplasty 09/08/2017 38531 Revascularization,Endovascular W/Atherectomy, Inc Completed Angioplasty 09/03/2017 88819 Debridement Tissue/Muscle/Bone Completed 09/03/2017 41631 Debridement Tissue/Muscle/Bone Completed 09/03/2017 82797 Debridement,Bone,Epidermis/Dermis/Tissue/Muscle, Addtl Completed 20 SQ CM 09/03/2017 40435 Debridement,Bone,Epidermis/Dermis/Tissue/Muscle, Addtl Completed 20 SQ CM 09/03/2017 68232 Excise Biopsy Bone Deep Completed 09/03/2017 16660 Excise Biopsy Bone Deep Completed 09/03/2017 35154 Negative Pressure Wound Therapy Less Than 50 Square CM Completed 09/03/2017 63325 Negative Pressure Wound Therapy Less Than 50 Square CM Completed 08/28/2017 25137 Debridement Skin,& sq Tissue Completed 08/04/2017 43111 Coronary Angiography With Catheter Placement In Bpyass Completed Grafts 08/04/2017 83121 Revascularization Acute Total/Subtotal Occlusion Completed 04/20/2017 86429 EKG Tracing & Interpretation Completed 12/03/2016 Colonoscopy Completed 10/15/2016 30238 EKG Tracing & Interpretation Completed 03/13/2016 89014 Cardiac Event Monitor Completed 03/13/2016 54325 Mobile Cardiovascular Telemetry Over 24 HR Up To 30 Completed Days 02/07/2016 82391 Stress Test Completed 02/07/2016 13233 Myocardial Perfusion Imaging Tomographic (Spect) Completed Multiple Studies 02/01/2016 50016 ECHO Transthoracic, Real-Time 2D With Doppler And Color Completed Flow 01/28/2016 21087 EKG Tracing & Interpretation Completed 04/04/2014 27518 EKG, Interpretation Only Completed Encounters Type Date Location Provider CPT E/M Dx Office Visit 10/02/2017 [facility] Raquel Rivas, 40753 E11.621 1:30p [facility] DNP, RN, [facility]- J44.9 F17.211 Office Visit 09/23/2017 1:40p [facility] [place] [address] [facility] I25.2 I73.9 I25.10 Z95.1 I45.3 E11.43 F17.201 R55 E11.8 Office Visit 09/19/2017 11:33a [facility] Dione Treadwell, 88181 L97.429 Of Yoav GOLDSTEIN Office Visit 09/19/2017 11:16a [facility] Yamilex Bey, 82979 M62.82 Assoc, Hospitalists Dasia L97.429 E11.621 E11.51 M86.172 E11.40 N17.9 I73.9 Office Visit 09/18/2017 11:16a [facility] 04841 L97.429 Assoc, Hospitalists JEEVAN Arthur E11.51 I73.9 R55 R33.8 E11.621 Office Visit 09/17/2017 10:19a [facility] Of DIANN Yeager 50002 L97.529 Yoav Office Visit 09/17/2017 9:42a [facility] Fam Mixon 53044 M79.1 Infectious Diseases Dasia Davis M86.672 L89.620 Office Visit 09/17/2017 [facility] 43999 R55 Hospitalists JEEVAN Arthur M62.82 E11.51 I73.9 R33.8 Office Visit 09/16/2017 9:41a [facility] Fam Davis 03564 R5Michelle Roach M.D. T36.1x1A M86.672 E10.9 Office Visit 09/16/2017 11:15a [facility] ,[facility] 44819 E11.51 Hospitalists JEEVAN Arthur L97.429 M62.82 I73.9 R55 J44.9 Z79.4 R33.8 Office Visit 09/16/2017 11:32a [facility] Ally Gokul, 91919 L97.429 [facility] [place] Office Visit 09/16/2017 7:00a [facility] [address] R55 M62.82 Office Visit 09/15/2017 11:14a [facility] Lambert Garcia, 65012 M62.82 Assoc,pc Hospitalists N.P. E11.40 I73.9 E11.52 E11.621 Office Visit 09/15/2017 11:32a [facility] Of DIANN Yeager 26284 L97.429 C.M.A. Office Visit 09/09/2017 10:57a [facility] Assoc,pc Ashley Rodrigez, 64491 E11.621 Hospitalists D.ORian L97.329 I73.9 E11.51 I10 E11.69 Office Visit 09/08/2017 10:56a [facility] 60934 E11.621 Assoc,pc Hospitalists JEEVAN Arthur L97.329 I73.9 E11.51 I10 Office Visit 09/07/2017 10:56a [facility] 53695 E11.621 Assoc,pc Hospitalists JEEVAN Arthur L97.329 I73.9 E11.51 I10 Office Visit 09/07/2017 9:13a [facility] Leonard Davis, 23007 E11.69 Infectious Diseases MFabiana M86.172 E11.52 Z89.422 Office Visit 09/06/2017 10:55a [facility] Assoc,[place] [address] E11.621 Hospitalists L97.329 I73.9 E11.51 I10 Office Visit 09/05/2017 10:54a [facility] [place]oc,[place] [address] E11.621 Hospitalists L97.329 I73.9 E11.51 I10 Office Visit 09/04/2017 10:54a [facility] 98572 E11.621 Assoc, Hospitalists JEEVAN Arthur L97.329 I73.9 E11.51 I10 Office Visit 09/03/2017 8:59a [facility] Leonard Davis, 12402 E11.52 Infectious Diseases M.DRian E11.69 M86.172 L03.116 Office Visit 09/03/2017 10:52a [facility] 91737 E11.621 Assoc,pc Hospitalists JEEVAN Arthur L97.329 I10 Office Visit 09/02/2017 10:51a [facility] 96071 E11.621 Assoc,pc Hospitalists JEEVAN Arthur L97.329 I10 Office Visit 09/02/2017 8:46a [facility] Osmin Starkey, 41423 E11.51 Of Naima Forman Office Visit 09/02/2017 3:15p [facility] [place] [address] E11.621 C.M.A. M86.172 Office Visit 09/01/2017 10:49a [facility] Assoc, Brina Payan, N.P. 86123 L97.329 Hospitalists E11.621 I73.9 E11.51 I10 Office Visit 09/01/2017 8:50a [facility] Leonard Davis, 79491 E11.52 Infectious Diseases M.DRian E11.40 L03.116 Office Visit 09/01/2017 10:35a [facility] Of Maria Victoria Gill M.D. 52092 E11.51 C.M.A. L97.421 I73.9 Office Visit 08/30/2017 11:42a [facility] Assoc, Brina Payan, N.P. 51452 E11.621 Hospitalists L97.329 Z89.421 Z89.422 Z79.4 I73.9 E11.51 Office Visit 08/29/2017 3:14p [facility] [place] [address] E11.621 C.M.A. 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 E11.621 Z79.4 I10 Z79.01 Office Visit 08/11/2017 10:00a [facility] [place] [address] 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 [facility] , [place], FSCAI I25.10 Z95.1 I45.3 Office Visit 08/05/2017 8:58a [facility], 29097 I21.4 Hospitalists M.Oral E11.9 I10 Office Visit 08/04/2017 8:58a [facility], 25740 N17.9 Hospitalists MFabiana I21.4 E11.9 Z89.421 Z89.422 I10 J44.9 Office Visit 08/04/2017 11:50a [facility] Of Brissa Art, 74856 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 [address] [facility] I25.10 F17.201 I10 E78.5 R55 Office Visit 10/15/2016 2:40p [facility] [place] [address] [facility] R55 I10 F17.201 E11.8 Office Visit 04/09/2016 4:00p [facility] [place] [place] [address] I25.10 [facility] FAC R55 E13.43 I25.2 E78.5 I10 F17.201 E11.8 Office Visit 01/28/2016 3:00p [facility] [place] [address] [facility] E78.5 R94.31 R55 I10 I42.9 Z72.0 Office Visit 11/21/2015 2:00p [facility] Of Wu Mata M.D. 20384 M17.11 C.M.A. Office Visit 04/04/2014 7:51a [facility],pc Ashlie Bobby, 82349 785.4 Hospitalists [place] v13.59 v49.71 Office Visit 04/04/2014 10:11a [facility],pc Jace Roblero M.D. 73413 780.2 Hospitalists 414.00 250.00 401.9 Plan of Care Future Appointment(s):11/10/2017 10:50 am - Leonard Davis M.D. at [facility] For [facility]ious Etbfjzgs32/18/2018 10:00 am - Wil Nicole MD at [facility] Of C.M.A.10/14/2017 - Osmin Starkey M.D.I70.262 Athscl [place] arteries of extremities w gangrene, left legComments:The following was discussed with Mr. Chopra and his at the time of clinic follow-up:So far clinical improvement of the wound, physical examination as well as today's MIKE indicates that the arteriesremain open. I am optimistic he will continue to experience wound healing as long as the left lowerextremity arteries remain patent.Follow up:Routine 3 month follow-up early January preferably on the same day as MIKE.Recommendations:The patient is taking aspirin 81 mg and Brilinta 90 mg twice a day for cardiac issues and will continue to do so for the foreseeable future.
--- OUTSIDE RECORDS SUMMARY | 2017-10-27 21:47 | XMS REPORT ---
:1955 External Reference #:[id number] Author Organization [facility] Address [address] [place] [address] [place] [address] Phone [phone] Care Team Providers Name Role Phone Soraya Westfall PA Primary Care Physician Unavailable Payers Type Date Identification Numbers Payment Provider Subscriber Health Maintenance Policy Number: Medicare Blue Ppo Viky Barrera Organization (O) [id number] PayID: [id number] [address] [address] [place] [address] Problems Date Description Provider Status Onset: 01/28/2016 Coronary artery bypass graft Jaime Vigil DO MERGED WITH [facility] Active Onset: 08/04/2017 Acute renal failure [...] Active Onset: 08/29/2017 Athscl heart disease of [place] Sofy Chang DO Active coronary artery w/o [...] Form Strength Qnty SIG Indications Ordering Provider Jose Carlosus 04/09 Active Solution 100Unit/M take 12 units L at night Musa, DO ALBINA Aspirin 10/15 Active Tablets 81mg 1 by mouth . every day Vigil, DO FACC Sertraline HCL 03/12 Active Tablets 100mg 1 by mouth every day Atorvastatin 01/27 Active Tablets 80mg 90tab 1 by mouth E78.5 Jaime S. Calcium s every day Vigil, DO MERGED WITH [facility] Carvedilol 01/27 Active Tablets 3.125mg 180ta 1 by mouth Jaime S. bs twice a day Vigil, DO MERGED WITH [facility] Metformin HCL Active Tablets 1000mg 1 by mouth twice a day Magnesium Oxide Active Tablets 500mg take 1 tablet by mouth once daily Timolol Maleate Active Solution 0.25% 1 drop both Unknown eyes twice a day Brimonidine Active Solution 0.2% 1 gtt both Unknown Tartrate eyes once daily Glipizide Active Tablets 5mg 1 tablets by Unknown mouth twice per day Brilinta Active Tablets 90mg 180ta 1 tab by mouth Jaime S. bs twice a day Musa, MERGED WITH [facility] Ibu Active Tablets 600mg take one tablet by mouth three times a day as needed Metronidazole Active Tablets 500mg one tablet by mouth 3 times daily x 26 days Levaquin Active Solution 500mg 500mg IV once daily x 26 days through Michele Clindamycin HCL 08/28 Hx Capsules 300mg 1 tabs by mouth 3 times - a day x 14 Levaquin 08/28 Hx Tablets 750mg 1 tab by mouth daily for 14 - days 09/09 Amlodipine 08/26 Hx Tablets 2.5mg 30tab 1 by mouth Jaime SRian Besylate /2017 s every day Musa, - DO [facility]GED WITH [facility] 09/22 Clopidogrel 08/26 Hx Tablets 75mg 180ta 75 mg by mouth I70.262 Osmin Palomoate bs daily to be Jaky, - started one M.D. 08/31 week before arteriography with Dr. Starkey. Amlodipine 10/15 Hx Tablets 2.5mg 90tab 1 by mouth Jaime SRian Besylate /2016 s every day Musa, - DO MERGED WITH [facility] 04/20 Aspirin Ec 01/09 Hx Tablets 325mg 100ta 1 by mouth Jaime S. /2015 DR hendricks every day Musa, - DO FACC 10/15 Lisinopril 00/00 Hx Tablets 30mg 1 by mouth Unknown /0000 every day - 12/28 Carvedilol 00/00 Hx Tablets 6.25mg 1 by mouth Unknown /0000 twice a day - 01/27 Sertraline HCL 00/00 Hx Tablets 50mg 1 by mouth Unknown /0000 every day - 04/08 Erythromycin 00/ Hx Caps DR 250mg 1 capsule by Unknown Base /0000 Part mouth 2 times - daily 10/14 Lantus Hx 26 units @ hs Unknown /0000 or as directed - 10/13 Humalog 00/ Hx sliding scale Unknown /0000 - 12/28 Vitamin B 00/00 Hx Tablets 1 by mouth Unknown Complex /0000 every day - 12/18 Vitamin B-12 00 Hx Tablets 1000mcg 1 by mouth Unknown /0000 every day - 04/08 Novolog Flexpen 00/ Hx Solution 100Unit/M sliding scale Unknown /0000 [...] Millicuries Vital Signs Date Vital Result Comment 10/07/2017 Height 70 inches 5'10" Weight 178.00 [...] 5 Kidney failure <15 (or dialysis) 4 [id number] 5 [id number] 6 [id number] 7 Because ethnic data is not always [...] [address]: Raquel Rivas NP Acct: [id number] Unit: [id number] AGE: 61 Location: WOUND Re08/28/17 SEX: M Status: REG REF SPEC: [id number] LEIGHANN: 08/28/17 [facility] DR: Raquel Rivas NP REQ: [id number] RECD: 08/28/17 STATUS: IRA LOCKE DR: Jaime [...] . END OF REPORT DEPARTMENT OF PATHOLOGY, [address] [place] [address] Edd Herndon M.D. Director [facility] # [id number] Therapeutic target for the treatment of diabetes Mellitus patients is <7% HBA1C, and in selective patients <6.0%.Please refer to [place] [employer] Diabetic care guidelines for further [...] Procedures Date CPT Code Description Status 10/07/2017 87337 Negative Pressure Wound Therapy Less Than 50 Square CM Completed 10/02/2017 66593 Removal Devitalization Tissue Wound Less Than Equal 20 Completed Square CM 09/23/2017 86773 EKG Tracing & Interpretation Completed 09/16/2017 18135 ECHO Transthorasic Realtime 2D W Doppler & Color Flow Completed Hosp 09/08/2017 91794 Moderate Sedation Services; Same Phys Each Additional Completed 15 Mins 09/08/2017 08760 Moderate Sedation Services; Same Phys Intl 15 Mins; PT Completed >=5 Years 09/08/2017 90432 Ultrasound Guidance For Vascular Access Completed 09/08/2017 55626 [id number]-Whtqxhpej-Izukgbvpgx Completed 09/08/2017 82055 Revascularization,Endovascular W/Transluminal Completed Angioplasty 09/08/2017 36773 Revascularization,Endovascular W/Atherectomy, Inc Completed Angioplasty 09/03/2017 46341 Debridement Tissue/Muscle/Bone Completed 09/03/2017 02179 Debridement Tissue/Muscle/Bone Completed 09/03/2017 34428 Debridement,Bone,Epidermis/Dermis/Tissue/Muscle, Addtl Completed 20 SQ CM 09/03/2017 18750 Debridement,Bone,Epidermis/Dermis/Tissue/Muscle, Addtl Completed 20 SQ CM 09/03/2017 65194 Excise Biopsy Bone Deep Completed 09/03/2017 79686 Excise Biopsy Bone Deep Completed 09/03/2017 25941 Negative Pressure Wound Therapy Less Than 50 Square CM Completed 09/03/2017 68768 Negative Pressure Wound Therapy Less Than 50 Square CM Completed 08/28/2017 42731 Debridement Skin,& sq Tissue Completed 08/04/2017 52862 Coronary Angiography With Catheter Placement In Bpyass Completed Grafts 08/04/2017 65778 Revascularization Acute Total/Subtotal Occlusion Completed 04/20/2017 59250 EKG Tracing & Interpretation Completed 12/03/2016 Colonoscopy Completed 10/15/2016 78803 EKG Tracing & Interpretation Completed 03/13/2016 51545 Cardiac Event Monitor Completed 03/13/2016 71402 Mobile Cardiovascular Telemetry Over 24 HR Up To 30 Completed Days 02/07/2016 76727 Stress Test Completed 02/07/2016 32964 Myocardial Perfusion Imaging Tomographic (Spect) Completed Multiple Studies 02/01/2016 55212 ECHO Transthoracic, Real-Time 2D With Doppler And Color Completed Flow 01/28/2016 86479 EKG Tracing & Interpretation Completed 04/04/2014 89157 EKG, Interpretation Only Completed Encounters Type Date Location Provider CPT E/M Dx Office Visit 10/02/2017 [facility], 71098 E11.621 1:30p [facility] DNP, RN, HOSPITAL ADMINISTRATOR-BC J44.9 F17.211 Office Visit 09/23/2017 1:40p [facility] [place] [address] M62.82 [facility] FACC I25.2 I73.9 I25.10 Z95.1 I45.3 E11.43 F17.201 R55 E11.8 Office Visit 09/19/2017 11:33a [facility] Dione Treadwell, 53131 L97.429 Of Yoav GOLDSTEIN Office Visit 09/19/2017 11:16a [facility] Yamilex Bey, 32239 M62.82 Assoc, Hospitalists Dasia L97.429 E11.621 E11.51 M86.172 E11.40 N17.9 I73.9 Office Visit 09/18/2017 11:16a [facility] 27275 L97.429 Assoc, Hospitalists EJEVAN Arthur E11.51 I73.9 R55 R33.8 E11.621 Office Visit 09/17/2017 9:42a [facility] Fam Davis, 49561 M79.1 Infectious Diseases Dasia M86.672 L89.620 Office Visit 09/17/2017 11:15a [facility] 14443 R55 Hospitalists JEEVAN Arthur M62.82 E11.51 I73.9 R33.8 Office Visit 09/17/2017 10:19a [facility] Of DIANN Yeager 48208 L97.529 C.M.A. Office Visit 09/16/2017 11:15a [facility] 57079 E11.51 Assoc, Hospitaldeyanira Arthur NP L97.429 M62.82 I73.9 R55 J44.9 Z79.4 R33.8 Office Visit 09/16/2017 11:32a [facility] DIANN Yeager 80844 L97.429 C.M.A. Office Visit 09/16/2017 9:41a [facility] Leonard Mixon 96160 R55 Infectious Diseases Dasia Davis T36.1x1A M86.672 E10.9 Office Visit 09/15/2017 11:32a [facility] DIANN Yeager 62541 L97.429 C.M.A. Office Visit 09/15/2017 11:14a [facility], Lambert Garcia, 36039 M62.82 Hospitalists N.P. E11.40 I73.9 E11.52 E11.621 Office Visit 09/09/2017 10:57a [facility], Ashley Rodrigez, 45655 E11.621 Hospitalists D.ORian L97.329 I73.9 E11.51 I10 E11.69 Office Visit 09/08/2017 10:56a [facility] 80300 E11.621 Assoc,pc Hospitalists JEEVAN Arthur L97.329 I73.9 E11.51 I10 Office Visit 09/07/2017 10:56a [facility] 39184 E11.621 Assoc,pc Hospitalists JEEVAN Arthur L97.329 I73.9 E11.51 I10 Office Visit 09/07/2017 9:13a [facility] Leonard Davis, 50995 E11.69 Infectious Diseases MRianDRian M86.172 E11.52 Z89.422 Office Visit 09/06/2017 10:55a [facility] [place]oc,[place] [address] E11.621 Hospitalists L97.329 I73.9 E11.51 I10 Office Visit 09/05/2017 10:54a [facility] [place]oc,[place] [address] E11.621 Hospitalists L97.329 I73.9 E11.51 I10 Office Visit 09/04/2017 10:54a [facility] 43545 E11.621 Assoc,pc Hospitalists JEEVAN Arthur L97.329 I73.9 E11.51 I10 Office Visit 09/03/2017 8:59a [facility] Leonard Davis, 22030 E11.52 Infectious Diseases Dasia E11.69 M86.172 L03.116 Office Visit 09/03/2017 10:52a [facility] 57912 E11.621 Assoc,pc Hospitalists JEEVAN Arthur L97.329 I10 Office Visit 09/02/2017 10:51a [facility] 15851 E11.621 Assoc,pc Hospitalists JEEVAN Arthur L97.329 I10 Office Visit 09/02/2017 8:46a [facility] Vascular Medicine Osmin Starkey, 71347 E11.51 Of Naima Forman Office Visit 09/02/2017 3:15p [facility] [place] [address] E11.621 C.M.A. M86.172 Office Visit 09/01/2017 10:49a [facility] Assoc, Brina Payan, N.P. 95691 L97.329 Hospitalists E11.621 I73.9 E11.51 I10 Office Visit 09/01/2017 8:50a [facility] Leonard Oral Ryan, 36095 E11.52 Infectious Diseases M.Oral E11.40 L03.116 Office Visit 09/01/2017 10:35a [facility] Of Maria Victoria Gill M.D. 62099 E11.51 C.M.A. L97.421 I73.9 Office Visit 08/30/2017 11:42a [facility] Assoc,pc Brina Payan, N.P. 96196 E11.621 Hospitalists L97.329 Z89.421 Z89.422 Z79.4 I73.9 E11.51 Office Visit 08/29/2017 3:14p [facility] [place] [address] E11.621 C.M.A. L97.329 Office Visit 08/29/2017 11[facility] Sofy Chang, 14122 E11.621 Hospitalists DO L97.329 I25.10 Office Visit 08/28/2017 11:41a [facility] Gwen Magnolia, 19790 E11.621 Assoc, Hospitalists [employer] FIELD MANAGER L97.329 N17.9 Z89.421 Z89.422 Office Visit 08/26/2017 1:15p [facility] Vascular Medicine Osmin Starkey, 51895 I70.262 Of Naima Forman Office Visit 08/25/2017 9:00a [facility] AT Garfield Stauffer, 46992 L97.429 [facility] Dasia E11.621 Z79.4 I10 Z79.01 Office Visit 08/11/2017 10:00a [facility] [place] [address] I25.2 [facility] I73.9 I25.10 Z95.1 I45.3 E11.69 E11.43 E78.5 F17.201 R55 E11.621 Office Visit 08/05/2017 3:50p [facility] Of Brissa Art, 40042 I21.4 [facility] AT [facility] , FACC, FSCAI I25.10 Z95.1 I45.3 Office Visit 08/05/2017 8:58a [facility] Assoc,[facility] 53631 I21.4 Hospitalists M.Oral E11.9 I10 Office Visit 08/04/2017 8:58a [facility] Assoc,[facility] 82818 N17.9 Hospitalists M.Oral I21.4 E11.9 Z89.421 Z89.422 I10 J44.9 Office Visit 08/04/2017 11:50a [facility] Of Brissa AlysonRian Art, 24086 I21.4 Drop Wire Stringer AT [facility] MD, FACC, FSCAI I45.3 Z95.1 I25.10 Office Visit 08/03/2017 8:57a [facility] 78149 I21.4 Hospitalists MFabiana E11.9 N17.9 Office Visit 04/20/2017 2:40p [facility] [place] [address] E11.43 [facility] FACC I25.10 F17.201 I10 E78.5 R55 Office Visit 10/15/2016 2:40p [facility] [place] [address] I25.10 [facility] FACC R55 I10 F17.201 E11.8 Office Visit 04/09/2016 4:00p [facility] [place] [address] I25.10 [facility] FACC R55 E13.43 I25.2 E78.5 I10 F17.201 E11.8 Office Visit 01/28/2016 3:00p [facility] [place] [address] I25.2 [facility] FACC E78.5 R94.31 R55 I10 I42.9 Z72.0 Office Visit 11/21/2015 2:00p [facility] Of Wu Mata M.D. 48907 M17.11 C.M.A. Office Visit 04/04/2014 7:51a [facility], Ashlie Bobby, 24198 785.4 Hospitalists PA v13.59 v49.71 Office Visit 04/04/2014 10:11a [facility], Jace Roblero M.D. 63138 780.2 Hospitalists 414.00 250.00 401.9 Plan of Care Future Appointment(s):10/27/2017 10:00 am - Wil Nicole MD at [facility] Of C.M.A.10/13/2017 11:10 am - Leonard Davis M.D. at [facility] For Infectious Kqnlpncr41/05/2018 8:15 am - Osmin Starkey M.D. at [facility] Vascular Medicine [facility]10/07/2017 - Wil Nicole MDE11.621 Type 2 diabetes mellitus with foot ulcerFollow up:Follow Up: 3 weeks
--- OUTSIDE RECORDS SUMMARY | 2017-10-27 21:47 | XMS REPORT ---
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 1.0-4.8 Abs Monocytes 0.8 10^3/uL 0-0.8 Abs Eosinophils 0.4 10^3/uL 0-0.6 Abs Basophils 0.1 10^3/uL 0-0.2 Abs Nucleated RBC 0.02 10^3/uL Granulocyte % 61.3 % 38-83 Lymphocyte % 19.3 % Low 25-47 Monocyte % 11.8 % High 1-9 Eosinophil % 5.6 % 0-6 Basophil % 2.0 % 0-2 Nucleated Red Blood Cells % 0.3 Laboratory test finding 08/14/2014 Erythrocyte Sed Rate 19 mm/Hr 0-20 1 Critical Result LACT:2.2 Called to [id number] at: 11:39:44 by:[id number] Read back by:[id number] [place] Severe Sepsis and Septic Shock Management Bundle Measure requires all lactic acids initially measuring >2.0 mmol/L be repeated. 2 Because ethnic data is not always [...] 5 Kidney failure <15 (or dialysis) 3 Therapeutic concentration: <50 ug/mL Toxic concentration: >120 ug/mL 4 Because ethnic data is not always readily [...] 15-29 5 Kidney failure <15 (or dialysis) 5 [place] Severe Sepsis and Septic Shock Management Bundle Measure requires all lactic acids initially measuring >2.0 mmol/L be repeated. 6 LATERAL ASPECT OF HEEL WOUND 7 SEE RESULT BELOW Name: VIKY BARRERA : [address]: Raquel Rivas NP Acct: [id number] Unit: [id number] AGE: 61 Location: WOUND Re08/28/17 SEX: M Status: REG REF SPEC: [id number] LEIGHANN: 08/28/17-1440 [facility] DR: Raquel Rivas NP REQ: [id number] RECD: 08/28/17 STATUS: IRA LOCKE DR: Jaime [...] . END OF REPORT DEPARTMENT OF PATHOLOGY, [address] [place] [address] Edd Herndon M.D. Director [facility] # [id number] SEE RESULT BELOW Name: VIKY BARRERA : [address]: Yamilex Bey MD Acct: [id number] Unit: [id number] AGE: 61 Location: [facility] [id number] Re08/28/17 Dis: 08/30/17 SEX: M Status: DIS IN SPEC: [id number] LEIGHANN: 08/28/[address]: Ya Sim MD REQ: [id number] RECD: 08/28/17 STATUS: IRA LOCKE DR: Soraya Westfall [facility] _ SOURCE: BLOOD,VENO SPDESC: ORDERED: Blood Cult Procedure Result Reported Site Aerobic Culture Bottle Final 09/02/17- 1706 ML No Growth Day 5 Anaerobic Culture Bottle Final 09/02/17- 1706 ML No Growth Day 5 * ML - Main Lab . END OF REPORT DEPARTMENT OF PATHOLOGY, [address] [place] [address] Edd Herndon M.D. Director [facility] # [id number] 9 [facility] Severe Sepsis and Septic Shock Management Bundle Measure requires all lactic acids initially measuring >2.0 mmol/L be repeated. 10 Because ethnic data is not always readily [...] 15-29 5 Kidney failure <15 (or dialysis) 11 Because ethnic data is not always readily [...] 15-29 5 Kidney failure <15 (or dialysis) 12 >100 to <200 pg/mL: likely compensated congestive heart failure (CHF) 200 to 400 pg/mL: likely moderate CHF >400 pg/mL: likely moderate to severe CHF 13 Therapeutic target for the treatment of diabetes mellitus patients is <7% HBA1C, and in selective patients <6.0%. Please refer to [place] [employer] diabetic care guidelines for further information. 14 Therapeutic target for the treatment of diabetes Mellitus patients is <7% HBA1C, and in selective patients <6.0%.Please refer to [place] [employer] Diabetic care guidelines for further information. 15 Because ethnic data is not always readily [...] 15-29 5 Kidney failure <15 (or dialysis) 16 Desirable <150 Borderline high 150-199 High 200-499 Very High >500 17 Desirable <200 Borderline high 200-239 High >239 18 Low <40 Desirable: 40-60 High: >60 19 Desirable: <100 mg/dL Near Optimal: 100-129 mg/dL Borderline High: 130-159 mg/dL High: 160-189 mg/dL Very High: >189 mg/dL 20 Because ethnic data is not always readily [...] 15-29 5 Kidney failure <15 (or dialysis) 21 Therapeutic target for the treatment of diabetes Mellitus patients is <7% HBA1C, and in selective patients <6.0%.Please refer to [place] [employer] Diabetic care guidelines for further information. 22 Normal Range 180 to 914 Indeterminate Range 145 to 180 Deficient Range <145 23 Normal Range 180 to 914 Indeterminate Range 145 to 180 Deficient Range <145 24 Because ethnic data is not always readily [...] 15-29 5 Kidney failure <15 (or dialysis) 25 Because ethnic data is not always readily [...] 15-29 5 Kidney failure <15 (or dialysis) 26 Acute inflammation: >10.00 Procedures Date CPT Code Description Status Comment 12/30/2016 Diabetic Retinal Eye Exam Completed Document: 03/06/16 - 11/09/2016 Colonoscopy Completed 2017: diverticulosis and hemorrhoids, fu 5yrs 02/10/2016 Diabetic Foot Exam Completed done with Dr. Singh 01/06/2015 72211 Oximetry, Multiple Completed Determinations (Eg, During Exercise) Encounters Type Date Location Provider CPT E/M Dx Office Visit 09/28/2017 9:20a Main Office Leilani EugeneARian 90466 E11.69 M86.8x7 I95.1 Z95.828 F51.12 M62.82 Office Visit 09/14/2017 4:00p Main Office Leilani EugeneA. 87160 M86.8x7 E11.43 J44.1 E11.52 Z79.891 Z95.828 Office Visit 01/30/2017 11:00a Main Office Leilani EugeneARian 57168 J44.1 E11.65 B35.3 Z79.4 Office Visit 11/12/2016 11:20a [place] [address] E11.65 L57.0 I10 L82.1 Z12.11 Office Visit 10/09/2016 2:35p [place] [address] E11.65 I10 F33.9 Z23 Z79.84 Office Visit 03/19/2016 11:00a [place] [address] E11.65 I10 F17.210 F33.9 Office Visit 01/01/2016 2:35p [place] [address] R42 R11.2 E11.65 I10 R94.4 Z23 Z41.8 F17.210 Office Visit 11/26/2015 12:55p Main Office Pantera Shipely D.O. 71674 I95.1 E11.65 K31.84 I10 F33.9 Office Visit 11/07/2015 11:40a [place] [address] I95.1 E11.65 R94.4 E11.29 Office Visit 10/09/2015 12:05p [place] [address] I95.1 R42 R53.83 Office Visit 08/28/2015 4:30p Main Office Pantera Shipley D.O. 23094 K31.84 E11.43 Office Visit 07/25/2015 1:15p Main Office Pantera Shipley D.O. 36763 I10 F33.9 I70.211 E11.43 G47.00 Office Visit 06/25/2015 3:00p Main Office Parmjit Caal M.D. 20991 J20.9 Office Visit 04/18/2015 11:15a Main Office Pantera Shipley D.O. 85601 I10 F33.9 E11.621 I70.211 E11.43 L97.511 Office Visit 02/06/2015 9:30a Main Office Pantera Shipley D.O. 76203 F33.9 E11.621 I70.211 G47.00 Office Visit 01/06/2015 12:00p Main Office Gerardo Demarco M.D. 72170 R05 R05 R06.00 R06.00 J44.1 J44.1 F17.210 Office Visit 11/23/2014 10:00a Main Office Pantera Shipley D.O. 30672 J20.9 R05 Z23 Z41.8 Office Visit 11/15/2014 4:20p Main Office DivyaMag [facility]-C 83986 R05 J20.9 Office Visit 11/10/2014 10:30a Main Office Pantera Shipley D.O. 05572 J20.9 Office Visit 11/07/2014 9:45a Main Office Pantera Shipley D.O. 19179 E11.65 I10 E11.52 F43.12 F17.200 I25.10 F33.9 E55.9 Office Visit 07/31/2014 11:30a Main Office Pantera Shipley D.O. 86663 250.02 401.1 785.4 309.81 305.1 414.00 268.9 Office Visit 06/29/2014 11:15a Main Office Pantera Shipley D.O. 44545 401.1 250.02 250.82 250.00 785.4 309.81 305.1 Plan of Care Future Appointment(s):12/24/2017 8:40 am - Chad Eugene at [facility] - Chad EugeneE11.69 Type 2 diabetes mellitus with other specified joeazvtimudlG51.8x7 Other osteomyelitis, ankle and footComments:cont w weekly wound careVNS cont MWFI95.1 Orthostatic hypotensionComments:report and dizzinesscont bkxfxrG63.828 Presence of other vascular implants and graftsComments:same as wound care planF51.12 Insufficient sleep syndromeComments :reviewed little points in h/o, no screens, write down worries, do not stay in bed trying to force self to sleep, do not look at clock, light cho snack before bed , etcM62.82 Rhabdomyolysis
[2017-10-27] MEDS ORDERED: diPHENhydraMINE IV* 50 MG/ML 1 ml VIAL (BENADRYL) IV ONE (22:14)
[2017-10-27] MEDS ORDERED: Famotidine IV* 10 MG/ML 2 ML (20 mg) IV SLOW PU ONE (22:15)
--- NOTE | 2017-10-27 22:29 | ED ---
Allergic Reaction/Systemic - HPI Summary HPI Summary: Pt is a 62 y/o male who presents to the ED c/o allergic reaction. He states last night he began to get hives all over. Today he went to his PCP, and was put on Benadryl and prednisone. Pt states the hives were worsening. As per , he had swollen lips and eyes as well, which has now resolved after taking the medications. Pt states he is no longer itchy. He denies any SOB or throat swelling. He denies eating anything unusual or starting new medications. 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 Pt is has been on Levaquin for a while. He denies using any topical ointments. - History of Current Complaint Chief Complaint: EDAllergicReaction Time Seen by Provider: 10/27/17 21:49 Hx Obtained From: Patient, Family/Page Technician - Onset/Duration: Gradual Onset, Started days ago - 1, Still Present Timing: Constant Severity Currently: None Pain Intensity: 0 Pain Scale Used: 0-10 Numeric Location: Diffuse Character: Pruritus, Hives Aggravating Factor(s): Other - Unknown, possibly Levaquin Alleviating Factor(s): OTC Meds - Benadryl, Other - Prednisone Associated Signs And Symptoms: Positive: Rash. Negative: Throat Tightening - Allergies/Home Medications Allergies/Adverse Reactions: Allergies Allergy/AdvReac Type Severity Reaction Status Date / Time Penicillins Allergy Hives Verified 10/27/17 21:53 piperacillin [From Zosyn] Allergy Hives Verified 10/27/17 21:53 tazobactam [From Zosyn] Allergy Hives Verified 10/27/17 21:53 Home Medications: Home Medications Insulin GLARGINE(*) [Lantus(*)] 25 units SUBCUT BEDTIME 10/27/17 [History] PMH/Surg Hx/FS Hx/Imm Hx Endocrine/Hematology History: Reports: Hx Diabetes Cardiovascular History: Reports: Hx Coronary Artery Disease, Hx Hypertension, Hx Myocardial Infarction Denies: Hx Pacemaker/ICD Respiratory History: Reports: Hx Chronic Obstructive Pulmonary Disease (COPD) Denies: Hx Asthma GI History: 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 amputation left toes. amputation right toe. CABG x5 2008. CARDIAC STENT PLACED AUGUST 04 2017 ( SYNERGY PLACED AT [facility] [place]). OKAY TO SCAN WITHIN 6 WEEKS. Static magnetic field of 3.0 and 1.5 Diane only. Maximum spatial gradient magnetic field of 2300 gauss/ cm (23 T/m). Maximum Magnetic Resonance system reported, whole body averaged specific absorption rate (SANDY) of <2 W/kg (Normal Operating Mode). Under the scan conditions defined above, the SYNERGY Stent is expected to produce a maximum temperature rise of 3.1oC after 15 minutes of continuous scanning. 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 Hx Tobacco Use: Yes Smoking Status (MU): Former Smoker Type: Smokeless Tobacco Amount Used/How Often: <1 refill per day Length of Time of Smoking/Using Tobacco: 45 years Review of Systems Negative: Other - Throat swelling Negative: Shortness Of Breath Positive: Other - Left heel amputation Positive: Rash - Hives, Other - Swollen eyes and lips All Other Systems Reviewed And Are Negative: Yes Physical Exam - Summary Physical Exam Summary: Appearance: Well appearing, no pain distress Skin: warm, dry, reflects adequate perfusion, patchy erythema mainly on the upper thorax, no targetoid lesions Head/face: normal Eyes: EOMI, DANNY, sclera bright and clear ENT: no oral lesions, no lip, tongue, or uvular edema Neck: supple, non-tender Respiratory: CTA, breath sounds present Cardiovascular: RRR, pulses symmetrical Abdomen: non-tender, soft Bowel Sounds: present Musculoskeletal: normal, strength/ROM intact, left foot is in dressing with wound vac in place Neuro: normal, sensory motor intact, A&Ox3 Triage Information Reviewed: Yes Vital Signs On Initial Exam: Initial Vitals Temp Pulse Resp BP Pulse Ox 100 F 90 18 166/93 99 09/18/18 21:32 10/27/17 21:32 10/27/17 21:32 10/27/17 21:32 10/27/17 21:32 Vital Signs Reviewed: Yes Diagnostics - Vital Signs Vital Signs Temp Pulse Resp BP Pulse Ox 10/27/17 21:49 91 98 10/27/17 21:32 100 F 90 18 166/93 99 - Laboratory Lab Statement: Any lab studies that have been ordered have been reviewed, and results considered in the medical decision making process. Allergic Reaction Course/Dx - Course Course Of Treatment: Patient on IV antibiotics and is developed a red rash on his upper thorax and around his neck and face. It is itchy in nature. He is on Levaquin, Flagyl for a diabetic wound in his foot. Likely this is due to the Levaquin. We will discontinue this. He only has 3 days remaining and he is instructed to follow this up with Dr. Espinal. He is on steroids and is instructed to follow his sugars closely as the steroids may increase his insulin need. No systemic symptoms. - Diagnoses Differential Diagnosis/HQI/PQRI: Positive: Anaphylaxis, Erythema Multiforme, Local Allergic Reaction Provider Diagnoses: Drug allergy, Urticaria Discharge - Sign-Out/Discharge Documenting (check all that apply): Patient Departure - Discharge - Discharge Plan Condition: Improved Disposition: HOME Prescriptions: Famotidine TAB* [Pepcid 20 MG TAB*] 20 mg PO BID PRN #20 tab PRN Reason: allergy/itching Patient Education Materials: Antibiotic Medication Allergy (ED) Referrals: Malou HART,Soraya Munoz [Primary Care Provider] - Additional Instructions: Discontinue Levaquin. Call Dr. Espinal first thing in the morning to have medication regimen adjusted. Return with worsening despite treatment, involvement of the mucous membranes, worse, new symptoms or other concerns as discussed. Continue prednisone. This may make her blood sugars more difficult to control. He can take Benadryl along with the Pepcid and may use hydrocortisone ointment for any itchy spots not on the face. - Billing Disposition and Condition Condition: IMPROVED Disposition: Home - Attestation Statements Document Initiated by Scribe: Yes Documenting Scribe: Francesca Neville Provider For Whom Scribe is Documenting (Include Credential): Gurmeet Lopez MD Scribe Attestation: I, Francesca Neville, scribed for Gurmeet Lopez MD on 10/28/17 at 0222. Scribe Documentation Reviewed: Yes Provider Attestation: The documentation as recorded by the scribe, Francesca Neville accurately reflects the service I personally performed and the decisions made by me, Gurmeet Lopez MD
[2017-10-27 23:14] VITALS: BP 188/98
--- OUTSIDE RECORDS SUMMARY | 2017-10-29 04:57 | XMS REPORT ---
:1955 External Reference #:[id number] Author Organization [facility] Address [address] [place] [address] Phone [phone] Care Team Providers Name Role Phone HCP given Primary Care Physician Unavailable Payers Type Date Identification Numbers Payment Provider Subscriber Commercial Effective: Policy Number: [employer] Viky Barrera 2017 [id number] Ppo PayID: [id number] [facility] [address] [place] [address] Problems Date Description Provider Status Onset: 06/29/2014 Benign essential hypertension Pantera Shipley D.O. Active Onset: 06/29/2014 Type II diabetes mellitus uncontrolled Pantera Shipley D.O. Active Onset: 06/29/2014 Type 2 diabetes mellitus Pantera Shipley D.O. Active Onset: 06/29/2014 Gangrenous disorder Pantera Shipley D.O. Active Onset: 06/29/2014 Posttraumatic stress disorder Pantera Shipley D.O. 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 Active Onset: 11/23/2014 Acute bronchitis Pantera Shipley D.O. Active Onset: 02/06/2015 Type 2 diabetes mellitus with ulcer Pantera Shipley D.O. 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 Onset: 02/06/2015 Insomnia Pantera [...] sexually active Contraceptive Methods None Age [address] [place] 24 Years Old # Partners in a Lifetime Partners 1-5 Additional Info Sexual preference is women Allergies, Adverse Reactions, Alerts Date Description Reaction Status Severity Comments 06/29/2014 Penicillins active hives 06/29/2014 Zosyn active hives Medications Medication Date Status Form Strength Qnty SIG Indications Ordering Provider Prednisone 10/27 Active Tablets 20mg 10tab 2 tab by mouth L50.0 Silco s daily x5 days Dasia Carrillo Metformin HCL 09/28 Active Tablets 500mg 180ta 1 by mouth Silcoff bs twice a day Dasia Carrillo Oxycodone HCL 09/19 Active Tablets 5mg take 1 tablet by mouth every 8 hours as needed Lantus 09/19 Active Solution 100Unit/M 25 units Unknown Pen-Injec L subcutaneous t twice daily Magnesium 09/19 Active Capsules 500mg 1 by mouth Unknown every day Carvedilol 09/09 Active Tablets 3.125mg take one tablet I10 Unknown by mouth twice a day Lactobacillus 09/09 Active Tablets 1 tablet by Unknown mouth twice daily Tylenol 09/09 Active Tablets 325mg give 2 tablets by mouth every 6 hours as needed for pain otc Brilinta 08/04 Active Tablets 90mg 60tab 1 tablet by s mouth twice daily Freestyle Lite 01/30 Active Strip 200un Test 1 To 4 B35.3 Silcoff, its Times Daily as Rhiannon Carrillo M.D. Aspirin 11/11 Active Tablets 81mg 1 by mouth every day Atorvastatin 09/08 Active Tablets 80mg 1 qd Unknown Sertraline HCL 03/19 Active Tablets 100mg 90tab 1 by mouth F43.12 Sopchak, s every day Patricia Mott Safe Lite 03/18 Active glucose monitor E11.65 Levofloxacin 09/24 Hx Solution 500mg/100 IV every 24 MacQueen, In D5 ML hours for total Leonard, - of 26 days to 10/20 complete total of 6 weeks treatment of IV abx Ativan 09/22 Hx Tablets 0.5mg 60tab take 1/2 to 1 G47.00 s tablet by mouth Gerardo, - up to 3 tablets MRianDRian 10/26 per day needed when anxiety or sleep Metronidazole 09/19 Hx Tablets 500mg 180ta 1 tablet every co bs 12 hours Rodrigue Carrillo M.D. 09/28 Amlodipine 09/09 Hx Tablets 5mg 30tab 1 by mouth I10 Unknown Besylate s every day - 09/19 Ceftriaxone 09/09 Hx Solution 1gm IV daily x 37 Unknown Sodium Rec days - 09/19 Lisinopril 08/05 Hx Tablets 5mg 30tab take 1 tablet s by mouth once - daily 09/19 Ra Magnesium 02/15 Hx Capsules 500mg 90cap take 1 capsule s by mouth daily Rodrigue Carrillo M.D. 09/13 Terbinafine 01/30 Hx Cream 1% 60gm Use two times a B35.3 Silcoff, day on feet x Gerardo, - at least 3 M.D. Symbicort 01/25 Hx Aerosol 2 puffs 2x/day; Unknown gargle after - use 09/19 Ventolin HFA [...] at bedtime;as - directed by 10/08 physician /2017 Onetouch Verio 03/03 Hx E11.65 Sopchak, Pantera, - D.O. 03/19 Amlodipine 01/14 Hx [...] 100mg 20cap 1 bid for ten J20.9 Pramjit Hyclate s days until gone A. - Afua 07/04 M.D. /2015 Chantix 04/30 Hx Tablets 0.5mg QS days 1-3: 1 qd; F17.210 Violetta, day 4-7: twice Pantera, - a day #1 D.O. 05/30 starter pack refill # 1 continuing pack Vitamin B12 04/17 Hx 1000mg Daily /2015 - 10/08 Erythromycin 04/17 Hx Tablets 250mg 90tab take 1 tablet K31.84 Sopchak, s by mouth three Pantera, - times [...] 160-4.5mc 1samp 2 puffs po bid R05 Silco, g/Act le for the next 2 Gerardo, - weeks M.D. 04/16 J20.9 Azithromycin 11/10/2014 - Hx Tablets 250mg 6tabs take 2 J20.9 Sopchak, 11/15/2014 tablets by Pantera, D.O. mouth one time on the first day then take 1 tablet by mouth daily for 4 days Proair HFA 11/10/2014 - Hx Aerosol 108(90Bas 8.5units 1-2 puffs J20.9 Sopchak, 07/24/2015 e) four times Pantera D.O. mcg/Act a day as needed R05 Trazodone HCL 11/07/2014 - Hx Tablets 50mg 90tabs take 1 tablet F33.9 Sopchak, 04/17/2015 by mouth Pantera, daily at D.O. bedtime for trouble sleeping Sertraline 11/07/2014 - Hx Tablets 50mg 90tabs take 1 tablet F43.12 Violetta, HCL 03/19/2016 by mouth Pantera, daily D.O. Freestyle 07/31/2014 - Hx Strips 200units or E11.65 Violetta Lite Test 03/03/2016 appropriate Pantera, testing D.O. strips [...] night, M.D. increase as directed by physician Shelbi 06/22/2014 - Hx Solution 100Unit 15units 25 [...] Tablets 75mg 90tab 1 by mouth I25.1 Violetta Bisulfate 06/25/2015 s every day 0 Pantera, D.O. Metformin HCL - Hx Tablets 1000mg 1 by mouth Unknown 09/01/2017 twice a day Sertraline HCL - Hx Tablets 50mg 90tab 1 by mouth F43.1 Sopchak, 11/07/2014 s every day 2 Patricia Mott Lisinopril - Hx Tablets 40mg 90tab take 1 tablet I10 Sopchak , 10/09/2015 s by mouth Patricia Mott every morning for high blood pressure Magnesium - Hx Capsules 500mg 1 cap by Unknown 09/25/2017 mouth bid Carvedilol - Hx Tablets 3.125mg take one I10 Sopchak, 09/11/2017 tablet by Oral MottO. mouth qd Immunizations CPT Code Status Date Vaccine Lot # [id number] Given 10/09/2016 Influenza Virus Vaccine, Quadrivalent, Split, [id number] Preservative Free [id number] Given 01/01/2016 Influenza Virus Vaccine, Quadrivalent, Split, [id number] Preservative Free 16984 Given 11/23/2014 Influenza Virus Vaccine, Quadrivalent, Split, [id number] Preservative Free 38396 Given 05/10/2013 Adacel or Boostrix, TDaP Vital Signs Date Vital Result Comment 10/27/2017 BP Systolic 130 mmHg BP Diastolic 84 mmHg Body Temperature 97.6 F Weight 176.00 lb 09/28/2017 BP Systolic 126 mmHg BP Diastolic [...] Color Yellow Urine Appearance Clear Urine Specific [place] 1.007 Low 1.010-1.030 Urine pH 5.0 5-9 [...] 0-20 1 Critical Result LACT:2.2 Called to [id number] at: 11:39:44 by:[id number] Read back by:[id number] [place] Severe Sepsis and Septic Shock Management [...] 5 Kidney failure <15 (or dialysis) 5 [facility] Severe Sepsis and Septic Shock Management Bundle Measure requires all lactic acids initially measuring >2.0 mmol/L be repeated. 6 LATERAL ASPECT OF HEEL WOUND 7 SEE RESULT BELOW Name: VIKY BARRERA : [address]: Raquel Rivas NP Acct: [id number] Unit: [id number] AGE: 61 Location: WOUND Re08/28/17 SEX: M Status: REG REF SPEC: [id number] LEIGHANN: 08/28/17-1440 [facility] [address]: Raquel Rivas NP REQ: [id number] RECD: 08/28/17-1517 STATUS: IRA [facility] DR: Jaime Perea MD _ SOURCE: TISSUE SPDESC: ORDERED: Tissue Cult/GS COMMENTS: LATERAL ASPECT OF HEEL WOUND Procedure Result Reported Site Tissue Gram Stain Final 08/29/17- 803 ML No Neutrophils Observed 1+ Epithelial Cells No Organisms Seen Preparation By Direct Smear Tissue Culture Final 09/01/17935 ML Organism 1 PASTEURELLA CANIS Quantity 2+ Organism 2 PEPTOSTREPTOCOCCUS ANAEROBIUS Quantity 2+ WITH ADDTIONAL MIXED KIRSTIN; NO FURTHER WORKUP. Anaerobic sensitivities are not routinely performed. Positive isolates will be saved for one week. Please call the Microbiology Laboratory if susceptibility testing is needed. * ML - Main Lab . END OF REPORT DEPARTMENT OF PATHOLOGY, [address] [place] [address] Edd Herndon M.D. Director TAINA # [id number] SEE RESULT BELOW Name: VIKY BARRERA : [address]: Yamilex Bey MD Acct: [id number] Unit: [id number] AGE: 61 Location: [place] [address] Re08/28/17 Dis: 08/30/17 SEX: M Status: DIS IN SPEC: [id number] LEIGHANN: 08/28/[address] [facility] [address]: Ya Sim MD REQ: [id number] RECD: 08/28/17 STATUS: IRA LOCKE DR: [facility] _ SOURCE: BLOOD,VENO SPDESC: ORDERED: Blood Cult Procedure Result Reported Site Aerobic Culture Bottle Final 09/02/17- 6 ML No Growth Day 5 Anaerobic Culture Bottle Final 09/02/17- 1706 ML No Growth Day 5 * ML - Main Lab . END OF REPORT DEPARTMENT OF PATHOLOGY, [address] [place] [address] Edd Herndon M.D. Director [facility] # [id number] 9 [facility] Severe Sepsis and Septic Shock Management Bundle [...] in selective patients <6.0%. Please refer to [place] [employer] diabetic care guidelines for further information. 14 Therapeutic target for the treatment of diabetes Mellitus patients is <7% HBA1C, and in selective patients <6.0%.Please refer to [place] [employer] Diabetic care guidelines for further [...] and in selective patients <6.0%.Please refer to [place] [employer] Diabetic care guidelines for further [...] Exam Completed done with Dr. Singh 01/06/2015 22339 Oximetry, Multiple Completed Determinations (Eg, During Exercise) Encounters Type Date Location Provider CPT E/M Dx Office Visit 10/27/2017 4:50p [place] [address] L50.0 E11.69 M86.8x7 Office Visit 09/28/2017 9:20a Main Office Carmen Combs P.A. 91201 E11.69 M86.8x7 I95.1 Z95.828 F51.12 M62.82 Office Visit 09/14/2017 4:00p Main Office Carmen Combs P.A. 70993 M86.8x7 E11.43 J44.1 E11.52 Z79.891 Z95.828 Office Visit 01/30/2017 11:00a Main Office Carmen Combs P.A. 70970 J44.1 E11.65 B35.3 Z79.4 Office Visit 11/12/2016 11:20a [place] [address] E11.65 L57.0 I10 L82.1 Z12.11 Office Visit 10/09/2016 2:35p [place] [address] E11.65 I10 F33.9 Z23 Z79.84 Office Visit 03/19/2016 11:00a [place] [address] E11.65 I10 F17.210 F33.9 Office Visit 01/01/2016 2:35p [place] [address] R42 R11.2 E11.65 I10 R94.4 Z23 Z41.8 F17.210 Office Visit 11/26/2015 12:55p Main Office Pantera Shipley D.O. 33943 I95.1 E11.65 K31.84 I10 F33.9 Office Visit 11/07/2015 11:40a [place] [address] I95.1 E11.65 R94.4 E11.29 Office Visit 10/09/2015 12:05p [place] [address] I95.1 R42 R53.83 Office Visit 08/28/2015 4:30p Main Office Pantera Shipley D.O. 01326 K31.84 E11.43 Office Visit 07/25/2015 1:15p Main Office Pantera Shipley D.O. 82153 I10 F33.9 I70.211 E11.43 G47.00 Office Visit 06/25/2015 3:00p Main Office Parmjit Caal M.D. 45888 J20.9 Office Visit 04/18/2015 11:15a Main Office Pantera Shipley D.O. 66116 I10 F33.9 E11.621 I70.211 E11.43 L97.511 Office Visit 02/06/2015 9:30a Main Office Pantera Shipley D.O. 88209 F33.9 E11.621 I70.211 G47.00 Office Visit 01/06/2015 12:00p Main Office Gerardo Demarco M.D. 45560 R05 R05 R06.00 R06.00 J44.1 J44.1 F17.210 Office Visit 11/23/2014 10:00a Main Office Pantera Shipley D.O. 10780 J20.9 R05 Z23 Z41.8 Office Visit 11/15/2014 4:20p Main Office Mag Stokes RPA-C 17068 R05 J20.9 Office Visit 11/10/2014 10:30a Main Office Pantera Shipley D.O. 46139 J20.9 Office Visit 11/07/2014 9:45a Main Office Pantera Shipley D.O. 19088 E11.65 I10 E11.52 F43.12 F17.200 I25.10 F33.9 E55.9 Office Visit 07/31/2014 11:30a Main Office Pantera Shipley D.O. 69009 250.02 401.1 785.4 309.81 305.1 414.00 268.9 Office Visit 06/29/2014 11:15a Main Office Pantera Shipley D.O. 67528 401.1 250.02 250.82 250.00 785.4 309.81 305.1 Plan of Care Future Appointment(s):12/24/2017 8:40 am - Chad Eugene at [facility] - Soraya Westfall, CYNTHIA50.0 Allergic urticariaNew Medication:Prednisone 20 mgComments:Hives w uncertain etiology. Rx for prednisone. Pt will continue benadryl Q4-6 hours as needed for itch. Recheck if sx not improving.E11.69 Type 2 diabetes mellitus with other specified complicationComments:Doing well, most recent A1C was 7.1. Home glucose readings have been good. Pt instructed that prednisone will likely temporarily increase glucose.M86.8x7 Other osteomyelitis , ankle and footComments:Being monitored by surgeon, Dr. Mayen and Dr. Starkey. Pt getting wound care at home.
== END 2017-10-27 23:00 | disposition home or self-care (01) ==
LOC: ED 21:29
DX: L50.0 Allergic urticaria (principal); T36.8X5A Adverse effect of other systemic antibiotics, initial encounter; Y92.9 Unspecified place or not applicable; E11.9 Type 2 diabetes mellitus without complications; Z79.4 Long term (current) use of insulin; Z95.1 Presence of aortocoronary bypass graft; Z89.432 Acquired absence of left foot; Z89.422 Acquired absence of other left toe(s); Z89.421 Acquired absence of other right toe(s); Z88.0 Allergy status to penicillin; Z88.8 Allergy status to other drugs, medicaments and biological substances; Z87.891 Personal history of nicotine dependence
CPT/HCPCS: 96374; 96375; 99284; J1200

== ENCOUNTER 2018-04-17 09:10 | Emergency (ER) | payer MEDICARE, OTHER ==
--- OUTSIDE RECORDS SUMMARY | 2018-04-17 09:20 | XMS REPORT | Continuity of Care Document ---
:1955 External Reference #:[id number] Author Name Irina Alex Care Team Providers Name Role Phone Soraya Westfall PA Primary Care Physician Unavailable Payers Date Identification Numbers Payment Provider Subscriber Policy Number: [id number] Medicare Blue Ppo Viky Barrera PayID: [id number] [facility] [address] [place] [address] Policy Number: [id number] [facility] Care Viky Barrera PayID: [id number] [address] Advance Directives Description No Information Available Problems Date Description Provider Status Onset: 01/28/2016 Coronary artery bypass graft Jaime Vigil DO 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 Active Onset: 08/30/2017 Peripheral vascular disease Brina Payan N.P. Active Onset: 08/30/2017 Type 2 diabetes mellitus with Brina Payan N.P. Active diabetic peripheral angiopathy without gangrene Onset: 09/03/2017 Acute osteomyelitis of ankle Wil Nicole MD Active and/or foot Onset: 09/17/2017 Rhabdomyolysis Harper Arthur NP Active Onset: 09/17/2017 Retention of urine Harper Arthur NP Active Onset: 09/17/2017 Syncope and collapse Harper Arthur NP Active Onset: 09/18/2017 Ulcer of heel Harper Arthur NP Active Onset: 09/19/2017 Type 2 diabetes mellitus with Yamilex Bey M.D. Active diabetic neuropathy, unspecified Onset: 09/15/2017 Type 2 diabetes mellitus with Lambert Garcia N.P. Active diabetic peripheral angiopathy with gangrene Onset: 09/16/2017 Chronic obstructive lung disease Harper Arthur NP Active Family History Date Family Member(s) Observation Comments General Diabetes General Heart Disease General Hypertension General Stroke General Chronic Obstructive Pulmonary Disease (COPD) General Hypercholesterolemia General Alcoholism : (age 84 Father due to Stroke Years) Mother Diabetes : (age 83 Mother due to Stroke Years) Mother Stroke Social History Type Date Description Comments Sex Unknown Lives With Occupation Retired Tobacco Use Start: Unknown End: Former Cigarette Smoker Unknown Tobacco Use Start: 02/09/14 Vape 4% nicotine Ecigarette, daily Smoking Status Reviewed: 04/08/18 Vape 4% nicotine Ecigarette, daily ETOH Use Denies alcohol use Recreational Drug Use Former Drug User Tobacco Use Start: Unknown End: Patient is a former Dec 2015 Unknown smoker Smoking Vapor cigarettes uses daily as of 04/20/17 is now at 0 calista Exercise Type/Frequency Does not exercise Allergies, Adverse Reactions, Alerts Date Description Reaction Status Severity Comments 11/21/2015 Penicillins Active 11/21/2015 Zosyn Active Medications Medication Date Status Form Strength Qnty SIG Indications Ordering Provider Amlodipine 04/08 Active Tablets 2.5mg 90tab 1 by mouth I10 Jaime Rylee Besylate /2019 s every day Musa, DO [facility] Knee Scooter 11/20 Active 1unit E11.621 Wil s MD Bonnie Lantus 04/09 Active Solution 100Unit/M take 20-25 Jaime S. L units at night Musa, as directed DO [facility] Aspirin 10/15 Active Tablets 81mg 1 by mouth Jaime S. /2016 every day Musa, DO [facility] Sertraline HCL 03/12 Active Tablets 100mg 1 by mouth every day Atorvastatin 01/27 Active Tablets 80mg 90tab 1 by mouth E78.5 Jaime S. Calcium s every day Musa, DO [facility] Carvedilol 01/27 Active Tablets 3.125mg 180ta 1 by mouth Jaime S. bs twice a day Musa, DO [facility] Magnesium Oxide Active Tablets 500mg take 1 tablet Unknown /0000 by mouth once daily Timolol Maleate Active Solution 0.25% 1 drop both Unknown /0000 eyes twice a day Brimonidine Active Solution 0.2% 1 gtt both Unknown Tartrate /0000 eyes once daily Brilinta Active Tablets 90mg 180ta 1 tab by mouth Jaime S. / bs twice a day Musa, DO [facility] Metformin HCL Active Tablets 1000mg take one Unknown /0000 tablet by mouth twice a day Albuterol Active Tablets 4mg 2 puffs every Unknown Sulfate /0000 4 hours Azithromycin 00 Active Tablets 250mg 2 now and 1 Unknown /0000 daily x 4 days Levofloxacin 10/13 Hx Tablets 500mg 14tab 1 by mouth M86.672 Leonard s every day Oral Davis 11/09 Dasia Clindamycin HCL 08/28 Hx Capsules 300mg 1 tabs by mouth 3 times - a day x 14 Levaquin 08/28 Hx Tablets 750mg 1 tab by mouth daily for 14 - days 09/09 Amlodipine 08/26 Hx Tablets 2.5mg 30tab 1 by mouth Jaime S. Besylate s every day Musa, - DO [facility] 09/22 Clopidogrel 08/26 Hx Tablets 75mg 180ta 75 mg by mouth I70.262 Osmin Palomo /2017 bs daily to be Jaky, - started one M.D. 08/31 week before /[address] Starkey. Amlodipine 10/15 Hx Tablets 2.5mg 90tab 1 by mouth Jaime Hayes /2016 s every day Musa, - DO [facility] 04/20 Aspirin Ec 01/09 Hx Tablets 325mg 100ta 1 by mouth Jaime Mckee /2015 DR hendricks every day Musa, - DO [facility] 10/15 Lisinopril 0000 Hx Tablets 30mg 1 by mouth Unknown /0000 every day - 12/28 Metformin HCL Hx Tablets 500mg 1 by mouth Unknown /0000 twice a day - 04/07 Carvedilol Hx Tablets 6.25mg 1 by mouth Unknown /0000 twice a day - 01/27 Sertraline HCL 00 Hx Tablets 50mg 1 by mouth Unknown /0000 every day - 04/[address] 250mg 1 capsule by Unknown Base /0000 Part mouth 2 times - daily 10/14 Lantus 00 Hx 26 units @ hs Unknown /0000 or as directed - 10/13 Humalog 00/00 Hx sliding scale Unknown /0000 - 12/28 Vitamin B 00/00 Hx Tablets 1 by mouth Unknown Complex /0000 every day - 12/18 Vitamin B-12 00 Hx Tablets 1000mcg 1 by mouth Unknown /0000 every day - 04/08 Novolog Flexpen 00 Hx Solution 100Unit/M sliding scale Unknown /0000 Pen-Injec L - t 10/13 Amlodipine 00/00 Hx Tablets 10mg 1 by mouth Unknown Besylate /0000 every day - 10/15 Vitamin B12 00/00 Hx one gummy Unknown /0000 daily - 04/09 Glipizide 00/00 Hx Tablets 5mg 1 tablets by Unknown /0000 mouth twice - per day 11/09 Lisinopril 00/00 Hx Tablets 5mg 1 by mouth Unknown /0000 every day - 08/11 Lisinopril 00/00 Hx Tablets 5mg 1 by mouth Unknown /0000 every day - 08/24 Ibu 00/00 Hx Tablets 600mg take one Unknown /0000 tablet by - mouth three 03/24 times a day needed Ceftriaxone Hx Solution 1gm iv every day Unknown Sodium /0000 Rec through [facility] - 09/15 Vancomycin HCL Hx Solution 1250mg iv every 12 Unknown /0000 Rec hours through - [place] 09/15 Metronidazole 00 Hx Tablets 500mg one tablet by Unknown /0000 mouth 2 times - daily 10/26 Levaquin Hx Solution 500mg 500mg IV once Unknown /0000 daily x 25 - days through 10/14 Medications Administered in Office Medication Date Status Form Strength Qnty SIG Indications Ordering Provider Inj, Administered Injection Jaime Mckee Regadenoson, 016 DO Musa 0.1 MG FACC Technetium TC Administered Injection Jaime SRian 99M 016 DO Musa Tetrofosmin, FACC Per Unit Dose Up To 40 Millicuries Immunizations CPT Code Status Date Vaccine Lot # 60521 Given 11/10/2017 Influenza Virus Vaccine, Quadrivalent, Split, [id number] Preservative Free Vital Signs Date Vital Result Comment 04/08/2018 3:28pm Height 70 inches 5'10" Weight 166.00 lb with shoes Heart Rate 64 /min BP Systolic Sitting 134 mmHg BP Diastolic Sitting 64 mmHg BP Systolic Standing 132 mmHg BP Diastolic Standing 64 mmHg Respiratory Rate 20 /min BMI (Body Mass Index) 23.8 kg/m2 Ejection Fraction 55-60% echo. 09/16/17 03/12/2018 2:42pm Height 70 inches 5'10" Weight 174.00 lb Heart Rate 64 /min Respiratory Rate 18 /min Body Temperature 97.8 F Pain Level 0 BMI (Body Mass Index) 25.0 kg/m2 02/12/2018 2:39pm Height 70 inches 5'10" Weight 174.00 lb BP Systolic 122 mmHg BP Diastolic 64 mmHg BMI (Body Mass Index) 25.0 kg/m2 02/01/2018 7:55am Height 70 inches 5'10" Weight 174.00 lb BP Systolic 120 mmHg BP Diastolic 68 mmHg Respiratory Rate 18 /min Pain Level 0 BMI (Body Mass Index) 25.0 kg/m2 01/26/2018 9:58am Height 70 inches 5'10" Weight 174.00 lb Heart Rate 72 /min Respiratory Rate 16 /min Pain Level 0 BMI (Body Mass Index) 25.0 kg/m2 01/20/2018 1:18pm Height 70 inches 5'10" Weight 174.00 lb BP Systolic 124 mmHg BP Diastolic 76 mmHg Body Temperature 98.0 F BMI (Body Mass Index) 25.0 kg/m2 01/20/2018 9:41am Height 70 inches 5'10" Weight 174.00 lb Heart Rate 80 /min BP Systolic Sitting 106 mmHg Lue BP Diastolic Sitting 74 mmHg Lue Respiratory Rate 16 /min BMI (Body Mass Index) 25.0 kg/m2 01/12/2018 1:36pm Height 70 inches 5'10" Weight 170.00 lb Respiratory Rate 16 /min Body Temperature 95.2 F Pain Level 0 BMI (Body Mass Index) 24.4 kg/m2 01/04/2018 2:20pm Height 70 inches 5'10" Heart Rate 84 /min BP Systolic Sitting 104 mmHg BP Diastolic Sitting 68 mmHg Body Temperature 96.7 F Pain Level 0 01/04/2018 2:08pm Height 70 inches 5'10" 12/11/2017 10:38am Height 70 inches 5'10" Heart Rate 74 /min Respiratory Rate 18 /min Body Temperature 97.1 F Pain Level 0 11/20/2017 10:40am Heart Rate 72 /min Respiratory Rate 16 /min Body Temperature 97.0 F Pain Level 0 11/10/2017 11:01am Height 70 inches 5'10" Weight 175.00 lb Heart Rate 92 /min BP Systolic Sitting 144 mmHg BP Diastolic Sitting 90 mmHg Respiratory Rate 16 /min Body Temperature 96.3 F BMI (Body Mass Index) 25.1 kg/m2 10/27/2017 9:58am Height 70 inches 5'10" Weight 179.00 lb Heart Rate 76 /min BP Systolic Sitting 108 mmHg Lue reg cuff BP Diastolic Sitting 68 mmHg Lue reg cuff Body Temperature 97.8 F Pain Level 0 BMI (Body Mass Index) 25.7 kg/m2 10/14/2017 7:40am Height 70 inches 5'10" Weight 179.00 lb Heart Rate 78 /min BP Systolic Sitting 114 mmHg BP Diastolic Sitting 66 mmHg Respiratory Rate 16 /min BMI (Body Mass Index) 25.7 kg/m2 10/13/2017 11:06am Height 70 inches 5'10" Weight 179.38 lb Heart Rate 92 /min BP Systolic Sitting 128 mmHg BP Diastolic Sitting 70 mmHg Respiratory Rate 14 /min Body Temperature 96.6 F BMI (Body Mass Index) 25.7 kg/m2 10/07/2017 1:07pm Height 70 inches 5'10" Weight 178.00 lb Heart Rate 64 /min Respiratory Rate 20 /min Body Temperature 95.6 F Pain Level 0 BMI (Body Mass Index) 25.5 kg/m2 09/23/2017 1:33pm Height 70 inches 5'10" Weight 178.00 lb Heart Rate 78 /min BP Systolic Sitting 140 mmHg lue reg cuff BP Diastolic Sitting 90 mmHg lue reg cuff BP Systolic Standing 130 mmHg BP Diastolic Standing 80 mmHg Respiratory Rate 18 /min BMI (Body Mass Index) 25.5 kg/m2 08/26/2017 1:07pm Height 70 inches 5'10" Weight 184.00 lb w/ shoes Heart Rate 92 /min BP Systolic Sitting 122 mmHg lue lg cuff BP Diastolic Sitting 72 mmHg lue lg cuff BMI (Body Mass Index) 26.4 kg/m2 Ejection Fraction 55% echo 02/01/16 08/11/2017 9:32am Height 70 inches 5'10" Weight 185.00 lb BP Systolic Sitting 100 mmHg Jennifer reg cuff BP Diastolic Sitting 58 mmHg Jennifer reg cuff BP Systolic Standing 96 mmHg Jennifer reg cuff BP Diastolic Standing 54 mmHg Jennifer reg cuff Respiratory Rate 20 /min BMI (Body Mass Index) 26.5 kg/m2 Ejection Fraction 55% Echo 02/01/16 04/20/2017 2:28pm Height 70 inches 5'10" Weight 197.00 lb Heart Rate 92 /min BP Systolic Sitting 108 mmHg Rue reg cuff BP Diastolic Sitting 84 mmHg Rue reg cuff BP Systolic Standing 94 mmHg Rue BP Diastolic Standing 84 mmHg Rue Respiratory Rate 16 /min BMI (Body Mass Index) 28.3 kg/m2 Ejection Fraction 55% 02/01/16 10/15/2016 2:19pm Height 70 inches 5'10" Weight 190.00 lb Heart Rate 92 /min BP Systolic Sitting 102 mmHg Rue reg cuff BP Diastolic Sitting 84 mmHg Rue reg cuff BP Systolic Standing 96 mmHg Rue BP Diastolic Standing 74 mmHg Rue Respiratory Rate 18 /min BMI (Body Mass Index) 27.3 kg/m2 Ejection Fraction 55% 02/01/16 04/09/2016 3:58pm Height 70 inches 5'10" Weight 200.00 lb with shoes Heart Rate 82 /min BP Systolic Sitting 140 mmHg Rue lg cuff BP Diastolic Sitting 82 mmHg Rue lg cuff BP Systolic Standing 114 mmHg Rue lg cuff BP Diastolic Standing 70 mmHg Rue lg cuff Respiratory Rate 16 /min BMI (Body Mass Index) 28.7 kg/m2 Ejection Fraction 55% date 02/01/16 ECHO 01/28/2016 2:44pm Height 68.75 inches 5'8.75" Weight 190.00 lb [...] BMI (Body Mass Index) 28.3 kg/m2 11/21/2015 2:11pm Height 69.75 inches 5'9.75" Weight 197.00 lb BP Systolic 135 mmHg BP Diastolic 70 mmHg Pain Level 7 BMI (Body Mass Index) 28.5 kg/m2 Results Test Date Facility Test Result H/L Range Note CBC Auto Diff 10/05/2017 [facility] White Blood 6.8 10^3/uL N 3.5-10.[address] [place] [address] [phone] Red Blood Count 3.65 10^6/uL Low 4.00-5.40 Hemoglobin 11.3 g/dL Low 14.0-18.0 Hematocrit 34 % Low 42-52 Mean Corpuscular Volume 92 fL N 80-94 Mean Corpuscular Hemoglobin 31 pg N 27-31 Mean Corpuscular HGB Conc 34 g/dL N 31-36 Red Cell Distribution Width 15 % N 10.5-15 Platelet Count 260 10^3/uL N 150-450 Mean Platelet Volume 8.4 um3 N 7.4-10.4 Abs Neutrophils 4.3 10^3/uL N 1.5-7.7 Abs Lymphocytes 1.4 10^3/uL N 1.0-4.8 Abs Monocytes 0.8 10^3/uL N 0-0.8 Abs Eosinophils 0.2 10^3/uL N 0-0.6 Abs Basophils 0.1 10^3/uL N 0-0.2 Abs Nucleated RBC 0 10^3/uL Granulocyte % 63.1 % N 38-83 Lymphocyte % 20.9 % Low 25-47 Monocyte % 11.1 % High 0-7 Eosinophil % 3.6 % N 0-6 Basophil % 1.3 % N 0-2 Nucleated Red Blood Cells % 0.1 Comp Metabolic Panel 10/05/2017 [facility] Sodium 140 mmol/L N 135-[address] [place] [address] [phone] Potassium 4.4 mmol/L N 3.5-5.0 Chloride 108 mmol/L N 101-111 Co2 Carbon Dioxide 25 mmol/L N 22-32 Anion Gap 7 mmol/L N 2-11 Glucose 83 mg/dL N 70-100 Blood Urea Nitrogen 19 mg/dL N 6-24 Creatinine 0.81 mg/dL N 0.67-1.17 BUN/Creatinine Ratio 23.5 High 8-20 Calcium 9.0 mg/dL N 8.6-10.3 Total Protein 5.7 g/dL Low 6.4-8.9 Albumin 3.5 g/dL N 3.2-5.2 Globulin 2.2 g/dL N 2-4 Albumin/Globulin Ratio 1.6 N 1-3 Total Bilirubin 0.50 mg/dL N 0.2-1.0 Alkaline Phosphatase 56 U/L N 34-104 Alt 17 U/L N 7-52 Ast 16 U/L N 13-39 Egfr Non- 97.5 >60 Egfr 118.0 >60 1 Laboratory test 10/05/2017 [facility] Prealbumin 16 mg/dL Low 18-[address] [place] [address] [phone] C Reactive Protein 3.44 mg/L N <8.01 Laboratory test 09/28/2017 [facility] Creatine 47 U/L N 10- [address] Kinase(CK) [place] [address] [phone] CBC Auto Diff 09/28/2017 [facility] White Blood 7.5 N 3.5- 10.[address] Count 10^3/[place] [address] [phone] Red Blood Count 3.71 10^6/uL Low 4.00-5.40 Hemoglobin 11.6 g/dL Low 14.0-18.0 Hematocrit 35 % Low 42-52 Mean Corpuscular Volume 93 fL N 80-94 Mean Corpuscular Hemoglobin 31 pg N 27-31 Mean Corpuscular HGB Conc 33 g/dL N 31-36 Red Cell Distribution Width 16 % High 10.5-15 Platelet Count 318 10^3/uL N 150-450 Mean Platelet Volume 8.5 um3 N 7.4-10.4 Abs Neutrophils 4.9 10^3/uL N 1.5-7.7 Abs Lymphocytes 1.4 10^3/uL N 1.0-4.8 Abs Monocytes 0.7 10^3/uL N 0-0.8 Abs Eosinophils 0.3 10^3/uL N 0-0.6 Abs Basophils 0.2 10^3/uL N 0-0.2 Abs Nucleated RBC 0 10^3/uL Granulocyte % 65.9 % N 38-83 Lymphocyte % 18.1 % Low 25-47 Monocyte % 9.3 % High 0-7 Eosinophil % 4.6 % N 0-6 Basophil % 2.1 % High 0-2 Nucleated Red Blood Cells % 0 Comp Metabolic Panel 09/28/2017 [facility] Sodium 138 mmol/L N 135-[address] [place] [address] [phone] Potassium 4.6 mmol/L N 3.5-5.0 Chloride 105 mmol/L N 101-111 Co2 Carbon Dioxide 26 mmol/L N 22-32 Anion Gap 7 mmol/L N 2-11 Glucose 158 mg/dL High 70-100 Blood Urea Nitrogen 21 mg/dL N 6-24 Creatinine 0.95 mg/dL N 0.67-1.17 BUN/Creatinine Ratio 22.1 High 8-20 Calcium 8.8 mg/dL N 8.6-10.3 Total Protein 6.3 g/dL Low 6.4-8.9 Albumin 3.7 g/dL N 3.2-5.2 Globulin 2.6 g/dL N 2-4 Albumin/Globulin Ratio 1.4 N 1-3 Total Bilirubin 0.60 mg/dL N 0.2-1.0 Alkaline Phosphatase 65 U/L N 34-104 Alt 24 U/L N 7-52 Ast 21 U/L N 13-39 Egfr Non- 81.1 >60 Egfr 98.2 >60 2 Laboratory test 09/28/2017 [facility] C Reactive 3.47 mg/L N < 8.[address] [place] [address] [phone] Laboratory test 09/23/2017 [facility] Creatine <pending> finding [address] Kinase(CK) [place] [address] [phone] CBC Auto Diff 09/21/2017 [facility] White Blood 7.3 N 3.5- 10.[address] Count 10^3/[place] [address] [phone] Red Blood Count 3.22 10^6/uL Low 4.00-5.40 Hemoglobin 10.0 g/dL Low 14.0-18.0 Hematocrit 30 % Low 42-52 Mean Corpuscular Volume 93 fL N 80-94 Mean Corpuscular Hemoglobin 31 pg N 27-31 Mean Corpuscular HGB Conc 33 g/dL N 31-36 Red Cell Distribution Width 15 % N 10.5-15 Platelet Count 329 10^3/uL N 150-450 Mean Platelet Volume 8.6 um3 N 7.4-10.4 Abs Neutrophils 4.9 10^3/uL N 1.5-7.7 Abs Lymphocytes 1.2 10^3/uL N 1.0-4.8 Abs Monocytes 0.8 10^3/uL N 0-0.8 Abs Eosinophils 0.3 10^3/uL N 0-0.6 Abs Basophils 0.1 10^3/uL N 0-0.2 Abs Nucleated RBC 0 10^3/uL Granulocyte % 67.2 % N 38-83 Lymphocyte % 16.5 % Low 25-47 Monocyte % 10.8 % High 0-7 Eosinophil % 4.3 % N 0-6 Basophil % 1.2 % N 0-2 Nucleated Red Blood Cells % 0 Comp Metabolic Panel 09/21/2017 [facility] Sodium 135 mmol/L N 135-[address] [place] [address] [phone] Potassium 4.6 mmol/L N 3.5-5.0 Chloride 104 mmol/L N 101-111 Co2 Carbon Dioxide 20 mmol/L Low 22-32 Anion Gap 11 mmol/L N 2-11 Calcium 8.5 mg/dL Low 8.6-10.3 Albumin 3.3 g/dL N 3.2-5.2 Total Bilirubin 0.60 mg/dL N 0.2-1.0 Glucose 348 mg/dL High 70-100 Blood Urea Nitrogen 23 mg/dL N 6-24 Creatinine 0.98 mg/dL N 0.67-1.17 BUN/Creatinine Ratio 23.5 High 8-20 Total Protein 5.5 g/dL Low 6.4-8.9 Globulin 2.2 g/dL N 2-4 Albumin/Globulin Ratio 1.5 N 1-3 Alkaline Phosphatase 57 U/L N 34-104 Alt 34 U/L N 7-52 Ast 28 U/L N 13-39 Egfr Non- 78.3 >60 Egfr 94.7 >60 3 Laboratory test 09/21/2017 [facility] C Reactive 4.44 mg/L N < 8.[address] [place] [address] [phone] CBC Auto Diff 09/14/2017 [facility] White Blood 7.8 N 3.5- 10.[address] Count 10^3/[place] [address] [phone] Red Blood Count 2.94 10^6/uL Low 4.00-5.40 Hemoglobin 9.1 g/dL Low 14.0-18.0 Hematocrit 27 % Low 42-52 Mean Corpuscular Volume 93 fL N 80-94 Mean Corpuscular Hemoglobin 31 pg N 27-31 Mean Corpuscular HGB Conc 33 g/dL N 31-36 Red Cell Distribution Width 14 % N 10.5-15 Platelet Count 272 10^3/uL N 150-450 Mean Platelet Volume 8.7 um3 N 7.4-10.4 Abs Neutrophils 5.8 10^3/uL N 1.5-7.7 Abs Lymphocytes 0.8 10^3/uL Low 1.0-4.8 Abs Monocytes 0.6 10^3/uL N 0-0.8 Abs Eosinophils 0.4 10^3/uL N 0-0.6 Abs Basophils 0.1 10^3/uL N 0-0.2 Abs Nucleated RBC 0 10^3/uL Granulocyte % 74.5 % N 38-83 Lymphocyte % 10.8 % Low 25-47 Monocyte % 8.1 % High 0-7 Eosinophil % 4.8 % N 0-6 Basophil % 1.8 % N 0-2 Nucleated Red Blood Cells % 0.2 Comp Metabolic Panel 09/14/2017 [facility] Sodium 140 mmol/L N 135-[address] [place] [address] [phone] Potassium 4.1 mmol/L N 3.5-5.0 Chloride 103 mmol/L N 101-111 Co2 Carbon Dioxide 24 mmol/L N 22-32 Anion Gap 13 mmol/L High 2-11 Glucose 175 mg/dL High 70-100 Blood Urea Nitrogen 12 mg/dL N 6-24 Creatinine 0.81 mg/dL N 0.67-1.17 BUN/Creatinine Ratio 14.8 N 8-20 Calcium 8.6 mg/dL N 8.6-10.3 Total Protein 5.7 g/dL Low 6.4-8.9 Albumin 3.3 g/dL N 3.2-5.2 Globulin 2.4 g/dL N 2-4 Albumin/Globulin Ratio 1.4 N 1-3 Total Bilirubin 0.40 mg/dL N 0.2-1.0 Alkaline Phosphatase 55 U/L N 34-104 Alt 22 U/L N 7-52 Ast 20 U/L N 13-39 Egfr Non- 97.5 >60 Egfr 118.0 >60 5 Laboratory test 09/14/2017 [facility] Vancomycin Trough 25.1 g /mL [address] [place] [address] [phone] C Reactive Protein 2.59 mg/L N <8.01 7 Laboratory test 08/28/2017 [facility] Tissue Culture SEE RESULT 8, [address] [place] [address] [phone] CBC Auto Diff 01/01/2016 [facility] White Blood 10.6 10^3/uL N 3.5-[address] Count 0.8 [place] [address] [phone] Red Blood Count 4.39 10^6/uL N 4.0-5.4 Hemoglobin 13.6 g/dL Low 14.0-18.0 Hematocrit 41 % Low 42-52 Mean Corpuscular Volume 93 fL N 80-94 Mean Corpuscular Hemoglobin 31 pg N 27-31 Mean Corpuscular HGB Conc 33 g/dL N 31-36 Red Cell Distribution Width 14 % N 10.5-15 Platelet Count 298 10^3/uL N 150-450 Mean Platelet Volume 9 um3 N 7.4-10.4 Abs Neutrophils 7.0 10^3/uL N 1.5-7.7 Abs Lymphocytes 2.2 10^3/uL N 1.0-4.8 Abs Monocytes 0.8 10^3/uL N 0-0.8 Abs Eosinophils 0.4 10^3/uL N 0-0.6 Abs Basophils 0.1 10^3/uL N 0-0.2 Abs Nucleated RBC 0.01 10^3/uL N Granulocyte % 66.5 % N 38-83 Lymphocyte % 21.1 % Low 25-47 Monocyte % 7.7 % N 1-9 Eosinophil % 3.6 % N 0-6 Basophil % 1.1 % N 0-2 Nucleated Red Blood Cells % 0 N Laboratory test 01/01/2016 [facility] Magnesium 1.6 mg/dL Low 1.9-2.7 finding [address] [place] [address] [phone] Amylase 51 U/L N 29-103 Lipase 55 U/L N 11.0-82.0 TSH (Thyroid Stim Horm) 2.45 mcIU/mL N 0.34-5.60 Vitamin B12 383 pg/mL N 180-914 10 Vitamin D Total 25(Oh) 36.3 ng/mL N 30-50 Comp Metabolic Panel 01/01/2016 [facility] Sodium 138 mmol/L N 133-145 [address] [place] [address] [phone] Potassium 5.9 mmol/L High 3.5-5.0 Chloride 109 mmol/L N 101-111 Co2 Carbon Dioxide 23 mmol/L N 22-32 Anion Gap 6 mmol/L N 2-11 Glucose 116 mg/dL High 70-100 Blood Urea Nitrogen 20 mg/dL N 6-24 Creatinine 0.78 mg/dL N 0.67-1.17 BUN/Creatinine Ratio 25.6 High 8-20 Calcium 10.0 mg/dL N 8.6-10.3 Total Protein 6.7 g/dL N 6.4-8.9 Albumin 3.9 g/dL N 3.2-5.2 Globulin 2.8 g/dL N 2-4 Albumin/Globulin Ratio 1.4 N 1-3 Total Bilirubin 0.40 mg/dL N 0.2-1.0 Alkaline Phosphatase 70 U/L N 34-104 Alt 19 U/L N 7-52 Ast 15 U/L N 13-39 Egfr Non- 102.2 N >60 Egfr 131.5 N >60 11 Laboratory test 01/01/2016 [facility] Erythrocyte Sed 23 mm/Hr High 0-[address] [place] [address] [phone] Hemoglobin A1c (Glyco HGB) 6.5 % High Less than 6.0 12 1 Because ethnic data is not [...] 5 Kidney failure <15 (or dialysis) 4 [id number] 5 Because ethnic data is not always [...] 5 Kidney failure <15 (or dialysis) 6 [id number] 7 [id number] LATERAL ASPECT OF HEEL WOUND 9 SEE RESULT BELOW Name: VIKY BARRERA : [address]: Raquel Rivas RFID ANALYST Acct: [id number] Unit: [id number] AGE: 61 Location: WOUND Re08/28/17 SEX: M Status: REG REF SPEC: [id number] LEIGHANN: 08/28/17 [facility] DR: Raquel Rivas RFID ANALYST REQ: [id number] RECD: 08/28/17 STATUS: COMP [facility] DR: Jaime Perea MD _ SOURCE: TISSUE [...] . END OF REPORT DEPARTMENT OF PATHOLOGY, [address] [place] [address] Edd Herndon M.D. Director [facility] # [id number] 10 Normal Range 180 to 914 Indeterminate Range 145 to 180 Deficient Range <145 11 Because ethnic data is not always [...] 5 Kidney failure <15 (or dialysis) 12 Therapeutic target for the treatment of diabetes Mellitus patients is <7% HBA1C, and in selective patients <6.0%.Please refer to [place] [employer] Diabetic care guidelines for further information. Procedures Date Code Description Status 04/08/2018 08537 EKG Tracing & Interpretation Completed 02/01/2018 16210 Apply Total Contact Leg Cast Completed 01/26/2018 00079 Apply Total Contact Leg Cast Completed 01/20/2018 43383 Apply Total Contact Leg Cast Completed 01/12/2018 82127 Negative Pressure Wound Therapy Less Than 50 Square CM Completed 01/04/2018 08959 Negative Pressure Wound Therapy Less Than 50 Square CM Completed 12/11/2017 29086 Negative Pressure Wound Therapy Less Than 50 Square CM Completed 11/20/2017 47033 Negative Pressure Wound Therapy Less Than 50 Square CM Completed 10/07/2017 84092 Negative Pressure Wound Therapy Less Than 50 Square CM Completed 10/02/2017 39033 Removal Devitalization Tissue Wound Less Than Equal 20 Completed Square CM 09/23/2017 95534 EKG Tracing & Interpretation Completed 09/18/2017 43559 EKG, Interpretation Only Completed 09/16/2017 32958 ECHO Transthorasic Realtime 2D W Doppler & Color Flow Completed Hosp 09/16/2017 02711 EEG Recording Awake & Drowsy Completed 09/15/2017 54652 EKG, Interpretation Only Completed 09/08/2017 14955 Moderate Sedation Services; Same Phys Each Additional Completed 15 Mins 09/08/2017 76308 Moderate Sedation Services; Same Phys Intl 15 Mins; PT Completed >=5 Years 09/08/2017 35409 Ultrasound Guidance For Vascular Access Completed 09/08/2017 45357 [id number] Completed 09/08/2017 14880 Revascularization,Endovascular W/Transluminal Completed Angioplasty 09/08/2017 81896 Revascularization,Endovascular W/Atherectomy, Inc Completed Angioplasty 09/03/2017 06700 Debridement Tissue/Muscle/Bone Completed 09/03/2017 37771 Debridement Tissue/Muscle/Bone Completed 09/03/2017 68782 Debridement,Bone,Epidermis/Dermis/Tissue/Muscle, Addtl Completed 20 SQ CM 09/03/2017 57350 Debridement,Bone,Epidermis/Dermis/Tissue/Muscle, Addtl Completed 20 SQ CM 09/03/2017 28587 Excise Biopsy Bone Deep Completed 09/03/2017 11124 Excise Biopsy Bone Deep Completed 09/03/2017 68396 Negative Pressure Wound Therapy Less Than 50 Square CM Completed 09/03/2017 70471 Negative Pressure Wound Therapy Less Than 50 Square CM Completed 08/28/2017 00089 Debridement Skin,& sq Tissue Completed 08/05/2017 82971 EKG, Interpretation Only Completed 08/04/2017 36153 Revascularization Acute Total/Subtotal Occlusion Completed 08/04/2017 33901 EKG, Interpretation Only Completed 08/04/2017 32217 EKG, Interpretation Only Completed 08/04/2017 70576 EKG, Interpretation Only Completed 08/04/2017 32736 Coronary Angiography With Catheter Placement In [place] Completed Grafts 04/20/2017 33510 EKG Tracing & Interpretation Completed 12/03/2016 53311073 Colonoscopy Completed 10/15/2016 35524 EKG Tracing & Interpretation Completed 03/13/2016 77125 Cardiac Event Monitor Completed 03/13/2016 12111 Mobile Cardiovascular Telemetry Over 24 HR Up To 30 Completed Days 02/07/2016 50451 Stress Test Completed 02/07/2016 40129 Myocardial Perfusion Imaging Tomographic (Spect) Completed Multiple Studies 02/01/2016 80893 ECHO Transthoracic, Real-Time 2D With Doppler And Color Completed Flow 01/28/2016 75647 EKG Tracing & Interpretation Completed 04/04/2014 09996 EKG, Interpretation Only Completed Encounters Type Date Location Provider Dx Diagnosis Office Visit 03/12/2018 Gus Nicole, E11.621 Type 2 diabetes 2:45p Services Of Yoav BORREGO mellitus with foot ulcer L97.429 Non-prs chronic ulcer of left heel and midfoot w unsp severt Office Visit 02/12/2018 2:15p Gus Nicole L97.429 Non-prs Services Of MD noah Randolph.M.ARian of left heel and midfoot w unsp severt Z79.4 terminal manager (current) use of insulin E11.621 Type 2 diabetes mellitus with foot ulcer Office Visit 02/01/2018 Gus Nicole L97.529 Non-pressure 8:00a Services Of MD noah james oth CRianMRobinson prt left foot w unsp severity Z79.84 terminal manager (current) use of oral hypoglycemic drugs E11.621 Type 2 diabetes mellitus with foot ulcer Office Visit 01/26/2018 10:00a Gus Nicole, E11.621 Type 2 Services Of MD johanny Cason mellitus with foot ulcer L97.429 Non-prs chronic ulcer of left heel and midfoot w unsp severt Office Visit 01/20/2018 1:15p Gus Nicole E11.621 Type 2 Services Of MD johanny Cason mellitus with foot ulcer Z79.4 skilled nursing (current) use of insulin E11.69 Type 2 diabetes mellitus with other specified complication S91.302A Unspecified open wound, left foot, initial encounter Office Visit 01/20/2018 9:00a Kyle Martinez I70.262 [facility] Of Naima Starkey M.D. arteries of extremities w gangrene, left leg Office Visit 01/04/2018 2:15p Orthopedic [facility] E11.621 Type 2 diabetes Services Of MD Bonnie mellitus with C.M.A. foot ulcer E11.69 Type 2 diabetes mellitus with other specified complication S91.302A Unspecified open wound, left foot, initial encounter Office Visit 12/11/2017 10:45a Orthopedic Wil Bonnie, E11.621 Type 2 Services Of diabetes C.M.A. mellitus with foot ulcer Office Visit 11/10/2017 10:50a [facility] Fam Mixon E11.621 Type 2 Infectious Dasia Davis diabetes Diseases mellitus with foot ulcer L97.429 Non-prs chronic ulcer of left heel and midfoot w unsp severt Z23 Encounter for immunization Office Visit 10/27/2017 Orthopedic Wil Nicole, M86.672 Other chronic 10:00a Services Of osteomyelitis, left C.M.A. ankle and foot Z47.89 Encounter for other orthopedic aftercare Office Visit 10/14/2017 8:15a Kyle Martinez I70.262 [facility] [place] Medicine Of Naima Starkey M.D. arteries of extremities w gangrene, left leg Office Visit 10/13/2017 11:10a [facility] Fam Mixon E11.621 Type 2 diabetes Infectious Luizen, mellitus with Diseases M.D. foot ulcer M86.672 Other chronic osteomyelitis, left ankle and foot Z79.2 terminal manager (current) use of antibiotics E11.69 Type 2 diabetes mellitus with other specified complication Office Visit 10/07/2017 1:00p Orthopedic Wil Bonnie E11.621 Type 2 Services Of diabetes C.M.A. mellitus with foot ulcer Z47.89 Encounter for other orthopedic aftercare Office Visit 10/02/2017 1:30p Wound Care Raquel Rivas E11.621 Type 2 diabetes Center AT [facility] KAYCE RN, DISTRICT SERVICE MANAGER-BC mellitus with foot ulcer J44.9 Chronic obstructive pulmonary disease, unspecified F17.211 Nicotine dependence, cigarettes, in remission Office Visit 09/23/2017 1:40p [facility] Jaime Mckee M62.82 Rhabdomyolysis Of Naima Vigil DO [facility] I25.2 Old myocardial infarction I73.9 Peripheral vascular disease, unspecified I25.10 Athscl heart disease of [place] coronary artery w/o ang pctrs Z95.1 Presence of aortocoronary bypass graft I45.3 Trifascicular block E11.43 Type 2 diabetes w diabetic autonomic (poly)neuropathy F17.201 Nicotine dependence, unspecified, in remission R55 Syncope and collapse E11.8 Type 2 diabetes mellitus with unspecified complications Office Visit 09/19/2017 11:16a [facility] Yamilex Bey, M62.82 Rhabdomyolysis Assoc,toshia MFabiana Hospitalists L97.429 Non-prs chronic ulcer of left heel and midfoot w unsp severt E11.621 Type 2 diabetes mellitus with foot ulcer E11.51 Type 2 diabetes w diabetic peripheral angiopath w/o gangrene M86.172 Other acute osteomyelitis, left ankle and foot E11.40 Type 2 diabetes mellitus with diabetic neuropathy, unsp N17.9 Acute kidney failure, unspecified I73.9 Peripheral vascular disease, unspecified Office Visit 09/19/2017 Orthopedic Dione L97.429 Non-prs 11:33a Services Of Yoav Treadwell PA-C chronic ulcer of left heel and midfoot w unsp severt [facility]2017 [facility] L97.429 Non-prs 11:16a Assoc,toshia Arthur NP chronic ulcer Hospitalists of left heel and midfoot w unsp severt E11.51 Type 2 diabetes w diabetic peripheral angiopath w/o gangrene I73.9 Peripheral vascular disease, unspecified R55 Syncope and collapse R33.8 Other retention of urine E11.621 Type 2 diabetes mellitus with foot ulcer Office Visit 09/17/2017 11:15a [facility] R55 Syncope and Assoc,jimbo Louis Hospitalists RFID ANALYST M62.82 Rhabdomyolysis E11.51 Type 2 diabetes w diabetic peripheral angiopath w/o gangrene I73.9 Peripheral vascular disease, unspecified R33.8 Other retention of urine Office Visit 09/17/2017 9:42a [facility] Leonard Mixon M79.1 Myalgia Infectious Diseases Dasia Davis M86.672 Other chronic osteomyelitis, left ankle and foot L89.620 Pressure ulcer of left heel, unstageable Office Visit 09/17/2017 Orthopedic Ally Hodgson L97.529 Non-pressure 10:19a Services Of Yoav TIDWELL chronic ulcer oth prt left foot w unsp severity Office Visit 09/16/2017 Orthopedic Ally Hodgson L97.429 Non-prs chronic 11:32a Services Of Yoav TIDWELL ulcer of left heel and midfoot w unsp severt Office Visit 09/16/2017 [facility] Harper E11.51 Type 2 diabetes w 11:15a Assoc,toshia Arthur, diabetic Hospitalists RFID ANALYST peripheral angiopath w/o gangrene L97.429 Non-prs chronic ulcer of left heel and midfoot w unsp severt M62.82 Rhabdomyolysis I73.9 Peripheral vascular disease, unspecified R55 Syncope and collapse J44.9 Chronic obstructive pulmonary disease, unspecified Z79.4 terminal manager (current) use of insulin R33.8 Other retention of urine Office Visit 09/16/2017 9:41a [facility] Fam Mixon R55 Syncope and Infectious Dasia Davis collapse Diseases T36.1x1A Poisoning by cephalospor/oth beta-lactm antibiot, acc, init M86.672 Other chronic osteomyelitis, left ankle and foot E10.9 Type 1 diabetes mellitus without complications Office Visit 09/16/2017 7:00a [facility] Anupam Perkins, R55 Syncope and MD collapse M62.82 Rhabdomyolysis Office Visit 09/15/2017 Gus Canales L97.429 Non-prs chronic 11:32a Services Of DIANN Enriquez ulcer of left heel and midfoot w unsp severt Office Visit 09/15/2017 [facility] Lambert M62.82 Rhabdomyolysis 11:14a Assoc,toshia Garcia, Hospitalists N.P. E11.40 Type 2 diabetes mellitus with diabetic neuropathy, unsp I73.9 Peripheral vascular disease, unspecified E11.52 Type 2 diabetes w diabetic peripheral angiopathy w gangrene E11.621 Type 2 diabetes mellitus with foot ulcer Office Visit 09/09/2017 10:[facility]a [facility] E[facility].621 Type 2 Assoc,toshia Rodrigez D.O. diabetes Hospitalists mellitus with foot ulcer L97.329 Non-pressure chronic ulcer of left ankle with unsp severity I73.9 Peripheral vascular disease, unspecified E11.51 Type 2 diabetes w diabetic peripheral angiopath w/o gangrene I10 Essential (primary) hypertension E11.69 Type 2 diabetes mellitus with other specified complication Office Visit 09/08/2017 10:56a [facility] E11.621 Type 2 Assoc,[facility] Jerson, diabetes Hospitalists RFID ANALYST mellitus with foot ulcer L97.329 Non-pressure chronic ulcer of left ankle with unsp severity I73.9 Peripheral vascular disease, unspecified E11.51 Type 2 diabetes w diabetic peripheral angiopath w/o gangrene I10 Essential (primary) hypertension Office Visit 09/07/2017 10:56a [facility] E11.621 Type 2 Assoc, Aman Jerson, diabetes Hospitalists RFID ANALYST mellitus with foot ulcer L97.329 Non-pressure chronic ulcer of left ankle with unsp severity I73.9 Peripheral vascular disease, unspecified E11.51 Type 2 diabetes w diabetic peripheral angiopath w/o gangrene I10 Essential (primary) hypertension Office Visit 09/07/2017 [facility] Leonard Mixon E11.69 Type 2 diabetes 9:13a For Mana Davis M.D. 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) Office Visit 09/06/2017 10:55a [facility] Feliz Chappell, E11.621 Type 2 diabetes toshia Triplett MD mellitus with Hospitalists foot ulcer L97.329 Non-pressure chronic ulcer of left ankle with unsp severity I73.9 Peripheral vascular disease, unspecified E11.51 Type 2 diabetes w diabetic peripheral angiopath w/o gangrene I10 Essential (primary) hypertension Office Visit 09/05/2017 10:54a [facility] Feliz Chappell, E11.621 Type 2 diabetes toshia Triplett MD mellitus with Hospitalists foot ulcer L97.329 Non-pressure chronic ulcer of left ankle with unsp severity I73.9 Peripheral vascular disease, unspecified E11.51 Type 2 diabetes w diabetic peripheral angiopath w/o gangrene I10 Essential (primary) hypertension Office Visit 09/04/2017 10:54a [facility] E11.621 Type 2 Assoc, Aman Arthur, diabetes Hospitalists RFID ANALYST mellitus with foot ulcer L97.329 Non-pressure chronic ulcer of left ankle with unsp severity I73.9 Peripheral vascular disease, unspecified E11.51 Type 2 diabetes w diabetic peripheral angiopath w/o gangrene I10 Essential (primary) hypertension Office Visit 09/03/2017 10:52a [facility] E11.621 Type 2 Assoc,[facility] Jerson, diabetes Hospitalists RFID ANALYST mellitus with foot ulcer L97.329 Non-pressure chronic ulcer of left ankle with unsp severity I10 Essential (primary) hypertension Office Visit 09/03/2017 8:59a [facility] Fam Mixon E11.52 Type 2 diabetes Infectious Dasia Davis w diabetic Diseases peripheral angiopathy w gangrene E11.69 Type 2 diabetes mellitus with other specified complication M86.172 Other acute osteomyelitis, left ankle and foot L03.116 Cellulitis of left lower limb Office Visit 09/02/2017 10:51a [facility] E11.621 Type 2 Assoc, Aman Arthur, diabetes Hospitalists RFID ANALYST mellitus with foot ulcer L97.329 Non-pressure chronic ulcer of left ankle with unsp severity I10 Essential (primary) hypertension Office Visit 09/02/2017 8:46a Kyle Martinez E11.51 Type 2 diabetes Medicine Of Naima Starkey M.D. w diabetic peripheral angiopath w/o gangrene Office Visit 09/02/2017 3:15p Orthopedic Wil Nicole, E11.621 Type 2 diabetes Services Of mellitus with C.M.A. foot ulcer M86.172 Other acute osteomyelitis, left ankle and foot Office Visit 09/01/2017 [facility] Brina Payan, L97.329 Non-pressure 10:49a Assoc, N.P. chronic ulcer of Hospitalists left ankle with unsp severity E11.621 Type 2 diabetes mellitus with foot ulcer I73.9 Peripheral vascular disease, unspecified E11.51 Type 2 diabetes w diabetic peripheral angiopath w/o gangrene I10 Essential (primary) hypertension Office Visit 09/01/2017 8:50a [facility] Fam Mixon E11.52 Type 2 diabetes Mana Davis M.D. w diabetic Diseases peripheral angiopathy w gangrene E11.40 Type 2 diabetes mellitus with diabetic neuropathy, unsp L03.116 Cellulitis of left lower limb Office Visit 09/01/2017 10:35a Orthopedic Maria Victoria Gill E11.51 Type 2 diabetes w Services Of Dasia banks C.MRianARian peripheral angiopath w/o gangrene L97.421 Non-prs chr ulcer of left heel and midft lmt to brkdwn skin I73.9 Peripheral vascular disease, unspecified Office Visit 08/30/2017 11:42a [facility] Brina Payan E11.621 Type 2 diabetes Assoc,pc N.P. 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 mellitus with foot ulcer L97.329 Non-pressure chronic ulcer of left ankle with unsp severity Office Visit 08/29/2017 11:41a [facility] Sofy E11.621 Type 2 Assoc,toshia Chang DO diabetes Hospitalists mellitus with foot ulcer L97.329 Non-pressure chronic ulcer of left ankle with unsp severity I25.10 Athscl heart disease of [place] coronary artery w/o ang pctrs Office Visit 08/28/2017 11:41a [facility] Gwen E11.621 Type 2 Assoc,toshia Merida NP diabetes Hospitalists mellitus with foot ulcer L97.329 Non-pressure chronic ulcer of left ankle with unsp severity N17.9 Acute kidney failure, unspecified Z89.421 Acquired absence of other right toe(s) Z89.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 ulcer of left heel and midfoot w unsp severt E11.621 Type 2 diabetes mellitus with foot ulcer Z79.4 terminal manager (current) use of insulin I10 Essential (primary) hypertension Z79.01 skilled nursing (current) use of anticoagulants Office Visit 08/11/2017 10:00a [facility] Jaime Mckee I25.2 Old myocardial Of [facility] Vigil, DO infarction FAC I73.9 Peripheral vascular disease, unspecified I25.10 Athscl heart disease of [place] coronary artery w/o ang pctrs Z95.1 Presence of aortocoronary bypass graft I45.3 Trifascicular block E11.69 Type 2 diabetes mellitus with other specified complication E11.43 Type 2 diabetes w diabetic autonomic (poly)neuropathy E78.5 Hyperlipidemia, unspecified F17.201 Nicotine dependence, unspecified, in remission R55 Syncope and collapse E11.621 Type 2 diabetes mellitus with foot ulcer Office Visit 08/05/2017 8:58a Mary Cervantes I21.4 Non-St elevation Assoctoshia M.D. (Nstemi) Hospitalists myocardial infarction E11.9 Type 2 diabetes mellitus without complications I10 Essential (primary) hypertension Office Visit 08/05/2017 3:50p [facility] Brissa Haney I21.4 Non-St elevation Of Municipal [employer] Judge AT [facility] MD Kaelyn, (Nstemi) FAC, FSCAI myocardial infarction I25.10 Athscl heart disease of [place] coronary artery w/o ang pctrs Z95.1 Presence of aortocoronary bypass graft I45.3 Trifascicular block Office Visit 08/04/2017 8:58a [place] C[place] N17.9 Acute kidney Assoctoshia M.D. 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 (Nstemi) Hospitalists myocardial infarction E11.9 Type 2 diabetes mellitus without complications N17.9 Acute kidney failure, unspecified Office Visit 04/20/2017 [facility]ime Mckee E11.43 Type 2 diabetes w 2:40p Cardiology Vigil, DO diabetic autonomic [address] Judge FACC (poly)neuropathy I25.10 Athscl heart disease of [place] coronary artery w/o ang pctrs F17.201 Nicotine dependence, unspecified, in remission I10 Essential (primary) hypertension E78.5 Hyperlipidemia, unspecified R55 Syncope and collapse Office Visit 10/15/2016 2:40p [facility] Jaime Mckee I25.10 Athscl heart Of [facility] Musa, DO disease of FACC [place] coronary artery w/o ang pctrs R55 Syncope and collapse I10 Essential (primary) hypertension F17.201 Nicotine dependence, unspecified, in remission E11.8 Type 2 diabetes mellitus with unspecified complications Office Visit 04/09/2016 4:00p [facility] Jaime SRian I25.10 Athscl heart Of [facility] Musa, DO disease of FACC [place] coronary artery w/o ang pctrs R55 Syncope and collapse E13.43 Oth diabetes mellitus w diabetic autonomic (poly)neuropathy I25.2 Old myocardial infarction E78.5 Hyperlipidemia, unspecified I10 Essential (primary) hypertension F17.201 Nicotine dependence, unspecified, in remission E11.8 Type 2 diabetes mellitus with unspecified complications Office Visit 01/28/2016 3:00p [facility] Jaime SRian I25.2 Old myocardial Of [facility] Vigil, DO infarction FACC E78.5 Hyperlipidemia, unspecified R94.31 Abnormal electrocardiogram [ECG] [EKG] R55 Syncope and collapse I10 Essential (primary) hypertension I42.9 Cardiomyopathy, unspecified Z72.0 Tobacco use Office Visit 11/21/2015 Orthopedic Wu Mata, M17.11 Unilateral primary 2:00p Services Of Yoav Forman osteoarthritis, right knee Office Visit 04/04/2014 [facility] Ashlie 785.4 Gangrene 7:51a Assoc,DIANN Rodriguez Hospitalists v13.59 Personal History Of Other Musculoskeletal Disorders v49.71 Amputation Status Great Toe Office Visit 04/04/2014 10:11a [facility] Jace Roblero, 780.2 Syncope & Assoctoshia M.D. Collapse Hospitalists 414.00 Coronary Atherosclerosis Unspec Type Vessel [place]/Graft 250.00 Diabetes Mellitus W/O Compl Type II Or Unspec Controlled 401.9 Hypertension Unspec Plan of Treatment Future Appointment(s):05/10/2018 2:00 pm - Jaime Vigil DO FACC at [facility]05/17/2018 1:00 pm - Latonya Nguyen MD at [facility] Bdzbbeydhi64 /02/2019 1:00 pm - [facility] - Jaime Vigil, DO [id number] Syncope and collapseComments:The first episode you described to me may have been cardiac related related to orthostatic symptoms which we know about when you had a lot of episodes before when we aggressively treated your blood pressure.The second episode I am not sure about. It may have been related to hypertensive emergency or a seizure? It was concerning. I am going to try to get you back to see Neurology. We are going toadd low dose amlodipine again. Please be careful when you stand up.I am not sure how either of these events are related to your change in kidney function.We are going to recheck your kidney function and have an ultrasound of your kidneys in preparation for visit with Dr. Rodriguez's consult in May.Follow up:Please try to get patient a f/u appointment with Neurology ( was seen as an inpatient so would be a f/u appt - any Neurologist, not a new consult) f/u 1 [id number] Essential (primary) hypertensionNew Medication: Amlodipine Besylate 2.5 mg - 1 by mouth every dayN17.8 Other acute kidney failureNew Xrays:US Renal And Bladder, Scheduled: 04/26/18
--- OUTSIDE RECORDS SUMMARY | 2018-04-17 09:20 | XMS REPORT | Continuity of Care Document ---
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 Distribution Width 15 % N 10.5-15 Platelet Count 297 10^3/uL N 150-450 Mean Platelet Volume 9 um3 N 7.4-10.4 Abs Neutrophils 6.8 10^3/uL N 1.5-7.7 Abs Lymphocytes 2.5 10^3/uL N 1.0-4.8 Abs Monocytes 1.0 10^3/uL High 0-0.8 Abs Eosinophils 0.5 10^3/uL N 0-0.6 Abs Basophils 0.1 10^3/uL N 0-0.2 Abs Nucleated RBC 0.01 10^3/uL N Granulocyte % 62.1 % N 38-83 Lymphocyte % 22.7 % Low 25-47 Monocyte % 9.5 % High 1-9 Eosinophil % 4.6 % N 0-6 Basophil % 1.1 % N 0-2 Nucleated Red Blood Cells % 0.1 N Comp Metabolic Panel 10/09/2015 [facility] Sodium 136 mmol/L N 133- 145 [phone] Potassium 5.0 mmol/L N 3.5-5.0 Chloride 105 mmol/L N 101-111 Co2 Carbon Dioxide 21 mmol/L Low 22-32 Anion Gap 10 mmol/L N 2-11 Glucose 151 mg/dL High 70-100 Blood Urea Nitrogen 34 mg/dL High 6-24 Creatinine 1.44 mg/dL High 0.67-1.17 BUN/Creatinine Ratio 23.6 High 8-20 Calcium 9.6 mg/dL N 8.6-10.3 Total Protein 6.7 g/dL N 6.4-8.9 Albumin 4.0 g/dL N 3.2-5.2 Globulin 2.7 g/dL N 2-4 Albumin/Globulin Ratio 1.5 N 1-3 Total Bilirubin 0.40 mg/dL N 0.2-1.0 Alkaline Phosphatase 63 U/L N 34-104 Alt 18 U/L N 7-52 Ast 16 U/L N 13-39 Egfr Non- 50.6 N >60 Egfr 65.0 N >60 26 Iron & Iron Binding Capacity 10/09/2015 [facility] Iron 52 g/dL N 50-212 [phone] Unsaturated Iron Binding 291 g/dL N Total Iron Binding Capacity 343 g/dL N 250-450 % Iron Saturation 15 % N 15-55 Laboratory test finding 10/09/2015 [facility] Vitamin B12 334 pg/mL N 180-914 27 [phone] TSH (Thyroid Stim Horm) 2.14 mcIU/mL N 0.34-5.60 Urine Microalbumin 11/07/2014 [facility] Ur Microalbumin 17.0 mg/L N Random [phone]/L) Urine Creatinine 100.90 mg/dL N Urine Microalbumin/Creatinine 16.8 ug/mg N <31 Laboratory test 08/14/2014 [facility] Erythrocyte Sed 19 mm/Hr N 0- 20 finding [phone] Rate CBC Auto Diff 08/14/2014 [facility] White Blood Count 6.5 10^3/uL N 4.8-10.8 [phone] Red Blood Count 4.37 10^6/uL N 4.0-5.4 Hemoglobin 13.1 g/dL Low 14.0-18.0 Hematocrit 40 % Low 42-52 Mean Corpuscular Volume 91 fL N 80-94 Mean Corpuscular Hemoglobin 30 pg N 27-31 Mean Corpuscular HGB Conc 33 g/dL N 31-36 Red Cell Distribution Width 16 % High 10.5-15 Platelet Count 237 10^3/uL N 150-450 Mean Platelet Volume 9 um3 N 7.4-10.4 Abs Neutrophils 4.0 10^3/uL N 1.5-7.7 Abs Lymphocytes 1.3 10^3/uL N 1.0-4.8 Abs Monocytes 0.8 10^3/uL N 0-0.8 Abs Eosinophils 0.4 10^3/uL N 0-0.6 Abs Basophils 0.1 10^3/uL N 0-0.2 Abs Nucleated RBC 0.02 10^3/uL N Granulocyte % 61.3 % N 38-83 Lymphocyte % 19.3 % Low 25-47 Monocyte % 11.8 % High 1-9 Eosinophil % 5.6 % N 0-6 Basophil % 2.0 % N 0-2 Nucleated Red Blood Cells % 0.3 N Laboratory test finding 08/14/2014 [facility] Vancomycin Trough 11.5 g/mL N [phone] C Reactive Protein 5.50 mg/L High < 5.00 28 Comp Metabolic Panel 08/14/2014 [facility] Sodium 136 mmol/L N 133- 145 [phone] Potassium 5.0 mmol/L N 3.5-5.0 Chloride 103 mmol/L N 101-111 Co2 Carbon Dioxide 26 mmol/L N 22-32 Anion Gap 7 mmol/L N 2-11 Glucose 165 mg/dL High 70-100 Blood Urea Nitrogen 17 mg/dL N 6-24 Creatinine 0.76 mg/dL N 0.67-1.17 BUN/Creatinine Ratio 22.4 High 8-20 Calcium 9.5 mg/dL N 8.6-10.3 Total Protein 6.6 g/dL N 6.4-8.9 Albumin 3.9 g/dL N 3.2-5.2 Globulin 2.7 g/dL N 2-4 Albumin/Globulin Ratio 1.4 N 1-3 Total Bilirubin 0.40 mg/dL N 0.2-1.0 Alkaline Phosphatase 47 U/L N 34-104 Alt 16 U/L N 7-52 Ast 16 U/L N 13-39 Egfr Non- 106.1 N >60 Egfr 136.4 N >60 29 1 Therapeutic target for the treatment of diabetes mellitus patients is <7% HBA1C, and in selective patients <6.0%. Please refer to [employer] diabetic care guidelines for further information. 2 Because ethnic data is not always [...] Kidney failure <15 (or dialysis) 3 Therapeutic target for the treatment of diabetes mellitus patients is <7% HBA1C, and in selective patients <6.0%. Please refer to [employer] diabetic care guidelines for further information. 4 Critical Result LACT:2.2 Called to [id number] at: 11:39:44 by:[id number] Read back by:[facility] Severe Sepsis and Septic Shock Management Bundle Measure requires all lactic acids initially measuring >2.0 mmol/L be repeated. 5 Because ethnic data is not always [...] 5 Kidney failure <15 (or dialysis) 6 Therapeutic concentration: <50 ug/mL Toxic concentration: >120 ug/mL 7 [facility] Severe Sepsis and Septic Shock Management Bundle Measure requires all lactic acids initially measuring >2.0 mmol/L be repeated. 8 Because ethnic data is not always readily [...] 15-29 5 Kidney failure <15 (or dialysis) 9 Because ethnic data is not always readily [...] 15-29 5 Kidney failure <15 (or dialysis) 10 [facility] Severe Sepsis and Septic Shock Management Bundle Measure requires all lactic acids initially measuring >2.0 mmol/L be repeated. 11 SEE RESULT BELOW Name: VIKY CHOPRA : [address]: Yamilex Bey MD Acct: [id number] Unit: [id number] AGE: 61 Location: [place] [address]- Re08/28/17 Dis: 08/30/17 SEX: M Status: DIS IN SPEC: [id number] LEIGHANN: 08/28/[address] [facility] [address]: Ya Sim MD REQ: [id number] RECD: 08/28/17 STATUS: IRA LOCKE DR: Soraya Westfall [facility] _ SOURCE: BLOOD,VENO SPDESC: ORDERED: Blood Cult Procedure Result Reported Site Aerobic Culture Bottle Final 09/02/17- 1705 ML No Growth Day 5 Anaerobic Culture Bottle Final 09/02/17- 1706 ML No Growth Day 5 * ML - Main Lab . END OF REPORT DEPARTMENT OF PATHOLOGY, [address] [place] [address] Edd Herndon M.D. Director [facility] # [id number] 12 LATERAL ASPECT OF HEEL WOUND 13 SEE RESULT BELOW Name: VIKY CHOPRA : [address]: Raquel Rivas NP Acct: [id number] Unit: [id number] AGE: 61 Location: WOUND Re08/28/17 SEX: M Status: REG REF SPEC: [id number] LEIGHANN: 08/28/17-[address] [facility] [address]: Raquel Rivas NP REQ: [id number] RECD: 08/28/17 STATUS: COMP [facility] DR: Jaime Vigil DO Soraya A B Hektor RPA-C Osmin Politi MD _ SOURCE: TISSUE SPDESC: ORDERED: Tissue Cult/GS COMMENTS: LATERAL ASPECT OF HEEL WOUND Procedure Result Reported Site Tissue Gram Stain Final 08/29/17- 803 ML No Neutrophils Observed 1+ Epithelial Cells No Organisms Seen Preparation By Direct Smear Tissue Culture Final 09/01/17- 36 ML Organism 1 PASTEURELLA CANIS Quantity 2+ Organism 2 PEPTOSTREPTOCOCCUS ANAEROBIUS Quantity 2+ WITH ADDTIONAL MIXED KIRSTIN; NO FURTHER WORKUP. Anaerobic sensitivities are not routinely performed. Positive isolates will be saved for one week. Please call the Microbiology Laboratory if susceptibility testing is needed. * ML - Main Lab . END OF REPORT DEPARTMENT OF PATHOLOGY, [address] [place] [address] Edd Herndon M.D. Director [facility] # [id number] 14 Because ethnic data is not always readily [...] 15-29 5 Kidney failure <15 (or dialysis) 15 >100 to <200 pg/mL: likely compensated congestive heart failure (CHF) 200 to 400 pg/mL: likely moderate CHF >400 pg/mL: likely moderate to severe CHF 16 Therapeutic target for the treatment of diabetes mellitus patients is <7% HBA1C, and in selective patients <6.0%. Please refer to [employer] diabetic care guidelines for further information. 17 Therapeutic target for the treatment of diabetes Mellitus patients is <7% HBA1C, and in selective patients <6.0%.Please refer to [employer] Diabetic care guidelines for further information. 18 Because ethnic data is not always readily [...] 15-29 5 Kidney failure <15 (or dialysis) 19 Desirable <150 Borderline high 150-199 High 200-499 Very High >500 20 Desirable <200 Borderline high 200-239 High >239 21 Low <40 Desirable: 40-60 High: >60 22 Desirable: <100 mg/dL Near Optimal: 100-129 mg/dL Borderline High: 130-159 mg/dL High: 160-189 mg/dL Very High: >189 mg/dL 23 Because ethnic data is not always readily [...] 15-29 5 Kidney failure <15 (or dialysis) 24 Therapeutic target for the treatment of diabetes Mellitus patients is <7% HBA1C, and in selective patients <6.0%.Please refer to [employer] Diabetic care guidelines for further information. 25 Normal Range 180 to 914 Indeterminate Range 145 to 180 Deficient Range <145 26 Because ethnic data is not always readily [...] 15-29 5 Kidney failure <15 (or dialysis) 27 Normal Range 180 to 914 Indeterminate Range 145 to 180 Deficient Range <145 28 Acute inflammation: >10.00 29 Because ethnic data is not always readily [...] Kidney failure <15 (or dialysis) Procedures Date Code Description Status 12/11/2017 [id number] Diabetic Foot Exam Completed 12/30/2016 [id number] Diabetic Retinal Eye Exam Completed 11/09/2016 [id number] Colonoscopy Completed 01/06/2015 74283 Oximetry, Multiple Determinations (Eg, During Completed Exercise) Encounters Type Date Location Provider Dx Diagnosis Office Visit 03/15/2018 Main Office Carmen Combs, E11.69 Type 2 diabetes 1:40p P.A. mellitus with other specified complication M86.8x7 Other osteomyelitis, ankle and foot J44.1 Chronic obstructive pulmonary disease w (acute) exacerbation Z79.4 half-way (current) use of insulin B35.3 Tinea pedis R42 Dizziness and giddiness R26.81 Unsteadiness on feet R09.89 Oth symptoms and signs involving the circ and resp systems Office Visit 12/22/2017 11:25a Main Office Soraya Westfall, J01.90 Acute sinusitis, PA unspecified E11.69 Type 2 diabetes mellitus with other specified complication M86.8x7 Other osteomyelitis, ankle and foot Office Visit 10/27/2017 4:50p Main Office Soraya Westfall PA L50.0 Allergic urticaria E11.69 Type 2 diabetes mellitus with other specified complication M86.8x7 Other osteomyelitis, ankle and foot Office Visit 09/28/2017 9:20a Main Office Carmen Combs, E11.69 Type 2 diabetes P.A. mellitus with other specified complication M86.8x7 Other osteomyelitis, ankle and foot I95.1 Orthostatic hypotension Z95.828 Presence of other vascular implants and grafts F51.12 Insufficient sleep syndrome M62.82 Rhabdomyolysis Office Visit 09/14/2017 4:00p Main Office Carmen Combs M86.8x7 Other osteomyelitis, P.A. ankle and foot E11.43 Type 2 diabetes w diabetic autonomic (poly)neuropathy J44.1 Chronic obstructive pulmonary disease w (acute) exacerbation E11.52 Type 2 diabetes w diabetic peripheral angiopathy w gangrene Z79.891 egg buyer (current) use of opiate analgesic Z95.828 Presence of other vascular implants and grafts Office Visit 01/30/2017 11:00a Main Office Carmen Combs J44.1 Chronic obstructive P.A. pulmonary disease w (acute) exacerbation E11.65 Type 2 diabetes mellitus with hyperglycemia B35.3 Tinea pedis Z79.4 half-way (current) use of insulin Office Visit 11/12/2016 11:20a Main Office Soraya Westfall, E11.65 Type 2 diabetes PA mellitus with hyperglycemia L57.0 Actinic keratosis I10 Essential (primary) hypertension L82.1 Other seborrheic keratosis Z12.11 Encounter for screening for malignant neoplasm of colon Office Visit 10/09/2016 2:35p Main Office Soraya Westfall, E11.65 Type 2 diabetes PA mellitus with hyperglycemia I10 Essential (primary) hypertension F33.9 Major depressive disorder, recurrent, unspecified Z23 Encounter for immunization Z79.84 egg buyer (current) use of oral hypoglycemic drugs Office Visit 03/19/2016 11:00a Main Office Soraya Westfall, E11.65 Type 2 diabetes PA mellitus with hyperglycemia I10 Essential (primary) hypertension F17.210 Nicotine dependence, cigarettes, uncomplicated F33.9 Major depressive disorder, recurrent, unspecified Office Visit 01/01/2016 2:35p Main Office Soraya Westfall PA R42 Dizziness and giddiness R11.2 Nausea with vomiting, unspecified E11.65 Type 2 diabetes mellitus with hyperglycemia I10 Essential (primary) hypertension R94.4 Abnormal results of kidney function studies Z23 Encounter for immunization Z41.8 Encntr for oth proc for purpose oth [facility] F17.210 Nicotine dependence, cigarettes, uncomplicated Office Visit 11/26/2015 12:55p Main Office Pantera Shipley, I95.1 Orthostatic D.O. hypotension E11.65 Type 2 diabetes mellitus with hyperglycemia K31.84 Gastroparesis I10 Essential (primary) hypertension F33.9 Major depressive disorder, recurrent, unspecified Office Visit 11/07/2015 11:40a Main Office Soraya Westfall, I95.1 Orthostatic PA hypotension E11.65 Type 2 diabetes mellitus with hyperglycemia R94.4 Abnormal results of kidney function studies E11.29 Type 2 diabetes mellitus w oth diabetic kidney complication Office Visit 10/09/2015 12:05p Main Office Soraya Westfall, I95.1 Orthostatic PA hypotension R42 Dizziness and giddiness R53.83 Other fatigue Office Visit 08/28/2015 4:30p Main Office Pantera Shipley D.O. K31.84 Gastroparesis E11.43 Type 2 diabetes w diabetic autonomic (poly)neuropathy Office Visit 07/25/2015 1:15p Main Office Pantera Shipley, I10 Essential ( primary) D.O. hypertension F33.9 Major depressive disorder, recurrent, unspecified I70.211 [place]scl [place] arteries of extrm w intrmt rod, right leg E11.43 Type 2 diabetes w diabetic autonomic (poly)neuropathy G47.00 Insomnia, unspecified Office Visit 06/25/2015 3:00p Main Office Parmjit Lund0.Héctor Acute bronchitisAfua M.D. unspecified Office Visit 04/18/2015 11:15a Main Office Pantera Shipley, I10 Essential ( primary) D.O. hypertension F33.9 Major depressive disorder, recurrent, unspecified E11.621 Type 2 diabetes mellitus with foot ulcer I70.211 [place]scl [place] arteries of extrm w intrmt rod, right leg E11.43 Type 2 diabetes w diabetic autonomic (poly)neuropathy L97.511 Non-prs chronic ulcer oth prt r foot limited to brkdwn skin Office Visit 02/06/2015 9:30a Main Office Pantera Shipley, F33.9 Major depressive D.O. disorder, recurrent, unspecified E11.621 Type 2 diabetes mellitus with foot ulcer I70.211 [place]cl [place] arteries of extrm w intrmt rod, right leg G47.00 Insomnia, unspecified Office Visit 01/06/2015 12:00p Main Office Silcoff, Gerardo, M.D. R05 Cough R05 Cough R06.00 Dyspnea, unspecified R06.00 Dyspnea, unspecified J44.1 Chronic obstructive pulmonary disease w (acute) exacerbation J44.1 Chronic obstructive pulmonary disease w (acute) exacerbation F17.210 Nicotine dependence, cigarettes, uncomplicated Office Visit 11/23/2014 10:00a Main Office Pantera Shipley, J20.9 Acute bronchitis, D.O. unspecified R05 Cough Z23 Encounter for immunization Z41.8 Encntr for oth proc for purpose oth [facility] Office Visit 11/15/2014 4:20p Main Office Mag Stokes, RPA-C R05 Cough J20.9 Acute bronchitis, unspecified Office Visit 11/10/2014 10:30a Main Office Pantera Shipley, J20.9 Acute bronchitis, D.O. unspecified Office Visit 11/07/2014 9:45a Main Office Pantera Shipley, E11.65 Type 2 diabetes D.O. mellitus with hyperglycemia I10 Essential (primary) hypertension E11.52 Type 2 diabetes w diabetic peripheral angiopathy w gangrene F43.12 Post-traumatic stress disorder, chronic F17.200 Nicotine dependence, unspecified, uncomplicated I25.10 Athscl heart disease of [place] coronary artery w/o ang pctrs F33.9 Major depressive disorder, recurrent, unspecified E55.9 Vitamin D deficiency, unspecified Office Visit 07/31/2014 11:30a Main Office Pantera Shipley, 250.02 Diabetes Mellitus D.O. W/O Compl Type II Or Unspec Type Uncontrol 401.1 Hypertension Benign 785.4 Gangrene 309.81 Posttraumatic Stress Disorder 305.1 Tobacco Use Disorder 414.00 Coronary Atherosclerosis Unspec Type Vessel [place] 268.9 Vitamin D Deficiency Unspec Office Visit 06/29/2014 11:15a Main Office Pantera Shipley, 401.1 Hypertension Benign D.O. 250.02 Diabetes Mellitus W/O Compl Type II Or Unspec Type Uncontrol 250.82 Diabetes W/ Other Spec Manifestations Type II Uncontrolled 250.00 Diabetes Mellitus W/O Compl Type II Or Unspec Controlled 785.4 Gangrene 309.81 Posttraumatic Stress Disorder 305.1 Tobacco Use Disorder Plan of Treatment 01/30/2017 - Chad EugeneJ44.1 Chronic obstructive pulmonary disease with (acute) tzwuokjpffelW22.65 Type 2 diabetes mellitus with hyperglycemiaFollow up:Cont f/u with NcruxkD28.3 Tinea pedisNew Medication: Terbinafine HCL 1 % - Use two times a day on feet x at least 3 monthsFollow up: Use Cream 2 times a day 1. Soak feet 1 time a day (shower is fine) use pummace stone gently and then apply cream. The apply cream a second time that day. Could take 3 -4 fmcnynX27.4 egg buyer (current) use of insulin
--- NOTE | 2018-04-17 09:22 | ED ---
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 The patient rates the pain 0/10 in severity. Symptoms aggravated by nothing. Symptoms alleviated by nothing. Patient reports vision loss (only sees blue). EMS reports the patient has cold hands, his pupils are reactive, and he has good movement of UE and LE. Patient denies CP. reports N/V/D. PMHx of DM2, quadruple bypass, and COPD. - History of Current Complaint Chief Complaint: EDRespiratoryDistress Hx Obtained From: Patient, Family/Broadcast Checker - , EMS Onset/Duration: Sudden Onset, Lasting Hours, Still Present Timing: Constant Dyspnea At: Rest Aggrevating Factors: Nothing Alleviating Factors: Nothing - Allergy/Home Medications Allergies/Adverse Reactions: Allergies Allergy/AdvReac Type Severity Reaction Status Date / Time Penicillins Allergy Hives Verified 04/17/18 09:29 piperacillin [From Zosyn] Allergy Hives Verified 04/17/18 09:29 tazobactam [From Zosyn] Allergy Hives Verified 04/17/18 09:29 Home Medications: Home Medications Albuterol HFA INHALER* [Ventolin HFA Inhaler*] 2 puff INH Q6H PRN 04/17/18 [ History Confirmed 04/17/18] Atorvastatin* [Lipitor*] 80 mg PO DAILY 04/17/18 [History Confirmed 04/17/18] Clopidogrel TAB* [Plavix TAB*] 75 mg PO DAILY 04/17/18 [History Confirmed ] glipiZIDE TAB* [Glucotrol TAB*] 5 mg PO BID 04/17/18 [History Confirmed 04/17/18 ] metFORMIN* [Glucophage 1000 MG TAB *] 1,000 mg PO BID 04/17/18 [History Confirmed 04/17/18] PMH/Surg Hx/FS Hx/Imm Hx Endocrine/Hematology History: Reports: Hx Diabetes Cardiovascular History: Reports: Hx Coronary Artery Disease, Hx Hypertension, Hx Myocardial Infarction, Other Cardiovascular Problems/Disorders - DMII Denies: Hx Pacemaker/ICD Respiratory History: Reports: Hx Chronic Obstructive Pulmonary Disease (COPD) Denies: Hx Asthma GI History: 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 amputation left toes. amputation right toe. CABG x5 2008. CARDIAC STENT PLACED AUGUST 04 2017 ( [place] [facility] [place] OKAY TO SCAN WITHIN 6 WEEKS. Static magnetic field of 3.0 and 1.5 Diane only. Maximum spatial gradient magnetic field of 2300 gauss/ cm (23 T/m). Maximum Magnetic Resonance system reported, whole body averaged specific absorption rate (SANDY) of <2 W/kg (Normal Operating Mode). Under the scan conditions defined above, the SYNERGY Stent is expected to produce a maximum temperature rise of 3.1oC after 15 minutes of continuous scanning. 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 GENERAL: Patient is an elderly MALE who is lying comfortable in the stretcher. Patient is in acute respiratory distress. He is a poor historian and is unable to speak in full sentences. HEAD AND FACE: No signs of trauma. No ecchymosis, hematomas or skull depressions. No sinus tenderness. EYES: Pupils are reactive to light. No injected conjunctiva, no nystagmus. Pale sclera. EARS: Hearing grossly intact. Ear canals and tympanic membranes are within normal limits. MOUTH: Oropharynx within normal limits. NECK: Supple, trachea is midline, no adenopathy, no JVD, no carotid bruit, no c- spine tenderness, neck with full ROM. CHEST: Symmetric, no tenderness at palpation LUNGS: Clear to auscultation bilaterally. No wheezing or crackles. CVS: Tachycardic. Regular rhythm, S1 and S2 present, no murmurs or gallops appreciated. ABDOMEN: Soft, non-tender. No signs of distention. No rebound no guarding, and no masses palpated. Decreased bowel sounds. EXTREMITIES: FROM in all major joints, no cyanosis or clubbing. No edema noted. NEURO: Patient is alert and follows commands. Somnolent. SKIN: Dry and warm Triage Information Reviewed: Yes Vital Signs On Initial Exam: Initial Vitals Temp Pulse Resp BP Pulse Ox 95.1 F 150 24 134/112 99 04/17/18 09:13 04/17/18 09:13 04/17/18 09:13 04/17/18 09:13 04/17/18 09:13 Vital Signs Reviewed: Yes Procedures - Intubation Time of Intubation: 10:26 - 20 Atomidate @ 1025, 50 Tad @ 1026 Intubation Method: orotracheal Tube Size (cm): 7.5 Intubation Complications: no complications Post Intubation Xray: Yes Diagnostics - Vital Signs Vital Signs Temp Pulse Resp BP Pulse Ox 04/17/18 09:13 95.1 F 150 24 134/112 99 - Laboratory Result Diagrams: 04/17/18 09:19 04/17/18 09:19 Lab Statement: Any lab studies that have been ordered have been reviewed, and results considered in the medical decision making process. - Radiology 1st CXR Radiology Interpretation Completed By: Radiologist Summary of Radiographic Findings: Stable finding of mild RIGHT hemithorax volume loss and pleural parenchymal scarring. No evidence for pneumonia. Cardiomegaly without evidence for pulmonary edema. Dr. Padron has reviewed this radiology report. 2nd CXR Radiology Interpretation Completed By: Radiologist Summary of Radiographic Findings: The endotracheal tube could be advanced approximate [address] Padron has reviewed this radiology report. - EKG 0913 Cardiac Rate: Other Rate - Ectopic atrial rhythm at 71 BPM Summary of EKG Findings: widened SC and RBBB 1107 Cardiac Rate: Other Rate - Ectopic atrial rhythm at 71 BPM Summary of EKG Findings: widened QRS Re-Evaluation - Re-Evaluation First Eval Re-Evaluation Time: 09:29 Comment: Spoke about consult with Dr. Guerrero with the . Second Eval Re-Evaluation Time: 09:59 Comment: Spoke with patient's about consult with Dr. Veliz and plan for further care. Patient's reports he has been dealing with bronchitis in the past few days and was on z-pricila. He was feeling better until today. The patient was given fluids at 1001. Third Eval Re-Evaluation Time: 10:10 Comment: reports that the patient had some issues with urinating but not major. A couple weeks ago, the patient's PCP found that he showed some signs for kidney failure, but he has been otherwise okay. reports he has hx of DM2. She also then said that the patient has been having diarrhea and vomiting for the last couple of days. Fourth Eval Re-Evaluation Time: 11:19 Comment: Spoke with the about plan for transfer to [place]. She understands and agrees with this plan. Course/Dx - Course Course Of Treatment: Procedure - Endotracheal Intubation. Permit was implied secondary to emergent situation. An LMA and bougie were placed within arm's reach. A Glidescope blade was inserted into the oropharynx at which time the vocal cords were visualized. A 7.5 Occitan endotracheal tube was inserted and visualized going through the vocal cords. The stylet was removed. Colorimetric change was visualized on the CO2 meter. Breath sounds were heard in both lung rincon equally. The endotracheal tube was placed at 23 cm, measured at the teeth. Portable chest x-ray ordered for confirmation of tube level. Post intubation sedation ordered. Intubation was made at the first attempt. No complications were encountered. Assessment/Plan: This patient is a 74-year-old male who presents to the emergency department with a chief complaint of shortness of breath. Patient was unable to give a good history since he is somnolent and with respiratory distress. He seems pale, tachycardic, clammy. Patients mother reports that she heard from another room to the patient was having some respiratory distress therefore she called 911. The patient denies any chest pain or palpitations. Patient has abdominal pain nausea vomiting or diarrhea, per the . In the ED course the patient was placed in a personnel monitor, 2 IV assesses with obtained. EKG shows an ectopic atrial rhythm at 71 bpm with a right bundle- branch block. The patient has a widening QRS. I discuss the EKG with Dr. Guerrero from cardiology and he thinks that the patient may be having hyperkalemia or hypomagnesemia. Blood work blood work shows a wbcs of 26, hemoglobin 10.3, hematocrit 35, and platelets 438. Sodium is alert and 35, potassium is 8.4, chloride 92, carbon dioxide less than 7, BUN is 85, creatinine is 7.44, glucose is 387, lactic acid is 11.8, CK-MB is 7.8 troponin 0.04 see RP is 49.11, and BMP is more than 1300. Influenza A and B is negative. In the ED course we obtained 2 IV accesses, the patient was given calcium gluconate, bicarbonate, dextrose, insulin, and Patiomer. He was also given an albuterol treatment. We also placed a Machado catheter in the patient and there was no urine. Therefore I believe that the patient will benefit of emergent dialysis. Discussed the case with Dr. Escalona from nephrology and he reports that there is no availability for dialysis in this hospital today. Therefore he recommends for the patient to be transferred to a higher level of care. I discussed the case with Dr. Veliz from the ICU services and she recommends to give double the doses of the regular hyperkalemic cocktail and increase the fluid resuscitation. At this point, I decided to intubate the patient to keep the airway clear since the patient is going to be transferred. ABG shows a pH of less than 7, PCO2 less than 20, PO2 193, O2 sat is 95%. Endotracheal intubation was done at first attempt. Please see note. I discussed the case with the transfer center at [facility] however they unable to accept the patient since don't have any beds. CXR IMPRESSION: #. Stable finding of mild RIGHT hemithorax volume loss and pleural parenchymal scarring. No evidence for pneumonia. #. Cardiomegaly without evidence for pulmonary edema. I discussed the case with transfer center at [facility], however I was informed that there is no ICU beds and they unable to take this patient. Therefore I have discussed the case with Dr. Avalos from the ICU at [facility] [place] and they accepted the patient for transfer. At this point the patient is hemodynamically stable he was given propofol for sedation. I discussed the plan with the and she accepts for the transfer. - Diagnoses Differential Diagnosis/HQI/PQRI: Positive: CHF, COPD Exacerbation, ME, Pneumonia , Pulmonary Embolism, Other - acute renal failure, acute hyperkalemia, acute alteration in mental status, leukocytosis, rule out sepsis Provider Diagnoses: Acute renal failure, Acute hyperkalemia, Acute alteration in mental status, Leukocytosis - Physician Notifications Discussed Care of Patient With: Felice Guerrero Time Discussed With Above Provider: 09:20 Instructed by Provider To: Other - Consulted Dr. Guerrero to take a look at the patient's EKG. Spoke with Dr. Guerrero at 0925 about the patient's case and he thinks it may be hyperkalemia or hypermagnesemia, non-STEMI. Spoke with Dr. Veliz at 0953 about the patient's case and she will come see the patient in the ED. Consulted Dr. Escalona at 1001 about the patient's case and Dr. Escalona won 't be able to do dialysis on the patient because he doesn't have a nurse for dialysis on the weekend. Consulted Dr. Veliz at 1007 who will see the patient in the ED again. Dr. Veliz saw the patient at 1016 and reports that he needs dialysis so he needs to be transferred. Spoke with Keke in the emergency transfer center at [facility] at 1028 about patient's case. Spoke with Keke in the transfer center at [facility] at 1040 and they declined the transfer. Spoke with transfer center at [facility] at 1054 and they declined the patient for transfer. Spoke with the transfer center at [place] and Dr. Avalos from ICU at 1110 who accepts the patient for transfer. - Critical Care Time Critical Care Time: 75-104 min - 150 minutes Discharge - Sign-Out/Discharge Documenting (check all that apply): Patient Departure - transfer to [place] Patient Received Moderate/Deep Sedation with Procedure: No - Discharge Plan Condition: Critical Disposition: TRANS HIGHER LVL OF CARE FAC Referrals: Malou HART,Soraya Munoz [Primary Care Provider] - - Billing Disposition and Condition Condition: CRITICAL Disposition: Trans Higher Lvl of Care Fac - Attestation Statements Document Initiated by Scribe: Yes Documenting Scribe: Esteban Rosas Provider For Whom Scribe is Documenting (Include Credential): Yovani Padron MD Scribe Attestation: Esteban Cade, scribed for Yovani Padron MD on 04/17/18 at 1134. Scribe Documentation Reviewed: Yes Provider Attestation: The documentation as recorded by the Esteban guy accurately reflects the service I personally performed and the decisions made by me, Yovani Padron MD Status of Scribe Document: Viewed
[2018-04-17] MEDS ORDERED: NS 0.9% 1000 ML** 1,000 ML IV ONE (09:24)
[2018-04-17 09:38] LABS: Hematocrit 35 % (42-52); Hemoglobin 10.3 g/dl (14.0-18.0); Mean Corpuscular HGB Conc 29 g/dl (31-36); Mean Corpuscular Hemoglobin 29 pg (27-31); Mean Corpuscular Volume 101 fL (80-94); Mean Platelet Volume 8.9 fL (7.4-10.4); Platelet Count 438 10^3/ul (150-450); Red Blood Count 3.51 10^6/ul (4.00-5.40); Red Cell Distribution Width 16 % (10.5-15)
[2018-04-17 09:43] LABS: Activated Partial Thrombo Time 30.6 seconds (26.0-36.3); INR 1.02 (0.77-1.02)
[2018-04-17 09:45] LABS: ALT 16 U/L (7-52); AST 13 U/L (13-39); Albumin 3.9 g/dL (3.2-5.2); Albumin/Globulin Ratio 1.2 (1-3); Alkaline Phosphatase 75 U/L (34-104); BUN/Creatinine Ratio 11.4 (8-20); Blood Urea Nitrogen 85 mg/dL (6-24); C Reactive Protein 49.11 mg/L (<8.01); Calcium 9.3 mg/dL (8.6-10.3); Chloride 92 mmol/L (101-111); EGFR African American 9.1 (>60); EGFR Non-African American 7.5 (>60); Globulin 3.2 g/dL (2-4); Glucose 387 mg/dL (70-100); Total Protein 7.1 g/dL (6.4-8.9)
[2018-04-17] MEDS ORDERED: Insulin REGULAR(*) 1 UNITS UNIT IV PUSH ONE (09:47)
[2018-04-17] MEDS ORDERED: Calcium Gluconate INJ* 1 GM in NS 0.9% 100 ML* 100 ML IVPB ONE (09:47)
[2018-04-17] MEDS ORDERED: Dextrose 50% Syringe 50 ML* 25 GM/50 ML SYRINGE IV PUSH PRN (09:47)
[2018-04-17] MEDS ORDERED: Sodium Bicarbonate 8.4% VIAL* 10 ML VIAL IV ONE ×2 (09:48→10:32)
[2018-04-17 09:50] LABS: CKMB ng/mL 7.8 ng/mL (0.6-6.3)
[2018-04-17] MEDS ORDERED: Cefepime(*) 1 GM in NS 0.9% 50 ML* 50 ML IVPB ONE (09:50)
[2018-04-17 09:52] LABS: CO2 Carbon Dioxide < 7 mmol/L (22-32); Potassium 8.4 mmol/L (3.5-5.0)
[2018-04-17 09:53] LABS: Troponin I 0.04 ng/mL (<0.04)
[2018-04-17] MEDS ORDERED: NS 0.9% 1000 ML** 2,000 ML IV ONE (09:56)
[2018-04-17 10:00] LABS: ABS Basophils 0.2 10^3/ul (0-0.2); ABS Eosinophils 0.1 10^3/ul (0-0.6); ABS Lymphocytes 2.6 10^3/ul (1.0-4.8); ABS Monocytes 1.8 10^3/ul (0-0.8); ABS Neutrophils 21.2 10^3/ul (1.5-7.7)
[2018-04-17 10:01] LABS: Acanthocytes 1+; Immature Granulocytes 3 % (0-9); Lymphocytes % 15 %; Monocytes % 6 %; Neutrophil % 75 %
[2018-04-17 10:02] LABS: ABS Neutrophils 20.3 10^3/ul (1.5-7.7); Sodium 135 mmol/L (135-145)
[2018-04-17 10:04] LABS: ABS Eosinophils 0 10^3/ul (0-0.6)
--- NOTE | 2018-04-17 10:04 | HP ---
History of Present Illness - History of Present Illness Reason for Visit: HYPERKALEMIA Review of Systems - Medications/Allergies Allergies/Adverse Reactions: Allergies Allergy/AdvReac Type Severity Reaction Status Date / Time Penicillins Allergy Hives Verified 04/17/18 09:29 piperacillin [From Zosyn] Allergy Hives Verified 04/17/18 09:29 tazobactam [From Zosyn] Allergy Hives Verified 04/17/18 09:29 Medications: Current Medications Dextrose (D50w Syringe 50 Ml*) 50 gm IV PUSH ONCE PRN PRN Reason: hyperkalemia Sodium Chloride (Ns 0.9% 1000 Ml) 1,000 mls @ 1,000 mls/hr IV .PER RATE ONE Stop: 04/17/18 10:23 Last Admin: 04/17/18 09:27 Dose: 1,000 mls/hr Calcium Gluconate 1 gm/ Sodium (Chloride) 110 mls @ 110 mls/hr IVPB ED ONCE ONE Stop: 04/17/18 10:46 Cefepime HCl 1 gm/ Sodium (Chloride) 50 mls @ 100 mls/hr IVPB ED ONCE ONE Stop: 04/17/18 10:19 Exam - Exam Vital Signs: Vital Signs (72 hours) 04/17/18 04/17/18 04/17/18 09:13 09:21 09:22 Temperature 95.1 F Pulse Rate 150 73 72 Respiratory 24 32 33 Rate Blood Pressure 134/112 147/50 (mmHg) O2 Sat by Pulse 99 100 100 Oximetry 04/17/18 09:42 Temperature Pulse Rate Respiratory 26 Rate Blood Pressure (mmHg) O2 Sat by Pulse Oximetry Assessment/Plan - Assessment/Plan Plan: # Severe hyperkalemia 8.4 # LILIAM severely elevated Cr 7.44 b/l 0.8(09/2017) # Severe acute respiratory acidossi # Leukocytosis 26 # anemia stable H/H when compared to baseline # Ddimer significant elevation >1050 Patient meets criteria for admission to the ICU - fluid resuscitation 3 L if tolerates - D50 2 amps - velteza - K+ in 2 hours - close monitoring for airway
[2018-04-17 10:05] LABS: Influenza A Molecular NEGATIVE (Negative); Influenza B Molecular NEGATIVE (Negative)
[2018-04-17 10:05] LABS: ABS Nucleated RBC 0 10^3/ul; Eosinophil % 0.3 %; Lymphocyte % 10.2 %; Nucleated Red Blood Cells % 0
[2018-04-17] MEDS ORDERED: Rocuronium* 10 MG/ML VIAL IV ONE (10:27)
[2018-04-17] MEDS ORDERED: Etomidate* 2 MG/ML 10 ML VIAL IV ONE (10:28)
[2018-04-17] MEDS ORDERED: Calcium Gluconate INJ* 1 GM in NS 0.9% 50 ML* 50 ML IVPB ONE (10:36)
[2018-04-17] MEDS ORDERED: Albuterol 2.5 MG/3 ML NEB.SOL* (0.083%) INH ONE (10:38)
[2018-04-17] MEDS ORDERED: Propofol* 100 ML ONE (11:07)
[2018-04-17] MEDS ORDERED: Patiromer POWDER* 8.4 GM PAK PO ONE (11:28)
[2018-04-17] MEDS ORDERED: Sodium Bicarbonate 8.4%* 50 ML SYRINGE IV ONE (11:31)
[2018-04-17] MEDS ORDERED: NS 0.9% 100 ML* 100 ML ONE (11:58)
[2018-04-17] MEDS ORDERED: MIDAZOLAM IV ONE (12:00)
[2018-04-17] MEDS ORDERED: Propofol* 100 ML IV SCH (12:00)
[2018-04-17] MEDS ORDERED: NS 0.9% 50 ML* 50 ML ONE (12:00)
[2018-04-17] MEDS ORDERED: Midazolam IV for DRIP* 100 MG in NS 0.9% 100 ML* 80 ML IV ONE (12:00)
[2018-04-17] MEDS ORDERED: Norepinephrine 16MCG/ML IVPRE* 4,000 MCG/250 ML BAG IV ONE ×2 (12:10→12:11)
[2018-04-17 12:42] VITALS: BP 78/58
[2018-04-18] MEDS ORDERED: Patiromer POWDER* 8.4 GM PAK PO ONE (10:33)
== END 2018-04-17 12:39 | disposition short-term general hospital (02) ==
LOC: ED 09:10
DX: N17.9 Acute kidney failure, unspecified (principal); E87.5 Hyperkalemia; R41.82 Altered mental status, unspecified; D72.829 Elevated white blood cell count, unspecified; E11.9 Type 2 diabetes mellitus without complications; J44.9 Chronic obstructive pulmonary disease, unspecified
CPT/HCPCS: 31500; 36415; 71045; 80053; 82553; 82803; 83605; 83880; 84484; 85025; 85379; 85610; 85730; 86140; 87040; 93005; 96361; 96374; 96375; 99285; A9270-GY; J0610; J0692; J2250; J2704

== ENCOUNTER 2020-04-15 13:25 | Inpatient (IN) ==
[2020-04-15] MEDS ORDERED: Cefepime 2 GM in Dextrose 2 GM/50 ML BAG IV ONE (13:41)
[2020-04-15 14:11] LABS: ABS Basophils 0.1 10^3/ul (0-0.2); ABS Eosinophils 0.1 10^3/ul (0-0.6); ABS Lymphocytes 0.9 10^3/ul (1.0-4.8); ABS Monocytes 0.9 10^3/ul (0-0.8); ABS Neutrophils 8.8 10^3/ul (1.5-7.7); Eosinophil % 0.8 %; Hematocrit 37 % (42-52); Hemoglobin 12.5 g/dL (14.0-18.0); Mean Corpuscular HGB Conc 34 g/dL (31-36); Mean Corpuscular Hemoglobin 31 pg (27-31); Mean Corpuscular Volume 91 fL (80-94); Mean Platelet Volume 7.6 fL (7.4-10.4); Platelet Count 315 10^3/uL (150-450); Red Blood Count 4.06 10^6 /uL (4.18-5.48); Red Cell Distribution Width 15 % (10-15); White Blood Count 10.8 10^3/uL (3.5-10.8)
[2020-04-15 14:28] LABS: Albumin 3.4 g/dL (3.2-5.2); Albumin/Globulin Ratio 0.9 (1-3); BUN/Creatinine Ratio 20.1 (8-20); C Reactive Protein 161.14 mg/L (<8.01); Calcium 9.1 mg/dL (8.6-10.3); EGFR African American 62.7 (>60); EGFR Non-African American 51.8 (>60); Globulin 3.8 g/dL (2-4); Potassium 4.1 mmol/L (3.5-5.0); Total Bilirubin 0.9 mg/dL (0.2-1.0); Total Protein 7.2 g/dL (6.4-8.9)
[2020-04-15 15:36] LABS: Erythrocyte Sed Rate 80 mm/Hr (0-19)
[2020-04-15] MEDS ORDERED: Ondansetron 4 mg VIAL 2 MG/ML 2 ml VIAL IV ONE (15:37)
[2020-04-15] MEDS ORDERED: Vancomycin 1,000 MG in NS 0.9% 250 ml 250 ML IVPB ONE (15:37)
[2020-04-15] MEDS ORDERED: Morphine 4 MG/ML VIAL (1 ml) IV ONE (15:37)
[2020-04-15] MEDS ORDERED: Vancomycin per Pharmacy 1 EA NOTE FOLLOW UP SCH (17:00)
[2020-04-15 17:29] LABS: INR 1.16 (0.82-1.09)
[2020-04-15] MEDS: Aspirin EC 81 mg TAB.EC (enteric coated) PO SCH (20:17)
[2020-04-15] MEDS: Insulin GLARGINE 100 un/ml 10 ml VIAL SUBCUT SCH (20:18)
[2020-04-15] MEDS: Potassium Chlor 10 meq TAB PO SCH (20:18)
[2020-04-15] MEDS: Heparin 5000 UNITS/ML 1 mL VIAL SUBCUT SCH (20:18)
[2020-04-15] MEDS: Morphine 2 MG/ML SYRINGE IV PRN (20:51)
[2020-04-15] MEDS ORDERED: Aspirin EC 81 mg TAB.EC (enteric coated) PO SCH (21:00)
[2020-04-15 21:50] LABS: Urine Appearance Clear; Urine Bilirubin Negative (Negative); Urine Blood 1+ (Negative); Urine Color Yellow; Urine Glucose 3+(>=500 mg/dL) (Negative); Urine Ketones Negative (Negative); Urine Nitrite Negative (Negative); Urine Protein 3+(>=500 mg/dL) (Negative); Urine Urobilinogen Negative (Negative)
[2020-04-15 21:55] LABS: Urine Bacteria Absent (Absent); Urine Red Blood Cell 2+(6-10/hpf) (Absent); Urine White Blood Cell Trace(0-5/hpf) (Absent)
[2020-04-15] MEDS: Vancomycin 1000 MG in NS 0.9% 250 ML IVPB SCH (23:07)
[2020-04-16] MEDS ORDERED: Cefepime 2 GM in Dextrose 2 GM/50 ML BAG IV SCH (04:00)
[2020-04-16] MEDS: Heparin 5000 UNITS/ML 1 mL VIAL SUBCUT SCH ×3 (06:58→21:25)
[2020-04-16] MEDS: Morphine 2 MG/ML SYRINGE IV PRN ×2 (07:19→18:39)
[2020-04-16] MEDS: Potassium Chlor 10 meq TAB PO SCH ×2 (07:21→21:26)
[2020-04-16 08:14] LABS: ABS Basophils 0.1 10^3/ul (0-0.2); ABS Eosinophils 0.3 10^3/ul (0-0.6); ABS Lymphocytes 0.6 10^3/ul (1.0-4.8); ABS Monocytes 0.7 10^3/ul (0-0.8); Eosinophil % 3.8 %; Hematocrit 34 % (42-52); Hemoglobin 11.5 g/dL (14.0-18.0); Mean Corpuscular HGB Conc 34 g/dL (31-36); Mean Corpuscular Hemoglobin 31 pg (27-31); Mean Corpuscular Volume 92 fL (80-94); Mean Platelet Volume 7.4 fL (7.4-10.4); Platelet Count 290 10^3/uL (150-450); Red Blood Count 3.69 10^6 /uL (4.18-5.48); Red Cell Distribution Width 16 % (10-15); White Blood Count 6.7 10^3/uL (3.5-10.8)
[2020-04-16 08:30] LABS: BUN/Creatinine Ratio 19.7 (8-20); Calcium 8.6 mg/dL (8.6-10.3); EGFR African American 72.8 (>60); EGFR Non-African American 60.2 (>60); Potassium 4.2 mmol/L (3.5-5.0)
[2020-04-16] MEDS: Vancomycin 1000 MG in NS 0.9% 250 ML IVPB SCH (09:12)
[2020-04-16] MEDS ORDERED: Dextrose 50% Syringe 50 ml 25 GM/50 ML SYRINGE IV PUSH PRN (16:43)
[2020-04-16] MEDS: cefTRIAXone 2 GM ADDV.VIAL 2 GM in NS 0.9% 100 ml BAG 100 ML IV SCH (16:48)
[2020-04-16] MEDS ORDERED: Gadoteridol (CONTRAST) 279.3 MG/ML 10 ML IV ONE (19:49)
[2020-04-16] MEDS: Aspirin EC 81 mg TAB.EC (enteric coated) PO SCH (21:25)
[2020-04-16] MEDS: Insulin GLARGINE 100 un/ml 10 ml VIAL SUBCUT SCH (21:27)
[2020-04-17] MEDS: Heparin 5000 UNITS/ML 1 mL VIAL SUBCUT SCH ×3 (06:54→21:22)
[2020-04-17] MEDS: Potassium Chlor 10 meq TAB PO SCH ×2 (08:28→20:05)
[2020-04-17] MEDS ORDERED: Pneumococcal Vac 23-Polyvalent IM ONE (09:00)
[2020-04-17] MEDS ORDERED: Vancomycin Trough Check NOTE FOLLOW UP ONE (09:30)
[2020-04-17] MEDS ORDERED: Senna TAB 8.6 mg TAB PO PRN (09:56)
[2020-04-17] MEDS: Polyethylene Glycol 3350 17 GM PACKET PO PRN (12:33)
[2020-04-17] MEDS: cefTRIAXone 2 GM ADDV.VIAL 2 GM in NS 0.9% 100 ml BAG 100 ML IV SCH (16:02)
[2020-04-17] MEDS: Aspirin EC 81 mg TAB.EC (enteric coated) PO SCH (20:04)
[2020-04-17] MEDS: Insulin GLARGINE 100 un/ml 10 ml VIAL SUBCUT SCH (21:22)
[2020-04-18] MEDS: Potassium Chlor 10 meq TAB PO SCH ×2 (10:08→21:17)
[2020-04-18 15:18] LABS: ABS Basophils 0.1 10^3/ul (0-0.2); ABS Eosinophils 0.2 10^3/ul (0-0.6); ABS Monocytes 0.7 10^3/ul (0-0.8); ABS Neutrophils 3.9 10^3/ul (1.5-7.7); Eosinophil % 4.3 %; Hematocrit 35 % (42-52); Hemoglobin 11.6 g/dL (14.0-18.0); Lymphocyte % 16.4 %; Mean Corpuscular HGB Conc 33 g/dL (31-36); Mean Corpuscular Hemoglobin 30 pg (27-31); Mean Corpuscular Volume 91 fL (80-94); Mean Platelet Volume 7.2 fL (7.4-10.4); Platelet Count 339 10^3/uL (150-450); Red Blood Count 3.87 10^6 /uL (4.18-5.48); Red Cell Distribution Width 15 % (10-15); White Blood Count 5.8 10^3/uL (3.5-10.8)
[2020-04-18 15:35] LABS: EGFR African American 72.8 (>60); EGFR Non-African American 60.2 (>60)
[2020-04-18 15:49] LABS: Activated Partial Thrombo Time 30.5 seconds (26.0-38.0); INR 1.07 (0.82-1.09)
[2020-04-18] MEDS: Heparin 5000 UNITS/ML 1 mL VIAL SUBCUT SCH ×2 (15:53→21:18)
[2020-04-18] MEDS: cefTRIAXone 2 GM ADDV.VIAL 2 GM in NS 0.9% 100 ml BAG 100 ML IV SCH (15:53)
[2020-04-18] MEDS: Polyethylene Glycol 3350 17 GM PACKET PO PRN (21:15)
[2020-04-18] MEDS: Aspirin EC 81 mg TAB.EC (enteric coated) PO SCH (21:15)
[2020-04-18] MEDS: Insulin GLARGINE 100 un/ml 10 ml VIAL SUBCUT SCH (21:26)
[2020-04-19] MEDS: Heparin 5000 UNITS/ML 1 mL VIAL SUBCUT SCH ×3 (06:38→21:34)
[2020-04-19] MEDS: Potassium Chlor 10 meq TAB PO SCH ×2 (08:49→21:33)
[2020-04-19] MEDS: Polyethylene Glycol 3350 17 GM PACKET PO PRN (11:17)
[2020-04-19] MEDS: cefTRIAXone 2 GM ADDV.VIAL 2 GM in NS 0.9% 100 ml BAG 100 ML IV SCH (16:00)
[2020-04-19] MEDS: Aspirin EC 81 mg TAB.EC (enteric coated) PO SCH (21:33)
[2020-04-19] MEDS: Insulin GLARGINE 100 un/ml 10 ml VIAL SUBCUT SCH (21:34)
[2020-04-20] MEDS ORDERED: Buffered Lidocaine 1% SYRIN 1 ml INTRADERM ONE (06:00)
[2020-04-20] MEDS ORDERED: Lactated Ringers 1000 ml BAG 1,000 ML IV SCH (06:00)
[2020-04-20] MEDS: Potassium Chlor 10 meq TAB PO SCH ×2 (09:11→21:19)
[2020-04-20] MEDS ORDERED: Bupivacaine 0.5% SDV PF 30ML VIAL ONE ×2 (12:14→12:41)
[2020-04-20] MEDS ORDERED: Propofol 10 MG/ML 20 ML BTL ONE ×4 (12:38→15:21)
[2020-04-20] MEDS ORDERED: Lidocaine 2% PF 5 ML VIAL ONE (12:38)
[2020-04-20] MEDS ORDERED: fentaNYL 100 mcg/2 ml 50 MCG/ML VIAL ONE (12:41)
[2020-04-20] MEDS ORDERED: Midazolam 2 mg/2 ml VIAL 1 mg/ml 2 ml VIAL (2 mg) ONE (12:41)
[2020-04-20] MEDS ORDERED: Dexamethasone IV 4 MG/ML VIAL 1 ml VIAL ONE (12:42)
[2020-04-20] MEDS ORDERED: Clindamycin 900 MG/D5W BAG 900 MG/50 ML BAG IVPB ONE (13:39)
[2020-04-20] MEDS ORDERED: Naloxone 0.4 mg VIAL 0.4 mg/ml 1 ml VIAL IV PRN (14:56)
[2020-04-20] MEDS ORDERED: DiMENhydriNATE IV 50 mg/ml 1 ml VIAL IV PUSH PRN (14:56)
[2020-04-20] MEDS ORDERED: fentaNYL 100 mcg/2 ml 50 MCG/ML VIAL IV PRN (14:56)
[2020-04-20] MEDS ORDERED: cefTRIAXone 2 GM ADDV.VIAL ONE (16:37)
[2020-04-20] MEDS: cefTRIAXone 2 GM ADDV.VIAL 2 GM in NS 0.9% 100 ml BAG 100 ML IV SCH (16:38)
[2020-04-20] MEDS ORDERED: Albuterol HFA INHALER 8 gm MDI INH PRN (18:10)
[2020-04-20] MEDS: Aspirin EC 81 mg TAB.EC (enteric coated) PO SCH (21:19)
[2020-04-20] MEDS: Insulin GLARGINE 100 un/ml 10 ml VIAL SUBCUT SCH (21:24)
[2020-04-21 06:25] LABS: ABS Basophils 0.1 10^3/ul (0-0.2); ABS Lymphocytes 0.8 10^3/ul (1.0-4.8); ABS Neutrophils 9.4 10^3/ul (1.5-7.7); Eosinophil % 0.2 %; Hematocrit 34 % (42-52); Hemoglobin 11.6 g/dL (14.0-18.0); Lymphocyte % 7.3 %; Mean Corpuscular HGB Conc 34 g/dL (31-36); Mean Corpuscular Hemoglobin 31 pg (27-31); Mean Corpuscular Volume 91 fL (80-94); Mean Platelet Volume 7.8 fL (7.4-10.4); Platelet Count 363 10^3/uL (150-450); Red Blood Count 3.77 10^6 /uL (4.18-5.48); Red Cell Distribution Width 15 % (10-15); White Blood Count 11.3 10^3/uL (3.5-10.8)
[2020-04-21] MEDS: Polyethylene Glycol 3350 17 GM PACKET PO PRN (08:56)
[2020-04-21] MEDS: Morphine 2 MG/ML SYRINGE IV PRN ×2 (08:56→16:28)
[2020-04-21] MEDS: Potassium Chlor 10 meq TAB PO SCH ×2 (08:57→21:28)
[2020-04-21 09:52] LABS: BUN/Creatinine Ratio 24.4 (8-20); EGFR African American 64.8 (>60); EGFR Non-African American 53.6 (>60); Potassium 4.9 mmol/L (3.5-5.0)
[2020-04-21] MEDS: oxyCODONE/Acetamin 5/325 mg TAB PO PRN ×2 (12:07→20:22)
[2020-04-21] MEDS: cefTRIAXone 2 GM ADDV.VIAL 2 GM in NS 0.9% 100 ml BAG 100 ML IV SCH (16:29)
[2020-04-21] MEDS ORDERED: Insulin GLARGINE 100 un/ml 10 ml VIAL SUBCUT SCH ×2 (21:00)
[2020-04-21] MEDS: Aspirin EC 81 mg TAB.EC (enteric coated) PO SCH (21:27)
[2020-04-21] MEDS: Heparin 5000 UNITS/ML 1 mL VIAL SUBCUT SCH (21:29)
[2020-04-22 06:53] LABS: ABS Basophils 0.1 10^3/ul (0-0.2); ABS Eosinophils 0.2 10^3/ul (0-0.6); Hematocrit 32 % (42-52); Hemoglobin 10.8 g/dL (14.0-18.0); Lymphocyte % 21.5 %; Mean Corpuscular HGB Conc 34 g/dL (31-36); Mean Corpuscular Hemoglobin 31 pg (27-31); Mean Corpuscular Volume 91 fL (80-94); Mean Platelet Volume 7.6 fL (7.4-10.4); Platelet Count 334 10^3/uL (150-450); Red Cell Distribution Width 15 % (10-15); White Blood Count 9.3 10^3/uL (3.5-10.8)
[2020-04-22 07:09] LABS: BUN/Creatinine Ratio 27.5 (8-20); Calcium 8.9 mg/dL (8.6-10.3); EGFR African American 63.2 (>60); EGFR Non-African American 52.2 (>60); Potassium 4.9 mmol/L (3.5-5.0)
[2020-04-22] MEDS: Potassium Chlor 10 meq TAB PO SCH ×2 (08:51→20:16)
[2020-04-22] MEDS: Heparin 5000 UNITS/ML 1 mL VIAL SUBCUT SCH ×3 (08:52→20:16)
[2020-04-22] MEDS: Polyethylene Glycol 3350 17 GM PACKET PO PRN (08:56)
[2020-04-22 14:41] LABS: Magnesium 2.1 mg/dL (1.9-2.7)
[2020-04-22] MEDS: oxyCODONE/Acetamin 5/325 mg TAB PO PRN ×2 (15:33→20:16)
[2020-04-22] MEDS: cefTRIAXone 2 GM ADDV.VIAL 2 GM in NS 0.9% 100 ml BAG 100 ML IV SCH (15:39)
[2020-04-22] MEDS: Aspirin EC 81 mg TAB.EC (enteric coated) PO SCH (20:15)
[2020-04-22] MEDS: Insulin GLARGINE 100 un/ml 10 ml VIAL SUBCUT SCH (20:57)
[2020-04-23] MEDS: Heparin 5000 UNITS/ML 1 mL VIAL SUBCUT SCH ×3 (05:49→20:16)
[2020-04-23] MEDS ORDERED: oxyCODONE/Acetamin 5/325 mg TAB PO PRN ×2 (05:54→12:29)
[2020-04-23] MEDS: Potassium Chlor 10 meq TAB PO SCH ×2 (08:43→20:15)
[2020-04-23] MEDS ORDERED: Magnesium Hydroxide LIQ 30 ML UDC PO PRN (12:28)
[2020-04-23] MEDS: Polyethylene Glycol 3350 17 GM PACKET PO PRN (12:57)
[2020-04-23] MEDS: cefTRIAXone 2 GM ADDV.VIAL 2 GM in NS 0.9% 100 ml BAG 100 ML IV SCH (16:07)
[2020-04-23] MEDS: Aspirin EC 81 mg TAB.EC (enteric coated) PO SCH (20:15)
[2020-04-23] MEDS: Insulin GLARGINE 100 un/ml 10 ml VIAL SUBCUT SCH (20:16)
[2020-04-23] MEDS: oxyCODONE/Acetamin 5/325 mg TAB PO PRN (20:16)
[2020-04-24] MEDS: Heparin 5000 UNITS/ML 1 mL VIAL SUBCUT SCH ×2 (05:57→13:19)
[2020-04-24 06:18] LABS: Hematocrit 32 % (42-52); Hemoglobin 10.6 g/dL (14.0-18.0); Mean Corpuscular HGB Conc 33 g/dL (31-36); Mean Corpuscular Hemoglobin 31 pg (27-31); Mean Corpuscular Volume 92 fL (80-94); Mean Platelet Volume 7.8 fL (7.4-10.4); Platelet Count 329 10^3/uL (150-450); Red Blood Count 3.48 10^6 /uL (4.18-5.48); Red Cell Distribution Width 15 % (10-15); White Blood Count 7.9 10^3/uL (3.5-10.8)
[2020-04-24 06:38] LABS: ABS Basophils 0.1 10^3/ul (0-0.2); ABS Eosinophils 0.2 10^3/ul (0-0.6); ABS Lymphocytes 1.5 10^3/ul (1.0-4.8); Eosinophil % 2.6 %; Lymphocyte % 19.4 %
[2020-04-24 06:40] LABS: Albumin 3.2 g/dL (3.2-5.2); BUN/Creatinine Ratio 25.2 (8-20); C Reactive Protein 70.15 mg/L (<8.01); Calcium 8.9 mg/dL (8.6-10.3); EGFR African American 67.1 (>60); EGFR Non-African American 55.4 (>60); Globulin 3.2 g/dL (2-4); Potassium 4.8 mmol/L (3.5-5.0); Total Bilirubin 0.4 mg/dL (0.2-1.0); Total Protein 6.4 g/dL (6.4-8.9)
[2020-04-24] MEDS: oxyCODONE/Acetamin 5/325 mg TAB PO PRN (07:38)
[2020-04-24] MEDS: Potassium Chlor 10 meq TAB PO SCH (08:19)
[2020-04-24 13:22] VITALS: BP 133/57
== END 2020-04-24 14:00 | disposition home or self-care (01) | DRG 638 ==
LOC: ED 13:25 → INTOOBSV 18:35 → MED 18:35
PROVIDERS: ADMIT Internal Medicine; ATTEND Internal Medicine

== ENCOUNTER 2021-01-21 19:05 | Inpatient (IN) ==
[~2021-01-21 19:05] MED LIST: Buffered Lidocaine 1% SYRIN 1 ml INTRADERM ONE; Bupivacaine 0.5% 50 ML MDV VIAL ONE; Clindamycin 900 MG/D5W BAG 900 MG/50 ML BAG IVPB ONE; DiMENhydriNATE IV 50 mg/ml 1 ml VIAL ONE; EPHEDrine (Pressors) 50 MG/ML VIAL ONE; Famotidine IV 10 MG/ML 2 ml VIAL (20 mg) IV ONE; Famotidine IV 10 MG/ML 2 ml VIAL (20 mg) ONE; Glycopyrrolate IV 0.2 MG/ML 1 ML VIAL ONE; HYDROmorphone 0.5 MG/0.5 ML SYRINGE ONE; HYDROmorphone 1 MG/1 ML SYRINGE IV PRN; Ketamine HCL 50 mg/ml 10 ml VIAL (500 MG) ONE; Lactated Ringers 1000 ml BAG 1,000 ML IV SCH; Lactulose 30 ml UDC PO PRN; Lidocaine 2% PF 5 ML VIAL ONE; Magnesium Hydroxide LIQ 30 ML UDC PO PRN; Midazolam 5 mg/5 ml VIAL 1 mg/ml 5 ml VIAL (5 mg) ONE; Naloxone 0.4 mg VIAL 0.4 mg/ml 1 ml VIAL IV PRN; Neostigmine Methylsulfate 1 MG/ML 10 ML VIAL (1 mg/ml) ONE; Ondansetron 4 mg VIAL 2 MG/ML 2 ml VIAL IV PRN; Ondansetron 4 mg VIAL 2 MG/ML 2 ml VIAL ONE; Ondansetron ODT 4 mg TAB 4 MG TAB PO PRN; Phenylephrine IV 10 MG/ML 1 ml VIAL ONE; Propofol 10 MG/ML 20 ML BTL ONE; diPHENhydraMINE 25 mg TAB PO PRN; diPHENhydraMINE IV 50 MG/ML 1 ml VIAL (BENADRYL) IV PRN; fentaNYL 100 mcg/2 ml 50 MCG/ML VIAL ONE; oxyCODONE/Acetamin 5/325 mg TAB PO PRN
[2021-01-21] MEDS ORDERED: Insulin GLARGINE 100 un/ml 10 ml VIAL SUBCUT PRN (19:18)
[2021-01-21] MEDS ORDERED: fentaNYL 100 mcg/2 ml 50 MCG/ML VIAL ONE (19:25)
[2021-01-21] MEDS: fentaNYL 100 mcg/2 ml 50 MCG/ML VIAL IV PRN ×2 (19:27→19:51)
[2021-01-21] MEDS ORDERED: Lactated Ringers 1000 ml BAG 1,000 ML IV SCH (20:00)
[2021-01-21] MEDS ORDERED: NS 0.9% 1000 ml BAG 400 ML IV ONE (20:45)
[2021-01-21] MEDS ORDERED: Dextrose 50% Syringe 50 ml 25 GM/50 ML SYRINGE IV PUSH PRN (22:27)
[2021-01-21] MEDS: Magnesium Hydroxide LIQ 30 ML UDC PO SCH (22:41)
[2021-01-21] MEDS: cefTRIAXone 2 GM ADDV.VIAL 2 GM in NS 0.9% 100 ml BAG 100 ML IV SCH (23:20)
[2021-01-22 05:44] LABS: Hematocrit 30 % (42-52); Hemoglobin 9.7 g/dL (14.0-18.0)
[2021-01-22 05:59] LABS: Calcium 8.3 mg/dL (8.6-10.3); Potassium 4.2 mmol/L (3.5-5.0); eGFR CKD-EPI 78.9 (>60)
[2021-01-22] MEDS: Magnesium Hydroxide LIQ 30 ML UDC PO SCH ×2 (08:42→22:18)
[2021-01-22] MEDS: Vitamin THERAPEUTIC TAB PO SCH (08:44)
[2021-01-22] MEDS ORDERED: Flu vaccine *QUAD* 2021-22* 0.5 ML SYRINGE IM ONE (09:00)
[2021-01-22] MEDS ORDERED: Insulin GLARGINE 100 un/ml 10 ml VIAL SUBCUT SCH (21:00)
[2021-01-22] MEDS: cefTRIAXone 2 GM ADDV.VIAL 2 GM in NS 0.9% 100 ml BAG 100 ML IV SCH (22:32)
[2021-01-23 05:58] LABS: Hematocrit 30 % (42-52); Hemoglobin 9.8 g/dL (14.0-18.0)
[2021-01-23] MEDS: Magnesium Hydroxide LIQ 30 ML UDC PO SCH ×2 (08:55→22:42)
[2021-01-23] MEDS: Vitamin THERAPEUTIC TAB PO SCH (08:57)
[2021-01-23] MEDS: Cefepime 2 GM in Dextrose 2 GM/50 ML BAG IV SCH (22:42)
[2021-01-23] MEDS: Insulin GLARGINE 100 un/ml 10 ml VIAL SUBCUT SCH (22:43)
[2021-01-23] MEDS: Senna TAB 8.6 mg TAB PO SCH (22:47)
[2021-01-24 06:09] LABS: Hematocrit 28 % (42-52); Hemoglobin 9.1 g/dL (14.0-18.0)
[2021-01-24] MEDS: Magnesium Hydroxide LIQ 30 ML UDC PO SCH ×2 (09:05→19:56)
[2021-01-24] MEDS: Cefepime 2 GM in Dextrose 2 GM/50 ML BAG IV SCH ×2 (09:07→19:59)
[2021-01-24] MEDS: Vitamin THERAPEUTIC TAB PO SCH (09:10)
[2021-01-24] MEDS: Senna TAB 8.6 mg TAB PO SCH (19:55)
[2021-01-24] MEDS: Insulin GLARGINE 100 un/ml 10 ml VIAL SUBCUT SCH (20:38)
[2021-01-25 06:14] LABS: ABS Basophils 0.1 10^3/ul (0-0.2); ABS Eosinophils 0.3 10^3/ul (0-0.6); ABS Lymphocytes 0.9 10^3/ul (1.0-4.8); ABS Monocytes 1.1 10^3/ul (0-0.8); ABS Neutrophils 7.4 10^3/ul (1.5-7.7); Eosinophil % 2.9 %; Hematocrit 28 % (42-52); Hemoglobin 9.2 g/dL (14.0-18.0); Lymphocyte % 9.3 %; Mean Corpuscular HGB Conc 33 g/dL (31-36); Mean Corpuscular Hemoglobin 26 pg (27-31); Mean Corpuscular Volume 80 fL (80-94); Mean Platelet Volume 7.5 fL (7.4-10.4); Platelet Count 461 10^3/uL (150-450); Red Blood Count 3.51 10^6 /uL (4.18-5.48); Red Cell Distribution Width 17 % (10-15); White Blood Count 9.7 10^3/uL (3.5-10.8)
[2021-01-25 06:32] LABS: Albumin 2.7 g/dL (3.2-5.2); Albumin/Globulin Ratio 0.7 (1-3); Calcium 8.5 mg/dL (8.6-10.3); Globulin 3.9 g/dL (2-4); Total Bilirubin 0.3 mg/dL (0.2-1.0); Total Protein 6.6 g/dL (6.4-8.9); eGFR CKD-EPI 73.8 (>60)
[2021-01-25] MEDS: Vitamin THERAPEUTIC TAB PO SCH (09:00)
[2021-01-25] MEDS: Magnesium Hydroxide LIQ 30 ML UDC PO SCH (09:01)
[2021-01-25] MEDS: Cefepime 2 GM in Dextrose 2 GM/50 ML BAG IV SCH (09:09)
[2021-01-25 11:33] VITALS: BP 131/75
[2021-01-25] MEDS ORDERED: diPHENhydraMINE IV 50 MG/ML 1 ml VIAL (BENADRYL) IV PRN (14:22)
[2021-01-25] MEDS ORDERED: Magnesium Hydroxide LIQ 30 ML UDC PO PRN (14:22)
[2021-01-25] MEDS ORDERED: Ondansetron 4 mg VIAL 2 MG/ML 2 ml VIAL IV PRN (14:22)
[2021-01-25] MEDS ORDERED: Lactulose 30 ml UDC PO PRN (14:22)
[2021-01-25] MEDS ORDERED: Ondansetron ODT 4 mg TAB 4 MG TAB PO PRN (14:22)
[2021-01-25] MEDS ORDERED: diPHENhydraMINE 25 mg TAB PO PRN (14:22)
[2021-01-25] MEDS ORDERED: Magnesium Hydroxide LIQ 30 ML UDC PO SCH (21:00)
[2021-01-26] MEDS ORDERED: Vitamin THERAPEUTIC TAB PO SCH (09:00)
== END 2021-01-25 14:58 | disposition swing bed (61) | DRG 476 ==
LOC: OR 21:18 → SSU 21:20
PROVIDERS: ADMIT Orthopaedic Surgery; ATTEND Orthopaedic Surgery
PROC: O.ORAMP (2021-01-21 13:30)

== ENCOUNTER 2021-01-25 14:00 | Inpatient (IN) ==
[2021-01-25] MEDS ORDERED: Ondansetron 4 mg VIAL 2 MG/ML 2 ml VIAL IV PRN (15:01)
[2021-01-25] MEDS ORDERED: Lactulose 30 ml UDC PO PRN (15:02)
[2021-01-25] MEDS ORDERED: diPHENhydraMINE 25 mg TAB PO PRN (15:02)
[2021-01-25] MEDS ORDERED: Ondansetron ODT 4 mg TAB 4 MG TAB PO PRN (15:03)
[2021-01-25] MEDS ORDERED: oxyCODONE/Acetamin 5/325 mg TAB PO PRN (15:03)
[2021-01-25] MEDS ORDERED: Dextrose 50% Syringe 50 ml 25 GM/50 ML SYRINGE IV PUSH PRN (15:05)
[2021-01-25] MEDS ORDERED: diPHENhydraMINE IV 50 MG/ML 1 ml VIAL (BENADRYL) SLOW PUSH PRN (15:17)
[2021-01-26] MEDS: Senna TAB 8.6 mg TAB PO SCH ×2 (00:01→21:27)
[2021-01-26] MEDS: Magnesium Hydroxide LIQ 30 ML UDC PO SCH ×3 (00:02→21:25)
[2021-01-26] MEDS: Vitamin THERAPEUTIC TAB PO SCH (08:49)
[2021-01-26] MEDS: Cefepime 2 GM in Dextrose 2 GM/50 ML BAG IV SCH ×3 (08:52→21:11)
[2021-01-26 11:48] LABS: Hematocrit 30 % (42-52); Hemoglobin 9.6 g/dL (14.0-18.0); Mean Platelet Volume 7.4 fL (7.4-10.4); Platelet Count 533 10^3/uL (150-450)
[2021-01-26 12:08] LABS: Calcium 8.9 mg/dL (8.6-10.3); Potassium 4.8 mmol/L (3.5-5.0); eGFR CKD-EPI 70.8 (>60)
[2021-01-26] MEDS: Insulin GLARGINE 100 un/ml 10 ml VIAL SUBCUT SCH ×2 (21:26)
[2021-01-26] MEDS: Magnesium Hydroxide LIQ 30 ML UDC PO PRN (21:32)
[2021-01-27 05:53] LABS: Hematocrit 30 % (42-52); Hemoglobin 9.9 g/dL (14.0-18.0); Mean Platelet Volume 7.5 fL (7.4-10.4); Platelet Count 500 10^3/uL (150-450)
[2021-01-27 06:11] LABS: Calcium 8.8 mg/dL (8.6-10.3); Potassium 4.5 mmol/L (3.5-5.0); eGFR CKD-EPI 63.5 (>60)
[2021-01-27] MEDS: Magnesium Hydroxide LIQ 30 ML UDC PO SCH ×2 (08:59→22:40)
[2021-01-27] MEDS: Vitamin THERAPEUTIC TAB PO SCH (08:59)
[2021-01-27] MEDS: Cefepime 2 GM in Dextrose 2 GM/50 ML BAG IV SCH ×2 (09:01→22:06)
[2021-01-27] MEDS: Insulin GLARGINE 100 un/ml 10 ml VIAL SUBCUT SCH (21:53)
[2021-01-27] MEDS: Magnesium Hydroxide LIQ 30 ML UDC PO PRN (21:53)
[2021-01-27] MEDS: Senna TAB 8.6 mg TAB PO SCH (21:55)
[2021-01-28 06:01] LABS: Hematocrit 31 % (42-52); Mean Platelet Volume 7.8 fL (7.4-10.4); Platelet Count 545 10^3/uL (150-450)
[2021-01-28 06:24] LABS: Calcium 8.9 mg/dL (8.6-10.3); Potassium 4.6 mmol/L (3.5-5.0); eGFR CKD-EPI 58.5 (>60)
[2021-01-28] MEDS: Vitamin THERAPEUTIC TAB PO SCH (08:38)
[2021-01-28] MEDS: Magnesium Hydroxide LIQ 30 ML UDC PO SCH (08:38)
[2021-01-28] MEDS: Cefepime 2 GM in Dextrose 2 GM/50 ML BAG IV SCH (08:38)
[2021-01-28 16:40] LABS: C Reactive Protein 101.67 mg/L (<8.01)
[2021-01-28 16:59] VITALS: BP 147/83
[2021-01-28] MEDS ORDERED: Cefepime 1 GM in Dextrose 1 GM/50 ML BAG IV SCH (21:00)
== END 2021-01-28 17:45 | disposition home or self-care (01) | DRG 638 ==
LOC: SSU 14:58
PROVIDERS: ADMIT Orthopaedic Surgery; ATTEND Orthopaedic Surgery

== ENCOUNTER 2021-04-03 07:28 | Inpatient (IN) ==
[~2021-04-03 07:28] MED LIST changes: -Bupivacaine 0.5% 50 ML MDV VIAL ONE; -Clindamycin 900 MG/D5W BAG 900 MG/50 ML BAG IVPB ONE; -DiMENhydriNATE IV 50 mg/ml 1 ml VIAL ONE; -EPHEDrine (Pressors) 50 MG/ML VIAL ONE; -Famotidine IV 10 MG/ML 2 ml VIAL (20 mg) IV ONE; -Famotidine IV 10 MG/ML 2 ml VIAL (20 mg) ONE; -Glycopyrrolate IV 0.2 MG/ML 1 ML VIAL ONE; -HYDROmorphone 0.5 MG/0.5 ML SYRINGE ONE; -HYDROmorphone 1 MG/1 ML SYRINGE IV PRN; -Ketamine HCL 50 mg/ml 10 ml VIAL (500 MG) ONE; -Lactulose 30 ml UDC PO PRN; -Lidocaine 2% PF 5 ML VIAL ONE; -Magnesium Hydroxide LIQ 30 ML UDC PO PRN; -Midazolam 5 mg/5 ml VIAL 1 mg/ml 5 ml VIAL (5 mg) ONE; -Naloxone 0.4 mg VIAL 0.4 mg/ml 1 ml VIAL IV PRN; -Neostigmine Methylsulfate 1 MG/ML 10 ML VIAL (1 mg/ml) ONE; -Ondansetron 4 mg VIAL 2 MG/ML 2 ml VIAL IV PRN; -Ondansetron 4 mg VIAL 2 MG/ML 2 ml VIAL ONE; -Ondansetron ODT 4 mg TAB 4 MG TAB PO PRN; -Phenylephrine IV 10 MG/ML 1 ml VIAL ONE; -Propofol 10 MG/ML 20 ML BTL ONE; -diPHENhydraMINE 25 mg TAB PO PRN; -diPHENhydraMINE IV 50 MG/ML 1 ml VIAL (BENADRYL) IV PRN; -fentaNYL 100 mcg/2 ml 50 MCG/ML VIAL ONE; -oxyCODONE/Acetamin 5/325 mg TAB PO PRN
[2021-04-03] MEDS ORDERED: Clindamycin 900 MG/D5W BAG 900 MG/50 ML BAG IVPB ONE (07:38)
[2021-04-03] MEDS ORDERED: Ondansetron 4 mg VIAL 2 MG/ML 2 ml VIAL IV PRN ×2 (09:16→12:44)
[2021-04-03] MEDS ORDERED: Naloxone 0.4 mg VIAL 0.4 mg/ml 1 ml VIAL IV PRN (09:16)
[2021-04-03] MEDS ORDERED: DiMENhydriNATE IV 50 mg/ml 1 ml VIAL IV PUSH PRN (09:16)
[2021-04-03] MEDS ORDERED: Midazolam 2 mg/2 ml VIAL 1 mg/ml 2 ml VIAL (2 mg) ONE (10:11)
[2021-04-03] MEDS ORDERED: fentaNYL 100 mcg/2 ml 50 MCG/ML VIAL ONE ×4 (10:11→13:24)
[2021-04-03] MEDS ORDERED: EPHEDrine (Pressors) 50 MG/ML VIAL ONE (10:31)
[2021-04-03] MEDS ORDERED: Propofol 10 MG/ML 20 ML BTL ONE (10:32)
[2021-04-03] MEDS ORDERED: diPHENhydraMINE IV 50 MG/ML 1 ml VIAL (BENADRYL) IV PRN (12:44)
[2021-04-03] MEDS ORDERED: Magnesium Hydroxide LIQ 30 ML UDC PO PRN (12:44)
[2021-04-03] MEDS ORDERED: diPHENhydraMINE 25 mg TAB PO PRN (12:44)
[2021-04-03] MEDS ORDERED: Lactulose 30 ml UDC PO PRN (12:44)
[2021-04-03] MEDS ORDERED: Ondansetron ODT 4 mg TAB 4 MG TAB PO PRN (12:44)
[2021-04-03] MEDS: fentaNYL 100 mcg/2 ml 50 MCG/ML VIAL IV PRN ×4 (12:51→13:56)
[2021-04-03] MEDS ORDERED: oxyCODONE/Acetamin 5/325 mg TAB ONE (12:52)
[2021-04-03] MEDS ORDERED: Insulin GLARGINE 100 un/ml 10 ml VIAL SUBCUT PRN (12:53)
[2021-04-03] MEDS: oxyCODONE/Acetamin 5/325 mg TAB PO PRN ×2 (12:53→13:01)
[2021-04-03] MEDS: Lactated Ringers 1000 ml BAG 1,000 ML IV SCH (14:38)
[2021-04-03 15:54] LABS: ABS Basophils 0.1 10^3/ul (0-0.2); ABS Eosinophils 0.2 10^3/ul (0-0.6); ABS Lymphocytes 0.9 10^3/ul (1.0-4.8); ABS Monocytes 0.6 10^3/ul (0-0.8); ABS Neutrophils 6.8 10^3/ul (1.5-7.7); Eosinophil % 1.9 %; Hematocrit 32 % (42-52); Hemoglobin 10.7 g/dL (14.0-18.0); Lymphocyte % 10.1 %; Mean Corpuscular HGB Conc 33 g/dL (31-36); Mean Corpuscular Hemoglobin 28 pg (27-31); Mean Corpuscular Volume 85 fL (80-94); Mean Platelet Volume 7.9 fL (7.4-10.4); Platelet Count 243 10^3/uL (150-450); Red Blood Count 3.78 10^6 /uL (4.18-5.48); Red Cell Distribution Width 20 % (10-15); White Blood Count 8.5 10^3/uL (3.5-10.8)
[2021-04-03 16:11] LABS: Albumin 3.2 g/dL (3.2-5.2); Albumin/Globulin Ratio 1.2 (1-3); Calcium 8.8 mg/dL (8.6-10.3); Globulin 2.6 g/dL (2-4); Potassium 4.2 mmol/L (3.5-5.0); Total Bilirubin 0.6 mg/dL (0.2-1.0); Total Protein 5.8 g/dL (6.4-8.9); eGFR CKD-EPI 92.3 (>60)
[2021-04-03] MEDS ORDERED: Dextrose 50% Syringe 50 ml 25 GM/50 ML SYRINGE IV PUSH PRN ×2 (16:56)
[2021-04-03] MEDS ORDERED: Cefepime ADVAN 1 GM in NS 0.9% 50 ML 50 ML IVPB SCH (17:00)
[2021-04-03] MEDS: Cefepime 1 GM in Dextrose 1 GM/50 ML BAG IV SCH (18:08)
[2021-04-03] MEDS: Clindamycin 600 MG/D5W BAG 600 MG/50 ML BAG IV SCH (19:10)
[2021-04-03] MEDS: Aspirin EC 81 mg TAB.EC (enteric coated) PO SCH (21:57)
[2021-04-03] MEDS: Magnesium Hydroxide LIQ 30 ML UDC PO SCH (21:57)
[2021-04-04] MEDS: Clindamycin 600 MG/D5W BAG 600 MG/50 ML BAG IV SCH ×2 (02:16→10:02)
[2021-04-04] MEDS: Lactated Ringers 1000 ml BAG 1,000 ML IV SCH (02:21)
[2021-04-04 05:12] LABS: ABS Basophils 0.1 10^3/ul (0-0.2); ABS Eosinophils 0.1 10^3/ul (0-0.6); ABS Lymphocytes 0.6 10^3/ul (1.0-4.8); ABS Monocytes 1.3 10^3/ul (0-0.8); ABS Neutrophils 7.8 10^3/ul (1.5-7.7); Eosinophil % 1.3 %; Hematocrit 34 % (42-52); Hemoglobin 11.1 g/dL (14.0-18.0); Lymphocyte % 5.8 %; Mean Corpuscular HGB Conc 32 g/dL (31-36); Mean Corpuscular Hemoglobin 27 pg (27-31); Mean Corpuscular Volume 85 fL (80-94); Mean Platelet Volume 8.1 fL (7.4-10.4); Platelet Count 210 10^3/uL (150-450); Red Blood Count 4.06 10^6 /uL (4.18-5.48); Red Cell Distribution Width 20 % (10-15); White Blood Count 9.9 10^3/uL (3.5-10.8)
[2021-04-04 05:28] LABS: C Reactive Protein 85.44 mg/L (<8.01); Calcium 8.9 mg/dL (8.6-10.3); Potassium 4.4 mmol/L (3.5-5.0); eGFR CKD-EPI 84.6 (>60)
[2021-04-04] MEDS: Cefepime 1 GM in Dextrose 1 GM/50 ML BAG IV SCH ×2 (05:39→17:14)
[2021-04-04 07:36] LABS: Erythrocyte Sed Rate 48 mm/Hr (0-19)
[2021-04-04] MEDS: Magnesium Hydroxide LIQ 30 ML UDC PO SCH ×2 (08:50→21:51)
[2021-04-04] MEDS: Vitamin THERAPEUTIC TAB PO SCH (08:50)
[2021-04-04] MEDS: Enoxaparin 40 MG/0.4 ML SYR SUBCUT SCH (12:09)
[2021-04-04] MEDS ORDERED: Albuterol HFA INHALER 8 gm MDI INH PRN (17:47)
[2021-04-04] MEDS ORDERED: Vancomycin per Pharmacy 1 EA NOTE FOLLOW UP SCH (18:00)
[2021-04-04] MEDS ORDERED: Dextrose 50% Syringe 50 ml 25 GM/50 ML SYRINGE IV PUSH PRN (18:33)
[2021-04-04] MEDS: Vancomycin 1,000 MG in NS 0.9% 250 ml 250 ML IVPB SCH (18:34)
[2021-04-04] MEDS ORDERED: Insulin GLARGINE 100 un/ml 10 ml VIAL SUBCUT SCH (21:00)
[2021-04-04] MEDS: Aspirin EC 81 mg TAB.EC (enteric coated) PO SCH (21:51)
[2021-04-04] MEDS: Insulin GLARGINE 100 un/ml 10 ml VIAL SUBCUT SCH (22:47)
[2021-04-05] MEDS: Cefepime 1 GM in Dextrose 1 GM/50 ML BAG IV SCH ×2 (05:10→17:42)
[2021-04-05] MEDS: Vancomycin 1,000 MG in NS 0.9% 250 ml 250 ML IVPB SCH ×2 (06:23→18:54)
[2021-04-05 06:49] LABS: ABS Basophils 0.1 10^3/ul (0-0.2); ABS Eosinophils 0.2 10^3/ul (0-0.6); ABS Lymphocytes 0.7 10^3/ul (1.0-4.8); ABS Monocytes 1.4 10^3/ul (0-0.8); ABS Neutrophils 6.2 10^3/ul (1.5-7.7); Eosinophil % 1.8 %; Hematocrit 30 % (42-52); Hemoglobin 10.2 g/dL (14.0-18.0); Mean Corpuscular HGB Conc 33 g/dL (31-36); Mean Corpuscular Hemoglobin 28 pg (27-31); Mean Corpuscular Volume 85 fL (80-94); Mean Platelet Volume 8.5 fL (7.4-10.4); Platelet Count 169 10^3/uL (150-450); Red Cell Distribution Width 20 % (10-15); White Blood Count 8.4 10^3/uL (3.5-10.8)
[2021-04-05] MEDS: Magnesium Hydroxide LIQ 30 ML UDC PO SCH ×2 (08:29→23:47)
[2021-04-05] MEDS: Vitamin THERAPEUTIC TAB PO SCH (08:29)
[2021-04-05] MEDS: Enoxaparin 40 MG/0.4 ML SYR SUBCUT SCH (12:42)
[2021-04-05] MEDS: Insulin GLARGINE 100 un/ml 10 ml VIAL SUBCUT SCH (23:45)
[2021-04-05] MEDS: Aspirin EC 81 mg TAB.EC (enteric coated) PO SCH (23:51)
[2021-04-06 05:09] LABS: ABS Eosinophils 0.1 10^3/ul (0-0.6); ABS Lymphocytes 0.7 10^3/ul (1.0-4.8); ABS Monocytes 1.2 10^3/ul (0-0.8); ABS Neutrophils 5.5 10^3/ul (1.5-7.7); Eosinophil % 1.7 %; Hematocrit 32 % (42-52); Hemoglobin 10.6 g/dL (14.0-18.0); Lymphocyte % 9.4 %; Mean Corpuscular HGB Conc 34 g/dL (31-36); Mean Corpuscular Hemoglobin 28 pg (27-31); Mean Corpuscular Volume 85 fL (80-94); Mean Platelet Volume 8.3 fL (7.4-10.4); Platelet Count 193 10^3/uL (150-450); Red Blood Count 3.73 10^6 /uL (4.18-5.48); Red Cell Distribution Width 20 % (10-15); White Blood Count 7.5 10^3/uL (3.5-10.8)
[2021-04-06 05:29] LABS: eGFR CKD-EPI 98.7 (>60)
[2021-04-06] MEDS: Cefepime 1 GM in Dextrose 1 GM/50 ML BAG IV SCH ×2 (05:31→17:53)
[2021-04-06 05:33] LABS: Vancomycin Trough 12.1 mcg/mL
[2021-04-06] MEDS ORDERED: Vancomycin Trough Check NOTE FOLLOW UP ONE (06:00)
[2021-04-06] MEDS: Vancomycin 1,000 MG in NS 0.9% 250 ml 250 ML IVPB SCH (06:42)
[2021-04-06] MEDS: Vitamin THERAPEUTIC TAB PO SCH (09:41)
[2021-04-06] MEDS: Magnesium Hydroxide LIQ 30 ML UDC PO SCH ×2 (09:42→20:23)
[2021-04-06] MEDS: Enoxaparin 40 MG/0.4 ML SYR SUBCUT SCH (12:23)
[2021-04-06] MEDS: Vancomycin 1,250 MG in NS 0.9% 250 ml 250 ML IVPB SCH (18:25)
[2021-04-06] MEDS: Aspirin EC 81 mg TAB.EC (enteric coated) PO SCH (20:23)
[2021-04-06] MEDS: Insulin GLARGINE 100 un/ml 10 ml VIAL SUBCUT SCH (20:43)
[2021-04-07] MEDS: Cefepime 1 GM in Dextrose 1 GM/50 ML BAG IV SCH ×2 (05:27→18:15)
[2021-04-07] MEDS: Vancomycin 1,250 MG in NS 0.9% 250 ml 250 ML IVPB SCH ×2 (06:20→18:53)
[2021-04-07] MEDS: Magnesium Hydroxide LIQ 30 ML UDC PO SCH ×2 (09:00→21:00)
[2021-04-07] MEDS: Vitamin THERAPEUTIC TAB PO SCH (09:01)
[2021-04-07 09:11] LABS: ABS Eosinophils 0.2 10^3/ul (0-0.6); ABS Lymphocytes 0.8 10^3/ul (1.0-4.8); ABS Monocytes 0.8 10^3/ul (0-0.8); Hematocrit 33 % (42-52); Hemoglobin 10.7 g/dL (14.0-18.0); Mean Corpuscular HGB Conc 33 g/dL (31-36); Mean Corpuscular Hemoglobin 27 pg (27-31); Mean Corpuscular Volume 84 fL (80-94); Nucleated Red Blood Cells % 0.1; Platelet Count 239 10^3/uL (150-450); Red Cell Distribution Width 20 % (10-15); White Blood Count 7.7 10^3/uL (3.5-10.8)
[2021-04-07] MEDS: Enoxaparin 40 MG/0.4 ML SYR SUBCUT SCH (12:33)
[2021-04-07] MEDS ORDERED: Buffered Lidocaine 1% SYRIN 1 ml INTRADERM ONE (13:22)
[2021-04-07] MEDS ORDERED: Insulin GLARGINE 100 un/ml 10 ml VIAL SUBCUT SCH (21:00)
[2021-04-07] MEDS: Aspirin EC 81 mg TAB.EC (enteric coated) PO SCH (21:01)
[2021-04-08] MEDS ORDERED: Vancomycin Trough Check NOTE FOLLOW UP ONE (05:30)
[2021-04-08] MEDS: Cefepime 1 GM in Dextrose 1 GM/50 ML BAG IV SCH (05:37)
[2021-04-08 06:09] LABS: Hematocrit 32 % (42-52); Hemoglobin 10.2 g/dL (14.0-18.0); Mean Platelet Volume 7.8 fL (7.4-10.4); Platelet Count 225 10^3/uL (150-450)
[2021-04-08] MEDS: Vancomycin 1,250 MG in NS 0.9% 250 ml 250 ML IVPB SCH (07:29)
[2021-04-08] MEDS: Vitamin THERAPEUTIC TAB PO SCH (09:02)
[2021-04-08] MEDS: Magnesium Hydroxide LIQ 30 ML UDC PO SCH ×2 (09:02→21:29)
[2021-04-08] MEDS: Enoxaparin 40 MG/0.4 ML SYR SUBCUT SCH (12:59)
[2021-04-08] MEDS ORDERED: cefTRIAXone 2 GM ADDV.VIAL 2 GM in NS 0.9% 100 ml BAG 100 ML IV SCH (17:00)
[2021-04-08] MEDS ORDERED: NS 0.9% 100 ml BAG 100 ML ONE (18:00)
[2021-04-08] MEDS ORDERED: Insulin GLARGINE 100 un/ml 10 ml VIAL SUBCUT SCH (21:00)
[2021-04-08] MEDS: Aspirin EC 81 mg TAB.EC (enteric coated) PO SCH (21:26)
[2021-04-08] MEDS: Vancomycin 1000 MG in NS 0.9% 250 ML IVPB SCH (21:39)
[2021-04-09 07:29] VITALS: BP 164/66
[2021-04-09] MEDS: Magnesium Hydroxide LIQ 30 ML UDC PO SCH (09:34)
[2021-04-09] MEDS: Vancomycin 1000 MG in NS 0.9% 250 ML IVPB SCH (09:38)
[2021-04-09] MEDS: Vitamin THERAPEUTIC TAB PO SCH (09:39)
[2021-04-09] MEDS ORDERED: cefTRIAXone 2 GM ADDV.VIAL 2 GM in NS 0.9% 100 ml BAG 100 ML IV SCH (12:30)
[2021-04-09] MEDS: Enoxaparin 40 MG/0.4 ML SYR SUBCUT SCH (12:33)
[2021-04-15] MEDS ORDERED: Vancomycin Trough Check NOTE FOLLOW UP ONE (08:30)
== END 2021-04-09 15:10 | disposition home or self-care (01) | DRG 475 ==
LOC: SUATTDRO 07:28 → AA 07:28 → EDSTATUS 09:15 → SSU 14:35
PROVIDERS: ADMIT Orthopaedic Surgery; ATTEND Orthopaedic Surgery
PROC: O.ORAMP (2021-04-03 09:30)

== ENCOUNTER 2022-08-18 05:26 | Inpatient (IN) ==
[2022-08-18] MEDS ORDERED: ceFAZolin 2 GM in NS PREMIX 2 GM/100 ML BAG IVPB ONE (06:21)
[2022-08-18 06:32] LABS: Rapid COVID-19 Molecular Undetected (Undetected)
[2022-08-18] MEDS ORDERED: Midazolam 2 mg/2 ml VIAL 1 mg/ml 2 ml VIAL (2 mg) ONE (07:03)
[2022-08-18] MEDS ORDERED: fentaNYL 250 mcg/5 ml 50 MCG/ML 5 ml VIAL (250 MCG) ONE (07:03)
[2022-08-18] MEDS ORDERED: Lidocaine 2% PF 5 ML VIAL ONE (07:03)
[2022-08-18] MEDS ORDERED: Propofol 10 MG/ML 20 ML BTL ONE (07:03)
[2022-08-18] MEDS ORDERED: Ondansetron 4 mg VIAL 2 MG/ML 2 ml VIAL ONE (07:03)
[2022-08-18] MEDS ORDERED: Dexamethasone IV 4 MG/ML VIAL 1 ml VIAL ONE ×2 (07:03→07:59)
[2022-08-18] MEDS ORDERED: Bupivacaine 0.5% 50 ML MDV VIAL ONE (07:19)
[2022-08-18] MEDS ORDERED: Phenylephrine 40 mcg/mL 10mL (400mcg) SYRINGE ONE (07:55)
[2022-08-18] MEDS ORDERED: Phenylephrine IV 10 MG/ML 1 ml VIAL ONE (08:45)
[2022-08-18] MEDS ORDERED: Acetaminophen IV 1 GM/100ML 1,000 MG/100 ML BAG IV ONE (09:18)
[2022-08-18] MEDS ORDERED: Naloxone 0.4 mg VIAL 0.4 mg/ml 1 ml VIAL IV PRN (09:19)
[2022-08-18] MEDS ORDERED: Ondansetron 4 mg VIAL 2 MG/ML 2 ml VIAL IV PRN ×2 (09:19→10:19)
[2022-08-18] MEDS ORDERED: HYDROmorphone 0.5 MG/0.5 ML SYRINGE ONE (10:08)
[2022-08-18] MEDS ORDERED: Lactulose 30 ml UDC PO PRN (10:19)
[2022-08-18] MEDS ORDERED: Magnesium Hydroxide LIQ 30 ML UDC PO PRN (10:19)
[2022-08-18] MEDS ORDERED: Ondansetron ODT 4 mg TAB 4 MG TAB PO PRN (10:19)
[2022-08-18] MEDS ORDERED: HYDROmorphone 1 MG/1 ML SYRINGE ONE (10:21)
[2022-08-18] MEDS: HYDROmorphone 1 MG/1 ML SYRINGE IV PRN ×2 (10:24→10:34)
[2022-08-18] MEDS ORDERED: fentaNYL 100 mcg/2 ml 50 MCG/ML VIAL ONE ×2 (11:11→11:47)
[2022-08-18] MEDS: fentaNYL 100 mcg/2 ml 50 MCG/ML VIAL IV PRN ×3 (11:12→11:47)
[2022-08-18] MEDS: Morphine 2 MG/ML SYRINGE IV PRN ×2 (15:19→22:20)
[2022-08-18] MEDS: ceFAZolin 1 GM ADVAN 1 GM in NS 0.9% 50 ML 50 ML IVPB SCH (15:21)
[2022-08-18] MEDS ORDERED: Dextrose 50% Syringe 50 ml 25 GM/50 ML SYRINGE IV PUSH PRN (16:36)
[2022-08-18] MEDS ORDERED: HYDROcodone/ACETAMIN 5/325 mg TAB PO PRN (22:14)
[2022-08-18] MEDS: Magnesium Hydroxide LIQ 30 ML UDC PO SCH (22:20)
[2022-08-18] MEDS: Lactated Ringers 1000 ml BAG 1,000 ML IV SCH (22:24)
[2022-08-19 06:03] LABS: Hematocrit 23.2 % (38-53); Hemoglobin 7.6 g/dL (13.2-16.3); Mean Platelet Volume 7.5 fL (7.5-11.2); Platelet Count 340 10^3/uL (150-450)
[2022-08-19 06:17] LABS: Calcium 8.2 mg/dL (8.6-10.3); Creatinine, Serum 1.18 mg/dL (0.67-1.17); Potassium 4.4 mmol/L (3.5-5.0); eGFR CKD-EPI 68.9 (>60)
[2022-08-19] MEDS: ceFAZolin 1 GM ADVAN 1 GM in NS 0.9% 50 ML 50 ML IVPB SCH ×2 (08:05)
[2022-08-19] MEDS: Vitamin THERAPEUTIC TAB PO SCH (08:05)
[2022-08-19] MEDS: Lactated Ringers 1000 ml BAG 1,000 ML IV SCH (08:07)
[2022-08-19] MEDS: HYDROcodone/ACETAMIN 5/325 mg TAB PO PRN ×3 (08:15→19:57)
[2022-08-19] MEDS: Magnesium Hydroxide LIQ 30 ML UDC PO SCH ×2 (08:33→22:04)
[2022-08-19] MEDS: Morphine 2 MG/ML SYRINGE IV PRN ×2 (09:32→22:00)
[2022-08-19] MEDS ORDERED: Lidocaine 1% VIAL 10 MG/ML VIAL 30 ML ONE (13:10)
[2022-08-19] MEDS ORDERED: Heparin 2 UNITS/ML IVPREMIX 3,000 UNIT/1,500 ML BAG IV ONE (13:10)
[2022-08-19] MEDS ORDERED: Iodixanol 320 (CONTRAST) 100 ML SDV ONE (13:10)
[2022-08-19] MEDS ORDERED: Heparin 1,000 UNIT/ML 10 ml (10,000 UNITS) CATHLAB/DIALYSIS ONE (13:59)
[2022-08-19] MEDS ORDERED: Midazolam 5 mg/5 ml VIAL 1 mg/ml 5 ml VIAL (5 mg) ONE (13:59)
[2022-08-19] MEDS ORDERED: fentaNYL 100 mcg/2 ml 50 MCG/ML VIAL ONE ×4 (13:59→16:46)
[2022-08-19] MEDS ORDERED: fentaNYL 100 mcg/2 ml 50 MCG/ML VIAL IV SLOW PU ONE (16:46)
[2022-08-19] MEDS: Aspirin EC 81 mg TAB.EC (enteric coated) PO SCH (21:59)
[2022-08-20] MEDS: Morphine 2 MG/ML SYRINGE IV PRN ×4 (00:11→21:55)
[2022-08-20] MEDS: HYDROcodone/ACETAMIN 5/325 mg TAB PO PRN ×3 (02:25→15:04)
[2022-08-20 07:06] LABS: Hematocrit 19.5 % (38-53); Hemoglobin 6.4 g/dL (13.2-16.3); Mean Platelet Volume 7.8 fL (7.5-11.2); Platelet Count 341 10^3/uL (150-450)
[2022-08-20] MEDS: Vitamin THERAPEUTIC TAB PO SCH (09:28)
[2022-08-20] MEDS: Magnesium Hydroxide LIQ 30 ML UDC PO SCH ×2 (09:28→21:30)
[2022-08-20] MEDS: Sulfamethox/Trimethoprim DS TAB 800/160 mg PO SCH (21:30)
[2022-08-20] MEDS: Aspirin EC 81 mg TAB.EC (enteric coated) PO SCH (21:30)
[2022-08-21] MEDS: Morphine 2 MG/ML SYRINGE IV PRN ×4 (00:08→20:29)
[2022-08-21 06:01] LABS: Hematocrit 19.8 % (38-53); Hemoglobin 6.7 g/dL (13.2-16.3); Mean Platelet Volume 7.6 fL (7.5-11.2); Platelet Count 296 10^3/uL (150-450)
[2022-08-21] MEDS: Magnesium Hydroxide LIQ 30 ML UDC PO SCH ×2 (08:33→20:33)
[2022-08-21] MEDS: Sulfamethox/Trimethoprim DS TAB 800/160 mg PO SCH ×2 (08:34→20:33)
[2022-08-21] MEDS: Vitamin THERAPEUTIC TAB PO SCH (08:34)
[2022-08-21] MEDS: HYDROcodone/ACETAMIN 5/325 mg TAB PO PRN ×2 (10:08→22:56)
[2022-08-21] MEDS: Aspirin EC 81 mg TAB.EC (enteric coated) PO SCH (20:33)
[2022-08-22 05:58] LABS: Hematocrit 28.1 % (38-53); Hemoglobin 9.7 g/dL (13.2-16.3); Mean Platelet Volume 7.6 fL (7.5-11.2); Platelet Count 316 10^3/uL (150-450)
[2022-08-22] MEDS: Morphine 2 MG/ML SYRINGE IV PRN ×2 (07:26→11:55)
[2022-08-22] MEDS: Magnesium Hydroxide LIQ 30 ML UDC PO SCH (07:30)
[2022-08-22] MEDS: Vitamin THERAPEUTIC TAB PO SCH (07:30)
[2022-08-22] MEDS: Sulfamethox/Trimethoprim DS TAB 800/160 mg PO SCH (07:30)
[2022-08-22 14:51] VITALS: BP 109/64
== END 2022-08-22 17:50 | disposition home or self-care (01) | DRG 475 ==
LOC: AA 05:26 → EDSTATUS 10:15 → SSU 10:19
PROVIDERS: ADMIT Orthopaedic Surgery; ATTEND Orthopaedic Surgery
PROC: O.ORAMP (2022-08-18 07:30)